=== PATIENT | female | born 1935 | race Caucasian/White ===

== ENCOUNTER 2019-03-09 17:16 | Inpatient (IN) ==
[~2019-03-09 17:16] MED LIST: HydrALAZINE HCL 20 MG/ML VIAL IV ONE
[2019-03-09] MEDS ORDERED: SODIUM CHLORIDE 0.9% 1000ML 1,000 ML IV SCH (17:45)
--- NOTE | 2019-03-09 18:00 | XRay Report ---
XR chest 1V portable CLINICAL HISTORY: 84 years-old Female presenting with seizure, fall last night. TECHNIQUE: Portable upright AP view of the chest was obtained. COMPARISON: 01/31/2019. FINDINGS: Atherosclerosis of the aortic arch. Cardiac silhouette enlarged. No focal opacity. No large effusion or pneumothorax. Degenerative changes of the thoracic spine. Upper abdomen normal. IMPRESSION: 1. Cardiomegaly. No other convincing evidence of acute cardiopulmonary disease. Electronically signed by: Danyel Angel M.D. 03/09/2019 5:58 PM
[2019-03-09 18:19] LABS: Basophils # (auto) 0.02 K/uL (0-0.2); Basophils % (auto) 0.3 %; Eosinophils # (auto) 0.16 K/uL (0-0.5); Eosinophils % (auto) 2.2 %; Hematocrit (blood only) 34.4 % (37-47); Hemoglobin 11.2 g/dL (12.0-16.0); Immature Granulocytes # (auto) 0.01 K/uL (0.00-0.02); Immature Granulocytes % (auto) 0.1 %; Lymphocytes # (auto) 1.49 K/uL (1.2-3.4); Lymphocytes % (auto) 20.8 %; Mean Corpuscular Hemoglobin 29.2 pg (25-34); Mean Corpuscular Hgb Conc 32.6 g/dL (32-36); Mean Corpuscular Volume 89.8 fL (80-100); Mean Platelet Volume 9.8 fL (7.4-10.4); Monocytes # (auto) 0.58 K/uL (0.11-0.59); Monocytes % (auto) 8.1 %; Neutrophils # (auto) 4.92 K/uL (1.4-6.5); Neutrophils % (auto) 68.5 %; Platelet Count 192 K/uL (130-400); RDW Coefficient of Variation 15.2 % (11.5-14.5); RDW Standard Deviation 49.9 fL (36.4-46.3); Red Blood Count 3.83 M/uL (4.2-5.4); White Blood Count 7.18 K/uL (4.8-10.8)
[2019-03-09 18:32] LABS: Appearance Urine Cloudy (Clear); Bacteria Urine Automated 4+ (Negative); Bilirubin Urine Negative (Negative); Blood Urine 3+ (Negative); Color Urine Yellow; Epithelial Cell Urine Auto 0-5 /lpf (0-5); Glucose Urine UA Negative (Negative); Ketones Urine Negative (Negative); Leukocyte Esterase Urine 2+ (Negative); Nitrite Urine Positive (Negative); Protein Urine Negative (Negative); RBC Urine Automated >30 /hpf (0-4); Specific Gravity Urine 1.013 (1.000-1.030); Urobilinogen Urine Negative (Negative); WBC Urine Automated >30 /hpf (0-5); pH Urine 5.5 (4.5-7.5)
[2019-03-09 18:34] LABS: Alanine Aminotransferase 11 U/L (12-78); Albumin Level 3.5 gm/dl (3.4-5.0); BUN Creatinine Ratio 25.8 (10-20); Blood Urea Nitrogen 30 mg/dl (7-18); Calcium 8.9 mg/dl (8.5-10.1); Carbon Dioxide 30 mmol/L (21-32); Chloride 104 mmol/L (98-107); Creatinine Clr Calc Pharmacy 36.8 ml/min; Est GFR (African American) 51.3; Est GFR (Non-African American) 44.3; Glucose 89 mg/dl (70-99); Potassium 4.2 mmol/L (3.5-5.1); Sodium 139 mmol/L (136-145)
[2019-03-09 18:41] LABS: Cast Urine Automated 0 /lpf (0-5)
[2019-03-09 18:45] LABS: Alkaline Phosphatase 53 U/L (45-117); Aspartate Aminotransferase 12 U/L (15-37); Bilirubin,Total 0.4 mg/dl (0.2-1); Globulin 3.5 gm/dl (2.5-4.0); Thyroid Stimulating Hormone 0.815 uIu/ml (0.300-4.500); Troponin I < 0.015 ng/ml (0-0.045)
--- NOTE | 2019-03-09 19:13 | CT Scan Report ---
CT SCAN OF THE BRAIN WITHOUT IV CONTRAST CLINICAL HISTORY: Recent fall. Seizure. COMPARISON STUDY: CT of the brain performed earlier the same day 03/09/2019. TECHNIQUE: Unenhanced axial CT scan of the brain is performed from the vertex to the skull base. A do se lowering technique was utilized adhering to the principles of ALARA. CT DOSE: 537.48 mGy.cm FINDINGS: Brain parenchyma: There are age-related involutional changes noting moderate subcortical and periven tricular microangiopathic change. There is no hemorrhage, mass effect, or evidence of acute territori al ischemia by CT criteria. Quintana-white matter differentiation is preserved. No extra-axial fluid kay ection is seen. Ventricles, sulci, cisterns: Prominent secondary to involutional change. Intracranial vasculature: There is atherosclerotic calcification of the cavernous carotid and vertebr al arteries. Calvarium: Unremarkable. Sinuses and mastoids: Mild mucosal thickening is noted in the ethmoid sinuses. The remaining visualiz ed paranasal sinuses are clear. The mastoid air cells are well pneumatized. Orbits: The bony orbits are grossly intact. There are bilateral ocular lens implants. IMPRESSION: No acute intracranial abnormality and no significant change from today's earlier examinat ion. Electronically signed by: Zaki Thompson M.D. 03/09/2019 7:10 PM
[2019-03-09] MEDS ORDERED: cefTRIAXone SODIUM 1,000 MG/50 ML BAG IV STA (20:18)
[2019-03-09] MEDS ORDERED: CEFEPIME 2,000 MG/20 ML VIAL IV STA (22:06)
[2019-03-09] MEDS ORDERED: HydrALAZINE HCL 20 MG/ML VIAL ONE (22:40)
--- NOTE | 2019-03-09 23:29 | Emergency Department Note ---
Entered by Don Edwards acting as a scribe for Hung Delcid MD ED Provider Note CHIEF COMPLAINT: Seizure like activity HISTORY OF PRESENT ILLNESS: The patient is an 84 year old female who presents to the Emergency Room with complaints of an episode of seizure like activity that occurred about 1.5 hours ago while at her assisted living facility. The incident occurred while the patient was doing physical therapy to strengthen her legs to walk. Per the daughter, the patient had a similar episode as a resident in [facility] that was not a seizure but was attributed to stressors in life. The daughter states that the patient was here last night after a fall where she hit her face. While here she had everything imaged and there were no fractures. The patient did complain of right leg pain that still persist today. For the pain the patient has been taking Tylenol with her last dose being at 15:00 today. The patient's daughter notes she has had a headache and then her blood pressure was checked it was elevated. The daughter also mentioned that she has a history of UTIs and staff at the longterm noticed her urine was cloudy and very dark. Pt denies LOC, headache, fevers, chills, diaphoresis, visual changes, neck pain, chest pain, breathing difficulties, nausea, vomiting, abdominal pain, back pain, melena, hematochezia, numbness, weakness, lymphadenopathy, rash, or other compl aints. REVIEW OF SYSTEMS: See HPI for pertinent positives and negatives. A total of ten systems were reviewed and were otherwise negative. PMHx/PSHx: Memory deficit, Head injury SOCIAL HISTORY: Patient lives at an assisted living facility. PHYSICAL EXAM: GENERAL: Awake, alert, well-appearing, in no distress HENT: Normocephalic. Abrasion and skin tear to the left cheek. Oropharynx unr emarkable. EYES: Normal conjunctiva. Sclera non-icteric. NECK: Inspection normal. Non-tender. Supple. No nuchal rigidity. FROM. No masses. RESPIRATORY: Clear to auscultation. No wheezes. No rales. Normal respiratory effort. CARDIAC: Bradycardic rate. Normal rhythm. No murmurs. No rubs. Extremities warm and well perfused. Pulses equal. No JVD. GI: Soft, non-distended. No tenderness to palpation. No rebound or guarding. No masses. RECTAL: Deferred. MUSCULOSKELETAL: Mild right knee tenderness with no erythema or bruising. Chest examination reveals no tenderness. The back is symmetrical on inspection without obvious abnormality. There is no CVA tenderness to palpation. No joint edema. LOWER EXTREMITIES: Calves are equal size bilaterally and non-tender. Trace lower extremity edema. No discoloration. NEURO: Demented sensorium. No sensory or motor deficits noted. SKIN: No rash or jaundice noted. EMERGENCY DEPARTMENT COURSE: 1736: Past medical records reviewed. The patient was evaluated in room B06, and a complete history and physical examination were performed. 2022: I reevaluated the patient and updated both her and her daughter. We discussed the treatment plan and the daughter would like for the patient to stay in the hospital. 2199: [facility]. He will be accepting the patient for further evaluation. MEDICAL DECISION MAKING: B6 Prior records/ancillary studies reviewed. CT imaging and x-ray imaging was reviewed. No acute trauma noted from the fall last night. Nursing notes reviewed and agree them. Additional history obtained from the patient's daughter The patient's history was concerning for a possible seizure and recent head trauma.. Differential diagnosis: Etiologies such as infection, hypoglycemia, electrolyte abnormalities, cardiac sources, intracerebral event, trauma, toxicologic, neurologic, as well as others were entertained. Physical examination: As above. Pleasantly demented but no neurologic deficits. GCS 15. ER treatment provided: IV Rocephin On reassessment the patient felt better. Cardiac monitoring: The patient was placed on continuous cardiac monitoring and observed. It revealed a sinus bradycardia with PACs but no evidence of dysrhythmia. Diagnostics interpretation by me: ECG: Sinus bradycardia with PACs. Prehospital ECG was reviewed. This showed a sinus bradycardia. There was artifact that caused the computer interpretation to note A. fib. The labs revealed an unremarkable CBC and chemistry panel. Urinalysis was very concerning for infection. Imaging studies: CT scan of the head was performed and was negative for any acute change. No bleeding. The patient had an episode of reported seizure-like activity. Daughter states she had an episode years ago that was similar when she was very stressed out. There is no true loss of consciousness with epileptic type activity. The patient is doing well. Unfortunately she is demented and has difficulty with providing detailed history. I discussed further management with the patient's daughter. She would feel comfortable having the patient stay overnight for observation and treatment. Given the episode and UTI I believe this is reasonable. Consultation: A consultation was placed with the [facility] hospitalist. The case was discussed and diagnostics were reviewed. The patient was evaluated for further treatment. IMPRESSION: UTI Seizure like activity Facial contusion Right leg pain PLAN: Being evaluated by hospitalist The scribe's documentation has been prepared under my direction and personally reviewed by me in its entirety. I confirm that the note above accurately reflect s all work, treatment, procedures, and medical decision making performed by me. Impression & Plan Acute UTI, Seizure-like activity, Contusion of face, Leg pain, right Past Med/Surg History Medical History Memory deficit Family History Other Family history non-contributory Social History Preferred Language: Spanish Communication Ability: Effective Feels Safe at Home: Yes Smoking Status: Never smoker Results & Data Vital Signs Vital Signs - 24 hr 03/09/19 17:03 03/09/19 17:41 03/09/19 19:14 Temperature 36.8 C Temperature Source Oral Sepsis Recent Fever Within 48 Hours No Sepsis New/Unexplained Change in Mental Status No Sepsis Action Taken by Nursing No Action Required Pulse Rate 55 L Pulse Rate [Apical] 53 L Pulse Rhythm Regular Pulse Strength Normal Respiratory Rate 16 16 Respiratory Effort / Characteristics Non-Labored Spontaneous Respiratory Depth Normal Respiratory Pattern Regular Blood Pressure 193/73 H Blood Pressure [Right Arm] 182/75 H Blood Pressure Mean 113 Blood Pressure Mean [Right Arm] 110 Blood Pressure Position Lying Pulse Oximetry 96 95 Oxygen Delivery Method Room Air Room Air 03/09/19 20:38 03/09/19 22:00 Temperature Temperature Source Sepsis Recent Fever Within 48 Hours Sepsis New/Unexplained Change in Mental Status Sepsis Action Taken by Nursing Pulse Rate Pulse Rate [Apical] 49 L 53 L Pulse Rhythm Pulse Strength Respiratory Rate 18 18 Respiratory Effort / Characteristics Non-Labored Respiratory Depth Normal Normal Respiratory Pattern Blood Pressure Blood Pressure [Right Arm] 170/57 H Blood Pressure Mean Blood Pressure Mean [Right Arm] 94 Blood Pressure Position Pulse Oximetry 97 95 Oxygen Delivery Method Room Air Room Air Home Medications Current Medication List: was personally reviewed by me Laboratory Data Attestation: I reviewed the patient's lab results. Result diagrams: 03/09/19 17:57 03/09/19 17:57 Lab Results 03/09/19 03/09/19 03/09/19 Range/Units 17:57 17:57 Unknown WBC 7.18 (4.8-10.8) K/uL RBC 3.83 L (4.2-5.4) M/uL Hgb 11.2 L (12.0-16.0) g/dL Hct 34.4 L (37-47) % MCV 89.8 (80-100) fL MCH 29.2 (25-34) pg MCHC 32.6 (32-36) g/dL RDW Std Deviation 49.9 H (36.4-46.3) fL RDW Coeff of Esmer 15.2 H (11.5-14.5) % Plt Count 192 (130-400) K/uL MPV 9.8 (7.4-10.4) fL Immature Gran % (Auto) 0.1 % Neut % (Auto) 68.5 % Lymph % (Auto) 20.8 % Luce % (Auto) 8.1 % Eos % (Auto) 2.2 % Baso % (Auto) 0.3 % Immature Gran # (Auto) 0.01 (0.00-0.02) K/uL Neut # (Auto) 4.92 (1.4-6.5) K/uL Lymph # (Auto) 1.49 (1.2-3.4) K/uL Luce # (Auto) 0.58 (0.11-0.59) K/uL Eos # (Auto) 0.16 (0-0.5) K/uL Baso # (Auto) 0.02 (0-0.2) K/uL Sodium 139 (136-145) mmol/L Potassium 4.2 (3.5-5.1) mmol/L Chloride 104 (98-107) mmol/L Carbon Dioxide 30 (21-32) mmol/L Anion Gap 5.0 (3-11) BUN 30 H (7-18) mg/dl Creatinine 1.15 (0.6-1.2) mg/dl Est Cr Clr Drug Dosing 36.8 ml/min Est GFR ( Amer) 51.3 Est GFR (Non-Af Amer) 44.3 BUN/Creatinine Ratio 25.8 H (10-20) Glucose 89 (70-99) mg/dl Calcium 8.9 (8.5-10.1) mg/dl Magnesium 2.0 (1.8-2.4) mg/dl Total Bilirubin 0.4 (0.2-1) mg/dl AST 12 L (15-37) U/L ALT 11 L (12-78) U/L Alkaline Phosphatase 53 (45-117) U/L Troponin I < 0.015 (0-0.045) ng/ml Total Protein 7.0 (6.4-8.2) gm/dl Albumin 3.5 (3.4-5.0) gm/dl Globulin 3.5 (2.5-4.0) gm/dl Albumin/Globulin Ratio 1.0 (0.9-2) TSH 0.815 (0.300-4.500) uIu/ml Urine Color Yellow Urine Appearance Cloudy A (Clear) Urine pH 5.5 (4.5-7.5) Ur Specific Mer[place]old 1.013 (1.000-1.030) Urine Protein Negative (Negative) Urine Glucose (UA) Negative (Negative) Urine Ketones Negative (Negative) Urine Blood 3+ H (Negative) Urine Nitrite Positive A (Negative) Urine Bilirubin Negative (Negative) Urine Urobilinogen Negative (Negative) Ur Leukocyte Esterase 2+ H (Negative) Urine WBC (Auto) >30 H (0-5) /hpf Urine RBC (Auto) >30 H (0-4) /hpf U Hyaline Cast (Auto) 0 (0-5) /lpf U Epithel Cells (Auto) 0-5 (0-5) /lpf Urine Bacteria (Auto) 4+ H (Negative) Administered Medications Sodium Chloride (Nss 1000ml) 1,000 mls @ 125 mls/hr IV .Q8H [facility] Stop: 03/10/19 01:44 Last Admin: 03/09/19 18:15 Dose: 125 mls/hr Documented by: [id number] Discontinued Medications Hydralazine HCl (Hydralazine Hcl) 2.5 mg IV NOW ONE Stop: 03/09/19 02:42 Last Admin: 03/09/19 22:43 Dose: 2.5 mg Documented by: [id number] Hydralazine HCl (Hydralazine Hcl) Confirm Administered Dose 20 mg .ROUTE .STK- MED ONE Stop: 03/09/19 22:41 Last Admin: 03/09/19 22:44 Dose: Not Given Documented by: [id number] Ceftriaxone Sodium (Rocephin) 1,000 mg in 50 mls @ 100 mls/hr IV NOW STA Stop: 03/09/19 20:47 Last Infusion: 03/09/19 21:03 Dose: 0 mls/hr Documented by: [id number] Admin: 03/09/19 20:23 Dose: 100 mls/hr Documented by: [id number] Cefepime HCl (Maxipime) 2,000 mg in 20 mls @ 5 mls/min IV NOW STA; Protocol Stop: 03/09/19 22:09 Last Admin: 03/09/19 22:44 Dose: 5 mls/min Documented by: [id number] Imaging Data Radiologist's Impression: Radiology results as stated below per my review and the radiologist's interpretation: XR chest 1V portable CLINICAL HISTORY: 84 years-old Female presenting with seizure, fall last night. TECHNIQUE: Portable upright AP view of the chest was obtained. COMPARISON: 01/31/2019. FINDINGS: Atherosclerosis of the aortic arch. Cardiac silhouette enlarged. No focal opacity. No large effusion or pneumothorax. Degenerative changes of the thoracic spine. Upper abdomen normal. IMPRESSION: 1. Cardiomegaly. No other convincing evidence of acute cardiopulmonary disease. Electronically signed by: Danyel Angel M.D. 03/09/2019 5:[address] SCAN OF THE BRAIN WITHOUT IV CONTRAST CLINICAL HISTORY: Recent fall. Seizure. COMPARISON STUDY: CT of the brain performed earlier the same day 03/09/2019. TECHNIQUE: Unenhanced axial CT scan of the brain is performed from the vertex to the skull base. A dose lowering technique was utilized adhering to the principles of ALARA. CT DOSE: 537.48 mGy.cm FINDINGS: Brain parenchyma: There are age-related involutional changes noting moderate subcortical and periventricular microangiopathic change. There is no hemorrhage, mass effect, or evidence of acute territorial ischemia by CT criteria. Quintana- white matter differentiation is preserved. No extra-axial fluid collection is seen. Ventricles, sulci, cisterns: Prominent secondary to involutional change. Intracranial vasculature: There is atherosclerotic calcification of the cavernous carotid and vertebral arteries. Calvarium: Unremarkable. Sinuses and mastoids: Mild mucosal thickening is noted in the ethmoid sinuses. The remaining visualized paranasal sinuses are clear. The mastoid air cells are well pneumatized. Orbits: The bony orbits are grossly intact. There are bilateral ocular lens implants. IMPRESSION: No acute intracranial abnormality and no significant change from today's earlier examination. Electronically signed by: Zaki Thompson M.D. 03/09/2019 7:10 PM ECG Data Attestation: I personally reviewed and interpreted this ECG as follows: Indication: altered mental status Rate (beats per minute): 56 Rhythm: sinus bradycardia Findings: + PAC; no PVC, no ST depression and no ST elevation Blood Pressure Blood Pressure Findings: Elevated blood pressure Blood Pressure Disposition: further management by hospitalist Discharge Plan Visit Data Chief Complaint: Fall Stated Complaint: POSSIBLE SEIZURE, PAIN BEHIND KNEES ED Provider: Hung Delcid Discharge Problem: Acute UTI, Seizure-like activity, Contusion of face, Leg pain, right Patient Disposition: Being Evaluated by Hospitalist Forms Stand Alone Forms: My [facility] Prescriptions Prescriptions: No Action allopurinol 100 mg tablet 100 mg PO DAILY RF: 0 aspirin 81 mg tablet,delayed release (DR/EC) 81 mg PO DAILY RF: 0 colestipol 1 gram tablet 1 g PO BID RF: 0 trazodone 100 mg Tablet 100 mg PO DAILY RF: 0 ezetimibe 10 mg tablet 10 mg PO DAILY RF: 0 melatonin 5 mg tablet 5 mg PO HS RF: 0 multivitamin [Daily-Valorie] Tablet 1 tab PO DAILY RF: 0 quetiapine 25 mg tablet 12.5 mg PO BID RF: 0 hydralazine 10 mg Tablet 10 mg PO Q6H PRN (Reason: Hypertension) RF: 0 meclizine 12.5 mg Tablet 12.5 mg PO TID RF: 0 ascorbic acid (vitamin C) [Vitamin C] 500 mg Tablet 500 mg PO DAILY RF: 0 metoprolol succinate 25 mg Tablet Extended Release 24 Hr 25 mg PO DAILY RF: 0 losartan 100 mg Tablet 100 mg PO DAILY RF: 0 acetaminophen 500 mg Capsule 1,000 mg PO BID RF: 0 acetaminophen 500 mg Capsule 1,000 mg PO DAILY PRN (Reason: Fever Or Pain) RF: 0 Saccharomyces boulardii 250 mg Capsule PO DIRECTED RF: 0 omega 8-bmp-exu-fish oil [Fish Oil] 1,000 mg (120 mg-180 mg) Capsule 1 cap PO DAILY RF: 0 carbidopa-levodopa 25-100 mg Tablet 0.5 tab PO TID RF: 0 hydrochlorothiazide 12.5 mg tablet 12.5 mg PO DAILY RF: 0 potassium chloride [Klor-Con] 20 mEq Packet 20 meq PO DAILY RF: 0 [facility]errals [facility] - Discharge Problem: Contusion of face Qualifiers: Encounter type: initial encounter Qualified Code(s): S00.83XA - Contusion of other part of head, initial encounter The scribe's documentation has been prepared under my direction and personally reviewed by me in its entirety. I confirm that the note above accurately reflects all work, treatment, procedures, and medical decision making performed by me.
--- NOTE | 2019-03-09 23:32 | History & Physical Report ---
Date of Service March 09, 2019 Assessment & Plan (1) Seizure-like activity: Possible recurrent episode (Daughter who has experienced caring for an individual with seizure disorder gives history of witnessed GTC episode at rehab facility 2 months ago.) Possibly precipitated by complicated UTI No sepsis for now. dementia as per records CAD as per records hypertensive urgency Chronic bradycardia hyperlipidemia as per records chronic anemia, hemoglobin at baseline Leg pain as per family rule out DVT OBS Medical telemetry given hypertensive urgency Switch patient's Lopressor to Coreg given bradycardia Initiate Amlodipine if still uncontrolled. EEG, MRI brain, Neurology consult RE possible seizure disorder Keppra IV 1 dose for possible seizure disorder. Ativan as needed active seizures, seizure precautions. Hold off on additional maintenance AED for now until patient seen by Neurology. Follow urine cultures, IV Cefepime for now LE venous Dopplers rule out DVT DVT prophylaxis. Lovenox subcu Full code as per daughter/POA, Ms. Radha Del Toro. She requests updates from providers through [id number] 08/03 [id number]. History of Present Illness Chief Complaint: Possible seizures as per records Primary Care Provider: [facility] History obtained from patient, family, and records. Limited history from patient secondary to dementia. Medical history significant for dementia, CAD as per records, hypertension, hyperlipidemia, chronic anemia (baseline hemoglobin 9-10). Patient noted to have generalized tonic-clonic seizures lasting about 40 seconds as per daughter about 2 months ago during stay at rehab facility prior to transitioning to current personal retirement residence. No work-up done as per daughter. Patient seen at the ER earlier this morning for fall from bed leading to some facial injury. Patient complaining of leg pain. Unremarkable imaging at the ER. Patient discharged back to [facility]. This afternoon, patient noted to have seizure-like activity lasting for a few minutes while having physical therapy. As per patient's daughter, patient later complained of left-sided headache going into her eye. No tongue biting, incontinence noted. Patient brought to the ER for evaluation. Patient has no recollection of seizure-like episode. Patient's denies chest pain, S OB, abdominal pain, dysuria, diarrhea. At the ER, patient received IV Ceftriaxone for possible UTI. 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 Allergies Allergy/AdvReac Type Severity Reaction Status Date / Time iodine Allergy Unknown Unknown Verified 03/09/19 17:41 memantine Allergy Unknown Unknown Verified 03/09/19 17:41 pantoprazole Allergy Unknown Unknown Verified 03/09/19 17:41 shellfish derived Allergy Unknown Unknown Verified 03/09/19 17:41 crab Allergy Gastrointestinal Verified 03/09/19 17:41 Upset Home Medications Home Medications Medication Instructions Recorded Confirmed Type allopurinol 100 mg PO DAILY 06/27/18 03/09/19 History aspirin 81 mg PO DAILY 06/27/18 03/09/19 History colestipol 1 g PO BID 06/27/18 03/09/19 History ezetimibe 10 mg PO DAILY 06/27/18 03/09/19 History melatonin 5 mg PO HS 06/27/18 03/09/19 History trazodone 100 mg PO DAILY 06/27/18 03/09/19 History Saccharomyces boulardii 0 mg PO DIRECTED 01/31/19 03/09/19 History acetaminophen 1,000 mg PO BID 01/31/19 03/09/19 History acetaminophen 1,000 mg PO DAILY PRN 01/31/19 03/09/19 History ascorbic acid (vitamin C) [Vitamin 500 mg PO DAILY 01/31/19 03/09/19 History C] hydralazine 10 mg PO Q6H PRN 01/31/19 03/09/19 History losartan 100 mg PO DAILY 01/31/19 03/09/19 History meclizine 12.5 mg PO TID 01/31/19 03/09/19 History metoprolol succinate 25 mg PO DAILY 01/31/19 03/09/19 History multivitamin [Daily-Valorie] 1 tab PO DAILY 01/31/19 03/09/19 History omega 6-bvt-pyr-fish oil [Fish Oil] 1 cap PO DAILY 01/31/19 03/09/19 History quetiapine 12.5 mg PO BID 01/31/19 03/09/19 History carbidopa-levodopa 0.5 tab PO TID 03/09/19 03/09/19 History hydrochlorothiazide 12.5 mg PO DAILY 03/09/19 03/09/19 History potassium chloride [Klor-Con] 20 meq PO DAILY 03/09/19 03/09/19 History Past Med/Surg History Medical History Memory deficit Family History Other Family history non-contributory Social History Preferred Language: Khmer Communication Ability: Impaired Risk Management Manager Required: No Beliefs That Will Affect Care: None Current Living Situation: Personal Care Facility Current Living Situation Comment: [facility] Feels Safe at Home: Yes Safety Concerns: Feels Safe At This Time Smoking Status: Never smoker Hx Alcohol Use: No Hx Substance Use: No Review of Systems Review of Systems: Could not be reliably obtained Physical Exam Physical Exam: GENERAL: Comfortable, demented, no respiratory distress SKIN: Pallor , warm HEENT: pale palpebral conjunctivae, no ptosis, moist buccal mucosa, bandage over left sabianism NECK : Supple, short neck, no tenderness CHEST : CTA, no tenderness HEART : Bradycardic , no obvious murmurs ABDOMEN: Some distention, nontender EXTREMITIES : Minimal LE swelling, no LE tenderness, no other conspicuous de formities noted NEUROLOGIC : Demented , no facial asymmetry, no other gross focality Results & Data Vital Signs (Past 12 Hours) Vital Signs Temp Pulse Pulse Resp BP BP Pulse Ox 03/09/19 22:00 53 L 18 170/57 H 95 03/09/19 20:38 49 L 18 97 03/09/19 19:14 53 L 16 182/75 H 03/09/19 17:41 95 03/09/19 17:03 36.8 C 55 L 16 193/73 H 96 Laboratory Results Laboratory Results WBC 7.18 K/uL (4.8-10.8) 03/09/19 17:57 RBC 3.83 M/uL (4.2-5.4) L 03/09/19 17:57 Hgb 11.2 g/dL (12.0-16.0) L 03/09/19 17:57 Hct 34.4 % (37-47) L 03/09/19 17:57 MCV 89.8 fL (80-100) 03/09/19 17:57 MCH 29.2 pg (25-34) 03/09/19 17:57 MCHC 32.6 g/dL (32-36) 03/09/19 17:57 RDW Std Deviation 49.9 fL (36.4-46.3) H 03/09/19 17:57 RDW Coeff of Esmer 15.2 % (11.5-14.5) H 03/09/19 17:57 Plt Count 192 K/uL (130-400) 03/09/19 17:57 MPV 9.8 fL (7.4-10.4) 03/09/19 17:57 Immature Gran % (Auto) 0.1 % 03/09/19 17:57 Neut % (Auto) 68.5 % 03/09/19 17:57 Lymph % (Auto) 20.8 % 03/09/19 17:57 [place] % (Auto) 8.1 % 03/09/19 17:57 Eos % (Auto) 2.2 % 03/09/19 17:57 Baso % (Auto) 0.3 % 03/09/19 17:57 Immature Gran # (Auto) 0.01 K/uL (0.00-0.02) 03/09/19 17:57 Neut # (Auto) 4.92 K/uL (1.4-6.5) 03/09/19 17:57 Lymph # (Auto) 1.49 K/uL (1.2-3.4) 03/09/19 17:57 [place] # (Auto) 0.58 K/uL (0.11-0.59) 03/09/19 17:57 Eos # (Auto) 0.16 K/uL (0-0.5) 03/09/19 17:57 Baso # (Auto) 0.02 K/uL (0-0.2) 03/09/19 17:57 Sodium 139 mmol/L (136-145) 03/09/19 17:57 Potassium 4.2 mmol/L (3.5-5.1) 03/09/19 17:57 Chloride 104 mmol/L (98-107) 03/09/19 17:57 Carbon Dioxide 30 mmol/L (21-32) 03/09/19 17:57 Anion Gap 5.0 (3-11) 03/09/19 17:57 BUN 30 mg/dl (7-18) H 03/09/19 17:57 Creatinine 1.15 mg/dl (0.6-1.2) 03/09/19 17:57 Est Cr Clr Drug Dosing 36.8 ml/min 03/09/19 17:57 Est GFR ( Amer) 51.3 03/09/19 17:57 Est GFR (Non-Af Amer) 44.3 03/09/19 17:57 BUN/Creatinine Ratio 25.8 (10-20) H 03/09/19 17:57 Glucose 89 mg/dl (70-99) 03/09/19 17:57 Calcium 8.9 mg/dl (8.5-10.1) 03/09/19 17:57 Magnesium 2.0 mg/dl (1.8-2.4) 03/09/19 17:57 Total Bilirubin 0.4 mg/dl (0.2-1) 03/09/19 17:57 AST 12 U/L (15-37) L 03/09/19 17:57 ALT 11 U/L (12-78) L 03/09/19 17:57 Alkaline Phosphatase 53 U/L (45-117) 03/09/19 17:57 Troponin I < 0.015 ng/ml (0-0.045) 03/09/19 17:57 Total Protein 7.0 gm/dl (6.4-8.2) 03/09/19 17:57 Albumin 3.5 gm/dl (3.4-5.0) 03/09/19 17:57 Globulin 3.5 gm/dl (2.5-4.0) 03/09/19 17:57 Albumin/Globulin Ratio 1.0 (0.9-2) 03/09/19 17:57 TSH 0.815 uIu/ml (0.300-4.500) 03/09/19 17:57 Urine Color Yellow 03/09/19 Unknown Urine Appearance Cloudy (Clear) A 03/09/19 Unknown Urine pH 5.5 (4.5-7.5) 03/09/19 Unknown Ur Specific [place] 1.013 (1.000-1.030) 03/09/19 Unknown Urine Protein Negative (Negative) 03/09/19 Unknown Urine Glucose (UA) Negative (Negative) 03/09/19 Unknown Urine Ketones Negative (Negative) 03/09/19 Unknown Urine Blood 3+ (Negative) H 03/09/19 Unknown Urine Nitrite Positive (Negative) A 03/09/19 Unknown Urine Bilirubin Negative (Negative) 03/09/19 Unknown Urine Urobilinogen Negative (Negative) 03/09/19 Unknown Ur Leukocyte Esterase 2+ (Negative) H 03/09/19 Unknown Urine WBC (Auto) >30 /hpf (0-5) H 03/09/19 Unknown Urine RBC (Auto) >30 /hpf (0-4) H 03/09/19 Unknown U Hyaline Cast (Auto) 0 /lpf (0-5) 03/09/19 Unknown U Epithel Cells (Auto) 0-5 /lpf (0-5) 03/09/19 Unknown Urine Bacteria (Auto) 4+ (Negative) H 03/09/[address] head: No acute intracranial abnormality and no significant change from today's earlier examination. Chest x-ray showed cardiomegaly EKG as per my interpretation : Rate 55, sinus bradycardia, PACs
[2019-03-09 23:36] LABS: Creatine Kinase 45 U/L (26-192)
[2019-03-10] MEDS ORDERED: LORazepam 1 MG/2 ML VIAL IV PRN (00:32)
[2019-03-10] MEDS: ACETAMINOPHEN 325 MG TAB PO PRN (02:50)
[2019-03-10] MEDS ORDERED: LISINOPRIL 2.5 MG TAB PO SCH (03:15)
[2019-03-10] MEDS ORDERED: CEFEPIME CONSULT ACTIVE PRN (03:19)
[2019-03-10 06:52] LABS: Basophils # (auto) 0.03 K/uL (0-0.2); Basophils % (auto) 0.4 %; Eosinophils # (auto) 0.19 K/uL (0-0.5); Eosinophils % (auto) 2.8 %; Hematocrit (blood only) 32.7 % (37-47); Hemoglobin 10.7 g/dL (12.0-16.0); Immature Granulocytes # (auto) 0.01 K/uL (0.00-0.02); Immature Granulocytes % (auto) 0.1 %; Lymphocytes # (auto) 1.44 K/uL (1.2-3.4); Lymphocytes % (auto) 21.2 %; Mean Corpuscular Hemoglobin 29.1 pg (25-34); Mean Corpuscular Hgb Conc 32.7 g/dL (32-36); Mean Corpuscular Volume 88.9 fL (80-100); Monocytes # (auto) 0.52 K/uL (0.11-0.59); Monocytes % (auto) 7.7 %; Neutrophils % (auto) 67.8 %; Platelet Count 179 K/uL (130-400); RDW Coefficient of Variation 15.1 % (11.5-14.5); RDW Standard Deviation 49.2 fL (36.4-46.3); Red Blood Count 3.68 M/uL (4.2-5.4); White Blood Count 6.79 K/uL (4.8-10.8)
[2019-03-10 07:02] LABS: Prothrombin Time 10.5 Seconds (9.0-12.0)
--- NOTE | 2019-03-10 07:43 | Electroencephalogram ---
EEG Procedure Note Date of Service March 10, 2019 Start / End Times Start Time: 07:20 End Time: 07:[address] Juanito Finnegan History An 84 year old woman with dementia and witnessed seizure like activity. EEG performed for evaluation of epileptiform activity. Home Medication List Home Medications Medication Instructions Recorded Confirmed Type allopurinol 100 mg PO DAILY 06/27/18 03/09/19 History aspirin 81 mg PO DAILY 06/27/18 03/09/19 History colestipol 1 g PO BID 06/27/18 03/09/19 History ezetimibe 10 mg PO DAILY 06/27/18 03/09/19 History melatonin 5 mg PO HS 06/27/18 03/09/19 History trazodone 100 mg PO DAILY 06/27/18 03/09/19 History Saccharomyces boulardii 0 mg PO DIRECTED 01/31/19 03/09/19 History acetaminophen 1,000 mg PO BID 01/31/19 03/09/19 History acetaminophen 1,000 mg PO DAILY PRN 01/31/19 03/09/19 History ascorbic acid (vitamin C) [Vitamin 500 mg PO DAILY 01/31/19 03/09/19 History C] hydralazine 10 mg PO Q6H PRN 01/31/19 03/09/19 History losartan 100 mg PO DAILY 01/31/19 03/09/19 History meclizine 12.5 mg PO TID 01/31/19 03/09/19 History metoprolol succinate 25 mg PO DAILY 01/31/19 03/09/19 History multivitamin [Daily-Valorie] 1 tab PO DAILY 01/31/19 03/09/19 History omega 2-tui-pnr-fish oil [Fish Oil] 1 cap PO DAILY 01/31/19 03/09/19 History quetiapine 12.5 mg PO BID 01/31/19 03/09/19 History carbidopa-levodopa 0.5 tab PO TID 03/09/19 03/09/19 History hydrochlorothiazide 12.5 mg PO DAILY 03/09/19 03/09/19 History potassium chloride [Klor-Con] 20 meq PO DAILY 03/09/19 03/09/19 History Inpatient Medication List Acetaminophen (Tylenol) 650 mg PO Q4H PRN PRN Reason: pain/fever Stop: 04/09/19 00:31 Last Admin: 03/10/19 02:50 Dose: 650 mg Documented by: [id number] Lisinopril (Zestril) 2.5 mg PO QAM JJ Stop: 04/09/19 03:14 Last Admin: 03/10/19 04:03 Dose: 2.5 mg Documented by: [id number] Discontinued Medications Hydralazine HCl (Hydralazine Hcl) 2.5 mg IV NOW ONE Stop: 03/09/19 02:42 Last Admin: 03/09/19 22:43 Dose: 2.5 mg Documented by: [id number] Hydralazine HCl (Hydralazine Hcl) Confirm Administered Dose 20 mg .ROUTE .STK- MED ONE Stop: 03/09/19 22:41 Last Admin: 03/09/19 22:44 Dose: Not Given Documented by: [id number] Sodium Chloride (Nss 1000ml) 1,000 mls @ 125 mls/hr IV .Q8H JJ Stop: 03/10/19 01:44 Last Infusion: 03/10/19 00:33 Dose: 0 mls/hr Documented by: [id number] Infusion: 03/10/19 00:33 Dose: 0 mls/hr Documented by: [id number] Admin: 03/09/19 18:15 Dose: 125 mls/hr Documented by: [id number] Ceftriaxone Sodium (Rocephin) 1,000 mg in 50 mls @ 100 mls/hr IV NOW STA Stop: 03/09/19 20:47 Last Infusion: 03/09/19 21:03 Dose: 0 mls/hr Documented by: [id number] Admin: 03/09/19 20:23 Dose: 100 mls/hr Documented by: [id number] Cefepime HCl (Maxipime) 2,000 mg in 20 mls @ 5 mls/min IV NOW STA; Protocol Stop: 03/09/19 22:09 Last Admin: 03/09/19 22:44 Dose: 5 mls/min Documented by: [id number] Levetiracetam 1,000 mg/ (Dextrose) 110 mls @ 440 mls/hr IV NOW STA Stop: 03/10/19 01:16 Last Infusion: 03/10/19 01:52 Dose: 0 mls/hr Documented by: [id number] Admin: 03/10/19 01:30 Dose: 440 mls/hr Documented by: [id number] Description This is a 21 electrode EEG with a single channel dedicated to limited EKG. The electrodes were placed in accordance with the International 10-20 system REPORT: At the onset of the EEG, the patient is asleep. The posterior dominant rhythm is not well see in this recording. The background predominantly consist of 5-7 Hz theta activity with intermixed polymorphic 2-3 Hz delta activity. Stepwise intermittent photic stimulation does not induce any abnormalities. Drowsiness is characterized by low amplitude mixed frequency activity, roving eye movements, and decreased eye blinking and muscle artifact. IMPRESSION: This is an abnormal predominantly asleep routine EEG due generalized background slowing suggestive of a non specific encephalopathy. The patient is asleep for most of the 20 minute record with brief periods of arousal. A repeat EEG when patient is more alert may useful to better characterize wake background. There is NO epileptiform discharges recorded.
--- NOTE | 2019-03-10 08:39 | Ultrasound Report ---
US venous doppler LE BI HISTORY: Pain. Edema. leg pain COMPARISON STUDY: None. FINDINGS: There is normal compressibility, flow, and augmentation within the bilateral lower extremit y deep venous systems. IMPRESSION: No DVT within the right or left lower extremity. The above report was generated using voice recognition software. It may contain grammatical, syntax or spelling errors. Electronically signed by: Say Sun M.D. 03/10/2019 8:38 AM
[2019-03-10] MEDS: LOSARTAN POTASSIUM 50 MG TAB PO SCH (08:43)
[2019-03-10] MEDS: ALLOPURINOL 100 MG TAB PO SCH (08:43)
[2019-03-10] MEDS: SACCHAROMYCES BOULARDII 250 MG CAP PO SCH (08:43)
[2019-03-10] MEDS: MULTIVITAMIN TAB PO SCH (08:43)
[2019-03-10] MEDS: ASPIRIN 81 MG ECTAB PO SCH (08:43)
[2019-03-10] MEDS: CARBIDOPA/LEVODOPA 25/100MG TAB PO SCH ×2 (08:44→13:27)
[2019-03-10] MEDS: QUETIAPINE FUMARATE 25 MG TABLET PO SCH ×2 (08:44→20:55)
[2019-03-10] MEDS: TRAZODONE HCL 100 MG TAB PO SCH (08:44)
[2019-03-10] MEDS: CARVEDILOL 3.125 MG TAB PO SCH ×2 (08:44→20:55)
[2019-03-10] MEDS: ENOXAPARIN INJ 30 MG/0.3 ML SYR SQ SCH (08:45)
[2019-03-10] MEDS: COLESTIPOL HCL 1 GM TAB PO SCH ×2 (09:30→21:41)
[2019-03-10] MEDS ORDERED: GADOBUTROL 65ML VIAL IV PRN (10:56)
--- NOTE | 2019-03-10 11:20 | Magnetic Resonance Report ---
Brain MRI WITH AND WITHOUT CONTRAST HISTORY: Confusion. poss seizures TECHNIQUE: Multiplanar multisequence MRI of the brain was performed both before and after the intrave nous administration of contrast. COMPARISON STUDY: Head CT 03/09/2019. FINDINGS: No areas of restricted diffusion to suggest acute infarction. The cerebellar tonsils are po sitioned 9 mm below the level of the foramen magnum and results in minimal mass effect along the medu lla. This is consistent with a Chiari I malformation. Mild mucosal thickening within the paranasal si nuses and a small retention cyst within the floor the left maxillary sinus. The mastoid air cells are clear. The major vascular flow voids at the skull base are well-maintained. There is no mass, hemato ma, midline shift. Prominence of the ventricles may be due to central volume loss given the patient's age. Periventricular and subcortical white matter T2 hyperintensity is nonspecific but suggestive of moderate microvascular ischemic change. No abnormal enhancement. IMPRESSION: 1. No acute intracranial abnormality. 2. Chiari 1 malformation. No definite hydrocephalus. Prominence of the ventricles is likely due to ce ntral volume loss given the patient's age. 3. Periventricular and subcortical white matter T2 hyperintensities are nonspecific but suggestive of moderate microvascular ischemic change. Electronically signed by: Tristin Gutiérrez M.D. 03/10/2019 11:19 AM
--- NOTE | 2019-03-10 13:51 | Neurology Consultation ---
Date of Consultation March 10, 2019 Assessment & Plan (1) Seizure-like activity: 1. seizure like activity x 2 - discussed with Daughter she witnessed one of the episode and she feels it was a seizure 2. start Depakote 250 mg BID 3. dementia delirium - discussed with daughter she feels since starting the Sinemet she has been more confused and her mood has changed. she is currently only taking 0.5 tab TID so will stop for now 4. UTI- treat to culture 5. restart seraquel 12.5 BID - for mood issues if she does not improve would consult psychiatry 6. PT/OT for discharge needs 7. once back to baseline would transition back to [facility] 8. MRI - no acute findings Supervising Physician Co-Signing Physician Notes Patient was seen and examined. No family at bedside. Patient awake and disoriented. History obtained via chart. An 84 year old woman with dementia (?vascular) admitted with witnessed seizure per family. Also noted to have similar episode 2 months ago. Routine EEG showed generalized slowing. No epileptiform discharges. 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 This may help with reported agitation. - Will defer to primary team for treatment of UTI - Agree with gradual reduction in blood pressures Follow up with Neurology in 8 -weeks History of Present Illness Reason for Consultation: poss. Seizure Requesting Physician: Natalie Chapman MD Attending Physician: Natalie Chapman MD History of Present Illness Chela is a 84 year old female with PMH- dementia, CAD, HTN, HLD, chronic anemia (baseline hemoglobin 9-10). she had a witnessed generalized tonic clonic seizure lasting about 40 seconds reported by her daughter about 2 months ago during her rehab stay transitioning to her [facility]. She had a fall from bed leading to some facial injury was brought to the hospital and then discharged back to [facility] and then had a seizure like activity lasting for a few minutes while having PT> She also complained of left sided headache going into her eye. no biting her tongue or incontinence. Currently she is resting in bed. She is fixed on her family not being here and insists she is at home. denies CP, SOB, abdominal pain, one sided weakness, numbness tingling, N, V, vision changes, swallowing issues. Allergies Allergy/AdvReac Type Severity Reaction Status Date / Time iodine Allergy Unknown Unknown Verified 03/09/19 17:41 memantine Allergy Unknown Unknown Verified 03/09/19 17:41 pantoprazole Allergy Unknown Unknown Verified 03/09/19 17:41 shellfish derived Allergy Unknown Unknown Verified 03/09/19 17:41 crab Allergy Gastrointestinal Verified 03/09/19 17:41 Upset Home Medications Home Medications Medication Instructions Recorded Confirmed Type allopurinol 100 mg PO DAILY 06/27/18 03/09/19 History aspirin 81 mg PO DAILY 06/27/18 03/09/19 History colestipol 1 g PO BID 06/27/18 03/09/19 History ezetimibe 10 mg PO DAILY 06/27/18 03/09/19 History melatonin 5 mg PO HS 06/27/18 03/09/19 History trazodone 100 mg PO DAILY 06/27/18 03/09/19 History Saccharomyces boulardii 0 mg PO DIRECTED 01/31/19 03/09/19 History acetaminophen 1,000 mg PO BID 01/31/19 03/09/19 History acetaminophen 1,000 mg PO DAILY PRN 01/31/19 03/09/19 History ascorbic acid (vitamin C) [Vitamin 500 mg PO DAILY 01/31/19 03/09/19 History C] hydralazine 10 mg PO Q6H PRN 01/31/19 03/09/19 History losartan 100 mg PO DAILY 01/31/19 03/09/19 History meclizine 12.5 mg PO TID 01/31/19 03/09/19 History metoprolol succinate 25 mg PO DAILY 01/31/19 03/09/19 History multivitamin [Daily-Valorie] 1 tab PO DAILY 01/31/19 03/09/19 History omega 9-wwa-oex-fish oil [Fish Oil] 1 cap PO DAILY 01/31/19 03/09/19 History quetiapine 12.5 mg PO BID 01/31/19 03/09/19 History carbidopa-levodopa 0.5 tab PO TID 03/09/19 03/09/19 History hydrochlorothiazide 12.5 mg PO DAILY 03/09/19 03/09/19 History potassium chloride [Klor-Con] 20 meq PO DAILY 03/09/19 03/09/19 History Patient History Medical History Memory deficit Family History Other Family history non-contributory Social History Preferred Language: Maltese Communication Ability: Impaired Smoke Room Operator Required: No Beliefs That Will Affect Care: None Current Living Situation: Personal Care Facility Current Living Situation Comment: [facility] Feels Safe at Home: Yes Safety Concerns: Feels Safe At This Time Smoking Status: Never smoker Hx Alcohol Use: No Hx Substance Use: No Physical Exam Physical Exam: Physical Exam: Constitutional: appearance nourished, healthy, agitated Ears, Nose, Mouth and Throat: mucous membranes moist, no injection and skin normal, eyes normal Cardiovascular: normal S-1 and S-2 and regular rate and rhythm Respiratory: clear to auscultation (CTA) and no rales, rhonchi or wheeze Musculoskeletal: no peripheral edema and good distal pulses Skin: no stigmata of neurocutaneous disease noted and normal and intact Eyes: extraocular muscles intact (EOMI) and pupils equal, round and reactive to light (PERRL) NEUROLOGIC EXAMINATION: Mental status: Alert and interactive, very confused thinks she is at home and cant understand where her daughters are. Oriented to person Speech fluent with no evidence of aphasia Cranial Nerves smile eye brow raise symmetric Reflexes: Deep tendon reflexes were symmetrical and graded 2/5. Sensory: no deficit to light or cool touch Coordination: finger to nose no bi pass Gait/Stance: Posture normal lying in bad Motor: Negative for pronator drift of out stretched arms with eyes closed. 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, right 4+/5, left 5/5, hip flex 5/5, plantar flex ext 5/5 Results & Data Vital Signs (Past 12 Hours) Vital Signs Temp Pulse Pulse Resp BP BP Pulse Ox 03/10/19 11:27 36.3 C L 48 L 18 155/59 H 97 03/10/19 11:25 56 L 03/10/19 07:33 56 L 03/10/19 02:53 36.7 C 52 L 16 181/66 H 177/73 H 95 03/10/19 01:54 54 L Laboratory Results Abnormal lab results 03/09/19 03/09/19 03/09/19 Range/Units 17:57 17:57 Unknown RBC 3.83 L (4.2-5.4) M/uL Hgb 11.2 L (12.0-16.0) g/dL Hct 34.4 L (37-47) % RDW Std Deviation 49.9 H (36.4-46.3) fL RDW Coeff of Esmer 15.2 H (11.5-14.5) % BUN 30 H (7-18) mg/dl BUN/Creatinine Ratio 25.8 H (10-20) AST 12 L (15-37) U/L ALT 11 L (12-78) U/L Urine Appearance Cloudy A (Clear) Urine Blood 3+ H (Negative) Urine Nitrite Positive A (Negative) Ur Leukocyte Esterase 2+ H (Negative) Urine WBC (Auto) >30 H (0-5) /hpf Urine RBC (Auto) >30 H (0-4) /hpf Urine Bacteria (Auto) 4+ H (Negative) 03/10/19 Range/Units 06:34 RBC 3.68 L (4.2-5.4) M/uL Hgb 10.7 L (12.0-16.0) g/dL Hct 32.7 L (37-47) % RDW Std Deviation 49.2 H (36.4-46.3) fL RDW Coeff of Esmer 15.1 H (11.5-14.5) % BUN (7-18) mg/dl BUN/Creatinine Ratio (10-20) AST (15-37) U/L ALT (12-78) U/L Urine Appearance (Clear) Urine Blood (Negative) Urine Nitrite (Negative) Ur Leukocyte Esterase (Negative) Urine WBC (Auto) (0-5) /hpf Urine RBC (Auto) (0-4) /hpf Urine Bacteria (Auto) (Negative) Diagnostic Findings CXR- Cardiomegaly. No other convincing evidence of acute cardiopulmonary d isease. CT head-No acute intracranial abnormality and no significant change from today's earlier examination. MRI brain -No acute intracranial abnormality. Chiari 1 malformation. No definite hydrocephalus. Prominence of the ventricles is likely due to central volume loss given the patient's age. Periventricular and subcortical white matter T2 hyperintensities are nonspecific but suggestive of moderate microvascular ischemic change. venous doppler-No DVT within the right or left lower extremity.
--- NOTE | 2019-03-10 14:14 | Hospitalist Progress Note ---
Date of Service March 10, 2019 Assessment & Plan (1) Seizure-like activity: Present on admission with witness seizure lasted about [address] head showed no acute intracranial abnormality MRI head showed no acute intracranial abnormality. EEG showed no epileptiform discharges Received Keppra 1g during the admission Neuro on board and plan to start on Depakote 250mg BID Will d/c sinemet Lorazepam PRN for seizure activity Continue seizure and fall precaution UTI Urine cx positive for gram negative bacilli Continue Cefepime IV Dementia Continue Quetiapine Sinemet discontinue CAD Denies any chest pain Continue aspirin and statin and carvedilol Hypertensive urgency BP elevated possible related to hospital setting Very anxious and has been asking for family Continue Losartan and Carvedilol Continue monitor BP Chronic bradycardia Asymptomatic Might consider to decrease the Carvedilol to half Continue monitor Leg pain Doppler of LE negative for DVT DVT px on Lovenox CODE STATUS FULL CODE Subjective Pt was seen and examined Lying in bed with no distress Pt is confused and kept asking for her family She wants to know if her family is ok She denies any chest pain, palpitation, dizziness and SOB Physical Exam Physical Exam: General- Confused Head- atraumatic Eyes- PERRL, EOMI, ENT- oropharynx clear Neck- supple, no JVD Lungs- diminished BS Heart- regular rhythm; +murmur Abdomen- normal bowel sounds, soft, nontender Extremities- no calf tenderness Neuro- confused, follow command, speech fluent, move all 4 extremities Skin- warm & dry Results & Data Vital Signs (Past 12 Hours) Vital Signs Temp Pulse Pulse Resp BP BP Pulse Ox 03/10/19 11:27 36.3 C L 48 L 18 155/59 H 97 03/10/19 11:25 56 L 03/10/19 07:33 56 L 03/10/19 02:53 36.7 C 52 L 16 181/66 H 177/73 H 95
[2019-03-10] MEDS: DIVALPROEX EXTENDED RELEASE 250 MG TABCR PO SCH ×2 (15:38→20:55)
[2019-03-10] MEDS ORDERED: CEFEPIME 2,000 MG in SYRINGE 7.5 ML IV SCH (20:00)
[2019-03-10] MEDS ORDERED: OLANZapine 10 MG/2.1 ML SDV IM STA (20:40)
[2019-03-11] MEDS: ALLOPURINOL 100 MG TAB PO SCH (08:29)
[2019-03-11] MEDS: MULTIVITAMIN TAB PO SCH (08:29)
[2019-03-11] MEDS: LOSARTAN POTASSIUM 50 MG TAB PO SCH (08:29)
[2019-03-11] MEDS: QUETIAPINE FUMARATE 25 MG TABLET PO SCH ×2 (08:30→18:32)
[2019-03-11] MEDS: TRAZODONE HCL 100 MG TAB PO SCH (08:30)
[2019-03-11] MEDS: DIVALPROEX EXTENDED RELEASE 250 MG TABCR PO SCH ×2 (08:30→20:35)
[2019-03-11] MEDS: SACCHAROMYCES BOULARDII 250 MG CAP PO SCH (08:31)
[2019-03-11] MEDS: ASPIRIN 81 MG ECTAB PO SCH (08:31)
[2019-03-11] MEDS: CARVEDILOL 3.125 MG TAB PO SCH ×2 (08:32→20:35)
[2019-03-11] MEDS: ENOXAPARIN INJ 30 MG/0.3 ML SYR SQ SCH (08:32)
[2019-03-11] MEDS: COLESTIPOL HCL 1 GM TAB PO SCH ×2 (10:49→22:00)
--- NOTE | 2019-03-11 13:20 | Neurology Progress Note ---
Date of Service March 11, 2019 Assessment & Plan (1) Seizure-like activity: 1. seizure like activity x 2 - discussed with Daughter she witnessed one of the episode and she feels it was a seizure 2. started Depakote 250 mg BID 3. dementia delirium - discussed with daughter she feels since starting the Sinemet she has been more confused and her mood has changed. she is currently only taking 0.5 tab TID so will stop for now 4. UTI- treat to culture 5. restart seraquel 12.5 BID - for mood issues if she does not improve would consult psychiatry do not use other sedatives 6. PT/OT for discharge needs 7. once back to baseline would transition back to [facility] 8. MRI - no acute findings 9. will further exam patient once effects of sedative wear off. Supervising Physician Co-Signing Physician Notes I have seen and discussed above patient with Dr Eliana Mendez, neurology. Pt seen and examined, hx reviewed. Pt is sleepy but arousable, oriented to person and place. No focal signs, no rest tremor or cogwheel rigidity. Imp sz likely related to AD. Continue depakote, check level 1 week, will likely need to be adjusted up. Hold sinemet, pt does not currently appear Parkinsonian. NURYS Mendez MD Devin York is a 84 year old female with PMH- dementia, CAD, HTN, HLD, chronic anemia (baseline hemoglobin 9-10). she had a witnessed generalized tonic clonic seizure lasting about 40 seconds reported by her daughter about 2 months ago during her rehab stay transitioning to her [facility]. She had a fall from bed leading to some facial injury was brought to the hospital and then discharged back to [facility] and then had a seizure like activity lasting for a few minutes while having PT> She also complained of left sided headache going into her eye. no biting her tongue or incontinence. Currently she somnolent. difficult to arouse. By report she was given trazodone for agitation this am. Physical Exam Physical Exam: gen: NAD lungs: normal respiratory effort CV RRR opens eye slightly moans with stimulation move all ext with stimulation pulses bilateral LE 2/5 Results & Data Vital Signs (Past 12 Hours) Vital Signs Temp Pulse Pulse Resp BP Pulse Ox 03/11/19 12:22 36.5 C 59 L 18 175/69 H 96 03/11/19 11:34 71 03/11/19 07:51 37.1 C 49 L 16 182/75 H 97 Laboratory Results no new labs Diagnostic Findings no new imaging
--- NOTE | 2019-03-11 16:31 | Hospitalist Progress Note ---
Date of Service March 11, 2019 Assessment & Plan (1) Seizure-like activity: Present on admission with witness seizure lasted about [address] head showed no acute intracranial abnormality MRI head showed no acute intracranial abnormality. EEG showed no epileptiform discharges Received Keppra 1g during the admission Neuro on board and plan to start on Depakote 250mg BID Sinemet discontinued Lorazepam PRN for seizure activity Continue seizure and fall precaution UTI Urine cx positive for gram negative bacilli - Ecoli On Cefepime IV, transition to Rocephin Will transition to oral in am once fully awake Dementia Continue Quetiapine Sinemet discontinue Will decrease trazodone 50mg and give only in HS instead of daytime PT/OT CAD Denies any chest pain Continue aspirin and statin and carvedilol Hypertensive urgency BP elevated possible related to hospital setting Very anxious and has been asking for family Continue Losartan and Carvedilol Continue monitor BP Chronic bradycardia Asymptomatic Possible related to medication Might consider to decrease the Carvedilol to half Continue monitor HR stable Leg pain Doppler of LE negative for DVT DVT px on Lovenox CODE STATUS FULL CODE ' Disposition Ok to discharge back to personal care facility if safe by PT/OT Subjective Pt was seen and examined She has been sleeping today after given trazodone in the morning Sleeping comfortable She will need PT/OT before she can go back to her personal care facility Since pt has been sleeping, PT/OT unable to get therapy done today Physical Exam Physical Exam: General- sleeping Head- atraumatic ENT- oropharynx clear Neck- supple, no JVD Lungs- diminished BS Heart- regular rhythm; +murmur Abdomen- normal bowel sounds, soft, Extremities- no calf tenderness Neuro- sleeping Skin- warm & dry Results & Data Vital Signs (Past 12 Hours) Vital Signs Temp Pulse Pulse Pulse Resp BP Pulse Ox 03/11/19 15:26 36.5 C 58 L 18 167/74 H 96 03/11/19 15:16 56 L 03/11/19 12:22 36.5 C 59 L 18 175/69 H 96 03/11/19 11:34 71 03/11/19 07:51 37.1 C 49 L 16 182/75 H 97
[2019-03-11] MEDS: TRAZODONE HCL 50 MG TAB PO SCH (18:32)
[2019-03-11] MEDS ORDERED: cefTRIAXone SODIUM 1,000 MG in DEXTROSE 5% 50 ML IV SCH (20:00)
[2019-03-11] MEDS: ACETAMINOPHEN 325 MG TAB PO PRN (20:42)
[2019-03-12] MEDS: AMLODIPINE BESYLATE 5 MG TAB PO SCH (05:35)
[2019-03-12] MEDS: QUETIAPINE FUMARATE 25 MG TABLET PO SCH ×2 (07:31→20:17)
[2019-03-12] MEDS: ENOXAPARIN INJ 30 MG/0.3 ML SYR SQ SCH (07:31)
[2019-03-12] MEDS: ASPIRIN 81 MG ECTAB PO SCH (07:32)
[2019-03-12] MEDS: LOSARTAN POTASSIUM 50 MG TAB PO SCH (07:32)
[2019-03-12] MEDS: ALLOPURINOL 100 MG TAB PO SCH (07:32)
[2019-03-12] MEDS: SACCHAROMYCES BOULARDII 250 MG CAP PO SCH (07:32)
[2019-03-12] MEDS: MULTIVITAMIN TAB PO SCH (07:32)
[2019-03-12] MEDS: DIVALPROEX EXTENDED RELEASE 250 MG TABCR PO SCH ×2 (07:32→20:21)
[2019-03-12] MEDS: CARVEDILOL 3.125 MG TAB PO SCH (07:32)
--- NOTE | 2019-03-12 08:52 | Hospitalist Progress Note ---
Date of Service March 12, 2019 Assessment & Plan (1) Seizure-like activity: Seizure-like activity Present on admission with witness seizure lasted about 40 seconds -CT head showed no acute intracranial abnormality -MRI head showed no acute intracranial abnormality. -EEG showed no epileptiform discharges -Received Keppra 1g during the admission -Neuro on board and started on Depakote 250mg BID as this was the second episode. -Sinemet discontinued -Lorazepam PRN for seizure activity -Continue seizure and fall precautions Altered mental status Likely delirium in setting of dementia. Per discussion with daughter, patient is usually more coherent at baseline. Currently disoriented x3, hallucinations + -Medication timings and dosages adjusted - Seroquel at 6 and 9 PM, Trazodone 50 mg q HS. UTI -Urine cx positive for gram negative bacilli - E coli -On Cefepime IV, transitioned to IV Rocephin -Will change to Ciprofloxacin BID (QTC - 430). Monitor QTC while being on psych medications Dementia -Continue Quetiapine -Sinemet discontinued -Decreased trazodone to 50mg and give only in HS instead of daytime -PT/OT CAD -Denies any chest pain -Continue aspirin and statin and carvedilol Hypertensive urgency -BP elevated possible related to hospital setting -Very anxious and has been asking for family -Continue Losartan , Carvedilol , Amlodipine 2.5 mg daily -Continue monitor BP Chronic bradycardia Asymptomatic -HR as low as high 40s Leg pain -Doppler of LE negative for DVT DVT px on Lovenox CODE STATUS - Full code Disposition Ok to discharge back to personal care facility if safe by PT/OT Updated daughter over phone Subjective Patient was sitting comfortably in chair. Awake, disoriented x 3, hallucinations + Had her breakfast. No agitative episodes overnight. Denies any pain. Physical Exam Physical Exam: General- Awake, disoriented x 3, Confused +, Hallucinations + Neck- supple, no JVD Lungs- diminished BS Heart- regular rhythm; + murmur Abdomen- normal bowel sounds, soft, nontender Extremities- no calf tenderness Results & Data Vital Signs (Past 12 Hours) Vital Signs Temp Pulse Pulse Pulse Resp BP BP 03/12/19 07:34 36.5 C 60 20 184/70 H 165/62 H 03/12/19 03:34 36.4 C L 59 L 19 166/74 H 03/11/19 23:35 62 03/11/19 23:32 36.4 C L 54 L 18 156/68 H Pulse Ox 03/12/19 07:34 95 03/12/19 03:34 95 03/11/19 23:35 03/11/19 23:32 94
[2019-03-12] MEDS: COLESTIPOL HCL 1 GM TAB PO SCH ×2 (10:03→21:24)
--- NOTE | 2019-03-12 10:28 | Progress Note ---
DATE: 03/12/2019 SUBJECTIVE: I am seeing Mrs. 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 Depakote 250 b.i.d. has been started, both for behavior and for seizure. No seizure activity had been noted. She was also started on Seroquel for agitation. Sinemet had been started as I assume they thought there were some parkinsonian features. It has been discontinued. PHYSICAL EXAMINATION: GENERAL: On exam, the patient has no complaints, although is confused. VITAL SIGNS: 184/70, 60, 20, 36.5, 95%. NEUROLOGIC: The patient is awake and alert, oriented to place and person. She has some right/left confusion, naming seems adequate. She is disoriented as to time in the sense that she thinks her parents are alive. She is concerned about why her family is visiting her and that they do not know if she is here in the hospital. That having been said, she is very pleasant and cooperative. There is no obvious facial asymmetry. Speech and language are normal. There is symmetric upper and lower extremity strength. IMPRESSION AND PLAN: Dementia, complicated by delirium and secondary seizure. This is the patient's second seizure, so we have elected to treat. I would check a Depakote level in 1 week and likely she will need to be escalated in dose. At present, I see no parkinsonian signs or symptoms and see no reason to reinstitute Sinemet. We will follow with you.
[2019-03-12] MEDS ORDERED: CARVEDILOL 3.125 MG TAB PO ONE (16:19)
[2019-03-12] MEDS ORDERED: Nursing to Pharmacy Communication ONE (16:27)
[2019-03-12] MEDS: cephALEXin 500 MG CAP PO SCH (20:20)
[2019-03-12] MEDS: TRAZODONE HCL 50 MG TAB PO SCH (20:20)
[2019-03-12] MEDS: CARVEDILOL 6.25 MG TAB PO SCH (20:22)
[2019-03-12] MEDS ORDERED: CIPROFLOXACIN 500 MG TAB PO SCH (21:00)
[2019-03-12] MEDS ORDERED: TRAZODONE HCL 100 MG TAB PO SCH (21:00)
[2019-03-13 07:07] LABS: Hematocrit (blood only) 33.8 % (37-47); Hemoglobin 11.1 g/dL (12.0-16.0); Mean Corpuscular Hemoglobin 29.4 pg (25-34); Mean Corpuscular Hgb Conc 32.8 g/dL (32-36); Mean Corpuscular Volume 89.7 fL (80-100); Mean Platelet Volume 10.4 fL (7.4-10.4); Platelet Count 183 K/uL (130-400); RDW Coefficient of Variation 15.3 % (11.5-14.5); RDW Standard Deviation 49.8 fL (36.4-46.3); Red Blood Count 3.77 M/uL (4.2-5.4); White Blood Count 5.72 K/uL (4.8-10.8)
[2019-03-13 07:38] LABS: BUN Creatinine Ratio 25.4 (10-20); Calcium 8.9 mg/dl (8.5-10.1); Creatinine Clr Calc Pharmacy 40.6 ml/min; Est GFR (African American) 57.9; Potassium 3.9 mmol/L (3.5-5.1)
[2019-03-13] MEDS: DIVALPROEX EXTENDED RELEASE 250 MG TABCR PO SCH ×2 (07:39→20:56)
[2019-03-13] MEDS: AMLODIPINE BESYLATE 5 MG TAB PO SCH (07:39)
[2019-03-13] MEDS: SACCHAROMYCES BOULARDII 250 MG CAP PO SCH (07:39)
[2019-03-13] MEDS: ASPIRIN 81 MG ECTAB PO SCH (07:39)
[2019-03-13] MEDS: CARVEDILOL 6.25 MG TAB PO SCH ×2 (07:39→20:54)
[2019-03-13] MEDS: cephALEXin 500 MG CAP PO SCH ×2 (07:39→20:56)
[2019-03-13] MEDS: LOSARTAN POTASSIUM 50 MG TAB PO SCH (07:39)
[2019-03-13] MEDS: MULTIVITAMIN TAB PO SCH (07:39)
[2019-03-13] MEDS: ENOXAPARIN INJ 30 MG/0.3 ML SYR SQ SCH (07:40)
[2019-03-13] MEDS: ALLOPURINOL 100 MG TAB PO SCH (07:40)
[2019-03-13] MEDS: COLESTIPOL HCL 1 GM TAB PO SCH ×2 (09:14→21:58)
--- NOTE | 2019-03-13 13:05 | Hospitalist Progress Note ---
Date of Service March 13, 2019 Assessment & Plan (1) Seizure-like activity: Seizure-like activity Present on admission with witness seizure lasted about 40 seconds -CT head showed no acute intracranial abnormality -MRI head showed no acute intracranial abnormality. -EEG showed no epileptiform discharges -Received Keppra 1g during the admission -Neuro on board and started on Depakote 250mg BID as this was the second episode. -Sinemet discontinued -Lorazepam PRN for seizure activity -Continue seizure and fall precautions Altered mental status Likely delirium in setting of dementia. Per discussion with daughter, patient is usually more coherent at baseline. Currently disoriented x3, hallucinations + -Medication timings and dosages adjusted - Seroquel at 6 and 9 PM, Trazodone 50 mg q HS. UTI -Urine cx positive for gram negative bacilli - E coli -On Cefepime IV, transitioned to IV Rocephin -Changed to Keflex BID on 03/12/19 Dementia -Continue Quetiapine -Sinemet discontinued -Decreased trazodone to 50mg and give only in HS instead of daytime -PT/OT CAD -Denies any chest pain -Continue aspirin and statin and carvedilol Hypertensive urgency -BP improved and down to 150s -Very anxious and has been asking for family -Continue Losartan , Carvedilol , Amlodipine 2.5 mg daily -Monitor BP Chronic bradycardia Asymptomatic -HR as low as high 40s Leg pain -Doppler of LE negative for DVT DVT px on Lovenox SQ CODE STATUS - Full code Disposition Ok to discharge back to personal care facility if safe by PT/OT No PT/OT evaluation yet. Updated son, sister by bedside Subjective Patient is doing better. Awake, oriented to place, person. No hallucinations today Had some agitation in AM requiring 1:1 observation briefly as wanted to go home Denies any pain. Physical Exam Physical Exam: General- Awake, alert, oriented to self, place, not to time Neck- supple, no JVD Lungs- diminished BS Heart- regular rhythm; + murmur Abdomen- normal bowel sounds, soft, nontender Extremities- no calf tenderness Results & Data Vital Signs (Past 12 Hours) Vital Signs Temp Pulse Resp BP BP Pulse Ox 03/13/19 11:49 37.0 C 66 18 158/73 H 94 03/13/19 09:05 175/76 H 03/13/19 06:58 36.6 C 61 20 182/78 H 92 08/18/19 03:28 36.6 C 80 18 134/71 97
--- NOTE | 2019-03-13 13:28 | Progress Note ---
DATE: 03/13/2019 SUBJECTIVE: I am seeing Mrs. Bolanos in followup of a new-onset seizure. She seems to be tolerating Depakote well. She has had some occasional agitation. On the whole, it sounds like she is much less agitated than she was on admission. No recurrence of seizures have been noted. Her MRI of the brain did not show any new infarction. OBJECTIVE: VITAL SIGNS: 158/73, 66, 18, 37, 94%. GENERAL: The patient is awake and alert, confused as to whether or not she has seen her family last night. NEUROLOGIC: She is oriented to place and month. No right/left confusion or aphasia is noted. There is mild flattening of the left nasolabial fold. There is symmetric strength. IMPRESSION AND PLAN: 1. Delirium superimposed on dementia, improving. 2. New-onset seizure. Continue Depakote 250 b.i.d. After on this dose for 1 week, check level. 3. Parkinsonism. No clinical evidence at present. Sinemet has been held. We will follow with you.
[2019-03-13] MEDS: QUETIAPINE FUMARATE 25 MG TABLET PO SCH ×2 (17:33→20:55)
[2019-03-13] MEDS: TRAZODONE HCL 50 MG TAB PO SCH (20:55)
[2019-03-14] MEDS: CARVEDILOL 6.25 MG TAB PO SCH ×3 (08:43→20:31)
[2019-03-14] MEDS: LOSARTAN POTASSIUM 50 MG TAB PO SCH (08:43)
[2019-03-14] MEDS: MULTIVITAMIN TAB PO SCH (08:43)
[2019-03-14] MEDS: ASPIRIN 81 MG ECTAB PO SCH (08:43)
[2019-03-14] MEDS: cephALEXin 500 MG CAP PO SCH ×2 (08:44→20:31)
[2019-03-14] MEDS: SACCHAROMYCES BOULARDII 250 MG CAP PO SCH (08:44)
[2019-03-14] MEDS: AMLODIPINE BESYLATE 5 MG TAB PO SCH (08:44)
[2019-03-14] MEDS: DIVALPROEX EXTENDED RELEASE 250 MG TABCR PO SCH ×2 (08:45→20:31)
[2019-03-14] MEDS: ALLOPURINOL 100 MG TAB PO SCH (08:45)
[2019-03-14] MEDS: ENOXAPARIN INJ 30 MG/0.3 ML SYR SQ SCH (08:45)
[2019-03-14] MEDS ORDERED: AMLODIPINE BESYLATE 5 MG TAB PO ONE (12:04)
--- NOTE | 2019-03-14 12:04 | Hospitalist Progress Note ---
Date of Service March 14, 2019 Assessment & Plan (1) Seizure-like activity: Seizure-like activity Present on admission with witness seizure lasted about 40 seconds -CT head showed no acute intracranial abnormality -MRI head showed no acute intracranial abnormality. -EEG showed no epileptiform discharges -Received Keppra 1g during the admission -Neuro on board and started on Depakote 250mg BID as this was the second episode. -Sinemet discontinued -Lorazepam PRN for seizure activity -Continue seizure and fall precautions Altered mental status- Improved Likely delirium in setting of dementia - Resolved -Awake, oriented x 2. -Medication timings and dosages adjusted - Seroquel at 6 and 9 PM, Trazodone 50 mg q HS which is working well for her UTI -Urine cx positive for gram negative bacilli - E coli -On Cefepime IV, transitioned to IV Rocephin -Changed to Keflex BID on 03/12/19- Day 3 Dementia -Continue Quetiapine -Sinemet discontinued -Decreased trazodone to 50 mg and give only in HS instead of daytime. -PT/OT CAD -Denies any chest pain -Continue aspirin and statin and carvedilol Hypertensive urgency -BP again going up -Very anxious and has been asking for family -Continue Losartan , Carvedilol , Amlodipine 2.5 mg daily (increase to 5 mg daily) -Monitor BP Chronic bradycardia Asymptomatic -HR as low as high 40s, but now in 50-60s Leg pain -Doppler of LE negative for DVT DVT px on Lovenox SQ CODE STATUS - Full code Disposition PT/OT -recommends rehab at [facility] and if not available there, inpatient rehab. Okay to discharge from medical point of view, awaiting placement. Updated son, sister by bedside Subjective Patient is doing better. Awake, oriented to place, person. No hallucinations or agitative episodes. Denies any pain. Physical Exam Physical Exam: General- Awake, alert, oriented to self, place, not to time Neck- supple, no JVD Lungs- diminished BS Heart- regular rhythm; + murmur Abdomen- normal bowel sounds, soft, nontender Extremities- no calf tenderness Results & Data Vital Signs (Past 12 Hours) Vital Signs Temp Pulse Pulse Resp BP BP Pulse Ox 03/14/19 08:00 58 L 20 186/74 H 180/73 H 96 03/14/19 07:00 52 L 03/14/19 03:00 36.3 C L 52 L 18 139/64 97 03/14/19 00:13 36.4 C L 65 20 149/72 H 94
[2019-03-14] MEDS: COLESTIPOL HCL 1 GM TAB PO SCH ×2 (12:14→21:45)
--- NOTE | 2019-03-14 14:44 | Neurology Progress Note ---
Date of Service March 14, 2019 Assessment & Plan (1) Seizure-like activity: 1. seizure like activity x 2 - discussed with Daughter she witnessed one of the episode and she feels it was a seizure 2. started Depakote 250 mg BID 3. dementia delirium - discussed with daughter she feels since starting the Sinemet she has been more confused and her mood has changed. she is currently only taking 0.5 tab TID - STOPPED 4. UTI- treated 5. restart seraquel 12.5 BID - for mood issues if she does not improve would consult psychiatry do not use other sedatives currently 12.5 am, 12.5 6 pm, and 9 pm 6. PT/OT for discharge needs 7. [facility] facility to see if she is still appropriate for their facility tomorrow, may need higher level of care. 8. MRI - no acute findings will sign off for now will be available as needed. return to neurology Mayank Alva NP, 4-6 weeks. Supervising Physician Co-Signing Physician Notes I have discussed above patient with Dr Eliana Mendez, neurologyHave discussed with SINDI Wong. Agree with management as above. Will sign off. Armani Mendez MD Devin York is a 84 year old female with PMH- dementia, CAD, HTN, HLD, chronic anemia (baseline hemoglobin 9-10). she had a witnessed generalized tonic clonic seizure lasting about 40 seconds reported by her daughter about 2 months ago during her rehab stay transitioning to her [facility]. She had a fall from bed leading to some facial injury was brought to the hospital and then discharged back to [facility] and then had a seizure like activity lasting for a few minutes while having PT> She also complained of left sided headache going into her eye. no biting her tongue or incontinence. Currently she is resting in bed. Her family is in the room but she thinks her brother is her son. She also thinks she is at home. denies CP, SOB, abdominal pain, one sided weakness, numbness tingling, N, V, vision changes, swallowing issues. Physical Exam Physical Exam: gen: alert NAD lungs CTA CV RRR moving in bed with no difficulty when asked where she is she states "home". Son "Benito" is bedside (actually her brother) and daughter which she does not know her name Results & Data Vital Signs (Past 12 Hours) Vital Signs Temp Pulse Pulse Resp BP BP Pulse Ox 03/14/19 13:02 36.8 C 65 18 167/80 H 95 03/14/19 08:00 58 L 20 186/74 H 180/73 H 96 03/14/19 07:00 52 L 03/14/19 03:00 36.3 C L 52 L 18 139/64 97 Laboratory Results no new labs Diagnostic Findings no new imaging
[2019-03-14] MEDS: QUETIAPINE FUMARATE 25 MG TABLET PO SCH ×2 (17:46→20:31)
[2019-03-14] MEDS: TRAZODONE HCL 50 MG TAB PO SCH (20:31)
[2019-03-15] MEDS: DIVALPROEX EXTENDED RELEASE 250 MG TABCR PO SCH ×2 (08:33→20:26)
[2019-03-15] MEDS: ASPIRIN 81 MG ECTAB PO SCH (08:33)
[2019-03-15] MEDS: MULTIVITAMIN TAB PO SCH (08:33)
[2019-03-15] MEDS: LOSARTAN POTASSIUM 50 MG TAB PO SCH (08:33)
[2019-03-15] MEDS: cephALEXin 500 MG CAP PO SCH ×2 (08:33→20:26)
[2019-03-15] MEDS: AMLODIPINE BESYLATE 5 MG TAB PO SCH (08:34)
[2019-03-15] MEDS: SACCHAROMYCES BOULARDII 250 MG CAP PO SCH (08:34)
[2019-03-15] MEDS: CARVEDILOL 6.25 MG TAB PO SCH ×2 (08:34→20:26)
[2019-03-15] MEDS: ALLOPURINOL 100 MG TAB PO SCH (08:34)
[2019-03-15] MEDS: ENOXAPARIN INJ 30 MG/0.3 ML SYR SQ SCH (08:35)
--- NOTE | 2019-03-15 09:59 | Hospitalist Progress Note ---
Date of Service March 15, 2019 Assessment & Plan (1) Seizure-like activity: Seizure-like activity Present on admission with witness seizure lasted about 40 seconds -CT head showed no acute intracranial abnormality -MRI head showed no acute intracranial abnormality. -EEG showed no epileptiform discharges -Received Keppra 1g during the admission -Neuro on board and started on Depakote 250mg BID as this was the second episode. -Sinemet discontinued -Lorazepam PRN for seizure activity -Continue seizure and fall precautions Altered mental status- Resolved Likely delirium in setting of dementia - Resolved -Awake, oriented x 2, back to her baseline. -Medication timings and dosages adjusted - Seroquel at 6 and 9 PM, Trazodone 50 mg q HS which is working well for her UTI -Urine cx positive for gram negative bacilli - E coli -On Cefepime IV, transitioned to IV Rocephin -Changed to Keflex BID on 03/12/19- Day 10/31 Dementia Near her baseline now -Continue Quetiapine -Sinemet discontinued -Decreased trazodone to 50 mg and give only in HS instead of daytime. -PT/OT CAD -Denies any chest pain -Continue aspirin and statin and carvedilol Hypertensive urgency -BP stable -Continue Losartan , Carvedilol , Amlodipine 2.5 mg daily (increased to 5 mg daily on 03/14/19) -Monitor BP Chronic bradycardia Asymptomatic -HR as low as high 40s, but now in 50-60s Leg pain -Doppler of LE negative for DVT DVT px on Lovenox SQ CODE STATUS - Full code Disposition PT/OT -recommends rehab. [facility] wants to evaluate patient today before deciding if she is appropriate to return to personal care or not. Okay to discharge from medical point of view, awaiting placement decision. Updated daughter Keri over phone. Aware about discharge plan. Subjective Patient doing better. Awake, alert, oriented to place, person, not to time. Sitting in a chair reading a newspaper. No complaints. No agitation as per RN. Physical Exam Physical Exam: General - Awake, alert, oriented to self, place, not to time Neck - supple, no JVD Lungs - Diminished BS Heart - regular rhythm; + murmur Abdomen - normal bowel sounds, soft, nontender Extremities - No calf tenderness Results & Data Vital Signs (Past 12 Hours) Vital Signs Temp Pulse Pulse Resp BP Pulse Ox 03/15/19 07:11 56 L 03/15/19 07:00 36.4 C L 59 L 19 133/72 96 03/15/19 05:35 37 C 16 144/75 H 94 03/15/19 04:00 36.5 C 59 L 20 154/74 H 95 03/15/19 00:03 67 03/14/19 22:58 36.6 C 79 20 120/72 96
[2019-03-15] MEDS: COLESTIPOL HCL 1 GM TAB PO SCH ×2 (10:17→21:28)
[2019-03-15] MEDS ORDERED: POLYETHYLENE (MIRALAX) 17 GM PACK PO PRN (14:38)
[2019-03-15] MEDS: QUETIAPINE FUMARATE 25 MG TABLET PO SCH ×2 (17:33→20:26)
[2019-03-15] MEDS: DOCUSATE SODIUM 100 MG CAP PO SCH (20:26)
[2019-03-15] MEDS: TRAZODONE HCL 50 MG TAB PO SCH (20:26)
[2019-03-16 06:10] LABS: Hematocrit (blood only) 31.7 % (37-47); Hemoglobin 10.4 g/dL (12.0-16.0); Mean Corpuscular Hemoglobin 29.3 pg (25-34); Mean Corpuscular Hgb Conc 32.8 g/dL (32-36); Mean Corpuscular Volume 89.3 fL (80-100); Mean Platelet Volume 9.6 fL (7.4-10.4); Platelet Count 179 K/uL (130-400); RDW Standard Deviation 49.8 fL (36.4-46.3); Red Blood Count 3.55 M/uL (4.2-5.4); White Blood Count 4.99 K/uL (4.8-10.8)
[2019-03-16 06:41] LABS: Est GFR (African American) 51.3; Est GFR (Non-African American) 44.3
[2019-03-16] MEDS: AMLODIPINE BESYLATE 5 MG TAB PO SCH (08:49)
[2019-03-16] MEDS: ALLOPURINOL 100 MG TAB PO SCH (08:49)
[2019-03-16] MEDS: DOCUSATE SODIUM 100 MG CAP PO SCH (08:50)
[2019-03-16] MEDS: cephALEXin 500 MG CAP PO SCH (08:50)
[2019-03-16] MEDS: DIVALPROEX EXTENDED RELEASE 250 MG TABCR PO SCH (08:50)
[2019-03-16] MEDS: MULTIVITAMIN TAB PO SCH (08:50)
[2019-03-16] MEDS: LOSARTAN POTASSIUM 50 MG TAB PO SCH (08:51)
[2019-03-16] MEDS: ENOXAPARIN INJ 30 MG/0.3 ML SYR SQ SCH (08:51)
[2019-03-16] MEDS: CARVEDILOL 6.25 MG TAB PO SCH (08:52)
[2019-03-16] MEDS: SACCHAROMYCES BOULARDII 250 MG CAP PO SCH (08:52)
[2019-03-16] MEDS: ASPIRIN 81 MG ECTAB PO SCH (08:52)
[2019-03-16] MEDS: COLESTIPOL HCL 1 GM TAB PO SCH (10:28)
--- NOTE | 2019-03-16 11:06 | Hospitalist Progress Note ---
Date of Service March 16, 2019 Assessment & Plan (1) Seizure-like activity: Seizure-like activity Present on admission with witness seizure lasted about 40 seconds Patient had similar episode at [facility] 2 months earlier as per patient's daughter Did not had any seizure activity since admission Neuro imagings: -CT head showed no acute intracranial abnormality -MRI head showed no acute intracranial abnormality. -EEG showed no epileptiform discharges -Received Keppra 1g during the admission -Neuro on board and started on Depakote 250mg BID as this was the second episode. -Sinemet discontinued Patient will be discharged on Depakote 200 mg twice daily Altered mental status- Resolved Presented with confusion, lethargy: Metabolic encephalopathy: Infection: UTI- resolved -Awake, oriented x 2, mental status back to her baseline. -Medication timings and dosages adjusted - Seroquel to be given at 6 and 9 PM, Trazodone 50 mg q HS which is working well for her UTI -Urine cx positive for gram negative bacilli - E coli -On Cefepime IV, transitioned to IV Rocephin -Changed to Keflex BID on 03/12/19- Day 11/30 Dementia Mental status improved to near her baseline now -Continue Quetiapine -medication administration time changed as of -Sinemet discontinued -Decreased trazodone to 50 mg and give only in HS instead of daytime. -PT/OT -recommend rehab CAD -Denies any chest pain -Continue aspirin and statin and carvedilol Hypertensive urgency -BP stable -Continue Losartan , Carvedilol , dose changes: Amlodipine dose increased 5 mg daily on 03/14/2019 (was on 2.5 mg daily 0 -Monitor BP Chronic bradycardia Asymptomatic - Leg pain -Doppler of LE negative for DVT DVT px on Lovenox SQ CODE STATUS - Full code Disposition PT/OT -recommends rehab. Referral made to [facility] Medically stable to be transferred to rehab today Subjective Very pleasant, awake and alert oriented to place and person, Offers no complaints, Confusion or agitation noted, no seizure-like activity since admission Afebrile temperature 36.5 No GI or symptoms No complaint of cough, shortness of breath dyspnea on exertion No headache or dizzy spell Vitals remained stable Blood pressure well controlled, last vital at 11:16 AM BP 139/75, pulse 57/patient is in room air pulse oximetry 96% Physical Exam Constitutional: WD/WN, vitals as above no acute distress Very pleasant elderly female Eyes: + anicteric sclerae ENMT: external ear and nose normal, oropharynx normal Neck: trachea midline, no thyromegaly Respiratory: normal respiratory effort, lungs clear to auscultation Cardiovascular: RRR, no murmur, no edema Gastrointestinal (Abdomen): normal bowel sounds, soft, nontender, no hepatosplenomegaly Musculoskeletal: no cyanosis or clubbing, extremities motor strength 5/5 Skin: no rashes, warm and dry Neurologic: PERRL, EOMI, accommodation nl, no face palsy, no dysarthria Psychiatric: Orientation: alert; + not oriented x 3 (Oriented place and person -which is her baseline) Affect: euthymic affect dementia, oriented to place and person at baseline Results & Data Vital Signs (Past 12 Hours) Vital Signs Temp Pulse Pulse Pulse Resp BP Pulse Ox 03/16/19 07:23 36.6 C 57 L 19 159/71 H 94 03/16/19 07:00 56 L 03/16/19 04:00 36.4 C L 62 20 135/71 95 03/16/19 00:00 62 03/15/19 23:47 36.7 C 62 19 148/71 H 97
--- NOTE | 2019-03-16 13:13 | Discharge Summary ---
Date of Service March 16, 2019 Admission HPI Per Admitting Provider History obtained from patient, family, and records. Limited history from patient secondary to dementia. Medical history significant for dementia, CAD as per records, hypertension, hyperlipidemia, chronic anemia (baseline hemoglobin 9-10). Patient noted to have generalized tonic-clonic seizures lasting about 40 seconds as per daughter about 2 months ago during stay at rehab facility prior to transitioning to current personal [facility] residence. No work-up done as per daughter. Patient seen at the ER earlier this morning for fall from bed leading to some facial injury. Patient complaining of leg pain. Unremarkable imaging at the ER. Patient discharged back to [facility]. This afternoon, patient noted to have seizure-like activity lasting for a few minutes while having physical therapy. As per patient's daughter, patient later complained of left-sided headache going into her eye. No tongue biting, incontinence noted. Patient brought to the ER for evaluation. Patient has no recollection of seizure-like episode. Patient's denies chest pain, S OB, abdominal pain, dysuria, diarrhea. At the ER, patient received IV Ceftriaxone for possible UTI. 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 Principal Diagnosis SEIZURE-LIKE ACTIVITY, DEMENTIA, URINE TRACT INFECTION Discharge Exam Constitutional WD/WN, vitals as above no acute distress Eyes + anicteric sclerae ENMT external ear and nose normal, oropharynx normal Neck trachea midline, no thyromegaly Respiratory normal respiratory effort, lungs clear to auscultation Cardiovascular RRR, no murmur, no edema Gastrointestinal (Abdomen) normal bowel sounds, soft, nontender, no hepatosplenomegaly Musculoskeletal no cyanosis or clubbing, extremities motor strength 5/5 Skin no rashes, warm and dry Neurologic PERRL, EOMI, accommodation nl, no face palsy, no dysarthria Psychiatric Orientation: alert; + not oriented x 3 (Oriented place and person -which is her baseline) Affect: euthymic affect Discharge Data Allergies Allergy/AdvReac Type Severity Reaction Status Date / Time iodine Allergy Unknown Unknown Verified 03/09/19 17:41 memantine Allergy Unknown Unknown Verified 03/09/19 17:41 pantoprazole Allergy Unknown Unknown Verified 08/14/19 17:41 shellfish derived Allergy Unknown Unknown Verified 03/09/19 17:41 crab Allergy Gastrointestinal Verified 03/09/19 17:41 Upset Consultations 03/09/19 21:28 ED Decision to Admit Stat 03/10/19 00:32 Consult Neurology Routine Ordered Studies 03/09/19 17:41 CT head/brain wo con Stat 03/10/19 00:32 MR brain seizure wo/w con Routine 03/10/19 05:40 US venous doppler LE Urgent Hospital Course (1) Seizure-like activity: Seizure-like activity Present on admission with witness seizure lasted about 40 seconds Patient had similar episode at [facility] 2 months earlier as per patient's daughter Did not had any seizure activity since admission Neuro imagings: -CT head showed no acute intracranial abnormality -MRI head showed no acute intracranial abnormality. -EEG showed no epileptiform discharges -Received Keppra 1g during the admission -Neuro on board and started on Depakote 250mg BID as this was the second episode. -Sinemet discontinued Patient will be discharged on Depakote 200 mg twice daily Altered mental status- Resolved Presented with confusion, lethargy: Metabolic encephalopathy: Infection: UTI- resolved -Awake, oriented x 2, mental status back to her baseline. -Medication timings and dosages adjusted - Seroquel to be given at 6 and 9 PM, Trazodone 50 mg q HS which is working well for her UTI -Urine cx positive for gram negative bacilli - E coli -On Cefepime IV, transitioned to IV Rocephin -Changed to Keflex BID on 03/12/19- Day 11/30 Dementia Mental status improved to near her baseline now -Continue Quetiapine -medication administration time changed as of -Sinemet discontinued -Decreased trazodone to 50 mg and give only in HS instead of daytime. -PT/OT -recommend rehab CAD -Denies any chest pain -Continue aspirin and statin and carvedilol Hypertensive urgency -BP stable -Continue Losartan , Carvedilol , dose changes: Amlodipine dose increased 5 mg daily on 03/14/2019 (was on 2.5 mg daily 0 -Monitor BP Chronic bradycardia Asymptomatic - Leg pain -Doppler of LE negative for DVT DVT px on Lovenox SQ CODE STATUS - Full code Disposition PT/OT -recommends rehab. Referral made to [facility] Medically stable to be transferred to rehab today Total Time Total Time Spent Total Time Spent (In Minutes): Approximate 35 minutes Total Time Includes: Examination of the Patient, Discharge Planning and Medication Reconciliation Discharge Plan Discharge Items Patient Disposition: Transfer Inpatient Rehab Fac Reason For Visit: HTN URGENCY Discharge Diagnosis: SEIZURE-LIKE ACTIVITY, DEMENTIA, URINE TRACT INFECTION Discharge Goals: Decrease discomfort and Therapeutic intervention Activity: As commented below Activity Comment: CONTINUE PHYSICAL THERAPY/OCCUPATIONAL THERAPY AT REHAB Non-emergency contact: Primary Care Provider Call non-emergency contact if: you have any medication questions Follow-up/Referrals: KAYE Jin [Primary Care Provider] - Diet: Heart Healthy Addtl Provider Instructions: NEW MEDICATIONS: Depakote 250 mg twice daily-for seizure disorder Norvasc 5 mg daily-for high blood pressure Coreg 6.25 mg twice daily-high blood pressure Keflex/cephalexin: 500 mg twice daily for 2 days-antibiotic for urine tract infection CHANGE OF MEDICATIONS: Trazodone dose reduced to 50 mg daily at bedtime(was on 100 mg daily) Seroquel 12.5 mg: To be given 1 tablet at 6 PM/1 tablet at 9 PM daily DISCONTINUED: Sinemet Hydrochlorothiazide Potassium supplement Metoprolol succinate hydralazine Prescriptions: New cephalexin 500 mg Capsule 500 mg PO BID Qty: 4 RF: 0 trazodone 50 mg Tablet 50 mg PO HS 30 Days Qty: 30 RF: 0 divalproex 250 mg Tablet Extended Release 24 Hr 250 mg PO BID 30 Days Qty: 60 RF: 0 amlodipine [Norvasc] 5 mg Tablet 5 mg PO DAILY 30 Days Qty: 30 RF: 0 carvedilol 6.25 mg Tablet 6.25 mg PO BID 30 Days Qty: 60 RF: 0 Continued allopurinol 100 mg tablet 100 mg PO DAILY RF: 0 aspirin 81 mg tablet,delayed release (DR/EC) 81 mg PO DAILY RF: 0 colestipol 1 gram tablet 1 g PO BID RF: 0 ezetimibe 10 mg tablet 10 mg PO DAILY RF: 0 melatonin 5 mg tablet 5 mg PO HS RF: 0 multivitamin [Daily-Valorie] Tablet 1 tab PO DAILY RF: 0 ascorbic acid (vitamin C) [Vitamin C] 500 mg Tablet 500 mg PO DAILY RF: 0 losartan 100 mg Tablet 100 mg PO DAILY RF: 0 acetaminophen 500 mg Capsule 1,000 mg PO BID RF: 0 acetaminophen 500 mg Capsule 1,000 mg PO DAILY PRN (Reason: Fever Or Pain) RF: 0 Saccharomyces boulardii 250 mg Capsule PO DIRECTED RF: 0 omega 5-tlm-zko-fish oil [Fish Oil] 1,000 mg (120 mg-180 mg) Capsule 1 cap PO DAILY RF: 0 Changed quetiapine 25 mg tablet 12.5 mg PO DIRECTED Qty: 0 RF: 0 meclizine 12.5 mg Tablet 12.5 mg PO TID PRN (Reason: dizzy spell) Qty: 0 RF: 0 Discontinued trazodone 100 mg Tablet 100 mg PO DAILY RF: 0 hydralazine 10 mg Tablet 10 mg PO Q6H PRN (Reason: Hypertension) RF: 0 metoprolol succinate 25 mg Tablet Extended Release 24 Hr 25 mg PO DAILY RF: 0 carbidopa-levodopa 25-100 mg Tablet 0.5 tab PO TID RF: 0 hydrochlorothiazide 12.5 mg tablet 12.5 mg PO DAILY RF: 0 potassium chloride [Klor-Con] 20 mEq Packet 20 meq PO DAILY RF: 0 Stand-Alone Forms: [facility] Discharge Orders: Discharge Order (Routine); Ordered 03/16/19 Ordered By: Bailee Salas Skilled Items Patient informed of condition?: Yes DNR: No Discharge Level of Care: Acute rehab Communicable Disease: No Discharge Prognosis: Stable Admission Data Admit Date/Time: 03/11/19 08:07 Attending Provider: Bailee Salas Admit Provider: Juanito Finnegan [facility] Other Providers: Juanito Finnegan ; Eliana Leone ; Hung Wiseman ; Eliana Mendez ; Richardson Galarza ; Nathaly Walker Service: Telemetry Medical
== END 2019-03-16 15:40 | DRG 101 ==
LOC: ED 17:16 → 2N 17:16 → SUATTDRO 23:28 → 2N 03-10 00:09 → SUATTDRO 03-11 08:07

== ENCOUNTER 2019-04-27 08:41 | Inpatient (IN) ==
[2019-04-27] MEDS ORDERED: SODIUM CHLORIDE 0.9% 500 ML IV SCH (09:00)
[2019-04-27 09:03] LABS: Basophils # (auto) 0.03 K/uL (0-0.2); Basophils % (auto) 0.6 %; Eosinophils # (auto) 0.23 K/uL (0-0.5); Eosinophils % (auto) 4.2 %; Hematocrit (blood only) 33.8 % (37-47); Hemoglobin 10.8 g/dL (12.0-16.0); Immature Granulocytes # (auto) 0.01 K/uL (0.00-0.02); Immature Granulocytes % (auto) 0.2 %; Lymphocytes # (auto) 1.59 K/uL (1.2-3.4); Lymphocytes % (auto) 29.3 %; Mean Corpuscular Hemoglobin 29.3 pg (25-34); Mean Corpuscular Volume 91.8 fL (80-100); Mean Platelet Volume 10.8 fL (7.4-10.4); Monocytes # (auto) 0.41 K/uL (0.11-0.59); Monocytes % (auto) 7.6 %; Neutrophils # (auto) 3.16 K/uL (1.4-6.5); Neutrophils % (auto) 58.1 %; Platelet Count 173 K/uL (130-400); RDW Coefficient of Variation 16.9 % (11.5-14.5); RDW Standard Deviation 56.5 fL (36.4-46.3); Red Blood Count 3.68 M/uL (4.2-5.4); White Blood Count 5.43 K/uL (4.8-10.8)
--- NOTE | 2019-04-27 09:10 | XRay Report ---
XR chest 1V portable HISTORY: weakness COMPARISON: Chest 03/09/2019. FINDINGS: No pneumothorax. No pleural effusions. The heart remains enlarged. There is mild central pu lmonary vascular congestion without overt edema. No new focal lung consolidations to suggest pneumoni a. IMPRESSION: Cardiomegaly with mild congestive change. Electronically signed by: Tristin Gutiérrez M.D. 04/27/2019 9:09 AM
[2019-04-27 09:14] LABS: Partial Thromboplastin Ratio 0.9; Partial Thromboplastin Time 24.8 Seconds (21.0-31.0); Prothrombin Time 10.7 Seconds (9.0-12.0)
[2019-04-27 09:18] LABS: Albumin Level 3.4 gm/dl (3.4-5.0); BUN Creatinine Ratio 26.4 (10-20); Blood Urea Nitrogen 29 mg/dl (7-18); Carbon Dioxide 31 mmol/L (21-32); Chloride 106 mmol/L (98-107); Est GFR (African American) 53.6; Est GFR (Non-African American) 46.2; Glucose 88 mg/dl (70-99); Potassium 4.1 mmol/L (3.5-5.1); Sodium 142 mmol/L (136-145)
--- NOTE | 2019-04-27 09:21 | CT Scan Report ---
CT head/brain wo con CLINICAL HISTORY: Altered mental status. COMPARISON STUDY: MRI of the brain dated 03/10/2019, noncontrast head CT dated 03/09/2019 TECHNIQUE: Axial CT of the brain is performed from the vertex to the skull base. IV contrast was not administered for this examination. A dose lowering technique was utilized adhering to the principles of ALARA. CT DOSE: 614.27 mGy.cm FINDINGS: No intra or extra-axial mass lesions are visualized. There is no CT evidence of acute cortical infarc tion. There is no evidence of midline shift. There is no acute hemorrhage. No calvarial fractures ar e visualized. There are patchy white matter hypodensities likely on a small vessel basis. There is no evidence of pathologic ventricular dilatation. There is no evidence of acute sinusitis. There is bilateral maxillary sinus and ethmoid sinus mucosal thickening. IMPRESSION: No acute intracranial findings Electronically signed by: Wilton Knight M.D. 04/27/2019 9:19 AM
[2019-04-27 09:28] LABS: Alanine Aminotransferase 13 U/L (12-78); Albumin Globulin Ratio 1.1 (0.9-2); Alkaline Phosphatase 45 U/L (45-117); Aspartate Aminotransferase 13 U/L (15-37); Bilirubin,Total 0.4 mg/dl (0.2-1); Globulin 3.2 gm/dl (2.5-4.0); Total Protein 6.6 gm/dl (6.4-8.2); Troponin I < 0.015 ng/ml (0-0.045)
--- NOTE | 2019-04-27 09:56 | Emergency Department Note ---
Entered by Chemo Douglas acting as a scribe for Rowdy Parry DO History of Present Illness General Chief complaint: Lethargic Time Seen by Provider: 04/27/19 08:47 Source: patient and EMS Limitations: altered mental status History of Present Illness Onset (ago): unknown Location: left and right Pain Consistency: + other (episode) Quality: + other (weakness) Associated symptoms: + shortness of breath and + other (+right foot pain; -abdom inal pain ); no headaches The patient is an 84 year old female, with past medical history of dementia and hypertension, who presents to the Emergency Room with complaints of an episode of weakness, per EMS. The onset of symptoms is unknown. EMS reports the patient is too weak to follow commands. EMS states the patient is currently being treated for a UTI, and EMS notes the patient experiences UTIs frequently. EMS states the patient's O2 saturation was 92 on room air but reached 99-100 with 2 L of oxygen. EMS also notes the patient is breathing shallow and has been struggling to take a deep breath. EMS reports the patient did not take her medications today. The patient states her right foot began hurting yesterday. The patient denies a headache and abdominal pain. The patient does not know what year it is or what/when the next holiday is, but the patient is aware that she is currently in the hospital. The HPI and ROS are limited due to the patient's altered mental status. Home Medications Home Medications Medication Instructions Recorded Confirmed Type allopurinol 100 mg PO DAILY 06/27/18 04/27/19 History aspirin 81 mg PO DAILY 06/27/18 04/27/19 History colestipol 1 g PO BID 06/27/18 04/27/19 History ezetimibe 10 mg PO DAILY 06/27/18 04/27/19 History melatonin 5 mg PO HS 06/27/18 04/27/19 History acetaminophen 1,000 mg PO DAILY PRN 01/31/19 04/27/19 History ascorbic acid (vitamin C) [Vitamin 500 mg PO DAILY 01/31/19 04/27/19 History C] losartan 100 mg PO DAILY 01/31/19 04/27/19 History multivitamin [Daily-Valorie] 1 tab PO DAILY 01/31/19 04/27/19 History omega 2-uds-tsk-fish oil [Fish Oil] 1 cap PO DAILY 01/31/19 04/27/19 History meclizine 12.5 mg PO TID PRN #0 tab 03/16/19 04/27/19 Rx Lactobacillus acidophilus 1 tab PO DAILY 04/27/19 04/27/19 History [Acidophilus] amlodipine 5 mg PO DAILY 04/27/19 04/27/19 History bisacodyl 10 mg [place] DAILY PRN 04/27/19 04/27/19 History carvedilol 6.25 mg PO BID 04/27/19 04/27/19 History cranberry 500 mg PO DAILY 04/27/19 04/27/19 History divalproex 250 mg PO BID 04/27/19 04/27/19 History polyethylene glycol 3350 17 g PO DAILY PRN 04/27/19 04/27/19 History quetiapine 12.5 mg PO TID 04/27/19 04/27/19 History sennosides-docusate sodium [Senna 1 tab PO BID PRN 04/27/19 04/27/19 History Plus] sodium phosphates [Fleet Enema] 118 ml [place] DAILY PRN 04/27/19 04/27/19 History trazodone 50 mg PO DAILY 04/27/19 04/27/19 History Allergies Allergy/AdvReac Type Severity Reaction Status Date / Time iodine Allergy Unknown Unknown Verified 04/27/19 10:05 memantine Allergy Unknown Unknown Verified 04/27/19 10:05 pantoprazole Allergy Unknown Unknown Verified 04/27/19 10:05 shellfish derived Allergy Unknown Unknown Verified 04/27/19 10:05 crab Allergy Gastrointestinal Verified 04/27/19 10:05 Upset Past Med/Surg History Medical History Gout (Chronic) Dementia (Chronic) HTN (hypertension) (Chronic) HLD (hyperlipidemia) (Chronic) CKD (chronic kidney disease) stage 3, GFR 30-59 ml/min (Chronic) Anemia (Chronic) Seizure disorder (Chronic) CAD (coronary artery disease) (Chronic) Acute UTI (Resolved) Memory deficit (Resolved) Surgical History History of total knee arthroplasty (Chronic) R History of Achilles tendon repair (Chronic) Family History Sister Diabetes Social History Preferred Language: Azeri Communication Ability: Impaired 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 Unobtainable due to cognitive status Physical Exam Vital Signs Vital Signs - 24 hr 04/27/19 08:59 04/27/19 09:10 04/27/19 09:12 Temperature 36.5 C Temperature Source Oral Sepsis Recent Fever Within 48 Hours No Sepsis Action Taken by Nursing No Action Required Pulse Rate 56 L Pulse Rate [Apical] Respiratory Rate 16 Blood Pressure 190/68 H Blood Pressure [Left Arm] Blood Pressure Mean 108 Blood Pressure Mean [Left Arm] Pulse Oximetry 94 94 94 Oxygen Delivery Method Room Air Room Air 04/27/19 10:10 04/27/19 11:38 Temperature Temperature Source Sepsis Recent Fever Within 48 Hours Sepsis Action Taken by Nursing Pulse Rate Pulse Rate [Apical] 57 L 55 L Respiratory Rate 16 16 Blood Pressure Blood Pressure [Left Arm] 179/85 H 159/65 H Blood Pressure Mean Blood Pressure Mean [Left Arm] 116 96 Pulse Oximetry 95 95 Oxygen Delivery Method Room Air Room Air GENERAL: Patient is awake and slow to respond to questions. She does not appear to be in pain or uncomfortable. EYES: The conjunctivae are clear. The pupils are round and reactive. EARS, NOSE, MOUTH AND THROAT: The nose is without any evidence of any deformity. Mucous membranes are moist tongue is midline NECK: The neck is nontender and supple. RESPIRATORY: Normal respiratory effort is noted there is no evidence of wheezing rhonchi or rales CARDIOVASCULAR: Regular rate and rhythm noted there no murmurs rubs or gallops normal S1 normal S2 GASTROINTESTINAL: The abdomen is soft. Bowel sounds are present in all quadrants. Abdomen is nontender MUSCULOSKELETAL/EXTREMITIES: There is no evidence of gross deformity full range of motion is noted in the hips and shoulders SKIN: There is no obvious evidence of any rash. Pedal edema was noted bilaterally. NEUROLOGIC: Patient is awake and oriented to person place but not time. She does recognize her daughter. There was no drift in the upper extremities. No facial droop was noted. Patient is unable to keep the right leg off the bed for greater than 5 seconds but states that this is due to pain. Patient is able to keep the left leg off of the bed for 5 seconds. Course 0850: Past medical records reviewed. The patient was evaluated in room B7. A complete history and physical exam was performed. 0927: I updated the patient's daughter on the patient's case. 1140: I evaluated the patient, but the patient reports of no change. Therefore, I am going to talk to the admitting team about her. 1147: I reviewed the patient's case with Radha Moran. Dr. Selena Moran will evaluate the patient for further management. Consultations Consultation #1: I reviewed the patient's case with Radha martinez. Dr. Selena Moran will evaluate the patient for further management. Time: 11:47 Administered Medications Discontinued Medications Sodium Chloride (Nss) 500 mls @ 999 mls/hr IV .Q31M JJ Stop: 04/27/19 09:30 Last Infusion: 04/27/19 10:23 Dose: 0 mls/hr Documented by: [id number] Admin: 04/27/19 09:50 Dose: 999 mls/hr Documented by: [id number] Medical Decision Making Differential Diagnosis Differential diagnosis: Etiologies such as metabolic, infection, hypo/hyperglycemia, electrolyte abnormalities, cardiac sources, intracerebral event, toxicologic, neurologic, as well as others were entertained. Medical Records Attestation: I reviewed the patient's medical records. Home Medications Current Medication List: was personally reviewed by me Laboratory Data Attestation: I reviewed the patient's lab results. Result diagrams: 04/27/19 08:28 04/27/19 08:28 Lab Results 04/27/19 04/27/19 04/27/19 Range/Units 08:28 08:28 08:28 WBC 5.43 (4.8-10.8) K/uL RBC 3.68 L (4.2-5.4) M/uL Hgb 10.8 L (12.0-16.0) g/dL Hct 33.8 L (37-47) % MCV 91.8 (80-100) fL MCH 29.3 (25-34) pg MCHC 32.0 (32-36) g/dL RDW Std Deviation 56.5 H (36.4-46.3) fL RDW Coeff of Esmer 16.9 H (11.5-14.5) % Plt Count 173 (130-400) K/uL MPV 10.8 H (7.4-10.4) fL Immature Gran % (Auto) 0.2 % Neut % (Auto) 58.1 % Lymph % (Auto) 29.3 % [place] % (Auto) 7.6 % Eos % (Auto) 4.2 % Baso % (Auto) 0.6 % Immature Gran # (Auto) 0.01 (0.00-0.02) K/uL Neut # (Auto) 3.16 (1.4-6.5) K/uL Lymph # (Auto) 1.59 (1.2-3.4) K/uL [place] # (Auto) 0.41 (0.11-0.59) K/uL Eos # (Auto) 0.23 (0-0.5) K/uL Baso # (Auto) 0.03 (0-0.2) K/uL PT 10.7 (9.0-12.0) Seconds INR 1.0 (0.9-1.1) APTT 24.8 (21.0-31.0) Seconds PTT Ratio 0.9 Sodium 142 (136-145) mmol/L Potassium 4.1 (3.5-5.1) mmol/L Chloride 106 (98-107) mmol/L Carbon Dioxide 31 (21-32) mmol/L Anion Gap 5.0 (3-11) BUN 29 H (7-18) mg/dl Creatinine 1.11 (0.6-1.2) mg/dl Est Cr Clr Drug Dosing Not Reportable Est GFR ( Amer) 53.6 Est GFR (Non-Af Amer) 46.2 BUN/Creatinine Ratio 26.4 H (10-20) Glucose 88 (70-99) mg/dl Calcium 9.0 (8.5-10.1) mg/dl Magnesium 2.0 (1.8-2.4) mg/dl Total Bilirubin 0.4 (0.2-1) mg/dl AST 13 L (15-37) U/L ALT 13 (12-78) U/L Alkaline Phosphatase 45 (45-117) U/L Total Creatine Kinase (26-192) U/L Troponin I < 0.015 (0-0.045) ng/ml Total Protein 6.6 (6.4-8.2) gm/dl Albumin 3.4 (3.4-5.0) gm/dl Globulin 3.2 (2.5-4.0) gm/dl Albumin/Globulin Ratio 1.1 (0.9-2) TSH 1.340 (0.300-4.500) uIu/ml Urine Color Urine Appearance (Clear) Urine pH (4.5-7.5) Ur Specific [place] (1.000-1.030) Urine Protein (Negative) Urine Glucose (UA) (Negative) Urine Ketones (Negative) Urine Blood (Negative) Urine Nitrite (Negative) Urine Bilirubin (Negative) Urine Urobilinogen (Negative) Ur Leukocyte Esterase (Negative) 04/27/19 04/27/19 Range/Units 08:28 10:05 WBC (4.8-10.8) K/uL RBC (4.2-5.4) M/uL Hgb (12.0-16.0) g/dL Hct (37-47) % MCV (80-100) fL MCH (25-34) pg MCHC (32-36) g/dL RDW Std Deviation (36.4-46.3) fL RDW Coeff of Esmer (11.5-14.5) % Plt Count (130-400) K/uL MPV (7.4-10.4) fL Immature Gran % (Auto) % Neut % (Auto) % Lymph % (Auto) % [place] % (Auto) % Eos % (Auto) % Baso % (Auto) % Immature Gran # (Auto) (0.00-0.02) K/uL Neut # (Auto) (1.4-6.5) K/uL Lymph # (Auto) (1.2-3.4) K/uL [place] # (Auto) (0.11-0.59) K/uL Eos # (Auto) (0-0.5) K/uL Baso # (Auto) (0-0.2) K/uL PT (9.0-12.0) Seconds INR (0.9-1.1) APTT (21.0-31.0) Seconds PTT Ratio Sodium (136-145) mmol/L Potassium (3.5-5.1) mmol/L Chloride (98-107) mmol/L Carbon Dioxide (21-32) mmol/L Anion Gap (3-11) BUN (7-18) mg/dl Creatinine (0.6-1.2) mg/dl Est Cr Clr Drug Dosing Est GFR ( Amer) Est GFR (Non-Af Amer) BUN/Creatinine Ratio (10-20) Glucose (70-99) mg/dl Calcium (8.5-10.1) mg/dl Magnesium (1.8-2.4) mg/dl Total Bilirubin (0.2-1) mg/dl AST (15-37) U/L ALT (12-78) U/L Alkaline Phosphatase (45-117) U/L Total Creatine Kinase 58 (26-192) U/L Troponin I (0-0.045) ng/ml Total Protein (6.4-8.2) gm/dl Albumin (3.4-5.0) gm/dl Globulin (2.5-4.0) gm/dl Albumin/Globulin Ratio (0.9-2) TSH (0.300-4.500) uIu/ml Urine Color Yellow Urine Appearance Clear (Clear) Urine pH 6.5 (4.5-7.5) Ur Specific [place] 1.020 (1.000-1.030) Urine Protein Negative (Negative) Urine Glucose (UA) Negative (Negative) Urine Ketones Negative (Negative) Urine Blood Negative (Negative) Urine Nitrite Negative (Negative) Urine Bilirubin Negative (Negative) Urine Urobilinogen Negative (Negative) Ur Leukocyte Esterase Negative (Negative) Imaging Data Radiologist's Impression: Radiology results as stated below per my review and the radiologist's interpretation: CT head/brain wo con CLINICAL HISTORY: Altered mental status. COMPARISON STUDY: MRI of the brain dated 03/10/2019, noncontrast head CT dated 03/09/2019 TECHNIQUE: Axial CT of the brain is performed from the vertex to the skull base. IV contrast was not administered for this examination. A dose lowering technique was utilized adhering to the principles of ALARA. CT DOSE: 614.27 mGy.cm FINDINGS: No intra or extra-axial mass lesions are visualized. There is no CT evidence of acute cortical infarction. There is no evidence of midline shift. There is no acute hemorrhage. No calvarial fractures are visualized. There are patchy white matter hypodensities likely on a small vessel basis. There is no evidence of pathologic ventricular dilatation. There is no evidence of acute sinusitis. There is bilateral maxillary sinus and ethmoid sinus mucosal thickening. IMPRESSION: No acute intracranial findings Electronically signed by: Wilton Knight M.D. 04/27/2019 9:19 AM XR chest 1V portable HISTORY: weakness COMPARISON: Chest 03/09/2019. FINDINGS: No pneumothorax. No pleural effusions. The heart remains enlarged. There is mild central pulmonary vascular congestion without overt edema. No new focal lung consolidations to suggest pneumonia. IMPRESSION: Cardiomegaly with mild congestive change. Electronically signed by: Tristin Gutiérrez M.D. 04/27/2019 9:09 AM ECG Data Attestation: I personally reviewed and interpreted this ECG as follows: Indication: weakness Rate (beats per minute): 54 Rhythm: sinus bradycardia Findings: no PAC, no PVC, no ST depression, no ST elevation, no acute ischemic change and no ectopy Blood Pressure Blood Pressure Findings: Elevated blood pressure Blood Pressure Disposition: further management by hospitalist CARLOS Ford The patient is an 84-year-old female who presented to the emergency department for altered mental status. Initially the patient presented with prehospital personnel. History was somewhat confusing. On my exam the patient appeared to have some right-sided weakness but it was unclear if this was weakness or the patient had difficulty moving the right lower extremity because of pain. A call was made back to the patient's personal nursing home. They state that the patient started having right-sided weakness but it is unclear if the patient awoke with the symptoms. When the family arrived they stated that she was below her baseline mental status and appeared to be more lethargic than usual. They stated that the right leg pain was not new and would sometimes cause the patient to not be able to use the leg as well. Certainly the patient was a very confusing presentation and for this reason she was not made a stroke alert because the true onset of the symptoms could not be delineated. I discussed patient's laboratory and radiographic studies with her and her family members. I discussed her case with the on-call [facility] hospitalist group. They have agreed to evaluate the patient in the emergency department for further management disposition. Impression & Plan Altered mental status, Weakness, Bradycardia Discharge Plan Visit Data *Final* Discharge Date/Time: 04/27/19 14:19 Chief Complaint: Lethargic ED Provider: Rowdy Parry Discharge Problem: Altered mental status, Weakness, Bradycardia Patient Disposition: Admitted As Inpatient Discharge Instructions Interventions: ED Discharge Assessment Last Done: 04/27/19 14:19 Discharge Problem: Altered mental status Qualifiers: Altered mental status type: unspecified Qualified Code(s): R41.82 - Altered mental status, unspecified The scribe's documentation has been prepared under my direction and personally reviewed by me in its entirety. I confirm that the note above accurately reflects all work, treatment, procedures, and medical decision making performed by me.
[2019-04-27 10:17] LABS: Appearance Urine Clear (Clear); Bilirubin Urine Negative (Negative); Blood Urine Negative (Negative); Color Urine Yellow; Glucose Urine UA Negative (Negative); Ketones Urine Negative (Negative); Leukocyte Esterase Urine Negative (Negative); Nitrite Urine Negative (Negative); Protein Urine Negative (Negative); Urobilinogen Urine Negative (Negative); pH Urine 6.5 (4.5-7.5)
--- NOTE | 2019-04-27 13:16 | History & Physical Report ---
Date of Service April 27, 2019 Assessment & Plan (1) Altered mental status: (2) Lethargy: This is an 84-year-old female who has significant PMH of CAD, HTN, HLD, dementia, CKD stage III, anemia, gout, depression who presents to [facility] ED secondary to altered mental status and lethargy that began this morning. In ED patient remained hemodynamically stable, afebrile. She did have episode of bradycardia heart rate 29 with appearance of sinus pause on telemetry. Her CBC, CMP, TSH relatively unremarkable except for stable anemia H&H 10.8 and 33.8, BUN 29, creatinine 1.11. Urinalysis is negative Head CT reveals chronic microvascular small vessel ischemic changes but otherwise no acute ab normality Chest x-ray cardiomegaly with mild congestion Patient is very lethargic and drowsy but is arousable with verbal and tactile stimuli. She is alert to herself, daughter and surroundings, but not sure why she is here. She falls asleep very easily and requires stimulation to remain alert. This does not appear to be infectious as she is afebrile, WBC normal and ur inalysis negative ddx include but not limited to: ? seizure activity/post ictal state, depakote toxicity, polypharmacy, symptomatic bradycardia, progression of dementia among admit to PCU monitor on telemetry for tachybrady arrhythmias Consult neurology - pt well established with [facility] neurology Depakote level pending EEG and echocardiogram ordered Hold carvediolol continue antipsychotic/depression meds including seroquel and trazodone for now - will defer to neuro May need to get psychiatry involved continue depakote for now blood culture pending will not initiate antibiotics at this time PT/OT (3) Bradycardia: Pt had episode in ED of bradycardia, HR 29 after reviewing telemetry appears to be sinus pause hold carvedilol for now Consult cardiology pacer pads at bedside echocardiogram ordered ? If symptomatic bradycardia is causing above (4) Dementia: mood stable on seroquel, trazodone (5) Seizure disorder: Pt with two witnessed seizure-like episodes prior to last admission in February/2019 She was seen by neurology and had EEG Placed on Depakote 250 mg twice daily No witnessed seizure activity prior to today's visit, ? If altered mental status and lethargy could be related to postictal state if unwitnessed seizure vs Depakote toxicity Obtain EEG Neurology consult Valproic acid level ordered (6) HTN (hypertension): Blood pressure elevated, did not take antihypertensives prior to arrival Amlodipine 5 mg and losartan 100 mg to start now If continues to remain elevated could increase amlodipine to 10 mg daily Carvedilol on hold (7) CKD (chronic kidney disease) stage 3, GFR 30-59 ml/min: Baseline creatinine 1.1 BUN/creatinine 29 and 1.11 today may have pre renal component, but no dain renal insufficiency Continue IVF 80 cc/h x 2 L Repeat BMP in a.m. (8) CAD (coronary artery disease): No chest pain or shortness of breath Continue ASA, losartan Hold Coreg in setting of bradycardia (9) Anemia: H/H stable at 10.8/33.8 normocytic/normochromic obtain iron panel, vit b12, folate (10) HLD (hyperlipidemia): Continue Zetia and omega-3 (11) DVT prophylaxis: lovenox, SCD/TEDS Disposition: admit to telemetry, case management consulted Follow up: PCP Dr. Joseph at [facility] upon discharge Patient was seen and examined in collaboration with Dr. Erazo, please see addendum History of Present Illness Chief Complaint: altered mental status/lethargy since this morning. Primary Care Provider: [facility] This is an 84-year-old female who has significant PMH of CAD, HTN, HLD, dementia, CKD stage III, anemia, gout, depression who presents to [facility] ED secondary to altered mental status and lethargy that began this morning. Patient's daughter and POA is at bedside and provides most of history. Of significance patient recently confined to [facility] 03/09 to 03/16/2019 secondary to questionable seizure-like activity. She underwent EEG and neurology evaluation and due to this being her second episode of witnessed seizure-like activity was placed on Depakote 250 mg twice daily. She also had episodes of dementia related delirium and had multiple psychiatric medication adjustments including discontinuation of Sinemet, reduction of trazodone from 100 mg to 50 mg, Seroquel 12.5 mg twice daily. She was also found to have E. coli UTI treated with IV antibiotics. She was discharged to [facility] for approximately 2 weeks, and then to [facility]. Daughter states that she has noted a exchange underwriting consultant the past week when she was noted to have increased confusion, weakness, incontinence, and difficulty walking. Every time she has the symptoms she usually has a urinary tract infection. Urinalysis was collected and negative. She had intermittent episodes of the symptoms over the past week. She was last seen by her daughter last evening and doing well, at her baseline. Her baseline includes she is alert and oriented to self, can carry on a conversation although not always accurate, can ambulate with walker and feed self. She did have episode of constipation yesterday treated with multiple medications. She did have evacuation of stool last evening per nursing staff. When daughter called in to evaluate this morning, nursing staff noted difficulty arousing her in getting her to wake up. Due to the symptoms and increased confusion she was referred to ED. There was also some question of not moving extremities. There was no witnessed seizure-like activity per daughter. Only medication change noted per daughter was increase of Seroquel to 12.5 mg 3 times daily due to significant hallucinations approximately 2 weeks ago. Since increasing Seroquel her hallucinations have decreased. Currently ROS is unreliable from patient given advanced dementia. Allergies Allergy/AdvReac Type Severity Reaction Status Date / Time iodine Allergy Unknown Unknown Verified 04/27/19 10:05 memantine Allergy Unknown Unknown Verified 04/27/19 10:05 pantoprazole Allergy Unknown Unknown Verified 04/27/19 10:05 shellfish derived Allergy Unknown Unknown Verified 04/27/19 10:05 crab Allergy Gastrointestinal Verified 04/27/19 10:05 Upset Home Medications Home Medications Medication Instructions Recorded Confirmed Type allopurinol 100 mg PO DAILY 06/27/18 04/27/19 History aspirin 81 mg PO DAILY 06/27/18 04/27/19 History colestipol 1 g PO BID 06/27/18 04/27/19 History ezetimibe 10 mg PO DAILY 06/27/18 04/27/19 History melatonin 5 mg PO HS 06/27/18 04/27/19 History acetaminophen 1,000 mg PO DAILY PRN 01/31/19 04/27/19 History ascorbic acid (vitamin C) [Vitamin 500 mg PO DAILY 01/31/19 04/27/19 History C] losartan 100 mg PO DAILY 01/31/19 04/27/19 History multivitamin [Daily-Valorie] 1 tab PO DAILY 01/31/19 04/27/19 History omega 3-hvb-jal-fish oil [Fish Oil] 1 cap PO DAILY 01/31/19 04/27/19 History meclizine 12.5 mg PO TID PRN #0 tab 03/16/19 04/27/19 Rx Lactobacillus acidophilus 1 tab PO DAILY 04/27/19 04/27/19 History [Acidophilus] amlodipine 5 mg PO DAILY 04/27/19 04/27/19 History bisacodyl 10 mg CA DAILY PRN 04/27/19 04/27/19 History carvedilol 6.25 mg PO BID 04/27/19 04/27/19 History cranberry 500 mg PO DAILY 04/27/19 04/27/19 History divalproex 250 mg PO BID 04/27/19 04/27/19 History polyethylene glycol 3350 17 g PO DAILY PRN 04/27/19 04/27/19 History quetiapine 12.5 mg PO TID 04/27/19 04/27/19 History sennosides-docusate sodium [Senna 1 tab PO BID PRN 04/27/19 04/27/19 History Plus] sodium phosphates [Fleet Enema] 118 ml CA DAILY PRN 04/27/19 04/27/19 History trazodone 50 mg PO DAILY 04/27/19 04/27/19 History Past Med/Surg History Medical History Gout (Chronic) Dementia (Chronic) HTN (hypertension) (Chronic) HLD (hyperlipidemia) (Chronic) CKD (chronic kidney disease) stage 3, GFR 30-59 ml/min (Chronic) Anemia (Chronic) Seizure disorder (Chronic) CAD (coronary artery disease) (Chronic) Acute UTI (Resolved) Memory deficit (Resolved) Surgical History History of total knee arthroplasty (Chronic) R History of Achilles tendon repair (Chronic) Family History Sister Diabetes Social History Preferred Language: Turkmen Communication Ability: Effective Silk Screen Printer Required: No Beliefs That Will Affect Care: None Current Living Situation: Personal Care Facility Current Living Situation Comment: [facility] Feels Safe at Home: Yes Safety Concerns: Feels Safe At This Time Smoking Status: Never smoker Hx Alcohol Use: No Hx Substance Use: No Review of Systems Review of Systems: Unobtainable due to cognitive status Physical Exam Physical Exam: Constitutional: WD/WN, Elderly Female, drowsy and lethargic but arouses to verbal and tactile stimulation, vitals as above, NAD, sitting up in bed, conversing easily Head: Normocephalic, Atraumatic Eyes: PERRL, conjunctivae normal, anicteric sclerae ENMT: external ear and nose normal, oropharynx dry Neck: trachea midline, no thyromegaly normal visual inspection Respiratory: normal respiratory effort, lungs clear to auscultation, no wheeze, rales, rhonchi. Normal insp/exp effort, no accessory muscle use Cardiovascular: bradycardia with regular rhythm, 2/6 CLAY RUSB, b/l lymphedema Vessels: no JVD or carotid bruit Chest: normal inspection of chest Abdomen: normal bowel sounds, soft, nontender, no hepatosplenomegaly Musculoskeletal: no cyanosis or clubbing, extremities motor strength 5/5 Skin: no rashes, warm and dry normal turgor Neurologic: PERRL, EOMI, accommodation nl, no face palsy, no dysarthria CN's II-XI intact bilaterally and moves all extremities Psychiatric: A+O to self, place euthymic affect Lymphatic: no cervical or axillary lymphadenopathy : deferred Results & Data Vital Signs (Past 12 Hours) Vital Signs Temp Pulse Pulse Resp BP BP Pulse Ox 04/27/19 13:03 54 L 16 185/64 H 99 04/27/19 11:38 55 L 16 159/65 H 95 04/27/19 10:10 57 L 16 179/85 H 95 04/27/19 09:12 94 04/27/19 09:10 94 04/27/19 08:59 36.5 C 56 L 16 190/68 H 94 Laboratory Results Short CBC 04/27/19 Range/Units 08:28 WBC 5.43 (4.8-10.8) K/uL Hgb 10.8 L (12.0-16.0) g/dL Hct 33.8 L (37-47) % Plt Count 173 (130-400) K/uL BMP 04/27/19 08:28 Sodium 142 Potassium 4.1 Chloride 106 Carbon Dioxide 31 BUN 29 H Creatinine 1.11 Glucose 88 Calcium 9.0 Cardiac Enzymes 04/27/19 Range/Units 08:28 Troponin I < 0.015 (0-0.045) ng/ml Liver Function 04/27/19 Range/Units 08:28 Total Bilirubin 0.4 (0.2-1) mg/dl AST 13 L (15-37) U/L ALT 13 (12-78) U/L Alkaline Phosphatase 45 (45-117) U/L Albumin 3.4 (3.4-5.0) gm/dl Urine 04/27/19 Range/Units 10:05 Urine Color Yellow Urine Appearance Clear (Clear) Urine pH 6.5 (4.5-7.5) Ur Specific [place] 1.020 (1.000-1.030) Urine Protein Negative (Negative) Urine Glucose (UA) Negative (Negative) Diagnostic Findings Head CT: No intra or extra-axial mass lesions are visualized. There is no CT evidence of acute cortical infarction. There is no evidence of midline shift. There is no acute hemorrhage. No calvarial fractures are visualized. There are patchy white matter hypodensities likely on a small vessel basis. There is no evidence of pathologic ventricular dilatation. There is no evidence of acute sinusitis. There is bilateral maxillary sinus and ethmoid sinus mucosal thickening. CXR: IMPRESSION: Cardiomegaly with mild congestive change. Medications Administered Discontinued Medications Sodium Chloride (Nss) 500 mls @ 999 mls/hr IV .Q31M [facility] Stop: 04/27/19 09:30 Last Infusion: 04/27/19 10:23 Dose: 0 mls/hr Documented by: [id number] Admin: 04/27/19 09:50 Dose: 999 mls/hr Documented by: [id number] ECG Rate (beats per minute): 54 Rhythm: sinus bradycardia Code Status & VTE Plan Code Status Conditional code No chest compressions/CPR/Intubation Cardioversion, pacemaker okay VTE Prophylaxis Plan VTE Prophylaxis will be ordered: Yes Supervising Physician Co-Signing Physician Notes Patient is an 84-year-old female with history of dementia and other problems presents with history of altered mental status and lethargy since this morning. She was recently admitted at [facility] for possible seizure-like activity and was st arted on Depakote and was found to have urinary tract infection. Her antipsychotics were adjusted during prior admission to decrease increased sedation. She was found to be bradycardic with heart rate as low as in the 30s while in ED. History is unreliable secondary to advanced dementia. Please review HPI for complete details of presentation. CT head showed no acute intracranial abnormality. Urinalysis showed no signs of UTI. Requested Depakote, ammonia levels. On exam patient is moderately built and nourished, no apparent distress, normocephalic atraumatic, lungs are clear to auscultation, S1-S2,+ murmur, bradycardia, abdomen soft nontender, grossly nonfocal neurological deficits. Patient is admitted for management of altered mental status, bradycardia. Requested EEG. Consulted neurology for further input. Difficult levels pending. Will hold carvedilol for bradycardia. Cardiology consulted. Monitor on telemetry unit. Avoid any AV ilir blocking agents. Seizure, aspiration, fall precautions. I personally reviewed the record. Patient is interviewed and examined at bedside. Patient's care is coordinated with Radha Carter PA-C. Please refer to the documentation above for details of patient's presentation and for discussion of other issues. (1) Altered mental status Altered mental status type: unspecified Qualified Code(s): R41.82 - Altered mental status, unspecified
[2019-04-27] MEDS ORDERED: ONDANSETRON INJ 2 MG/ML 2 ML VIAL IV PRN (14:36)
[2019-04-27] MEDS ORDERED: POLYETHYLENE (MIRALAX) 17 GM PACK PO PRN (14:36)
[2019-04-27] MEDS ORDERED: ALUMINUM/MAGNESIUM SUSP 30 ML UDC PO PRN (14:36)
[2019-04-27] MEDS ORDERED: MAGNESIUM HYDROXIDE SUSP 30 ML UDC PO PRN (14:36)
[2019-04-27] MEDS ORDERED: SODIUM CHLORIDE 0.9% 1000ML 1,000 ML IV SCH (15:00)
--- NOTE | 2019-04-27 15:19 | Neurology Consultation ---
Date of Consultation April 27, 2019 Assessment & Plan (1) Altered mental status: 1. CT head no acute findings 2. cardiology on board 3. back to baseline 4. depakote level pending 5. TTE- if not already ordered 6. EEG- ordered will be done tomorrow am 7. no seizure activity during this episode 8. carotid doppler - ordered 9. increased depakote from 250 mg BID to TID Supervising Physician Co-Signing Physician Notes I have seen and discussed above patient with Dr Eliana Mendez, neurology. Pt seen and examined, reviewed H and P. Pt does not recall hx. Brother and [id number] who are in room were not with pt when event occurred. Pt was more confused, by report, off baseline. No tongue biting, pt chronically incont. No headache or new weakness or numbness. Depakote level mildly low. Ammonia mildly elevated, CK nml.. Pt oriented to person and hospital, not year or month. No aphasia. No facial asymm. symmetric bl UE strength, symm reflexes. Imp change in MS, unclear etiology, pt mildly bradycardic, monitor for arrhythmia. Repeat EEG. Could have been post-ictal no supportive evidence (CK, WBC nml). Rec carotid US. Increase Depakote to 250 mg tid will follow with you NURYS Mendez MD History of Present Illness Reason for Consultation: encephalopathy Requesting Physician: Hieu Erazo MD Attending Physician: Hieu Erazo MD History of Present Illness Chela is a 84 year old female with PMH of CAD, HTN, HLD, dementia, CKD stage III, anemia, gout, depression. Presented to [facility] ED for altered mental status and lethargy. She was seen by neurology during the admission to [facility] 03/09 to 03/16/2019 for seizure-like activity. She underwent EEG and neurology evaluation and due to this being her second episode of witnessed seizure-like activity was placed on Depakote 250 mg twice daily. She has dementia and delirium and had multiple psychiatric medication adjustments including discontinuation of Sinemet, reduction of trazodone from 100 mg to 50 mg, Seroquel 12.5 mg twice daily. She was discharged to [facility] for approximately 2 weeks, and then to personal care [facility]. Daughter states that she has noted a change management facilitator the past week when she was noted to have increased confusion, weakness, incontinence, and difficulty walking. She was last seen by her daughter last evening and doing well, at her baseline. Her baseline includes she is alert and oriented to self, can carry on a conversation although not always accurate, can ambulate with walker and feed self. She was hard to arouse and had increased confusion she was referred to ED. There was no witnessed seizure-like activity. Only medication change noted per daughter was increase of Seroquel to 12.5 mg 3 times daily due to significant hallucinations approximately 2 weeks ago. Since increasing Seroquel her hallucinations have decreased. She is currently alert and her brother and sister in law are in the room. They see her frequently and feel she is currently at baseline. denies CP, SOB, abdominal pain, one sided weakenss, numbness tingling, N, V, falls. Allergies Allergy/AdvReac Type Severity Reaction Status Date / Time iodine Allergy Unknown Unknown Verified 04/27/19 10:05 memantine Allergy Unknown Unknown Verified 04/27/19 10:05 pantoprazole Allergy Unknown Unknown Verified 04/27/19 10:05 shellfish derived Allergy Unknown Unknown Verified 04/27/19 10:05 crab Allergy Gastrointestinal Verified 04/27/19 10:05 Upset Home Medications Home Medications Medication Instructions Recorded Confirmed Type allopurinol 100 mg PO DAILY 06/27/18 04/27/19 History aspirin 81 mg PO DAILY 06/27/18 04/27/19 History colestipol 1 g PO BID 06/27/18 04/27/19 History ezetimibe 10 mg PO DAILY 06/27/18 04/27/19 History melatonin 5 mg PO HS 06/27/18 04/27/19 History acetaminophen 1,000 mg PO DAILY PRN 01/31/19 04/27/19 History ascorbic acid (vitamin C) [Vitamin 500 mg PO DAILY 01/31/19 04/27/19 History C] losartan 100 mg PO DAILY 01/31/19 04/27/19 History multivitamin [Daily-Valorie] 1 tab PO DAILY 01/31/19 04/27/19 History omega 9-qzr-kcp-fish oil [Fish Oil] 1 cap PO DAILY 01/31/19 04/27/19 History meclizine 12.5 mg PO TID PRN #0 tab 03/16/19 04/27/19 Rx Lactobacillus acidophilus 1 tab PO DAILY 04/27/19 04/27/19 History [Acidophilus] amlodipine 5 mg PO DAILY 04/27/19 04/27/19 History bisacodyl 10 mg IA DAILY PRN 04/27/19 04/27/19 History carvedilol 6.25 mg PO BID 04/27/19 04/27/19 History cranberry 500 mg PO DAILY 04/27/19 04/27/19 History divalproex 250 mg PO BID 04/27/19 04/27/19 History polyethylene glycol 3350 17 g PO DAILY PRN 04/27/19 04/27/19 History quetiapine 12.5 mg PO TID 04/27/19 04/27/19 History sennosides-docusate sodium [Senna 1 tab PO BID PRN 04/27/19 04/27/19 History Plus] sodium phosphates [Fleet Enema] 118 ml IA DAILY PRN 04/27/19 04/27/19 History trazodone 50 mg PO DAILY 04/27/19 04/27/19 History Patient History Medical History Gout (Chronic) Dementia (Chronic) HTN (hypertension) (Chronic) HLD (hyperlipidemia) (Chronic) CKD (chronic kidney disease) stage 3, GFR 30-59 ml/min (Chronic) Anemia (Chronic) Seizure disorder (Chronic) CAD (coronary artery disease) (Chronic) Acute UTI (Resolved) Memory deficit (Resolved) Surgical History History of total knee arthroplasty (Chronic) R History of Achilles tendon repair (Chronic) Family History Sister Diabetes Social History Preferred Language: Yi Communication Ability: Effective Lead Medical Technologist Required: No Beliefs That Will Affect Care: None Current Living Situation: Personal Care Facility Current Living Situation Comment: [facility] Feels Safe at Home: Yes Safety Concerns: Feels Safe At This Time Smoking Status: Never smoker Hx Alcohol Use: No Hx Substance Use: No Physical Exam Physical Exam: Physical Exam: Constitutional: appearance nourished, healthy pleasantly confused Ears, Nose, Mouth and Throat: mucous membranes moist, no injection and skin normal, eyes normal Cardiovascular: loud systolic murmer, RRR Respiratory: course breath sounds Musculoskeletal: non pitting peripheral edema Skin: no stigmata of neurocutaneous disease noted and normal and intact Eyes: extraocular muscles intact (EOMI) and pupils equal, round and reactive to light (PERRL) NEUROLOGIC EXAMINATION: Mental status: Alert and interactive Oriented to person, does not know year, thinks she is at [facility], thinks she still lives in [facility] Speech fluent with no evidence of aphasia Cranial Nerves smile eye brow raise symmetric Reflexes: Deep tendon reflexes were symmetrical and graded 2/5. Sensory: light and cool touch Coordination: finger to nose no bipass Gait/Stance: Posture lying in bed Motor: Negative for pronator drift of out stretched arms with eyes closed. 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 Results & Data Vital Signs (Past 12 Hours) Vital Signs Temp Pulse Pulse Resp BP BP Pulse Ox 04/27/19 14:54 36.7 C 55 L 16 176/55 H 95 04/27/19 14:36 04/27/19 13:03 54 L 16 185/64 H 99 04/27/19 11:38 55 L 16 159/65 H 95 04/27/19 10:10 57 L 16 179/85 H 95 04/27/19 09:12 94 04/27/19 09:10 94 04/27/19 08:59 36.5 C 56 L 16 190/68 H 94 Pulse Ox 04/27/19 14:54 04/27/19 14:36 99 04/27/19 13:03 04/27/19 11:38 04/27/19 10:10 04/27/19 09:12 04/27/19 09:10 04/27/19 08:59 Laboratory Results Abnormal lab results 04/27/19 04/27/19 Range/Units 08:28 08:28 RBC 3.68 L (4.2-5.4) M/uL Hgb 10.8 L (12.0-16.0) g/dL Hct 33.8 L (37-47) % RDW Std Deviation 56.5 H (36.4-46.3) fL RDW Coeff of Esmer 16.9 H (11.5-14.5) % MPV 10.8 H (7.4-10.4) fL BUN 29 H (7-18) mg/dl BUN/Creatinine Ratio 26.4 H (10-20) AST 13 L (15-37) U/L Diagnostic Findings CXR-cardiomegaly with mild congestive change. CT head- No acute intracranial findings (1) Altered mental status Altered mental status type: unspecified Qualified Code(s): R41.82 - Altered mental status, unspecified
--- NOTE | 2019-04-27 15:42 | Cardiology Consultation ---
Date of Consultation April 27, 2019 Assessment & Plan (1) Altered mental status: (2) Right carotid bruit: (3) Murmur, cardiac: (4) Sinus pause: (5) Sinus bradycardia: (6) HTN (hypertension): (7) Anemia: 84-year-old female admitted to the hospital with change in mental status and transient lethargy from fpc. Cardiology consultation requested secondary to transient bradycardia, with sinus pause of 2.9 seconds. No associated symptoms. Beta-bertha on hold currently. Continue telemetry monitoring. Consider addition of low-dose diuretic therapy, hydrochlorothiazide or chlorthalidone to improve blood pressure control if needed. Resting 2D transthoracic echocardiogram and bilateral carotid duplex ordered due to physical exam findings noted above. Currently no indication for pacemaker implantation. I will continue to monitor patient during hospitalization. Thank you for allowing to participate in the care of your patient. History of Present Illness Reason for Consultation: Dr. Erazo Requesting Physician: Dr. Erazo Attending Physician: Hieu Erazo MD History of Present Illness 84-year-old female transferred to the emergency department from [facility] due to change in mental status. History of underlying Alzheimer type dementia. Patient is a poor historian. Family at bedside. Patient denies fever, chills, dysuria, abdominal pain, chest pain, shortness of breath, orthopnea, or PND. Notes intermittent pedal edema over the past few weeks. Blood pressure mildly elevated. On telemetry monitoring, sinus bradycardia with an isolated 2.9-second pause recorded. Transiently, patient's heart rate dipped to approximately 35 bpm. There were no reported symptoms. Patient denies lightheadedness, dizziness, syncope, or near syncope. She is chronically treated with beta-bertha therapy as noted below. She offers no complaints at this time. Allergies Allergy/AdvReac Type Severity Reaction Status Date / Time iodine Allergy Unknown Unknown Verified 04/27/19 10:05 memantine Allergy Unknown Unknown Verified 04/27/19 10:05 pantoprazole Allergy Unknown Unknown Verified 04/27/19 10:05 shellfish derived Allergy Unknown Unknown Verified 04/27/19 10:05 crab Allergy Gastrointestinal Verified 04/27/19 10:05 Upset Home Medications Home Medications Medication Instructions Recorded Confirmed Type allopurinol 100 mg PO DAILY 06/27/18 04/27/19 History aspirin 81 mg PO DAILY 06/27/18 04/27/19 History colestipol 1 g PO BID 06/27/18 04/27/19 History ezetimibe 10 mg PO DAILY 06/27/18 04/27/19 History melatonin 5 mg PO HS 06/27/18 04/27/19 History acetaminophen 1,000 mg PO DAILY PRN 01/31/19 04/27/19 History ascorbic acid (vitamin C) [Vitamin 500 mg PO DAILY 01/31/19 04/27/19 History C] losartan 100 mg PO DAILY 01/31/19 04/27/19 History multivitamin [Daily-Valorie] 1 tab PO DAILY 01/31/19 04/27/19 History omega 3-npm-tdi-fish oil [Fish Oil] 1 cap PO DAILY 01/31/19 04/27/19 History meclizine 12.5 mg PO TID PRN #0 tab 03/16/19 04/27/19 Rx Lactobacillus acidophilus 1 tab PO DAILY 04/27/19 04/27/19 History [Acidophilus] amlodipine 5 mg PO DAILY 04/27/19 04/27/19 History bisacodyl 10 mg [place] DAILY PRN 04/27/19 04/27/19 History carvedilol 6.25 mg PO BID 04/27/19 04/27/19 History cranberry 500 mg PO DAILY 04/27/19 04/27/19 History divalproex 250 mg PO BID 04/27/19 04/27/19 History polyethylene glycol 3350 17 g PO DAILY PRN 04/27/19 04/27/19 History quetiapine 12.5 mg PO TID 04/27/19 04/27/19 History sennosides-docusate sodium [Senna 1 tab PO BID PRN 04/27/19 04/27/19 History Plus] sodium phosphates [Fleet Enema] 118 ml [place] DAILY PRN 04/27/19 04/27/19 History trazodone 50 mg PO DAILY 04/27/19 04/27/19 History Patient History Medical History Gout (Chronic) Dementia (Chronic) HTN (hypertension) (Chronic) HLD (hyperlipidemia) (Chronic) CKD (chronic kidney disease) stage 3, GFR 30-59 ml/min (Chronic) Anemia (Chronic) Seizure disorder (Chronic) CAD (coronary artery disease) (Chronic) Acute UTI (Resolved) Memory deficit (Resolved) Surgical History History of total knee arthroplasty (Chronic) R History of Achilles tendon repair (Chronic) Family History Sister Diabetes Social History Preferred Language: Cymraes Communication Ability: Effective 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 HEENT: Normocephalic. Atraumatic. Conjunctiva pink, no scleral icterus. Neck: 2/4 right-sided carotid bruit. The carotid upstrokes are brisk. No JVD. No HJR Heart: Regular, bradycardic, normal S-1 and S-2 no S-3 or S-4 gallop. 2/6 systolic ejection murmur heard best at the right second intercostal space without radiation. PMI is not displaced. No RV heave. Lungs: Clear bilateral without rales , rhonchi, or wheeze. Abdomen: Normal bowel sounds. Soft. Nontender. No masses or organomegaly. No abdominal bruits. Extremities: Trace bilateral pedal edema. No clubbing or cyanosis. Pulses: radial=2/4, Dorsalis pedis =2/4, posterior tibial=2/4. Neuro: Cranial nerves grossly intact. No focal motor deficit. Results & Data Vital Signs (Past 12 Hours) Vital Signs Temp Pulse Pulse Resp BP BP Pulse Ox 04/27/19 14:54 36.7 C 55 L 16 176/55 H 95 04/27/19 14:36 04/27/19 13:03 54 L 16 185/64 H 99 04/27/19 11:38 55 L 16 159/65 H 95 04/27/19 10:10 57 L 16 179/85 H 95 04/27/19 09:12 94 04/27/19 09:10 94 04/27/19 08:59 36.5 C 56 L 16 190/68 H 94 Pulse Ox 04/27/19 14:54 04/27/19 14:36 99 04/27/19 13:03 04/27/19 11:38 04/27/19 10:10 04/27/19 09:12 04/27/19 09:10 04/27/19 08:59 (1) Anemia Anemia type: unspecified type Qualified Code(s): D64.9 - Anemia, unspecified (2) Altered mental status Altered mental status type: disorientation Qualified Code(s): R41.0 - Disorientation, unspecified (3) HTN (hypertension) Hypertension type: essential hypertension Qualified Code(s): I10 - Essential (primary) hypertension
[2019-04-27] MEDS: QUETIAPINE FUMARATE 25 MG TABLET PO SCH ×2 (16:27→20:20)
[2019-04-27] MEDS: AMLODIPINE BESYLATE 5 MG TAB PO SCH (16:28)
[2019-04-27] MEDS: LOSARTAN POTASSIUM 50 MG TAB PO SCH (16:28)
[2019-04-27] MEDS ORDERED: LACTULOSE SYRUP 20 GM/30 ML UDC PO ONE (17:28)
--- NOTE | 2019-04-27 18:45 | Ultrasound Report ---
ULTRASOUND OF THE CAROTID ARTERIES CLINICAL HISTORY: Change in mental status. Carotid bruit. COMPARISON STUDY: No priors. TECHNIQUE: Real-time, grayscale, and color Doppler sonography of the carotid arteries is performed. I mages are reviewed in the transverse and longitudinal planes. FINDINGS: Blood pressure in the right arm measures 180/75 and blood pressure in the left arm measures 165/67. The carotid arteries are patent bilaterally and demonstrate antegrade flow. There is mild atheroscler otic plaque seen in the carotid bulbs, left greater than right. Normal doppler arterial waveforms are seen throughout. Velocity measurements are listed below. Common carotid peak systolic velocity (cm/sec): RIGHT: 67 LEFT: 91 ICA proximal peak systolic velocity (cm/sec): RIGHT: 66 LEFT: 50 ICA mid peak systolic velocity (cm/sec): RIGHT: 63 LEFT: 64 ICA distal peak systolic velocity (cm/sec): RIGHT: 83 LEFT: 56 ICA/CC peak systolic ratio: RIGHT: 1.2 LEFT: 0.7 Antegrade flow was shown in the vertebral arteries. The external carotid arteries are patent. IMPRESSION: 1. There is no sonographic evidence of hemodynamically significant stenosis in the right or left denton tid arterial system. 2. Antegrade flow is shown in the vertebral arteries. Electronically signed by: Zaki Thompson M.D. 04/27/2019 6:43 PM
[2019-04-27] MEDS ORDERED: DIVALPROEX EXTENDED RELEASE 250 MG TABCR PO SCH (21:00)
--- NOTE | 2019-04-27 21:36 | Electroencephalogram ---
EEG Procedure Note Date of Service April 27, 2019 Start / End Times Start Time: 17:15 End Time: 17:35 Referring Physician Radha Carter PA-C History An 84 year old woman admitted with encephalopathy. EEG performed for evaluation of epileptiform activity. Home Medication List Home Medications Medication Instructions Recorded Confirmed Type allopurinol 100 mg PO DAILY 06/27/18 04/27/19 History aspirin 81 mg PO DAILY 06/27/18 04/27/19 History colestipol 1 g PO BID 06/27/18 04/27/19 History ezetimibe 10 mg PO DAILY 06/27/18 04/27/19 History melatonin 5 mg PO HS 06/27/18 04/27/19 History acetaminophen 1,000 mg PO DAILY PRN 01/31/19 04/27/19 History ascorbic acid (vitamin C) [Vitamin 500 mg PO DAILY 01/31/19 04/27/19 History C] losartan 100 mg PO DAILY 01/31/19 04/27/19 History multivitamin [Daily-Valorie] 1 tab PO DAILY 01/31/19 04/27/19 History omega 8-fnh-aom-fish oil [Fish Oil] 1 cap PO DAILY 01/31/19 04/27/19 History meclizine 12.5 mg PO TID PRN #0 tab 03/16/19 04/27/19 Rx Lactobacillus acidophilus 1 tab PO DAILY 04/27/19 04/27/19 History [Acidophilus] amlodipine 5 mg PO DAILY 04/27/19 04/27/19 History bisacodyl 10 mg MS DAILY PRN 04/27/19 04/27/19 History carvedilol 6.25 mg PO BID 04/27/19 04/27/19 History cranberry 500 mg PO DAILY 04/27/19 04/27/19 History divalproex 250 mg PO BID 04/27/19 04/27/19 History polyethylene glycol 3350 17 g PO DAILY PRN 04/27/19 04/27/19 History quetiapine 12.5 mg PO TID 04/27/19 04/27/19 History sennosides-docusate sodium [Senna 1 tab PO BID PRN 04/27/19 04/27/19 History Plus] sodium phosphates [Fleet Enema] 118 ml MS DAILY PRN 04/27/19 04/27/19 History trazodone 50 mg PO DAILY 04/27/19 04/27/19 History Inpatient Medication List Amlodipine Besylate (Norvasc) 5 mg PO DAILY JJ Stop: 05/27/19 14:59 Last Admin: 04/27/19 16:28 Dose: 5 mg Documented by: [id number] Sodium Chloride (Nss 1000ml) 1,000 mls @ 75 mls/hr IV .[id number] JJ Stop: 05/27/19 14:59 Last Admin: 04/27/19 15:12 Dose: 75 mls/hr Documented by: [id number] Losartan Potassium (Cozaar) 100 mg PO DAILY JJ Stop: 05/27/19 14:59 Last Admin: 04/27/19 16:28 Dose: 100 mg Documented by: [id number] Quetiapine Fumarate (Seroquel) 12.5 mg PO TID JJ Stop: 05/27/19 15:29 Last Admin: 04/27/19 20:20 Dose: 12.5 mg Documented by: [id number] Admin: 04/27/19 16:27 Dose: 12.5 mg Documented by: [id number] Discontinued Medications Sodium Chloride (Nss) 500 mls @ 999 mls/hr IV .[id number] JJ Stop: 04/27/19 09:30 Last Infusion: 04/27/19 10:23 Dose: 0 mls/hr Documented by: [id number] Admin: 04/27/19 09:50 Dose: 999 mls/hr Documented by: [id number] Lactulose (Chronulac) 20 gm PO NOW ONE Stop: 04/27/19 17:29 Last Admin: 04/27/19 20:20 Dose: 20 gm Documented by: [id number] Description This is a 21 electrode EEG with a single channel dedicated to limited EKG. The electrodes were placed in accordance with the International 10-20 system. REPORT: At th onset of the EEG th patient is awake. The background activity consists of 7 Hz with intermittent generalized 3-5 Hz theta-delta slowing with Stepwise intermittent photic stimulation does not induce any abnormalities. Drowsiness is characterized by low amplitude mixed frequency activity, and decreased eye blinking and muscle artifact. IMPRESSION: This is an abnormal awake and drowsy EEG due to intermittent and continuous background slowing suggestive of a mild to moderate non specific encephalopathy. No electrographic seizures or epileptiform discharges are recorded.
[2019-04-27] MEDS: COLESTIPOL HCL 1 GM TAB PO SCH (22:18)
[2019-04-28 06:37] LABS: Hematocrit (blood only) 31.7 % (37-47); Hemoglobin 10.1 g/dL (12.0-16.0); Mean Corpuscular Hemoglobin 29.6 pg (25-34); Mean Corpuscular Hgb Conc 31.9 g/dL (32-36); Mean Platelet Volume 10.3 fL (7.4-10.4); Platelet Count 147 K/uL (130-400); RDW Coefficient of Variation 16.8 % (11.5-14.5); RDW Standard Deviation 57.6 fL (36.4-46.3); Red Blood Count 3.41 M/uL (4.2-5.4); White Blood Count 4.45 K/uL (4.8-10.8)
[2019-04-28 07:15] LABS: BUN Creatinine Ratio 23.6 (10-20); Bilirubin,Total 0.4 mg/dl (0.2-1); Calcium 8.2 mg/dl (8.5-10.1); Creatinine Clr Calc Pharmacy 42.2 ml/min; Est GFR (African American) 63.8; Est GFR (Non-African American) 55.1; Potassium 3.8 mmol/L (3.5-5.1)
[2019-04-28 07:19] LABS: Ferritin 37.3 ng/ml (8-388); Globulin 3.1 gm/dl (2.5-4.0); Total Protein 6.1 gm/dl (6.4-8.2)
[2019-04-28] MEDS: ENOXAPARIN INJ 40 MG/0.4 ML SYR SQ SCH (08:02)
[2019-04-28] MEDS: COLESTIPOL HCL 1 GM TAB PO SCH ×2 (08:03→20:21)
[2019-04-28] MEDS: DIVALPROEX EXTENDED RELEASE 250 MG TABCR PO SCH ×3 (08:03→20:22)
[2019-04-28] MEDS: ASPIRIN 81 MG ECTAB PO SCH (08:03)
[2019-04-28] MEDS: ASCORBIC ACID 500 MG TAB PO SCH (08:03)
[2019-04-28] MEDS: QUETIAPINE FUMARATE 25 MG TABLET PO SCH ×3 (08:04→20:20)
[2019-04-28] MEDS: MULTIVITAMIN TAB PO SCH (08:05)
[2019-04-28] MEDS: EZETIMIBE 10 MG TABLET PO SCH (08:05)
[2019-04-28] MEDS: allopurinoL 100 MG TAB PO SCH (08:05)
[2019-04-28] MEDS: OMEGA-3 (PURIFIED FISH OIL) 1 GM CAP PO SCH (08:05)
[2019-04-28] MEDS: AMLODIPINE BESYLATE 5 MG TAB PO SCH (08:05)
[2019-04-28] MEDS: LACTOBACILLUS ACIDOPHILUS (FLORANEX) TAB PO SCH (08:05)
[2019-04-28] MEDS: LOSARTAN POTASSIUM 50 MG TAB PO SCH (08:05)
[2019-04-28 08:18] LABS: Folate (Folic Acid) > 24.00 ng/ml (>5.38); Vitamin B12 857 pg/ml (211-911)
[2019-04-28] MEDS ORDERED: NON-FORMULARY MEDICATION (Cranberry 500 MG) PO SCH (09:00)
--- NOTE | 2019-04-28 13:41 | Cardiology Progress Note ---
Date of Service April 28, 2019 Assessment & Plan (1) Sinus pause: (2) Sinus bradycardia: (3) HTN (hypertension): (4) Pericardial effusion without cardiac tamponade: (5) Altered mental status: (6) Murmur, cardiac: (7) Anemia: Carotid duplex demonstrates no significant atherosclerotic plaque. Resting 2D transthoracic echocardiogram confirms aortic sclerosis as etiology of murmur. There is a small circumferential pericardial effusion without hemodynamic significance. Restart carvedilol 3.125 mg twice daily. Consider addition of low-dose diuretic therapy pending blood pressure response. Continue telemetry monitoring at this time. Currently no indication for permanent pacemaker implantation. Subjective Patient seen and examined at the bedside. Poor historian. Blood pressure elevated since admission. Carvedilol on hold due to bradycardia. Resting 2D transthoracic echocardiogram demonstrates borderline hyperdynamic LV systolic function, mild aortic sclerosis, and small circumferential pericardial effusion without hemodynamic significance. No dysrhythmias on telemetry. No recurrent symptomatic bradycardia or significant pauses. Patient offers no complaints at this time. Review of Systems Review of Systems: All systems reviewed & are unremarkable except as noted in HPI & below Physical Exam Physical Exam: General: NAD, awake and alert, overweight, well nourished. HEENT: Normocephalic. Atraumatic. Conjunctiva pink, no scleral icterus. Neck: 2/ 4 right-sided carotid bruit. The carotid upstrokes are brisk. No JVD. No HJR Heart: Regular, bradycardic, normal S-1 and S-2 no S-3 or S-4 gallop. 2/6 systolic ejection murmur heard best at the right second intercostal space without radiation. PMI is not displaced. No RV heave. Lungs: Clear bilateral without rales , rhonchi, or wheeze. Abdomen: Normal bowel sounds. Soft. Nontender. No masses or organomegaly. No abdominal bruits. Extremities: Trace bilateral pedal edema. No clubbing or cyanosis. Pulses: radial=2/4. Neuro: Cranial nerves grossly intact. No focal motor deficit. Results & Data Vital Signs (Past 12 Hours) Vital Signs Temp Pulse Pulse Resp BP Pulse Ox 04/28/19 11:58 36.7 C 54 L 17 181/68 H 95 04/28/19 08:00 54 L 04/28/19 07:58 36.9 C 58 L 19 188/57 H 95 04/28/19 03:09 36.5 C 61 16 165/69 H 95 Laboratory Results Laboratory Results - last 24 hr 04/27/19 04/27/19 04/27/19 08:28 15:25 15:25 WBC RBC Hgb Hct MCV MCH MCHC RDW Std Deviation RDW Coeff of Esmer Plt Count MPV Sodium Potassium Chloride Carbon Dioxide Anion Gap BUN Creatinine Est Cr Clr Drug Dosing Est GFR ( Amer) Est GFR (Non-Af Amer) BUN/Creatinine Ratio Glucose Calcium Magnesium Iron TIBC Transferrin Ferritin Total Bilirubin AST ALT Alkaline Phosphatase Ammonia 47.4 H Total Creatine Kinase 58 Total Protein Albumin Globulin Albumin/Globulin Ratio Vitamin B12 Folate Valproic Acid 36 L 04/28/19 04/28/19 04/28/19 06:23 06:23 06:23 WBC 4.45 L RBC 3.41 L Hgb 10.1 L Hct 31.7 L MCV 93.0 MCH 29.6 MCHC 31.9 L RDW Std Deviation 57.6 H RDW Coeff of Esmer 16.8 H Plt Count 147 MPV 10.3 Sodium 143 Potassium 3.8 Chloride 107 Carbon Dioxide 31 Anion Gap 5.0 BUN 23 H Creatinine 0.96 Est Cr Clr Drug Dosing 42.2 Est GFR ( Amer) 63.8 Est GFR (Non-Af Amer) 55.1 BUN/Creatinine Ratio 23.6 H Glucose 85 Calcium 8.2 L Magnesium Iron 66 TIBC 324 Transferrin 257 Ferritin 37.3 Total Bilirubin 0.4 AST 13 L ALT 13 Alkaline Phosphatase 39 L Ammonia 17.0 Total Creatine Kinase Total Protein 6.1 L Albumin 3.0 L Globulin 3.1 Albumin/Globulin Ratio 1.0 Vitamin B12 Folate Valproic Acid 04/28/19 04/28/19 06:23 06:23 WBC RBC Hgb Hct MCV MCH MCHC RDW Std Deviation RDW Coeff of Esmer Plt Count MPV Sodium Potassium Chloride Carbon Dioxide Anion Gap BUN Creatinine Est Cr Clr Drug Dosing Est GFR ( Amer) Est GFR (Non-Af Amer) BUN/Creatinine Ratio Glucose Calcium Magnesium 1.8 Iron TIBC Transferrin Ferritin Total Bilirubin AST ALT Alkaline Phosphatase Ammonia Total Creatine Kinase Total Protein Albumin Globulin Albumin/Globulin Ratio Vitamin B12 857 Folate > 24.00 Valproic Acid (1) Anemia Anemia type: unspecified type Qualified Code(s): D64.9 - Anemia, unspecified (2) Altered mental status Altered mental status type: disorientation Qualified Code(s): R41.0 - Disorientation, unspecified (3) HTN (hypertension) Hypertension type: essential hypertension Qualified Code(s): I10 - Essential (primary) hypertension
--- NOTE | 2019-04-28 13:44 | Neurology Progress Note ---
Date of Service April 28, 2019 Assessment & Plan (1) Altered mental status: 1. CT head no acute findings 2. cardiology on board 3. back to baseline 4. depakote level 36 already increased depakote to TID yesterday level in 2 days and 1 week 5. TTE- if not already ordered 6. EEG- slowing no seizure discharges 7. no seizure activity during this episode 8. carotid doppler - no significant stenosis 9. increased depakote from 250 mg BID to TID 10. ok to discharge back to facility once stable 11. watch for over sedation with polypharmacy follow up with neurology in 4-6 weeks after discharge Eliana Leone PAC Supervising Physician Co-Signing Physician Notes I have seen and discussed above patient with Dr Eliana Mendez, neurology. Pt seen and examined. Awake, alert, being changed. Noted to have L inverted nipple, right nipple small DW son. Etiology of the subacute decline unclear. He agrees with me that repeating MRI is not necess given multiple recent MRI. Re hx of sz and possibility of unwitnessed sz, have increased depakote. Agree with ongoing cardiac monitoring re bradycardia. Will sign off.Pt should see us in follow-up NURYS Mendez MD I asked nursing to notify hospitalist re:inverted left nipple. Devin York is a 84 year old female with PMH of CAD, HTN, HLD, dementia, CKD stage III, anemia, gout, depression. Presented to [facility] ED for altered mental status and lethargy. She was seen by neurology during the admission to [facility] 03/09 to 03/16/2019 for seizure-like activity. She underwent EEG and neurology evaluation and due to this being her second episode of witnessed seizure-like activity was placed on Depakote 250 mg twice daily. She has dementia and delirium and had multiple psychiatric medication adjustments including discontinuation of Sinemet, reduction of trazodone from 100 mg to 50 mg, Seroquel 12.5 mg twice daily. She was discharged to [facility] for approximately 2 weeks, and then to personal care facility [facility]. 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 She was last seen by her daugh ter last evening and doing well, at her baseline. Her baseline includes she is alert and oriented to self, can carry on a conversation although not always accurate, can ambulate with walker and feed self. She was hard to arouse and had increased confusion she was referred to ED. There was no witnessed seizure- like activity. Only medication change noted per daughter was increase of Seroquel to 12.5 mg 3 times daily due to significant hallucinations approximately 2 weeks ago. Since increasing Seroquel her hallucinations have decreased. She is currently alert and pleasant, there is no family in room. she states she is ok. denies CP, SOB, abdominal pain, one sided weakness, numbness tingling, N, V, falls. 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 5/5 bilaterally hip flex slightly to gravity, plantar flex ext 5/5 down going toes no pronator drift Results & Data Vital Signs (Past 12 Hours) Vital Signs Temp Pulse Pulse Resp BP Pulse Ox 04/28/19 11:58 36.7 C 54 L 17 181/68 H 95 04/28/19 08:00 54 L 04/28/19 07:58 36.9 C 58 L 19 188/57 H 95 04/28/19 03:09 36.5 C 61 16 165/69 H 95 Laboratory Results Abnormal lab results 04/27/19 04/27/19 04/28/19 Range/Units 15:25 15:25 06:23 WBC 4.45 L (4.8-10.8) K/uL RBC 3.41 L (4.2-5.4) M/uL Hgb 10.1 L (12.0-16.0) g/dL Hct 31.7 L (37-47) % MCHC 31.9 L (32-36) g/dL RDW Std Deviation 57.6 H (36.4-46.3) fL RDW Coeff of Esmer 16.8 H (11.5-14.5) % BUN (7-18) mg/dl BUN/Creatinine Ratio (10-20) Calcium (8.5-10.1) mg/dl AST (15-37) U/L Alkaline Phosphatase (45-117) U/L Ammonia 47.4 H (11-32) umol/L Total Protein (6.4-8.2) gm/dl Albumin (3.4-5.0) gm/dl Valproic Acid 36 L (50-100) mcg/ml 04/28/19 Range/Units 06:23 WBC (4.8-10.8) K/uL RBC (4.2-5.4) M/uL Hgb (12.0-16.0) g/dL Hct (37-47) % MCHC (32-36) g/dL RDW Std Deviation (36.4-46.3) fL RDW Coeff of Esmer (11.5-14.5) % BUN 23 H (7-18) mg/dl BUN/Creatinine Ratio 23.6 H (10-20) Calcium 8.2 L (8.5-10.1) mg/dl AST 13 L (15-37) U/L Alkaline Phosphatase 39 L (45-117) U/L Ammonia (11-32) umol/L Total Protein 6.1 L (6.4-8.2) gm/dl Albumin 3.0 L (3.4-5.0) gm/dl Valproic Acid (50-100) mcg/ml Diagnostic Findings EEG-This is an abnormal awake and drowsy EEG due to intermittent and continuous background slowing suggestive of a mild to moderate non specific encephalopathy. No electrographic seizures or epileptiform discharges are recorded. Carotid doppler- There is no sonographic evidence of hemodynamically significant stenosis in the right or left carotid arterial system. Antegrade flow is shown in the vertebral arteries. (1) Altered mental status Altered mental status type: unspecified Qualified Code(s): R41.82 - Altered mental status, unspecified
--- NOTE | 2019-04-28 16:05 | Hospitalist Progress Note ---
Date of Service April 28, 2019 Assessment & Plan (1) Altered mental status: mental status improved to approx baseline oriented to person , with poor short term memory recall no evidence of stroke or seizure activity noted carotid doppler -no significant stenosis appreciate input from Neurology , no change in medication routine follow up with Neurology in clinic in 4-6 weeks FALL : sustained an unwitnessed fall today -was found sitting on floor next to toilet no injury sustained no sinus pause reported ( pt was off monitor -during fall ) ordered for bed and chair alarm pt is a very poor historian -unable to recall the event leading to fall does remember attempt to going to the toilet by herself as " she needed to go " cont to monitor in tele HYPERTENSIVE URGENCY : SBP markedly elevated after fall no neurological deficit noted pt denies of any pain or discomfort cont prior antihypertensives ordered 1X dose of IV hydralazine CT head non contrast fall precaution /bed alarm (2) Lethargy: symptom has resolved This is an 84-year-old female who has significant PMH of CAD, HTN, HLD, dementia, CKD stage III, anemia, gout, [facility] secondary to altered mental status and lethargy In ED patient remained hemodynamically stable, afebrile. She did have episode of bradycardia heart rate 29 with appearance of sinus pause on telemetry. Her CBC, CMP, TSH relatively unremarkable except for stable anemia H&H 10.8 and 33.8, BUN 29, creatinine 1.11. Urinalysis is negative Head CT reveals chronic microvascular small vessel ischemic changes but otherwise no acute ab normality Chest x-ray cardiomegaly with mild congestion mental status improved to approx baseline has been alert , oriented to person only very forgetful Neurology consulted -appreciate input ECHO shows mild aortic valve sclerosis cardiology eval appreciated recommends to resume low dose coreg with continued Tele monitoring (3) Bradycardia: Pt had episode in ED of bradycardia, HR 29 no further episode since Coreg resumed per cardiology recommenation HR remains sinus in low 60's (4) Dementia: at baseline oriented to person only awake , mental status approx baseline on seroquel, trazodone (5) Seizure disorder: no Sz activity noted appreciate neurology eval recommends to cont on Depakote 250 mg twice daily (6) HTN (hypertension): developed hypertensive urgency management as Discussed above (7) CKD (chronic kidney disease) stage 3, GFR 30-59 ml/min: cr at Baseline (8) CAD (coronary artery disease): No chest pain or shortness of breath Continue ASA, losartan, coreg (9) Anemia: H/H stable at 10.8/33.8 normocytic/normochromic (10) HLD (hyperlipidemia): Continue Zetia and omega-3 (11) DVT prophylaxis: lovenox, SCD/TEDS Disposition: cont tele monitoring Follow up: PCP Dr. 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 -pt remains confused , poor historian , does not recall fall says she got out to go to bathroom , does not know what happened afterwards can not recall whether she felt dizzy or lightheaded -leading to loss of balance pt was noted to be hypertensive SBP in 190's ( 199/83 ) HR 59 denies of chest tightness , SOB -no sign of discomfort noted Physical Exam Constitutional: WD/WN, vitals as above + altered mental status (confusion , poor memory recall , baseline dementia ); no acute distress Eyes: PERRL, conjunctivae normal, anicteric sclerae ENMT: external ear and nose normal, oropharynx normal Neck: trachea midline, no thyromegaly Respiratory: normal respiratory effort, lungs clear to auscultation Cardiovascular: Rate/Rhythm: regular rate and regular rhythm Extremities: + edema (+2 bilat pedal edema ) Gastrointestinal (Abdomen): normal bowel sounds, soft, nontender, no hepatos plenomegaly Musculoskeletal: no cyanosis or clubbing, extremities motor strength 5/5 Head/Neck/Chest: normocephalic and head atraumatic Skin: no rashes, warm and dry Neurologic: PERRL, EOMI, accommodation nl, no face palsy, no dysarthria Psychiatric: Orientation: alert Affect: + flat affect Cognition: + recent memory not intact Insight: + limited insight oriented to person only Results & Data Vital Signs (Past 12 Hours) Vital Signs Temp Pulse Pulse Resp BP Pulse Ox 04/28/19 15:34 36.9 C 60 22 186/70 H 94 04/28/19 11:58 36.7 C 54 L 17 181/68 H 95 04/28/19 08:00 54 L 04/28/19 07:58 36.9 C 58 L 19 188/57 H 95 (1) Anemia Anemia type: unspecified type Qualified Code(s): D64.9 - Anemia, unspecified (2) Altered mental status Altered mental status type: unspecified Qualified Code(s): R41.82 - Altered mental status, unspecified (3) HTN (hypertension) Hypertension type: essential hypertension Qualified Code(s): I10 - Essential (primary) hypertension
[2019-04-28] MEDS ORDERED: HydrALAZINE HCL 20 MG/ML VIAL IV STA (18:17)
--- NOTE | 2019-04-28 18:47 | Hospitalist Progress Note ---
Date of Service April 28, 2019 Subjective Contact : Daughter Keri : # [phone] Results & Data Vital Signs (Past 12 Hours) Vital Signs Temp Pulse Pulse Resp BP Pulse Ox 04/28/19 17:10 60 04/28/19 15:34 36.9 C 60 22 186/70 H 94 04/28/19 11:58 36.7 C 54 L 17 181/68 H 95 04/28/19 08:00 54 L 04/28/19 07:58 36.9 C 58 L 19 188/57 H 95
[2019-04-28] MEDS ORDERED: PIPERACILL/TAZOBAC CONSULT ACTIVE PRN (19:20)
--- NOTE | 2019-04-28 19:21 | CT Scan Report ---
CT head/brain wo con CLINICAL HISTORY: Neck, head trauma. Hypertensive urgency. COMPARISON STUDY: April 27, 2019 TECHNIQUE: Axial CT of the brain is performed from the vertex to the skull base. IV contrast was not administered for this examination. A dose lowering technique was utilized adhering to the principles of ALARA. CT DOSE: 1074.96 mGy.cm FINDINGS: No intra or extra-axial mass lesions are visualized. There is no CT evidence of acute cortical infarc tion. There is no evidence of midline shift. There is no acute hemorrhage. No calvarial fractures ar e visualized. There are patchy white matter hypodensities likely on a small vessel basis. There is no evidence of pathologic ventricular dilatation. There is no evidence of acute sinusitis. There is bilateral maxillary sinus mucosal thickening. There is ethmoid sinus mucosal thickening. IMPRESSION: No acute intracranial findings Electronically signed by: Wilton Knight M.D. 04/28/2019 7:20 PM
[2019-04-28] MEDS ORDERED: Nursing to Pharmacy Communication ONE (19:27)
[2019-04-28] MEDS ORDERED: PIPERACILLIN/TAZOBACTAM 3.375 GM in DEXTROSE 5% 100 ML IV SCH (19:30)
--- NOTE | 2019-04-28 19:57 | XRay Report ---
XR chest 1V portable CLINICAL HISTORY: Left-sided chest pain. Trauma. COMPARISON STUDY: 04/27/2019 FINDINGS: The heart is mildly enlarged. There is mild vascular prominence without evidence for overt failure. There is no focal pulmonary consolidation. There are no pleural effusions.[ IMPRESSION: Persistent cardiomegaly. No evidence of overt failure. No evidence of focal pulmonary con solidation. No evidence of pneumothorax. Electronically signed by: Wilton Knight M.D. 04/28/2019 7:56 PM
[2019-04-28] MEDS ORDERED: AMLODIPINE BESYLATE 5 MG TAB PO ONE (20:00)
[2019-04-28] MEDS: ACETAMINOPHEN 325 MG TAB PO PRN (20:03)
[2019-04-28] MEDS: carvediloL 3.125 MG TAB PO SCH (20:22)
[2019-04-28] MEDS: LIDOCAINE 5% 1 PATCH TD SCH (20:22)
[2019-04-28] MEDS: cefTRIAXone SODIUM 2,000 MG in DEXTROSE 5% 50 ML IV SCH (20:55)
[2019-04-29] MEDS: ENOXAPARIN INJ 40 MG/0.4 ML SYR SQ SCH (08:10)
[2019-04-29] MEDS: DIVALPROEX EXTENDED RELEASE 250 MG TABCR PO SCH ×3 (08:11→22:10)
[2019-04-29] MEDS: EZETIMIBE 10 MG TABLET PO SCH (08:11)
[2019-04-29] MEDS: LACTOBACILLUS ACIDOPHILUS (FLORANEX) TAB PO SCH (08:11)
[2019-04-29] MEDS: OMEGA-3 (PURIFIED FISH OIL) 1 GM CAP PO SCH (08:11)
[2019-04-29] MEDS: allopurinoL 100 MG TAB PO SCH (08:11)
[2019-04-29] MEDS: ASCORBIC ACID 500 MG TAB PO SCH (08:11)
[2019-04-29] MEDS: ASPIRIN 81 MG ECTAB PO SCH (08:11)
[2019-04-29] MEDS: COLESTIPOL HCL 1 GM TAB PO SCH ×2 (08:11→22:10)
[2019-04-29] MEDS: AMLODIPINE BESYLATE 5 MG TAB PO SCH (08:12)
[2019-04-29] MEDS: MULTIVITAMIN TAB PO SCH (08:12)
[2019-04-29] MEDS: LOSARTAN POTASSIUM 50 MG TAB PO SCH (08:12)
[2019-04-29] MEDS: carvediloL 3.125 MG TAB PO SCH ×2 (08:13→22:10)
[2019-04-29] MEDS: QUETIAPINE FUMARATE 25 MG TABLET PO SCH ×3 (08:14→22:10)
[2019-04-29] MEDS ORDERED: hydroCHLOROthiazide 25 MG TAB PO STA (12:50)
--- NOTE | 2019-04-29 12:53 | Cardiology Progress Note ---
Date of Service April 29, 2019 Assessment & Plan (1) Sinus pause: (2) Sinus bradycardia: (3) HTN (hypertension): (4) Pericardial effusion without cardiac tamponade: (5) Altered mental status: (6) Murmur, cardiac: (7) Anemia: Carotid duplex demonstrates no significant atherosclerotic plaque. Resting 2D transthoracic echocardiogram confirms aortic sclerosis as etiology of murmur. There is a small circumferential pericardial effusion without hemodynamic significance. Carvedilol 3.125 mg twice daily restarted without evidence of recurrent significant bradycardia or sinus pauses. Recommend addition of hydrochlorothiazide 12.5 mg daily to improve blood pressure control. Continue telemetry monitoring at this time. Currently no indication for permanent pacemaker implantation. Cardiology will sign off. Please call with questions. Thank you for allowing me to participate in the care of your patient. Subjective Patient seen and examined at the bedside. Confused today. Oriented to person only. No dysrhythmias on telemetry. Carvedilol restarted yesterday at reduced dose, 3.125 mg twice daily. Blood pressure remains elevated. Denies chest pain or unusual shortness of breath. Family present at bedside. They offer no additional concerns/complaints at this time. Review of Systems Review of Systems: Unobtainable due to cognitive status Physical Exam Physical Exam: General: NAD, awake and alert, oriented to person only, overweight, well nourished. HEENT: Normocephalic. Atraumatic. Conjunctiva pink, no scleral icterus. Neck: 2/4 right-sided carotid bruit. The carotid upstrokes are brisk. No JVD. No HJR Heart: Regular, bradycardic, normal S-1 and S-2 no S-3 or S-4 gallop. 2/6 systolic ejection murmur heard best at the right second intercostal space without radiation. PMI is not displaced. No RV heave. Lungs: Clear bilateral without rales , rhonchi, or wheeze. Abdomen: Normal bowel sounds. Soft. Nontender. No masses or organomegaly. No abdominal bruits. Extremities: Trace bilateral pedal edema. No clubbing or cyanosis. Pulses: radial=2/4. Neuro: Cranial nerves grossly intact. No focal motor deficit. Results & Data Vital Signs (Past 12 Hours) Vital Signs Temp Pulse Pulse Resp BP Pulse Ox 04/29/19 12:47 37 C 69 18 149/73 H 95 04/29/19 08:15 177/56 H 04/29/19 08:00 50 L 04/29/19 07:01 36.6 C 61 20 195/66 H 97 04/29/19 03:45 36.7 C 55 L 16 175/70 H 94 (1) HTN (hypertension) Hypertension type: essential hypertension Qualified Code(s): I10 - Essential (primary) hypertension (2) Altered mental status Altered mental status type: disorientation Qualified Code(s): R41.0 - Disorientation, unspecified (3) Anemia Anemia type: unspecified type Qualified Code(s): D64.9 - Anemia, unspecified
[2019-04-29] MEDS ORDERED: LORazepam 0.5 MG TAB PO STA (15:58)
--- NOTE | 2019-04-29 17:07 | Hospitalist Progress Note ---
Date of Service April 29, 2019 Assessment & Plan (1) Altered mental status: Metabolic encephalopathy/agitation Patient has baseline dementia, oriented to person only, as per daughter: Patient does fairly well at personal assisted, With every episode of infection/special urine tract infection family has noted significant alteration in patient's cognition, and functional status, On presentation with lethargy, confusion possible metabolic encephalopathy due to dehydration, infection: Blood culture 1 bottle positive for gram-positive cocci UA was normal mental status improved to approx baseline oriented to person , with poor short term memory recall no evidence of stroke or seizure activity noted carotid doppler -no significant stenosis appreciate input from Neurology , no change in medication routine follow up with Neurology in clinic in 4-6 weeks Confusion/agitation Possible delirium/sundowning effect due to hospital stay Has been climbing out of bed, sustained a fall yesterday Patient gets extremely agitated if nursing staff ask her to stay in her chair to prevent fall Continue to provide reassurance counseling, Patient has very poor orientation about her surroundings, thinks that she is in" basement" now She needs to get out, but the nursing staff has been preventing that making her angry and irritated Patient has been getting her dose of Seroquel schedule/takes as an outpatient Ordered PRN Ativan low-dose, noted to have some benefit to come down the patient Continue to monitor Plan to discharge patient back to personal assisted/in her known surrounding as soon as possible when medically stable Of care updated patient's daughter POA over phone FALL : Bed alarm has been kept on hold, one-to-one observation when patient was showing evidence of agitation, impulsiveness 04/28/2019 sustained an unwitnessed fall -was found sitting on floor next to toilet no injury sustained no sinus pause reported ( pt was off monitor -during fall ) Continue bed and chair alarm pt is a very poor historian -unable to recall the event leading to fall does remember attempt to going to the toilet by herself as " she needed to go " Per daughter patient had similar events at personal assisted as well That he had noncontrast shows no acute change, chest x-ray shows no evidence of refracture HYPERTENSIVE URGENCY : Appreciate input from cardiology, patient is continued with low-dose of Coreg, added HCTZ 12.5 Patient is on Norvasc 5 mg daily, losartan 100 mg daily And to increase Norvasc to 5 mg twice daily if blood pressure remains in suboptimal control Continue telemetry, patient denies of any shortness of breath dyspnea on exertion chest heaviness (2) Lethargy: symptom has resolved /due to metabolic encephalopathy-plan of care discussed as above This is an 84-year-old female who has significant PMH of CAD, HTN, HLD, dementia, CKD stage III, anemia, gout, depression lives at personal assisted [facility] sent to [facility] ED secondary to altered mental status and lethargy In ED patient remained hemodynamically stable, afebrile. She did have episode of bradycardia heart rate 29 with appearance of sinus pause on telemetry. Her CBC, CMP, TSH relatively unremarkable except for stable anemia H&H 10.8 and 33.8, BUN 29, creatinine 1.11. Urinalysis is negative Head CT reveals chronic microvascular small vessel ischemic changes but otherwise no acute ab normality Chest x-ray cardiomegaly with mild congestion mental status improved to approx baseline has been alert , oriented to person only very forgetful Neurology consulted -appreciate input ECHO shows mild aortic valve sclerosis cardiology eval appreciated recommends to resume low dose coreg with continued Tele monitoring (3) Bradycardia: Pt had episode in ED of bradycardia, HR 29 no further episode since Coreg resumed per cardiolog Heart rate remained stable in 80s90s (4) Dementia: at baseline oriented to person only awake , mental status approx baseline on seroquel, trazodone Having episodes of agitation/delirium/sundowning effect, Added PRN Ativan (5) Seizure disorder: no Sz activity noted appreciate neurology eval recommends to cont on Depakote 250 mg twice daily (6) HTN (hypertension): developed hypertensive urgency management as Discussed above (7) CKD (chronic kidney disease) stage 3, GFR 30-59 ml/min: cr at Baseline (8) CAD (coronary artery disease): No chest pain or shortness of breath Continue ASA, losartan, coreg (9) Anemia: H/H stable at 10.8/33.8 normocytic/normochromic (10) HLD (hyperlipidemia): Continue Zetia and omega-3 (11) DVT prophylaxis: lovenox, SCD/TEDS Disposition: cont tele monitoring Follow up: PCP Dr. Joseph at [facility] upon discharge PT/OT eval requested Plan to return back to personal assisted when medically stable Subjective Patient got upset, agitated earlier as trying to get up in bed, work on the hallway, One-to-one observation was placed, Remain confused, oriented to person only, Wants to go home now No seizure episode, noted, patient became transiently tachycardic hypertensive during episode Of agitation, After counseling provided from the nursing staff, patient was given her scheduled dose of Seroquel Spoke with patient's daughterRadha over the phone Patient does get episodes of confusion especially around the evening time which was noted even at personal assisted [place] [facility] Gets very upset when she is stopped from doing something(patient was stopped from going to the hallway due to high fall risk) Low-dose as needed Ativan had worked in the past without any adverse effects Ordered for Ativan 0.5 mg x 1 She was seen approximately an hour later, Much more calm now, talking with the aid(one-to-one observation) Ordered for PRN Ativan low-dose as needed, Heart rate and blood pressure significantly improved after agitation resolved Continue to monitor and telemetry Physical Exam Constitutional: WD/WN, vitals as above + altered mental status (confusion , poor memory recall , baseline dementia -agigated ); no acute distress Eyes: PERRL, conjunctivae normal, anicteric sclerae ENMT: external ear and nose normal, oropharynx normal Neck: trachea midline, no thyromegaly Respiratory: normal respiratory effort, lungs clear to auscultation Cardiovascular: Rate/Rhythm: regular rate and regular rhythm Extremities: + edema (+2 bilat pedal edema ) Gastrointestinal (Abdomen): normal bowel sounds, soft, nontender, no hepatosplenomegaly Musculoskeletal: no cyanosis or clubbing, extremities motor strength 5/5 Head/Neck/Chest: normocephalic and head atraumatic Skin: no rashes, warm and dry Neurologic: PERRL, EOMI, accommodation nl, no face palsy, no dysarthria Psychiatric: Orientation: alert and oriented to person Eye Contact: good eye contact Affect: + angry affect Mood: + anxious mood Cognition: + recent memory not intact Insight: + limited insight Results & Data Vital Signs (Past 12 Hours) Vital Signs Temp Pulse Pulse Resp BP Pulse Ox 04/29/19 16:00 110 H 04/29/19 15:08 37.0 C 95 H 23 173/79 H 96 04/29/19 12:47 37 C 69 18 149/73 H 95 04/29/19 08:15 177/56 H 04/29/19 08:00 50 L 04/29/19 07:01 36.6 C 61 20 195/66 H 97 (1) Anemia Anemia type: unspecified type Qualified Code(s): D64.9 - Anemia, unspecified (2) Altered mental status Altered mental status type: unspecified Qualified Code(s): R41.82 - Altered mental status, unspecified (3) HTN (hypertension) Hypertension type: essential hypertension Qualified Code(s): I10 - Essential (primary) hypertension
[2019-04-29] MEDS: LIDOCAINE 5% 1 PATCH TD SCH (22:10)
[2019-04-29] MEDS: cefTRIAXone SODIUM 2,000 MG in DEXTROSE 5% 50 ML IV SCH (22:10)
[2019-04-30] MEDS: MULTIVITAMIN TAB PO SCH (08:14)
[2019-04-30] MEDS: carvediloL 3.125 MG TAB PO SCH ×2 (08:14→20:25)
[2019-04-30] MEDS: AMLODIPINE BESYLATE 5 MG TAB PO SCH ×2 (08:14→16:49)
[2019-04-30] MEDS: allopurinoL 100 MG TAB PO SCH (08:14)
[2019-04-30] MEDS: LACTOBACILLUS ACIDOPHILUS (FLORANEX) TAB PO SCH (08:14)
[2019-04-30] MEDS: EZETIMIBE 10 MG TABLET PO SCH (08:14)
[2019-04-30] MEDS: LOSARTAN POTASSIUM 50 MG TAB PO SCH (08:15)
[2019-04-30] MEDS: hydroCHLOROthiazide 25 MG TAB PO SCH (08:15)
[2019-04-30] MEDS: QUETIAPINE FUMARATE 25 MG TABLET PO SCH ×3 (08:16→22:08)
[2019-04-30] MEDS: ENOXAPARIN INJ 40 MG/0.4 ML SYR SQ SCH (08:17)
[2019-04-30] MEDS: ASPIRIN 81 MG ECTAB PO SCH (08:17)
[2019-04-30] MEDS: DIVALPROEX EXTENDED RELEASE 250 MG TABCR PO SCH ×3 (08:17→20:24)
[2019-04-30] MEDS: OMEGA-3 (PURIFIED FISH OIL) 1 GM CAP PO SCH (08:17)
[2019-04-30] MEDS: ASCORBIC ACID 500 MG TAB PO SCH (08:17)
[2019-04-30] MEDS: COLESTIPOL HCL 1 GM TAB PO SCH ×2 (10:26→20:24)
[2019-04-30] MEDS: LORazepam 0.5 MG TAB PO PRN ×2 (10:26→18:09)
--- NOTE | 2019-04-30 14:36 | Hospitalist Progress Note ---
Date of Service April 30, 2019 Assessment & Plan (1) Altered mental status: Metabolic encephalopathy/agitation Status waxing and waning, noted to have sundowning effect, delirium No sign of infection, repeat blood culture has no growth Continue to monitor and observe fall precaution Patient has baseline dementia, oriented to person only, as per daughter: Patient [facility] well at [facility], With every episode of infection/special urine tract infection family has noted significant alteration in patient's cognition, and functional status, On presentation with lethargy, confusion possible metabolic encephalopathy due to dehydration, infection: Blood culture 1 bottle positive for gram-positive cocci UA was normal Baseline oriented to person , with poor short term memory recall no evidence of stroke or seizure activity noted carotid doppler -no significant stenosis appreciate input from Neurology , no change in medication /continue prior dose of Depakote routine follow up with Neurology in clinic in 4-6 weeks Confusion/agitation Possible delirium/sundowning effect due to hospital stay Has been climbing out of bed, sustained a fall yesterday Patient gets extremely agitated if nursing staff ask her to stay in her chair to prevent fall Continue to provide reassurance counseling, Patient has very poor orientation about her surroundings, thinks that she is in" basement" now She needs to get out, but the nursing staff has been preventing that making her angry and irritated Patient has been getting her dose of Seroquel schedule/takes as an outpatient Ordered PRN Ativan low-dose, noted to have some benefit to come down the patient Continue to monitor Plan to discharge patient back to [facility]/in her known surrounding as soon as possible when medically stable FALL : Bed alarm has been kept on hold, one-to-one observation when patient was showing evidence of agitation, impulsiveness 04/28/2019 sustained an unwitnessed fall -was found sitting on floor next to toilet no injury sustained no sinus pause reported ( pt was off monitor -during fall ) Continue bed and chair alarm pt is a very poor historian -unable to recall the event leading to fall does remember attempt to going to the toilet by herself as " she needed to go " Per daughter patient had similar events at [facility] as well That he had noncontrast shows no acute change, chest x-ray shows no evidence of refracture HYPERTENSIVE URGENCY : Appreciate input from cardiology, patient is continued with low-dose of Coreg, added HCTZ 12.5 Patient is on Norvasc 5 mg daily, losartan 100 mg daily increase Norvasc to 5 mg twice daily if blood pressure remains in suboptimal control Continue telemetry, patient denies of any shortness of breath dyspnea on exertion chest heaviness (2) Lethargy: symptom has resolved /due to metabolic encephalopathy-plan of care discussed as above This is an 84-year-old female who has significant PMH of CAD, HTN, HLD, dementia, CKD stage III, anemia, gout, depression lives at personal fci [facility] sent to [facility] ED secondary to altered mental status and lethargy In ED patient remained hemodynamically stable, afebrile. She did have episode of bradycardia heart rate 29 with appearance of sinus pause on telemetry. Her CBC, CMP, TSH relatively unremarkable except for stable anemia H&H 10.8 and 33.8, BUN 29, creatinine 1.11. Urinalysis is negative Head CT reveals chronic microvascular small vessel ischemic changes but otherwise no acute ab normality Chest x-ray cardiomegaly with mild congestion mental status improved to approx baseline has been alert , oriented to person only very forgetful Neurology consulted -appreciate input ECHO shows mild aortic valve sclerosis cardiology eval appreciated Patient is continued with Coreg (3) Bradycardia: Pt had episode in ED of bradycardia, HR 29 no further episode since Coreg resumed per cardiolog Heart rate remained stable in 80s90s Continued with low-dose Coreg (4) Dementia: at baseline oriented to person only awake , mental status approx baseline on seroquel, trazodone Having episodes of agitation/delirium/sundowning effect, Added PRN Ativan (5) Seizure disorder: no Sz activity noted appreciate neurology eval recommends to cont on Depakote 250 mg twice daily (6) HTN (hypertension): developed hypertensive urgency management as Discussed above (7) CKD (chronic kidney disease) stage 3, GFR 30-59 ml/min: cr at Baseline (8) CAD (coronary artery disease): No chest pain or shortness of breath Continue ASA, losartan, coreg (9) Anemia: H/H stable at 10.8/33.8 normocytic/normochromic (10) HLD (hyperlipidemia): Continue Zetia and omega-3 (11) DVT prophylaxis: lovenox, SCD/TEDS Disposition: cont tele monitoring Follow up: PCP Dr. Joseph at [facility] upon discharge PT/OT eval requested Plan to return back to [facility] when medically stable Subjective Had episode of agitation earlier this morning, she was trying to get out of bed going out the door, significant fall risk Got upset as nursing intervened and had her sit back to her chair Ordered for PRN Ativan p.o. 0.5 mg Patient was later more calm and cooperative during my interview patient was sleeping Hypertensive episodes noted SBP in 160/170 Increased Norvasc 5 mg twice daily, patient is already added HCTZ 12.5 mg daily, continued with Coreg and losartan Continue to monitor and telemetry Physical Exam Constitutional: WD/WN, vitals as above no acute distress Eyes: PERRL, conjunctivae normal, anicteric sclerae ENMT: external ear and nose normal, oropharynx normal Neck: trachea midline, no thyromegaly Respiratory: normal respiratory effort, lungs clear to auscultation Cardiovascular: Rate/Rhythm: regular rate and regular rhythm Extremities: + edema (+2 bilat pedal edema ) Gastrointestinal (Abdomen): normal bowel sounds, soft, nontender, no hepatosplenomegaly Musculoskeletal: no cyanosis or clubbing, extremities motor strength 5/5 Head/Neck/Chest: normocephalic and head atraumatic Skin: no rashes, warm and dry Neurologic: PERRL, EOMI, accommodation nl, no face palsy, no dysarthria Psychiatric: Orientation: alert and oriented to person Cognition: + recent memory not intact Insight: + limited insight Results & Data Vital Signs (Past 12 Hours) Vital Signs Temp Pulse Resp BP Pulse Ox 04/30/19 07:23 36.8 C 61 12 176/73 H 91 04/30/19 04:21 36.8 C 64 18 166/76 H 93 (1) Anemia Anemia type: unspecified type Qualified Code(s): D64.9 - Anemia, unspecified (2) Altered mental status Altered mental status type: unspecified Qualified Code(s): R41.82 - Altered mental status, unspecified (3) HTN (hypertension) Hypertension type: essential hypertension Qualified Code(s): I10 - Essential (primary) hypertension
[2019-04-30] MEDS: LIDOCAINE 5% 1 PATCH TD SCH (20:25)
[2019-04-30] MEDS: cefTRIAXone SODIUM 2,000 MG in DEXTROSE 5% 50 ML IV SCH (21:20)
[2019-05-01] MEDS: carvediloL 3.125 MG TAB PO SCH ×2 (06:20→19:48)
[2019-05-01] MEDS: ACETAMINOPHEN 325 MG TAB PO PRN (06:21)
[2019-05-01] MEDS: LOSARTAN POTASSIUM 50 MG TAB PO SCH (08:37)
[2019-05-01] MEDS: MULTIVITAMIN TAB PO SCH (08:37)
[2019-05-01] MEDS: LACTOBACILLUS ACIDOPHILUS (FLORANEX) TAB PO SCH (08:37)
[2019-05-01] MEDS: EZETIMIBE 10 MG TABLET PO SCH (08:37)
[2019-05-01] MEDS: QUETIAPINE FUMARATE 25 MG TABLET PO SCH ×3 (08:37→19:49)
[2019-05-01] MEDS: LORazepam 0.5 MG TAB PO PRN ×2 (08:37→22:28)
[2019-05-01] MEDS: ASCORBIC ACID 500 MG TAB PO SCH (08:39)
[2019-05-01] MEDS: hydroCHLOROthiazide 25 MG TAB PO SCH (08:40)
[2019-05-01] MEDS: ASPIRIN 81 MG ECTAB PO SCH (08:40)
[2019-05-01] MEDS: DIVALPROEX EXTENDED RELEASE 250 MG TABCR PO SCH ×3 (08:41→19:49)
[2019-05-01] MEDS: allopurinoL 100 MG TAB PO SCH (08:41)
[2019-05-01] MEDS: OMEGA-3 (PURIFIED FISH OIL) 1 GM CAP PO SCH (08:42)
[2019-05-01] MEDS: AMLODIPINE BESYLATE 5 MG TAB PO SCH ×2 (08:42→19:49)
[2019-05-01] MEDS: ENOXAPARIN INJ 40 MG/0.4 ML SYR SQ SCH (08:42)
[2019-05-01] MEDS: COLESTIPOL HCL 1 GM TAB PO SCH ×2 (08:43→22:27)
--- NOTE | 2019-05-01 18:04 | Hospitalist Progress Note ---
Date of Service May 01, 2019 Assessment & Plan (1) Altered mental status: Metabolic encephalopathy/agitation Status waxing and waning, Usually appears to be more energetic and awake and alert early part of the day noted to have sundowning effect, delirium in the afternoon No sign of infection, repeat blood culture has no growth Continue to monitor and observe fall precaution Patient has baseline dementia, oriented to person only, as per daughter: Patient does fairly well at [facility], With every episode of infection/special urine tract infection family has noted significant alteration in patient's cognition, and functional status, On presentation with lethargy, confusion possible metabolic encephalopathy due to dehydration, infection: Blood culture 1 bottle positive for gram-positive cocci UA was normal With blood culture 2 bottles negative growth, IV Rocephin discontinued Continue PT OT Patient will benefit with inpatient rehab, discussed with daughter wants referral to be made to [facility]-patient was there before, had very good outcome Patient Baseline oriented to person , with poor short term memory recall no evidence of stroke or seizure activity noted carotid doppler -no significant stenosis appreciate input from Neurology , no change in medication /continue prior dose of Depakote routine follow up with Neurology in clinic in 4-6 weeks Confusion/agitation Was more calm and cooperative today Continue to provide reassurance counseling, Patient has very poor orientation about her surroundings, thinks that she is in" basement" now She needs to get out, but the nursing staff has been preventing that making her angry and irritated Patient has been getting her dose of Seroquel schedule/takes as an outpatient Ordered PRN Ativan low-dose, noted to have some benefit to come down the patient Continue to monitor Patient will need inpatient rehab for generalized weakness functional decline FALL : Continue basilar, one-to-one observation when patient was showing evidence of agitation, impulsiveness 04/28/2019 sustained an unwitnessed fall -was found sitting on floor next to toilet no injury sustained no sinus pause reported ( pt was off monitor -during fall ) Continue bed and chair alarm pt is a very poor historian -unable to recall the event leading to fall does remember attempt to going to the toilet by herself as " she needed to go " Per daughter patient had similar events at [facility] as well That he had noncontrast shows no acute change, chest x-ray shows no evidence of refracture HYPERTENSIVE URGENCY : Appreciate input from cardiology, patient is continued with low-dose of Coreg, added HCTZ 12.5 Patient is on Norvasc 5 mg daily, losartan 100 mg daily increase 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 BP was adequate 144/74 Afternoon blood pressure continues to be elevated 170/67, Continue to monitor and adjust BP meds as needed Continue telemetry, patient denies of any shortness of breath dyspnea on exertion chest heaviness (2) Lethargy: symptom has resolved /due to metabolic encephalopathy-plan of care discussed as above -Showing generalized weakness, increased fatigue, reduced functional status, Requiring 2 person assistance- for transferoff from her baseline And new PT OT, will need rehab This is an 84-year-old female who has significant PMH of CAD, HTN, HLD, d ementia, CKD stage III, anemia, gout, depression lives at [facility] [place] [facility] sent to [facility] ED secondary to altered mental status and lethargy In ED patient remained hemodynamically stable, afebrile. She did have episode of bradycardia heart rate 29 with appearance of sinus pause on telemetry. Her CBC, CMP, TSH relatively unremarkable except for stable anemia H&H 10.8 and 33.8, BUN 29, creatinine 1.11. Urinalysis is negative Head CT reveals chronic microvascular small vessel ischemic changes but otherwise no acute ab normality Chest x-ray cardiomegaly with mild congestion mental status improved to approx baseline has been alert , oriented to person only very forgetful Neurology consulted -appreciate input ECHO shows mild aortic valve sclerosis cardiology eval appreciated Patient is continued with Coreg (3) Bradycardia: Pt had episode in ED of bradycardia, HR 29 no further episode since Coreg resumed per cardiolog lower dose 3.125 mg twice daily(was on 6.25 mg twice daily) Heart rate remained stable in 80s90s Continued with low-dose Coreg (4) Dementia: at baseline oriented to person only awake , mental status approx baseline on seroquel, trazodone Having episodes of agitation/delirium/sundowning effect, Added PRN Ativan (5) Seizure disorder: no Sz activity noted appreciate neurology eval recommends to cont on Depakote 250 mg twice daily (6) HTN (hypertension): developed hypertensive urgency management as Discussed above (7) CKD (chronic kidney disease) stage 3, GFR 30-59 ml/min: cr at Baseline (8) CAD (coronary artery disease): No chest pain or shortness of breath Continue ASA, losartan, coreg (9) Anemia: H/H stable at 10.8/33.8 normocytic/normochromic (10) HLD (hyperlipidemia): Continue Zetia and omega-3 (11) DVT prophylaxis: lovenox, SCD/TEDS Disposition: cont tele monitoring Follow up: PCP Dr. Joseph at [facility] upon discharge PT/OT eval requested Patient will need inpatient rehab for increased fall risk, generalized weakness and functional decline Social service consulted for discharge planning Subjective Patient was more calm and cooperative No agitation, combativeness noted, blood pressure this morning Noted to be 144/74 And family members visiting earlier, patient was able to converse appropriately In late afternoon, patient was showing evidence of increased lethargy, weakness, confusion Requiring 2 person shipping assistant to transfer to bedside commode Earlier patient was more independent with minimal assistance BP also noted to be elevated 173/67-has not got p.m. antihypertensives yet No fever or chills, Heart rate stable in 78, no sinus pause noted Physical Exam Constitutional: WD/WN, vitals as above no acute distress Eyes: PERRL, conjunctivae normal, anicteric sclerae ENMT: external ear and nose normal, oropharynx normal Neck: trachea midline, no thyromegaly Respiratory: normal respiratory effort, lungs clear to auscultation Cardiovascular: Rate/Rhythm: regular rate and regular rhythm Extremities: + edema (+2 bilat pedal edema ) Gastrointestinal (Abdomen): normal bowel sounds, soft, nontender, no hepatosplenomegaly Musculoskeletal: no cyanosis or clubbing, extremities motor strength 5/5 Head/Neck/Chest: normocephalic and head atraumatic Skin: no rashes, warm and dry Neurologic: PERRL, EOMI, accommodation nl, no face palsy, no dysarthria Psychiatric: Orientation: alert and oriented to person Eye Contact: good eye contact Affect: + angry affect Mood: + anxious mood Cognition: + recent memory not intact Insight: + limited insight Results & Data Vital Signs (Past 12 Hours) Vital Signs Temp Pulse Pulse Resp BP Pulse Ox 05/01/19 16:00 77 05/01/19 15:40 36.6 C 78 20 173/67 H 95 05/01/19 11:43 36.7 C 76 18 176/70 H 95 05/01/19 08:04 36.6 C 70 18 144/74 H 97 05/01/19 08:00 66 05/01/19 06:07 36.5 C 67 19 187/85 H 94 (1) Anemia Anemia type: unspecified type Qualified Code(s): D64.9 - Anemia, unspecified (2) Altered mental status Altered mental status type: unspecified Qualified Code(s): R41.82 - Altered mental status, unspecified (3) HTN (hypertension) Hypertension type: essential hypertension Qualified Code(s): I10 - Essential (primary) hypertension
[2019-05-01] MEDS: LIDOCAINE 5% 1 PATCH TD SCH (19:50)
[2019-05-02] MEDS: AMLODIPINE BESYLATE 5 MG TAB PO SCH ×2 (08:34→20:28)
[2019-05-02] MEDS: QUETIAPINE FUMARATE 25 MG TABLET PO SCH ×3 (08:34→20:28)
[2019-05-02] MEDS: allopurinoL 100 MG TAB PO SCH (08:34)
[2019-05-02] MEDS: EZETIMIBE 10 MG TABLET PO SCH (08:34)
[2019-05-02] MEDS: DIVALPROEX EXTENDED RELEASE 250 MG TABCR PO SCH ×3 (08:34→20:28)
[2019-05-02] MEDS: LOSARTAN POTASSIUM 50 MG TAB PO SCH (08:34)
[2019-05-02] MEDS: ASPIRIN 81 MG ECTAB PO SCH (08:34)
[2019-05-02] MEDS: MULTIVITAMIN TAB PO SCH (08:35)
[2019-05-02] MEDS: OMEGA-3 (PURIFIED FISH OIL) 1 GM CAP PO SCH (08:35)
[2019-05-02] MEDS: ASCORBIC ACID 500 MG TAB PO SCH (08:35)
[2019-05-02] MEDS: hydroCHLOROthiazide 25 MG TAB PO SCH (08:35)
[2019-05-02] MEDS: LACTOBACILLUS ACIDOPHILUS (FLORANEX) TAB PO SCH (08:35)
[2019-05-02] MEDS: ENOXAPARIN INJ 40 MG/0.4 ML SYR SQ SCH (08:36)
[2019-05-02] MEDS: carvediloL 3.125 MG TAB PO SCH ×2 (08:36→20:28)
[2019-05-02] MEDS: COLESTIPOL HCL 1 GM TAB PO SCH ×2 (09:45→22:47)
--- NOTE | 2019-05-02 10:31 | Infectious Disease Consult ---
Date of Consultation May 02, 2019 Assessment & Plan (1) Altered mental status: doubt infection related, suspect blood culture with MANAGER ASSESSMENT is skin leidy, agree to hold abx. with regards to suppressive abx for uti, I would hold off at this time due to acute change in mental status. would not add additional meds at this time which may contribute to confusion, especially with negative urine culture. If she continues to have uti and no urologic condition felt to be responsible can followup as outpatient to discuss further, when mental status improves. History of Present Illness Attending Physician: Bailee Salas MD pt admitted with change in mental status, she is confused on my exam, oriented to self only. afebrile since admission. UA and culture negative, intital blood culture MANAGER ASSESSMENT, repeat negative, abx stopped, likely contaminant. wbc normal. CXR negative. she has no complaints on exam. no cp, sob, abd pain. ID consulted due to recurrent uti - last + culture 03/09 - puentes sensitive E. coli. Culture done in December, January, March negative. denies gu symptoms currently but she is confused and unable to provide a full ROS Allergies Allergy/AdvReac Type Severity Reaction Status Date / Time iodine Allergy Unknown Unknown Verified 04/27/19 10:05 memantine Allergy Unknown Unknown Verified 04/27/19 10:05 pantoprazole Allergy Unknown Unknown Verified 04/27/19 10:05 shellfish derived Allergy Unknown Unknown Verified 04/27/19 10:05 crab Allergy Gastrointestinal Verified 04/27/19 10:05 Upset Home Medications Home Medications Medication Instructions Recorded Confirmed Type allopurinol 100 mg PO DAILY 06/27/18 04/27/19 History aspirin 81 mg PO DAILY 06/27/18 04/27/19 History colestipol 1 g PO BID 06/27/18 04/27/19 History ezetimibe 10 mg PO DAILY 06/27/18 04/27/19 History melatonin 5 mg PO HS 06/27/18 04/27/19 History acetaminophen 1,000 mg PO DAILY PRN 01/31/19 04/27/19 History ascorbic acid (vitamin C) [Vitamin 500 mg PO DAILY 01/31/19 04/27/19 History C] losartan 100 mg PO DAILY 01/31/19 04/27/19 History multivitamin [Daily-Valorie] 1 tab PO DAILY 01/31/19 04/27/19 History omega 1-eyw-sac-fish oil [Fish Oil] 1 cap PO DAILY 01/31/19 04/27/19 History meclizine 12.5 mg PO TID PRN #0 tab 03/16/19 04/27/19 Rx Lactobacillus acidophilus 1 tab PO DAILY 04/27/19 04/27/19 History [Acidophilus] amlodipine 5 mg PO DAILY 04/27/19 04/27/19 History bisacodyl 10 mg MN DAILY PRN 04/27/19 04/27/19 History carvedilol 6.25 mg PO BID 04/27/19 04/27/19 History cranberry 500 mg PO DAILY 04/27/19 04/27/19 History divalproex 250 mg PO BID 04/27/19 04/27/19 History polyethylene glycol 3350 17 g PO DAILY PRN 04/27/19 04/27/19 History quetiapine 12.5 mg PO TID 04/27/19 04/27/19 History sennosides-docusate sodium [Senna 1 tab PO BID PRN 04/27/19 04/27/19 History Plus] sodium phosphates [Fleet Enema] 118 ml MN DAILY PRN 04/27/19 04/27/19 History trazodone 50 mg PO DAILY 04/27/19 04/27/19 History hydrochlorothiazide 12.5 mg PO QAM 30 Days #15 tab 05/01/19 Rx Patient History Medical History Gout (Chronic) Dementia (Chronic) HTN (hypertension) (Chronic) HLD (hyperlipidemia) (Chronic) CKD (chronic kidney disease) stage 3, GFR 30-59 ml/min (Chronic) Anemia (Chronic) Seizure disorder (Chronic) CAD (coronary artery disease) (Chronic) Acute UTI (Resolved) Memory deficit (Resolved) Surgical History History of total knee arthroplasty (Chronic) R History of Achilles tendon repair (Chronic) Family History Sister Diabetes Social History Preferred Language: Luxembourgish Communication Ability: Impaired Fluoroscope Operator Required: No Beliefs That Will Affect Care: None Current Living Situation: Personal Care Facility Current Living Situation Comment: [facility] Feels Safe at Home: Yes Safety Concerns: Feels Safe At This Time Smoking Status: Never smoker Hx Alcohol Use: No Hx Substance Use: No Review of Systems Review of Systems: Unobtainable due to cognitive status Physical Exam Constitutional: WD/WN, vitals as above Eyes: PERRL, conjunctivae normal, anicteric sclerae ENMT: external ear and nose normal, oropharynx normal Neck: normal visual inspection Respiratory: normal respiratory effort, lungs clear to auscultation Cardiovascular: Rate/Rhythm: regular rate and regular rhythm Heart Sounds: + murmur Gastrointestinal (Abdomen): normal bowel sounds, soft, nontender, no hepatosplenomegaly Musculoskeletal: no cyanosis or clubbing, extremities motor strength 5/5 Skin: no rashes, warm and dry Psychiatric: Orientation: alert, oriented to person and cooperative; + not oriented x 3, + not oriented to place and + not oriented to time Results & Data Vital Signs (Past 12 Hours) Vital Signs Temp Pulse Resp BP Pulse Ox 05/02/19 06:14 36.5 C 69 18 169/89 H 95 05/02/19 05:02 36.6 C 78 20 151/64 H 95 05/01/19 23:51 36.8 C 81 17 156/72 H 97 Laboratory Results Microbiology 04/29/19 17:34 Blood Aerobic Blood Culture - Preliminary No growth in Aerobic bottle after 48 hours. 04/29/19 17:34 Blood Anaerobic Blood Culture - Final 04/29/19 17:40 Blood Aerobic Blood Culture - Preliminary No growth in Aerobic bottle after 48 hours. 04/29/19 17:40 Blood Anaerobic Blood Culture - Final 04/27/19 15:25 Blood Aerobic Blood Culture - Preliminary No growth in Aerobic bottle after 48 hours. 04/27/19 15:25 Blood Anaerobic Blood Culture - Preliminary No growth in Anaerobic bottle after 48 hours. 04/27/19 15:07 Blood Aerobic Blood Culture - Final Coag neg staph not lugdunensis 04/27/19 15:07 Blood Anaerobic Blood Culture - Final Coag neg staph not lugdunensis PG Care Time/CCT Total # of Minutes Spent Total Time Spent with Patient: Total time spent is greater than 50% in coordination of care (as documented) at patient's floor/unit and/or counseling patient: (1) Altered mental status Altered mental status type: disorientation Qualified Code(s): R41.0 - Disorientation, unspecified
[2019-05-02] MEDS ORDERED: predniSONE 20 MG TAB PO SCH (13:00)
[2019-05-02] MEDS ORDERED: COLCHICINE 0.6 MG TAB PO SCH (13:15)
[2019-05-02] MEDS ORDERED: KETOROLAC TROMETHAMINE 15 MG/ML VIAL IV PRN (15:59)
[2019-05-02] MEDS ORDERED: COLCHICINE 0.6 MG TAB PO ONE (16:00)
--- NOTE | 2019-05-02 17:41 | Hospitalist Progress Note ---
Date of Service May 02, 2019 Assessment & Plan (1) Altered mental status: Acute Gouty Arthritis Increased pains, swelling, erythema bilateral great toe started since yesterday Prior history of gout, on allopurinol Ordered for low-dose prednisone, colchicine High-dose NSAIDs avoided secondary to advanced age and underlying CKD Continue to monitor Metabolic encephalopathy/agitation Mental status improved to approximate baseline Forgetful oriented to person only agitation noted Usually appears to be more energetic and awake and alert early part of the day noted to have ing effect, delirium in the afternoon No sign of infection, repeat blood culture has no growth Continue to monitor and observe fall precaution Patient has baseline dementia, oriented to person only, as per daughter: Patient does fairly well at personal half-way, With every episode of infection/special urine tract infection family has noted significant alteration in patient's cognition, and functional status, On presentation with lethargy, confusion possible metabolic encephalopathy due to dehydration, infection: Blood culture 1 bottle positive for gram-positive cocci UA was normal With blood culture 2 bottles negative growth, IV Rocephin discontinued ID eval requested as per family request, for recurrent urine tract infection Appreciate input from ID, given no anatomical deformity, uncomplicated UTI, chronic suppressive antibiotic treatment is not indicated At this admission patient had negative event, negative urine culture Patient is scheduled to be followed up with urology patient Patient showing increasing weakness, fatigue, functional decline, appreciate input from PT OT Patient will benefit with inpatient rehab, discussed with daughter wants referral to be made to [facility]-patient was there before, had very good outcome Patient Baseline oriented to person , with poor short term memory recall no evidence of stroke or seizure activity noted carotid doppler -no significant stenosis appreciate input from Neurology , no change in medication /continue prior dose of Depakote routine follow up with Neurology in clinic in 4-6 weeks Confusion/agitation Is been more calm and cooperative Continue to provide reassurance counseling, Patient has very poor orientation about her surroundings, thinks that she is in" basement" now She needs to get out, but the nursing staff has been preventing that making her angry and irritated Patient has been getting her dose of Seroquel schedule/takes as an outpatient Ordered PRN Ativan low-dose, noted to have some benefit to come down the patient Continue to monitor Patient will need inpatient rehab for generalized weakness functional decline FALL : Continue fall precautions, bed alarm 04/28/2019 sustained an unwitnessed fall -was found sitting on floor next to toilet no injury sustained no sinus pause reported ( pt was off monitor -during fall ) Continue bed and chair alarm pt is a very poor historian -unable to recall the event leading to fall does remember attempt to going to the toilet by herself as " she needed to go " Per daughter patient had similar events at personal half-way as well That he had noncontrast shows no acute change, chest x-ray shows no evidence of refracture HYPERTENSIVE URGENCY : Appreciate input from cardiology, patient is continued with low-dose of Coreg, added HCTZ 12.5 Patient is on Norvasc 5 mg daily, losartan 100 mg daily 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 BP was adequate 144/74 Afternoon blood pressure continues to be elevated 170/67, Increase HCTZ to 25 mg daily Continue telemetry, patient denies of any shortness of breath dyspnea on exertion chest heaviness (2) Lethargy: symptom has resolved /due to metabolic encephalopathy-plan of care discussed as above -Showing generalized weakness, increased fatigue, reduced functional status, Requiring 2 person assistance- for transferoff from her baseline And new PT OT, will need rehab This is an 84-year-old female who has significant PMH of CAD, HTN, HLD, dementia, CKD stage III, anemia, gout, depression [facility] secondary to altered mental status and lethargy In ED patient remained hemodynamically stable, afebrile. She did have episode of bradycardia heart rate 29 with appearance of sinus pause on telemetry. Her CBC, CMP, TSH relatively unremarkable except for stable anemia H&H 10.8 and 33.8, BUN 29, creatinine 1.11. Urinalysis is negative Head CT reveals chronic microvascular small vessel ischemic changes but otherwise no acute ab normality Chest x-ray cardiomegaly with mild congestion mental status improved to approx baseline has been alert , oriented to person only very forgetful Neurology consulted -appreciate input ECHO shows mild aortic valve sclerosis cardiology eval appreciated Patient is continued with Coreg (3) Bradycardia: Pt had episode in ED of bradycardia, HR 29 no further episode since Coreg resumed per cardiolog lower dose 3.125 mg twice daily(was on 6.25 mg twice daily) Heart rate remained stable in 80s90s Continued with low-dose Coreg (4) Dementia: at baseline oriented to person only awake , mental status approx baseline on seroquel, trazodone Having episodes of agitation/delirium/sundowning effect, Added PRN Ativan (5) Seizure disorder: no Sz activity noted appreciate neurology eval recommends to cont on Depakote 250 mg twice daily (6) HTN (hypertension): developed hypertensive urgency management as Discussed above (7) CKD (chronic kidney disease) stage 3, GFR 30-59 ml/min: cr at Baseline (8) CAD (coronary artery disease): No chest pain or shortness of breath Continue ASA, losartan, coreg (9) Anemia: H/H stable at 10.8/33.8 normocytic/normochromic (10) HLD (hyperlipidemia): Continue Zetia and omega-3 (11) DVT prophylaxis: lovenox, SCD/TEDS Disposition: cont tele monitoring Follow up: PCP Dr. Joseph at [facility] upon discharge PT/OT eval requested Patient will need inpatient rehab for increased fall risk, generalized weakness and functional decline Social service consulted for discharge planning Patient is accepted to [facility] for acute rehab tomorrow Subjective Complaints of redness, swelling bilateral food mostly on the first metatarsal carpal joint, No fever or chills Patient had prior history of gout, Has been having increasing pain unable to bear weight Blood pressure remains variable, 130s/140 during nighttime, and blood pressure noted to be elevated 170s, possible pain response No agitation or increased confusion noted today Patient's daughter present at bedside Physical Exam Constitutional: WD/WN, vitals as above no acute distress Eyes: PERRL, conjunctivae normal, anicteric sclerae ENMT: external ear and nose normal, oropharynx normal Neck: trachea midline, no thyromegaly Respiratory: normal respiratory effort, lungs clear to auscultation Cardiovascular: Rate/Rhythm: regular rate and regular rhythm Extremities: + edema (+2 bilat pedal edema ) Gastrointestinal (Abdomen): normal bowel sounds, soft, nontender, no hepatosplenomegaly Musculoskeletal: Extremities: + foot abnormality (Swelling, erythema, increased warmth and tenderness noted on the first metacarpophalangeal both great toe) Bilateral Skin: no rashes, warm and dry Neurologic: PERRL, EOMI, accommodation nl, no face palsy, no dysarthria Psychiatric: Orientation: alert and oriented to person Eye Contact: good eye contact Affect: + angry affect Mood: + anxious mood Cognition: + recent memory not intact Insight: + limited insight Results & Data Vital Signs (Past 12 Hours) Vital Signs Temp Pulse Resp BP Pulse Ox 05/02/19 15:44 37.0 C 78 19 154/62 H 96 05/02/19 11:18 36.6 C 71 16 174/71 H 96 05/02/19 06:14 36.5 C 69 18 169/89 H 95 (1) Altered mental status Altered mental status type: unspecified Qualified Code(s): R41.82 - Altered mental status, unspecified (2) HTN (hypertension) Hypertension type: essential hypertension Qualified Code(s): I10 - Essential (primary) hypertension (3) Anemia Anemia type: unspecified type Qualified Code(s): D64.9 - Anemia, unspecified
[2019-05-02 20:35] LABS: Basophils # (auto) 0.01 K/uL (0-0.2); Basophils % (auto) 0.1 %; Eosinophils # (auto) 0.01 K/uL (0-0.5); Eosinophils % (auto) 0.1 %; Hematocrit (blood only) 33.7 % (37-47); Hemoglobin 10.8 g/dL (12.0-16.0); Immature Granulocytes # (auto) 0.02 K/uL (0.00-0.02); Immature Granulocytes % (auto) 0.3 %; Lymphocytes # (auto) 0.69 K/uL (1.2-3.4); Lymphocytes % (auto) 9.3 %; Mean Corpuscular Volume 90.6 fL (80-100); Mean Platelet Volume 10.6 fL (7.4-10.4); Monocytes # (auto) 0.34 K/uL (0.11-0.59); Monocytes % (auto) 4.6 %; Neutrophils # (auto) 6.35 K/uL (1.4-6.5); Neutrophils % (auto) 85.6 %; Platelet Count 157 K/uL (130-400); RDW Standard Deviation 53.3 fL (36.4-46.3); Red Blood Count 3.72 M/uL (4.2-5.4); White Blood Count 7.42 K/uL (4.8-10.8)
[2019-05-02 20:50] LABS: Base Excess ABG 3.4 mEq/L (-9-1.8); HCO3 ABG 28 mmol/L (19-24); Oxygen Saturation ABG 93.1 % (90-95); PCO2 ABG 42 mmHg (35-46); PO2 ABG 70 mm/Hg (80-95); pH ABG 7.44 (7.35-7.45)
--- NOTE | 2019-05-02 20:50 | CT Scan Report ---
CT SCAN OF THE BRAIN WITHOUT IV CONTRAST CLINICAL HISTORY: Change in mental status. COMPARISON STUDY: CT of the brain dated 04/28/2019. TECHNIQUE: Unenhanced axial CT scan of the brain is performed from the vertex to the skull base. A do se lowering technique was utilized adhering to the principles of ALARA. CT DOSE: 537.48 mGy.cm FINDINGS: Brain parenchyma: There are age-related involutional changes noting moderate subcortical and periven tricular microangiopathic change. There is no hemorrhage, mass effect, or evidence of acute territori al ischemia by CT criteria. Quintana-white matter differentiation is preserved. No extra-axial fluid kay ection is seen. Ventricles, sulci, cisterns: Prominent secondary to involutional change. Intracranial vasculature: There is atherosclerotic calcification of the cavernous carotid and vertebr al arteries. Calvarium: Unremarkable. Sinuses and mastoids: There is trace fluid within the left sphenoid sinus. Trace mucosal thickening i s noted within the maxillary antra. The remaining visualized paranasal sinuses are clear. The mastoid air cells are well pneumatized. Orbits: The bony orbits are grossly intact. There are bilateral ocular lens implants. IMPRESSION: There is no hemorrhage, mass effect, or evidence of acute territorial ischemia by CT cassandra doan. Electronically signed by: Zaki Thompson M.D. 05/02/2019 8:49 PM
[2019-05-02 20:52] LABS: Allen Test Pos (Pos)
[2019-05-02 20:57] LABS: Albumin Level 3.2 gm/dl (3.4-5.0); BUN Creatinine Ratio 28.1 (10-20); Calcium 9.3 mg/dl (8.5-10.1); Creatinine Clr Calc Pharmacy 26.6 ml/min; Est GFR (African American) 37.5; Est GFR (Non-African American) 32.4; Magnesium 2.1 mg/dl (1.8-2.4); Potassium 3.9 mmol/L (3.5-5.1)
[2019-05-02 21:00] LABS: Albumin Globulin Ratio 0.8 (0.9-2); Bilirubin,Total 0.4 mg/dl (0.2-1); Total Protein 7.2 gm/dl (6.4-8.2)
[2019-05-02] MEDS ORDERED: VALPROATE SOD 500 MG in DEXTROSE 5% 50 ML IV STA (21:24)
[2019-05-02] MEDS ORDERED: OPTIRAY 320 125ml IV PRN (21:32)
[2019-05-02] MEDS ORDERED: methylPREDNISolone 125 MG/2 ML VIAL IV STA (21:45)
[2019-05-02] MEDS ORDERED: methylPREDNISolone 60 MG in SYRINGE 0 ML IV ONE (22:00)
[2019-05-02] MEDS ORDERED: DiphenhydrAMINE HCL 50 MG/ML VIAL IV ONE (22:00)
--- NOTE | 2019-05-02 22:22 | CT Scan Report ---
CT ANGIOGRAM OF THE BRAIN; CT ANGIOGRAM OF THE NECK CLINICAL HISTORY: Strokelike symptoms. COMPARISON STUDY: Unenhanced CT of the brain performed the same day 05/02/2019. Carotid artery ultras ound dated 04/27/2019. TECHNIQUE: Following the IV administration of 117 of Optiray 320, CT angiogram of the head and neck w as performed from the aortic arch to the vertex. Images are reviewed in the axial, sagittal, and fredy nal planes. 3-D MIPS images are created and assessed. The patient was premedicated for a reported his tory of contrast allergy. IV contrast was administered without complication. All measurements were ca lculated based on NASCET criteria. A dose lowering technique was utilized adhering to the principles of ALARA. CT DOSE: 480.33 mGy.cm FINDINGS: Brain parenchyma: There is age-related involutional change noting moderate subcortical and periventri cular microangiopathic disease. There is no hemorrhage, mass effect, or evidence of acute territorial ischemia by CT criteria. There is no evidence of enhancing mass lesion on the angiogram phase images . The ventricles, sulci, and cisterns are prominent secondary to involutional change. Quintana-white rafael er differentiation is preserved. No extra-axial fluid collection is seen. Thoracic aorta: There is mild atherosclerotic calcification of the thoracic aorta. Visualized portion s of the thoracic aorta are normal in caliber. The aortic arch demonstrates standard 3-vessel anatomy . Right carotid arterial system: The right common carotid artery is widely patent, as are the right int ernal and external carotid arteries. Minimal plaque is noted in the carotid bulb. Left carotid arterial system: The left common carotid artery is widely patent, as are the left technical support intern al and external carotid arteries. Calcified plaque is noted in the carotid bulbs. Vertebral arteries: The vertebral arteries are patent bilaterally noting left-sided dominance. Subclavian arteries: Widely patent bilaterally. Intracranial vasculature: The internal carotid arteries are patent at the skull base, as are the ante rior and middle cerebral arteries bilaterally. The vertebrobasilar system and posterior cerebral ayden samia are widely patent. The left vertebral artery is dominant. There is no aneurysm, high-grade steno sis, or focal vessel cut off seen throughout the intracranial circulation. Jugular veins: Patent bilaterally. Dural sinuses: Patent. Lung apices: A punctate calcified granuloma is seen at the right apex. Apical lung parenchyma is othe rwise clear as imaged. Soft tissues: The visualized pharyngeal soft tissues are normal in appearance noting angiographic pha se technique. The oropharyngeal airway appears widely patent. The salivary and thyroid glands are nor mal in appearance. No cervical lymphadenopathy is seen. Skeletal structures: The skeletal structures are osteopenic. The calvarium appears intact. The cervic al spine is maintained noting multilevel spondylosis. No lytic or blastic lesion is seen. Orbits: The bony orbits are intact. Orbital contents are normal in appearance noting bilateral ocular lens implants. Sinuses and mastoids: Trace mucosal thickening is noted in the maxillary antra and the left sphenoid sinus. The remaining paranasal sinuses are clear. The mastoid air cells are well pneumatized. IMPRESSION: 1. There is no hemorrhage, mass effect, or evidence of acute territorial ischemia by CT criteria noti ng angiographic phase technique. 2. Unremarkable CT urogram of the brain. 3. Unremarkable CT angiogram of the neck. Electronically signed by: Zaki Thompson M.D. 05/02/2019 10:21 PM
[2019-05-02] MEDS: LIDOCAINE 5% 1 PATCH TD SCH (22:47)
[2019-05-02] MEDS: SODIUM CHLORIDE 0.9% 1000ML 1,000 ML IV SCH (22:56)
[2019-05-03 06:05] LABS: Basophils # (auto) 0.01 K/uL (0-0.2); Basophils % (auto) 0.1 %; Hematocrit (blood only) 34.8 % (37-47); Hemoglobin 11.8 g/dL (12.0-16.0); Immature Granulocytes # (auto) 0.01 K/uL (0.00-0.02); Immature Granulocytes % (auto) 0.1 %; Lymphocytes # (auto) 0.89 K/uL (1.2-3.4); Lymphocytes % (auto) 13.2 %; Mean Corpuscular Hemoglobin 30.3 pg (25-34); Mean Corpuscular Hgb Conc 33.9 g/dL (32-36); Mean Corpuscular Volume 89.5 fL (80-100); Mean Platelet Volume 10.4 fL (7.4-10.4); Monocytes # (auto) 0.22 K/uL (0.11-0.59); Monocytes % (auto) 3.3 %; Neutrophils % (auto) 83.3 %; Platelet Count 187 K/uL (130-400); RDW Coefficient of Variation 15.8 % (11.5-14.5); RDW Standard Deviation 51.2 fL (36.4-46.3); Red Blood Count 3.89 M/uL (4.2-5.4); White Blood Count 6.73 K/uL (4.8-10.8)
[2019-05-03 06:37] LABS: BUN Creatinine Ratio 31.5 (10-20); Calcium 8.8 mg/dl (8.5-10.1); Est GFR (African American) 42.3; Est GFR (Non-African American) 36.5; Potassium 3.8 mmol/L (3.5-5.1)
[2019-05-03] MEDS: AMLODIPINE BESYLATE 5 MG TAB PO SCH ×2 (08:12→21:01)
[2019-05-03] MEDS: EZETIMIBE 10 MG TABLET PO SCH (08:12)
[2019-05-03] MEDS: ENOXAPARIN INJ 40 MG/0.4 ML SYR SQ SCH (08:12)
[2019-05-03] MEDS: allopurinoL 100 MG TAB PO SCH (08:12)
[2019-05-03] MEDS: LACTOBACILLUS ACIDOPHILUS (FLORANEX) TAB PO SCH (08:13)
[2019-05-03] MEDS: QUETIAPINE FUMARATE 25 MG TABLET PO SCH ×3 (08:13→21:01)
[2019-05-03] MEDS: MULTIVITAMIN TAB PO SCH (08:14)
[2019-05-03] MEDS: carvediloL 3.125 MG TAB PO SCH ×2 (08:14→21:01)
[2019-05-03] MEDS: LOSARTAN POTASSIUM 50 MG TAB PO SCH (08:14)
[2019-05-03] MEDS: ASPIRIN 81 MG ECTAB PO SCH (08:14)
[2019-05-03] MEDS: OMEGA-3 (PURIFIED FISH OIL) 1 GM CAP PO SCH (08:15)
[2019-05-03] MEDS: DIVALPROEX EXTENDED RELEASE 250 MG TABCR PO SCH ×3 (08:15→21:01)
[2019-05-03] MEDS: ASCORBIC ACID 500 MG TAB PO SCH (08:15)
--- NOTE | 2019-05-03 08:56 | Hospitalist Progress Note ---
Date of Service May 03, 2019 Subjective Was Notified that patient was unresponsive. Came and saw the patient. At that ti me pupils were reactive to light. Withdrawing all extremities on painful stimuli moaning and opening eyes but goes back to sleep. No facial droop observed. CT scan and labs, abg and ammonia levels ordered which all came unremarkable.Patient was still unresponsive and this time pupils were somewhat pin pointed and sluggish reaction to light.No recent pain meds given.Stroke alert was called. Last well known was around 6:15 to 6:30pm. Stroke alert was called around 9pm. [place] stroke neurology recommended CTA head/neck and if no lesion to call local neurology. Possibly seizures as her valproic acid level was low on admission. [place] recommended iv depakote 500mg for now and call them if any significant finding on CTA head/neck. After giving iv benadryl and iv solumedrol as patient has contrast allergy CTA Head/neck were done which were unremarkable. Notified [facility] neurology validation architect. To get EEG in [place]. Hemodynamics were stable all through out. NO elevated BP.After coming from CTA head/neck patient was able to stick out tounge on command. But mostly because of iv benadryl patient became sedated. notified daughter who came to the hospital. Results & Data Vital Signs (Past 12 Hours) Vital Signs Temp Pulse Pulse Pulse Resp BP Pulse Ox 05/03/19 07:29 36 C L 55 L 15 133/60 94 05/03/19 03:38 35.8 C L 64 18 146/68 H 99 05/03/19 00:51 68 05/02/19 23:50 35.7 C L 59 L 17 150/65 H 91 05/02/19 22:47 63 14 138/63 05/02/19 22:30 64 14 128/63 93 05/02/19 22:15 66 14 127/65 93 05/02/19 22:10 69 16 140/70 95
[2019-05-03] MEDS ORDERED: hydroCHLOROthiazide 25 MG TAB PO SCH (09:00)
[2019-05-03] MEDS: COLESTIPOL HCL 1 GM TAB PO SCH ×2 (10:32→21:01)
[2019-05-03] MEDS: SODIUM CHLORIDE 0.9% 1000ML 1,000 ML IV SCH (11:57)
--- NOTE | 2019-05-03 15:33 | Neurology Progress Note ---
Date of Service May 03, 2019 Assessment & Plan (1) Altered mental status: 1. CT head no acute findings 2. cardiology on board 3. back to baseline 4. depakote level 36 at admission increased depakote to TID no 92 would not increase any further- 500 mg given IV check level in 2 days. 5. TTE- if not already ordered 6. EEG- slowing no seizure discharges 7. no seizure activity during this episode 8. carotid doppler - no significant stenosis 9. increased depakote from 250 mg BID to TID 10. ok to discharge back to facility once stable 11. watch for over sedation with polypharmacy - needs to be tapered if sedation continues to be an issue follow up with neurology in 4-6 weeks after discharge Eliana Leone PAC Supervising Physician Co-Signing Physician Notes I have seen and discussed above patient with Dr Hung Wiseman, neurology I reviewed this case, briefly examined this patient and I discussed her care with Dr. Carranza who last night witnessed her prolonged episode of minutes responsiveness and actually did call the "stroke alert team". Currently she is awake alert but not oriented has no ideal where she has and has a lot of tangential disconnected speech but nothing resembling seizure activity has been seen and EEG reveals at most some mild generalized nonfocal slowing without potentially epileptiform discharges. Her Depakote level which have been low on admission and had been started after a family member had describes some seizure activity during 1 of her episodes, is now in the therapeutic range of use of upward adjustment and was in the therapeutic range last night when the event occurred She is doing quite a bit of pharmaceutical manipulation for her behavior and many of these drugs have sedative-hypnotic qualities one wonders if the event protracted unresponsiveness was simply not due to accumulation of drug side effects We certainly have very little else to explain that clinically this was not a seizure and I have significant questions of whether the initial events were ever seizures as apparently were associated with significant bradycardia That having been said right now my only suggestion would be to perhaps have psychiatry look over her medication list and decide what agents are essential to control her behavior and what agents might be discontinued Because of the clinical diagnosis seizures I think we are stuck with the Depakote whose level is now therapeutic but may not be a bad drug as it does have an effect on mood stabilization and might be justified on this basis alone At this point I do not think neurology has a strong need to see this woman on a regular basis while she is an inpatient unless of course she continues to have these events and will follow up on an outpatient basis as previously scheduled. I be curious what psychiatry has to say and will check the chart there are notations Hung Wiseman MD Devin York is a 84 year old female with PMH of CAD, HTN, HLD, dementia, CKD stage III, anemia, gout, depression. Presented to [facility] ED for altered mental status and lethargy. She was seen by neurology during the admission to [facility] 03/09 to 03/16/2019 for seizure-like activity. She underwent EEG and neurology evaluation and due to this being her second episode of witnessed seizure-like activity was placed on Depakote 250 mg twice daily. She has dementia and delirium and had multiple psychiatric medication adjustments including discontinuation of Sinemet, reduction of trazodone from 100 mg to 50 mg, Seroquel 12.5 mg twice daily. She was discharged to [facility] for approximately 2 weeks, and then to personal care facility [facility]. Daughter states that she has noted a oil change technician the past week when she was noted to have increased confusion, weakness, incontinence, and difficulty walking. She was last seen by her daughter last evening and doing well, at her baseline. Her baseline includes she is alert and oriented to self, can carry on a conversation although not always accurate, can ambulate with walker and feed self. She was hard to arouse and had increased confusion she was referred to ED. There was no witnessed seizure-like activity. Only medication change noted per daughter was increase of Seroquel to 12.5 mg 3 times daily due to significant hallucinations approximately 2 weeks ago. Since increasing Seroquel her hallucinations have decreased. She is currently alert and pleasantly confused. There is no family in room. denies CP, SOB, abdominal pain, one sided weakness, numbness tingling, N, V, falls. Physical Exam Physical Exam: Gen: alert with voice command pleasant but confused lungs course breath sounds CV loud systolic murmer moves all ext with command and spontanously sensation intact to light touch Results & Data Vital Signs (Past 12 Hours) Vital Signs Temp Pulse Pulse Pulse Resp BP BP 05/03/19 15:21 36.7 C 65 17 141/74 H 05/03/19 14:21 68 05/03/19 11:20 36.4 C L 64 16 156/73 H 05/03/19 07:29 36 C L 55 L 15 133/60 05/03/19 06:19 53 L 05/03/19 03:38 35.8 C L 64 18 146/68 H Pulse Ox 05/03/19 15:21 96 05/03/19 14:21 05/03/19 11:20 93 05/03/19 07:29 94 05/03/19 06:19 05/03/19 03:38 99 (1) Altered mental status Altered mental status type: unspecified Qualified Code(s): R41.82 - Altered mental status, unspecified
--- NOTE | 2019-05-03 16:53 | Hospitalist Progress Note ---
Date of Service May 03, 2019 Assessment & Plan (1) Altered mental status: Unresponsiveness/episode of obtundation: Patient was found unresponsive at around 7:30 PM yesterday, Code stroke alert was called Detail neuroimaging CTA head neck was negative, patient was evaluated by [place] telemetry stroke team Was given additional dose of Depakote with suspicion of possible breakthrough seizure Patient noted to be awake and alert, complete resolution of neurological symptoms No sign of infection dehydration noted blood pressure remains stable Appreciate input from [facility] neurology, patient seen by the on-call team this morning EEG shows no seizure activity, patient is back to her baseline Commands increase Depakote dose from 250 mg twice daily to 3 times daily Patient needs to be closely for the side effect of sedation Repeat Depakote level in 48 hours Outpatient follow-up with neurology in 4 to 6 weeks Acute Gouty Arthritis pains, swelling, erythema bilateral great toe resolved after addition of prednisone/colchicine Prior history of gout, on allopurinol Acute renal failure: Continue elevated from 0.96(04/28)-1.491.35 Was ordered PRN IV Toradol For acute gouty arthritis severe pain and discomfort on toe Receives 50 mg IV x1 dose On 05/02/2019 at 5 PM -NSAID's discontinued HCTZ dose to 25 for poorly controlled pressure Patient received dose of 25 mg HCTZ today morning-prior it is discontinued On low-dose IV fluids Repeat BMP in a.m. Nephrology consult if creatinine continues to rise Metabolic encephalopathy/agitation Mental status improved to approximate baseline Forgetful oriented to person only agitation noted Usually appears to be more energetic and awake and alert early part of the day noted to have sundowning effect, delirium in the afternoon No sign of infection, repeat blood culture has no growth Continue to monitor and observe fall precaution Patient has baseline dementia, oriented to person only, as per daughter: Patient [facility], With every episode of infection/special urine tract infection family has noted significant alteration in patient's cognition, and functional status, On presentation with lethargy, confusion possible metabolic encephalopathy due to dehydration, infection: Blood culture 1 bottle positive for gram-positive cocci UA was normal With blood culture 2 bottles negative growth, IV Rocephin discontinued ID eval requested as per family request, for recurrent urine tract infection Appreciate input from ID, given no anatomical deformity, uncomplicated UTI, chronic suppressive antibiotic treatment is not indicated At this admission patient had negative event, negative urine culture Patient is scheduled to be followed up with urology patient Patient showing increasing weakness, fatigue, functional decline, appreciate input from PT OT Patient will benefit with inpatient rehab, discussed with daughter eliane garces to be made to [facility]-patient was there before, had very good outcome Patient Baseline oriented to person , with poor short term memory recall no evidence of stroke or seizure activity noted carotid doppler -no significant stenosis appreciate input from Neurology , no change in medication /continue prior dose of Depakote routine follow up with Neurology in clinic in 4-6 weeks Confusion/agitation Is been more calm and cooperative Continue to provide reassurance counseling, Patient has very poor orientation about her surroundings, thinks that she is in" basement" now She needs to get out, but the nursing staff has been preventing that making her angry and irritated Patient has been getting her dose of Seroquel schedule/takes as an outpatient Ordered PRN Ativan low-dose, noted to have some benefit to come down the patient Continue to monitor Patient will need inpatient rehab for generalized weakness functional decline FALL : Continue fall precautions, bed alarm 04/28/2019 sustained an unwitnessed fall -was found sitting on floor next to toilet no injury sustained no sinus pause reported ( pt was off monitor -during fall ) Continue bed and chair alarm pt is a very poor historian -unable to recall the event leading to fall does remember attempt to going to the toilet by herself as " she needed to go " Per daughter patient had similar events at personal prison as well That he had noncontrast shows no acute change, chest x-ray shows no evidence of refracture HYPERTENSIVE URGENCY : Appreciate input from cardiology, patient is continued with low-dose of Coreg, added HCTZ 12.5 Patient is on Norvasc 5 mg daily, losartan 100 mg daily increase Norvasc to 5 mg 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 daily 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 BP was adequate 144/74 Afternoon blood pressure continues to be elevated 170/67, Increase HCTZ to 25 mg daily Continue telemetry, patient denies of any shortness of breath dyspnea on exertion chest heaviness (2) Lethargy: His episode of lethargy unresponsiveness yesterday as outlined above This is an 84-year-old female who has significant PMH of CAD, HTN, HLD, dementia, CKD stage III, anemia, gout, depression [facility] secondary to altered mental status and lethargy In ED patient remained hemodynamically stable, afebrile. She did have episode of bradycardia heart rate 29 with appearance of sinus pause on telemetry. Her CBC, CMP, TSH relatively unremarkable except for stable anemia H&H 10.8 and 33.8, BUN 29, creatinine 1.11. Urinalysis is negative Head CT reveals chronic microvascular small vessel ischemic changes but otherwise no acute ab normality Chest x-ray cardiomegaly with mild congestion (3) Bradycardia: Pt had episode in ED of bradycardia, HR 29 no further episode since Coreg resumed per cardiolog lower dose 3.125 mg twice daily(was on 6.25 mg twice daily) Heart rate remained stable in 80s90s Continued with low-dose Coreg (4) Dementia: at baseline oriented to person only awake , mental status approx baseline on seroquel, trazodone Episode of unresponsiveness noted yesterday as discussed above (5) Seizure disorder: appreciate neurology eval Given 500 mg additional dose of Depakote last night for episode of unresponsiveness, possible breakthrough seizure?-Neuro imaging negative for acute stroke Patient's mental status, neurological status back to baseline EEG shows no seizure activity Depakote dose increased from 250 mg twice daily to 3 times daily Repeat Depakote level tomorrow Caution for sedative effect of Depakote (6) HTN (hypertension): developed hypertensive urgency management as Discussed above (7) CKD (chronic kidney disease) stage 3, GFR 30-59 ml/min: Developed acute renal failure, discussed above (8) CAD (coronary artery disease): No chest pain or shortness of breath Continue ASA, Coreg dose reduced Losartan kept on hold for acute renal failure (9) Anemia: H/H stable at 10.8/33.8 normocytic/normochromic (10) HLD (hyperlipidemia): Continue Zetia and omega-3 (11) DVT prophylaxis: lovenox, SCD/TEDS Disposition: cont tele monitoring Follow up: PCP Dr. Joseph at [facility] upon discharge PT/OT eval requested Patient will need inpatient rehab for increased fall risk, generalized weakness and functional decline Social service consulted for discharge planning Continue to monitor and telemetry floor now Transfer to rehab when medically stable update Given to patient's daughter Radha at bedside Subjective And was found to be unresponsive last night, Code stroke alert was called, was evaluated by senior qa automation engineer, and [facility] neuro stroke team, CT head, CTA head neck: Showed no evidence of acute CVA Patient was given 500 mg p.o. Depakote for possible seizure Daughter was called last night, updated about the change in mental status This morning patient is awake and alert, showing evidence of confusion (baseline dementia) Weakness or paresthesia, sitting up finished breakfast, No dysphagia or dysarthria, Patient swelling redness, tenderness on bilateral great toe (acute gout). Resolved And have no recollection of last night Wants to get discharged His BP readings between [id number] Physical Exam Constitutional: WD/WN, vitals as above no acute distress Eyes: PERRL, conjunctivae normal, anicteric sclerae ENMT: external ear and nose normal, oropharynx normal Neck: trachea midline, no thyromegaly Respiratory: normal respiratory effort, lungs clear to auscultation Cardiovascular: Rate/Rhythm: regular rate and regular rhythm Extremities: + edema (+2 bilat pedal edema ) Gastrointestinal (Abdomen): normal bowel sounds, soft, nontender, no hepatosplenomegaly Musculoskeletal: no cyanosis or clubbing, extremities motor strength 5/5 Head/Neck/Chest: normocephalic and head atraumatic Skin: no rashes, warm and dry Neurologic: PERRL, EOMI, accommodation nl, no face palsy, no dysarthria Psychiatric: Orientation: alert and oriented to person Eye Contact: good eye contact Affect: + flat affect Cognition: + recent memory not intact Insight: + limited insight Results & Data Vital Signs (Past 12 Hours) Vital Signs Temp Pulse Pulse Pulse Resp BP BP 05/03/19 15:21 36.7 C 65 17 141/74 H 05/03/19 14:21 68 05/03/19 11:20 36.4 C L 64 16 156/73 H 05/03/19 07:29 36 C L 55 L 15 133/60 05/03/19 06:19 53 L Pulse Ox 05/03/19 15:21 96 05/03/19 14:21 05/03/19 11:20 93 05/03/19 07:29 94 05/03/19 06:19 (1) Anemia Anemia type: unspecified type Qualified Code(s): D64.9 - Anemia, unspecified (2) Altered mental status Altered mental status type: unspecified Qualified Code(s): R41.82 - Altered mental status, unspecified (3) HTN (hypertension) Hypertension type: essential hypertension Qualified Code(s): I10 - Essential (primary) hypertension
[2019-05-03 18:16] LABS: BUN Creatinine Ratio 37.6 (10-20); Calcium 6.8 mg/dl (8.5-10.1); Creatinine Clr Calc Pharmacy 31.6 ml/min; Est GFR (African American) 46.8; Est GFR (Non-African American) 40.4
[2019-05-03 18:17] LABS: Potassium 3.1 mmol/L (3.5-5.1)
[2019-05-03] MEDS: LORazepam 0.5 MG TAB PO PRN (19:25)
[2019-05-03] MEDS: LIDOCAINE 5% 1 PATCH TD SCH (21:01)
[2019-05-04 06:48] LABS: BUN Creatinine Ratio 37.5 (10-20); Calcium 8.6 mg/dl (8.5-10.1); Creatinine Clr Calc Pharmacy 24.4 ml/min; Est GFR (African American) 34.2; Est GFR (Non-African American) 29.5
[2019-05-04] MEDS: AMLODIPINE BESYLATE 5 MG TAB PO SCH ×2 (08:11→20:13)
[2019-05-04] MEDS: MULTIVITAMIN TAB PO SCH (08:11)
[2019-05-04] MEDS: EZETIMIBE 10 MG TABLET PO SCH (08:11)
[2019-05-04] MEDS: QUETIAPINE FUMARATE 25 MG TABLET PO SCH ×3 (08:12→20:13)
[2019-05-04] MEDS: DIVALPROEX EXTENDED RELEASE 250 MG TABCR PO SCH ×3 (08:12→20:14)
[2019-05-04] MEDS: ENOXAPARIN INJ 40 MG/0.4 ML SYR SQ SCH (08:12)
[2019-05-04] MEDS: ASCORBIC ACID 500 MG TAB PO SCH (08:13)
[2019-05-04] MEDS: OMEGA-3 (PURIFIED FISH OIL) 1 GM CAP PO SCH (08:13)
[2019-05-04] MEDS: carvediloL 3.125 MG TAB PO SCH ×2 (08:14→20:14)
[2019-05-04] MEDS: ASPIRIN 81 MG ECTAB PO SCH (08:14)
[2019-05-04] MEDS: allopurinoL 100 MG TAB PO SCH (08:14)
[2019-05-04] MEDS: LACTOBACILLUS ACIDOPHILUS (FLORANEX) TAB PO SCH (08:14)
[2019-05-04] MEDS: LORazepam 0.5 MG TAB PO PRN (09:05)
[2019-05-04] MEDS: COLESTIPOL HCL 1 GM TAB PO SCH ×2 (09:06→20:14)
[2019-05-04] MEDS ORDERED: LACTATED RINGER'S 1,000 ML IV SCH (09:45)
--- NOTE | 2019-05-04 10:03 | Nephrology Consultation ---
Date of Consultation May 04, 2019 Assessment & Plan (1) BELLE (acute kidney injury): Patient with acute kidney injury likely due to multifactorial etiology including tramadol and contrast. It appears patient's creatinine was on the rise even before the contrast but certainly much higher now. Baseline creatinine of 0.9 and now creatinine up to 1.6. Her electrolytes are stable. No indication for dialysis. She is nonoliguric. She appears dry on physical exam today. Recommend Ringer's lactate 1 L today. Monitor input output. Will obtain renal ultrasound to rule out obstructive uropathy. Will check urine microscopy. Avoid further nephrotoxins such as NSAIDs and contrast. (2) HTN (hypertension): Blood pressure is above target but given acute kidney injury and altered mental status would avoid quickly bringing down the blood pressure. Continue to monitor on current regimen. (3) Altered mental status: Patient with altered mental status of unclear etiology. She is being worked up for possible COMPUTER SYSTEM TECHNICIAN infection. Her mental status changes is certainly not due to uremia given her BUN is only 60. Her other electrolytes are stable. Avoid psychoactive medications. History of Present Illness Reason for Consultation: Acute kidney injury Requesting Physician: Bailee Salas MD Attending Physician: Gerard Romero MD History of Present Illness This is a 32-year-old female with dementia, coronary disease, hyperlipidemia and fairly normal renal function at baseline with creatinine between 0.9-1.1 at baseline who is being seen for acute kidney injury. She was admitted on 04/27/2019 with altered mental status. She had a creatinine of 0.9 around time of admission. Creatinine increased to 1.4 on 05/02/2019. She had received a dose of Toradol on the same day and also had CTA of head and neck later that day. Creatinine is now up to 1.6 with a BUN of 60. During this hospitalization she was also found to have sinus pauses and echocardiogram showed minimal peric ardial effusion with no hemodynamic changes. She has been evaluated for possible COMPUTER SYSTEM TECHNICIAN infection but remains off antibiotics. She remains confused and not a reliable historian. She denied shortness of breath or pain. No vomiting or diarrhea. She is reportedly eating well her food per the nurse. She is nonoliguric with a urine output of 450 mL and 24 hours. Allergies Allergy/AdvReac Type Severity Reaction Status Date / Time iodine Allergy Unknown Unknown Verified 04/27/19 10:05 memantine Allergy Unknown Unknown Verified 04/27/19 10:05 pantoprazole Allergy Unknown Unknown Verified 04/27/19 10:05 shellfish derived Allergy Unknown Unknown Verified 04/27/19 10:05 crab Allergy Gastrointestinal Verified 04/27/19 10:05 Upset Home Medications Home Medications Medication Instructions Recorded Confirmed Type allopurinol 100 mg PO DAILY 06/27/18 04/27/19 History aspirin 81 mg PO DAILY 06/27/18 04/27/19 History colestipol 1 g PO BID 06/27/18 04/27/19 History ezetimibe 10 mg PO DAILY 06/27/18 04/27/19 History melatonin 5 mg PO HS 06/27/18 04/27/19 History acetaminophen 1,000 mg PO DAILY PRN 01/31/19 04/27/19 History ascorbic acid (vitamin C) [Vitamin 500 mg PO DAILY 01/31/19 04/27/19 History C] losartan 100 mg PO DAILY 01/31/19 04/27/19 History multivitamin [Daily-Valorie] 1 tab PO DAILY 01/31/19 04/27/19 History omega [id number] oil [Fish Oil] 1 cap PO DAILY 01/31/19 04/27/19 History meclizine 12.5 mg PO TID PRN #0 tab 03/16/19 04/27/19 Rx Lactobacillus acidophilus 1 tab PO DAILY 04/27/19 04/27/19 History [Acidophilus] amlodipine 5 mg PO DAILY 04/27/19 04/27/19 History bisacodyl 10 mg AL DAILY PRN 04/27/19 04/27/19 History carvedilol 6.25 mg PO BID 04/27/19 04/27/19 History cranberry 500 mg PO DAILY 04/27/19 04/27/19 History divalproex 250 mg PO BID 04/27/19 04/27/19 History polyethylene glycol 3350 17 g PO DAILY PRN 04/27/19 04/27/19 History quetiapine 12.5 mg PO TID 04/27/19 04/27/19 History sennosides-docusate sodium [Senna 1 tab PO BID PRN 04/27/19 04/27/19 History Plus] sodium phosphates [Fleet Enema] 118 ml AL DAILY PRN 04/27/19 04/27/19 History trazodone 50 mg PO DAILY 04/27/19 04/27/19 History hydrochlorothiazide 12.5 mg PO QAM 30 Days #15 tab 05/01/19 Rx Patient History Medical History Gout (Chronic) Dementia (Chronic) HTN (hypertension) (Chronic) HLD (hyperlipidemia) (Chronic) CKD (chronic kidney disease) stage 3, GFR 30-59 ml/min (Chronic) Anemia (Chronic) Seizure disorder (Chronic) CAD (coronary artery disease) (Chronic) Acute UTI (Resolved) Memory deficit (Resolved) Surgical History History of total knee arthroplasty (Chronic) R History of Achilles tendon repair (Chronic) Family History Sister Diabetes Social History Preferred Language: Algerian Communication Ability: Impaired Manager E [employer] Required: No Beliefs That Will Affect Care: None Current Living Situation: Personal Care Facility Current Living Situation Comment: [facility] Feels Safe at Home: Yes Safety Concerns: Feels Safe At This Time Smoking Status: Never smoker Hx Alcohol Use: No Hx Substance Use: No Review of Systems Review of Systems: Unobtainable due to cognitive status Physical Exam Physical Exam: General exam: Appears comfortable, no acute distress HEENT: Pupils are equal and reactive to light, dry tongue Neck: No JVD, neck is supple trachea is midline Respiratory system: Clear breath sounds bilaterally. Gastrointestinal: Abdomen is soft, non distended, non tender, bowel sounds are present CVS: Regular rate and rhythm. No murmurs, rubs or gallops Musculoskeletal: No joint or muscle tenderness Extremities: Non tender, no edema, peripheral pulses are present Neuro: Disoriented, no tremors, no focal neurological deficits Skin: No rashes Results & Data Vital Signs (Past 12 Hours) Vital Signs Temp Pulse Pulse Resp BP BP Pulse Ox 05/04/19 07:52 36.4 C L 62 16 153/82 H 95 05/04/19 06:19 53 L 05/04/19 03:56 36.8 C 55 L 17 153/62 H 95 05/04/19 00:00 64 05/03/19 23:43 36.8 C 61 17 152/57 H 95 Laboratory Results Laboratory Results - last 24 hr 05/03/19 05/04/19 05/04/19 17:36 06:07 07:21 Sodium 144 140 Potassium 3.1 L D 3.6 D Chloride 113 H 107 Carbon Dioxide 22 26 Anion Gap 8.0 7.0 BUN 47 H 60 H Creatinine 1.24 H 1.61 H D Est Cr Clr Drug Dosing 31.6 24.4 Est GFR ( Amer) 46.8 34.2 Est GFR (Non-Af Amer) 40.4 29.5 BUN/Creatinine Ratio 37.6 H 37.5 H Glucose 121 H 99 Calcium 6.8 L D 8.6 D (1) HTN (hypertension) Hypertension type: essential hypertension Qualified Code(s): I10 - Essential (primary) hypertension (2) Altered mental status Altered mental status type: disorientation Qualified Code(s): R41.0 - Disorientation, unspecified
--- NOTE | 2019-05-04 11:07 | Ultrasound Report ---
US renal/blad retro comp HISTORY: 84 years-old Female BELLE, ? obstruction acute kidney injury with possible obstruction COMPARISON: CT pelvis 03/09/2019 TECHNIQUE: Multiple real-time sonographic images of the kidneys and urinary bladder were obtained ass essing grayscale appearance and color flow FINDINGS: Right kidney measures 10.0 cm in length. Multiple cysts of the right kidney are noted measuring up to 2.6 cm. There is suggestion of mild layering debris within one of the cysts. No definite mural soft tissue lesion or internal flow within these foci. No solid renal mass lesions identified. No renal ca lculi or hydronephrosis of the right kidney. Cholelithiasis incidentally noted. Unremarkable urinary bladder with bilateral ureteral jets noted. Left kidney measures 14.0 cm in length. Multiple cysts of the left kidney are also noted measuring up to 4.0 cm. No left-sided renal calculi or hydronephrosis. No solid renal mass lesions of the left ki dney identified. IMPRESSION: 1. No renal calculi or hydronephrosis. 2. Bilateral renal cysts, left greater than right. 3. Incidental note is made of cholelithiasis. The above report was generated using voice recognition software. It may contain grammatical, syntax o r spelling errors. Electronically signed by: Samuel Hancock M.D. 05/04/2019 11:06 AM
[2019-05-04 12:08] LABS: Appearance Urine Clear (Clear); Bilirubin Urine Negative (Negative); Blood Urine Negative (Negative); Color Urine Yellow; Glucose Urine UA Negative (Negative); Ketones Urine Negative (Negative); Leukocyte Esterase Urine Negative (Negative); Nitrite Urine Negative (Negative); Protein Urine Negative (Negative); Specific Gravity Urine 1.018 (1.000-1.030); Urobilinogen Urine Negative (Negative); pH Urine 5.5 (4.5-7.5)
[2019-05-04] MEDS: ACETAMINOPHEN 325 MG TAB PO PRN (12:58)
--- NOTE | 2019-05-04 15:24 | Hospitalist Progress Note ---
Date of Service May 04, 2019 Assessment & Plan (1) Altered mental status: Unresponsiveness/episode of obtundation: Service notes: Patient was found unresponsive at around 7:30 PM yesterday, Code stroke alert was called Detail neuroimaging CTA head neck was negative, patient was evaluated by [place] telemetry stroke team Was given additional dose of Depakote with suspicion of possible breakthrough seizure Patient noted to be awake and alert, complete resolution of neurological symptoms No sign of infection dehydration noted blood pressure remains stable Appreciate input from [facility] neurology, patient seen by the on-call team this morning EEG shows no seizure activity, patient is back to her baseline Neurology consulted, recommended to increase Depakote dose from 250 mg twice daily to 3 times daily Sedation noted so far Repeat Depakote level: Within normal range ~Repeat episode of May 03, 2019, CT head unremarkable No further changes per neurology service Outpatient follow-up with neurology in 4 to 6 weeks Mental status back to baseline per family Acute Gouty Arthritis Prior history of gout, on allopurinol pains, swelling, erythema bilateral great toe resolved after addition of prednisone/colchicine Acute renal failure: Continue elevated from 0.96(04/28)-1.491.35 Creatinine today 1.6 Renal ultrasound: No lithiasis or hydronephrosis Possible component of dehydration, also has received IV iodine contrast, Toradol, HCTZ Shell Machine Operator consulted, started on IV LR Monitor creatinine Metabolic encephalopathy/agitation Mental status improved to approximate baseline Forgetful oriented to person only agitation noted Usually appears to be more energetic and awake and alert early part of the day noted to have sundowning effect, delirium in the afternoon No sign of infection, repeat blood culture has no growth Continue to monitor and observe fall precaution Patient has baseline dementia, oriented to person only, as per daughter: Patient does fairly well at personal [facility], With every episode of infection/special urine tract infection family has noted significant alteration in patient's cognition, and functional status, On presentation with lethargy, confusion possible metabolic encephalopathy due to dehydration, infection: Blood culture 1 bottle positive for gram-positive cocci UA was normal With blood culture 2 bottles negative growth, IV Rocephin discontinued ID eval requested as per family request, for recurrent urine tract infection Appreciate input from ID, given no anatomical deformity, uncomplicated UTI, chronic suppressive antibiotic treatment is not indicated At this admission patient had negative event, negative urine culture Patient is scheduled to be followed up with urology patient Patient showing increasing weakness, fatigue, functional decline, appreciate input from PT OT Patient will benefit with inpatient rehab, discussed with [facility] had very good outcome Patient Baseline oriented to person , with poor short term memory recall no evidence of stroke or seizure activity noted carotid doppler -no significant stenosis appreciate input from Neurology , no change in medication /continue prior dose of Depakote routine follow up with Neurology in clinic in 4-6 weeks Confusion/agitation Is been more calm and cooperative Continue to provide reassurance counseling, Patient has very poor orientation about her surroundings, thinks that she is in" basement" now She needs to get out, but the nursing staff has been preventing that making her angry and irritated Patient has been getting her dose of Seroquel schedule/takes as an outpatient Ordered PRN Ativan low-dose, noted to have some benefit to come down the patient Continue to monitor Patient will need inpatient rehab for generalized weakness functional decline FALL : Continue fall precautions, bed alarm 04/28/2019 sustained an unwitnessed fall -was found sitting on floor next to toilet no injury sustained no sinus pause reported ( pt was off monitor -during fall ) Continue bed and chair alarm pt is a very poor historian -unable to recall the event leading to fall does remember attempt to going to the toilet by herself as " she needed to go " Per daughter patient had similar events at personal [facility] as well That he had noncontrast shows no acute change, chest x-ray shows no evidence of refracture HYPERTENSIVE URGENCY : Appreciate input from cardiology, patient is continued with low-dose of Coreg, added HCTZ 12.5 Patient is on Norvasc 5 mg daily, losartan 100 mg daily increase Norvasc to 5 mg twice daily 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 Salas notes: Pt had episode in ED of bradycardia, HR 29 no further episode since Neurologist consulted, recommended to decrease Coreg from 6.25 to 3.125 mg Heart rate remained stable in 80s90s Continued with low-dose Coreg (4) Dementia: at baseline oriented to person only awake , mental status approx baseline per family on seroquel, trazodone Episode of unresponsiveness noted yesterday as discussed above (5) Seizure disorder: Given 500 mg additional dose of Depakote May 03, 2019 for episode of unresponsiveness, possible breakthrough seizure?-Neuro imaging negative for acute stroke Patient's mental status, neurological status back to baseline EEG shows no seizure activity Depakote dose increased from 250 mg twice daily to 3 times daily Caution for sedative effect of Depakote (6) HTN (hypertension): developed hypertensive urgency management as Discussed above (7) CKD (chronic kidney disease) stage 3, GFR 30-59 ml/min: Developed acute renal failure, discussed above (8) CAD (coronary artery disease): No chest pain or shortness of breath Continue ASA, Coreg dose reduced Losartan kept on hold for acute renal failure (9) Anemia: H/H stable at 10.8/33.8 normocytic/normochromic (10) HLD (hyperlipidemia): Continue Zetia and omega-3 (11) DVT prophylaxis: lovenox, SCD/TEDS Disposition: cont tele monitoring Follow up: PCP Dr. Joseph at [facility] upon discharge Transfer to [facility] rehab when medically stable update Given to patient's daughter Radha over the phone Plan of care discussed with her She Is agreeable, understanding, comfortable plan of care Subjective Follow-up for encephalopathy, altered mental status Seen sitting up in bed watching TV, not in distress, pleasantly confused Denies headache, dizziness, chest pain, shortness of breath, abdominal pain, change in urination or bowel movement No other symptoms Review of Systems Review of Systems: All systems reviewed & are unremarkable except as noted in HPI & below Physical Exam Physical Exam: General- not oriented, not in distress, speaks in sentences with no effort or accessory muscle use Eyes- anicteric Neck- no JVD Lungs- clear breath sounds bilaterally, no rales/wheezes Heart- normal rate, regular rhythm; no murmurs Abdomen- normal bowel sounds, nondistended, soft, nontender Extremities- no pretibial edema, no calf tenderness Neuro- alert, oriented x 3; no gross focal neurologic deficits Skin- warm & dry Results & Data Vital Signs (Past 12 Hours) Vital Signs Temp Pulse Pulse Resp BP BP Pulse Ox 05/04/19 11:16 36.5 C 60 20 135/59 L 96 10/09/19 07:52 36.4 C L 62 16 153/82 H 95 05/04/19 06:19 53 L 05/04/19 03:56 36.8 C 55 L 17 153/62 H 95 (1) Altered mental status Altered mental status type: unspecified Qualified Code(s): R41.82 - Altered mental status, unspecified (2) HTN (hypertension) Hypertension type: essential hypertension Qualified Code(s): I10 - Essential (primary) hypertension (3) Anemia Anemia type: unspecified type Qualified Code(s): D64.9 - Anemia, unspecified
[2019-05-04] MEDS: LIDOCAINE 5% 1 PATCH TD SCH (20:14)
[2019-05-05 08:18] LABS: BUN Creatinine Ratio 45.3 (10-20); Calcium 8.7 mg/dl (8.5-10.1); Est GFR (African American) 42.3; Est GFR (Non-African American) 36.5; Potassium 4.1 mmol/L (3.5-5.1)
[2019-05-05] MEDS: OMEGA-3 (PURIFIED FISH OIL) 1 GM CAP PO SCH (09:24)
[2019-05-05] MEDS: DIVALPROEX EXTENDED RELEASE 250 MG TABCR PO SCH ×3 (09:24→21:28)
[2019-05-05] MEDS: allopurinoL 100 MG TAB PO SCH (09:24)
[2019-05-05] MEDS: AMLODIPINE BESYLATE 5 MG TAB PO SCH ×2 (09:24→21:27)
[2019-05-05] MEDS: COLESTIPOL HCL 1 GM TAB PO SCH ×2 (09:24→22:27)
[2019-05-05] MEDS: QUETIAPINE FUMARATE 25 MG TABLET PO SCH ×3 (09:25→21:27)
[2019-05-05] MEDS: MULTIVITAMIN TAB PO SCH (09:25)
[2019-05-05] MEDS: EZETIMIBE 10 MG TABLET PO SCH (09:25)
[2019-05-05] MEDS: LACTOBACILLUS ACIDOPHILUS (FLORANEX) TAB PO SCH (09:25)
[2019-05-05] MEDS: carvediloL 3.125 MG TAB PO SCH ×2 (09:26→21:28)
[2019-05-05] MEDS: ASCORBIC ACID 500 MG TAB PO SCH (09:27)
[2019-05-05] MEDS: ASPIRIN 81 MG ECTAB PO SCH (09:27)
[2019-05-05] MEDS: ENOXAPARIN INJ 40 MG/0.4 ML SYR SQ SCH (09:27)
--- NOTE | 2019-05-05 11:32 | Hospitalist Progress Note ---
Date of Service May 05, 2019 Assessment & Plan (1) Altered mental status: Unresponsiveness/episode of obtundation: per Dr. Salas notes: Patient was found unresponsive at around 7:30 PM yesterday, Code stroke alert was called Detail neuroimaging CTA head neck was negative, patient was evaluated by [place] telemetry stroke team Was given additional dose of Depakote with suspicion of possible breakthrough seizure Patient noted to be awake and alert, complete resolution of neurological symptoms No sign of infection dehydration noted blood pressure remains stable Appreciate input from [facility] neurology, patient seen by the on-call team this morning EEG shows no seizure activity, patient is back to her baseline Neurology consulted, recommended to increase Depakote dose from 250 mg twice daily to 3 times daily Sedation noted so far Repeat Depakote level: Within normal range ~Repeat episode of May 03, 2019, CT head unremarkable No further changes per neurology service Outpatient follow-up with neurology in 4 to 6 weeks Mental status back to baseline per family Check nocturnal pulse oximetry night due to history of obstructive sleep apnea Acute Gouty Arthritis Prior history of gout, on allopurinol pains, swelling, erythema bilateral great toe resolved after addition of prednisone/colchicine Acute renal failure: Continue elevated from 0.96(04/28)-1.491.35 Creatinine today 1.3 Renal ultrasound: No lithiasis or hydronephrosis Possible component of dehydration, also has received IV iodine contrast, Toradol, HCTZ Lab Specialist consulted, continuation of IV LR Monitor creatinine Metabolic encephalopathy/agitation per Dr. Salas notes: Mental status improved to approximate baseline Forgetful oriented to person only agitation noted Usually appears to be more energetic and awake and alert early part of the day noted to have sundowning effect, delirium in the afternoon No sign of infection, repeat blood culture has no growth Continue to monitor and observe fall precaution Patient has baseline dementia, oriented to person only, as per daughter: Patient does fairly well at personal [facility], With every episode of infection/special urine tract infection family has noted significant alteration in patient's cognition, and functional status, On presentation with lethargy, confusion possible metabolic encephalopathy due to dehydration, infection: Blood culture 1 bottle positive for gram-positive cocci UA was normal With blood culture 2 bottles negative growth, IV Rocephin discontinued ID eval requested as per family request, for recurrent urine tract infection Appreciate input from ID, given no anatomical deformity, uncomplicated UTI, chronic suppressive antibiotic treatment is not indicated At this admission patient had negative event, negative urine culture Patient is scheduled to be followed up with urology patient Patient showing increasing weakness, fatigue, functional decline, appreciate input from PT OT Patient will benefit with inpatient rehab, discussed with daughter wants referral to be made to [facility]-patient was there before, had very good outcome Patient Baseline oriented to person , with poor short term memory recall no evidence of stroke or seizure activity noted carotid doppler - no significant stenosis routine follow up with Neurology in clinic in 4-6 weeks Confusion/agitation per Dr. Salas notes: more calm and cooperative Patient has been getting her dose of Seroquel schedule/takes as an outpatient Ordered PRN Ativan low-dose, noted to have some benefit to come down the patient Continue to monitor Patient will need inpatient rehab for generalized weakness functional decline FALL : per Dr. Salas notes: Continue fall precautions, bed alarm 04/28/2019 sustained an unwitnessed fall -was found sitting on floor next to toilet no injury sustained no sinus pause reported ( pt was off monitor -during fall ) Continue bed and chair alarm pt is a very poor historian -unable to recall the event leading to fall does remember attempt to going to the toilet by herself as " she needed to go " Per daughter patient had similar events at personal [facility] as well That he had noncontrast shows no acute change, chest x-ray shows no evidence of refracture HYPERTENSIVE URGENCY : BP mildly elevated but asymptomatic Amlodipine 5 mg twice a day Losartan on hold in light of acute renal failure (2) Lethargy: Resolved (3) Bradycardia: Per Dr. Salas notes: Pt had episode in ED of bradycardia, HR 29 no further episode since Neurologist consulted, recommended to decrease Coreg from 6.25 to 3.125 mg Heart rate remained stable in 80s90s Continued with low-dose Coreg (4) Dementia: at baseline oriented to person only awake , mental status approx baseline per family on seroquel, trazodone (5) Seizure disorder: Given 500 mg additional dose of Depakote May 03, 2019 for episode of unresponsiveness, possible breakthrough seizure?-Neuro imaging negative for acute stroke Patient's mental status, neurological status back to baseline EEG shows no seizure activity Depakote dose increased from 250 mg twice daily to 3 times daily Caution for sedative effect of Depakote (6) HTN (hypertension): developed hypertensive urgency management as Discussed above (7) CKD (chronic kidney disease) stage 3, GFR 30-59 ml/min: Developed acute renal failure, discussed above (8) CAD (coronary artery disease): No chest pain or shortness of breath Continue ASA, Coreg dose reduced Losartan kept on hold for acute renal failure (9) Anemia: H/H stable at 10.8/33.8 normocytic/normochromic (10) HLD (hyperlipidemia): Continue Zetia and omega-3 (11) DVT prophylaxis: lovenox, SCD/TEDS Disposition: cont tele monitoring Follow up: PCP Dr. Joseph at [facility] upon discharge Transfer to [facility] when medically stable update Given to patient's daughter Radha and patient's son Plan of care discussed with them in detail and at length they are agreeable, understanding, comfortable plan of care (2) Lethargy: Resolved (3) Bradycardia: Per Dr. Salas notes: Pt had episode in ED of bradycardia, HR 29 no further episode since Neurologist consulted, recommended to decrease Coreg from 6.25 to 3.125 mg Heart rate remained stable in 80s90s Continued with low-dose Coreg (4) Dementia: at baseline oriented to person only awake , mental status approx baseline per family on seroquel, trazodone Episode of unresponsiveness noted yesterday as discussed above (5) Seizure disorder: Given 500 mg additional dose of Depakote May 03, 2019 for episode of unresponsiveness, possible breakthrough seizure?-Neuro imaging negative for acute stroke Patient's mental status, neurological status back to baseline EEG shows no seizure activity Depakote dose increased from 250 mg twice daily to 3 times daily Caution for sedative effect of Depakote (6) HTN (hypertension): developed hypertensive urgency management as Discussed above (7) CKD (chronic kidney disease) stage 3, GFR 30-59 ml/min: Developed acute renal failure, discussed above (8) CAD (coronary artery disease): No chest pain or shortness of breath Continue ASA, Coreg dose reduced Losartan kept on hold for acute renal failure (9) Anemia: H/H stable at 10.8/33.8 normocytic/normochromic (10) HLD (hyperlipidemia): Continue Zetia and omega-3 (11) DVT prophylaxis: lovenox, SCD/TEDS Disposition: cont tele monitoring Follow up: PCP Dr. Joseph at [facility] upon discharge [facility] medically [facility] update Given to patient's daughter Radha over the phone Plan of care discussed with her She Is agreeable, understanding, comfortable plan of care Subjective Follow-up for altered mental status, acute renal failure Seen with family-daughter and son at the bedside Resting bedside chair, comfortable, oriented to person Family members, patient mostly back to her baseline Denies headache, dizziness, chest pain, shortness of breath, problems with urination No other symptoms Review of Systems Review of Systems: All systems reviewed & are unremarkable except as noted in HPI & below Physical Exam Physical Exam: General- oriented x1, not in distress, speaks in sentences with no effort or accessory muscle use Eyes- anicteric Neck- no JVD Lungs- clear breath sounds bilaterally, no crackles, no wheezing Heart- normal rate, regular rhythm; no murmurs Abdomen- normal bowel sounds, nondistended, soft, nontender Extremities- no pretibial edema, no calf tenderness Neuro- alert, oriented x 1; no gross focal neurologic deficits Skin- warm & dry Results & Data Vital Signs (Past 12 Hours) Vital Signs Temp Pulse Pulse Resp BP BP Pulse Ox 05/05/19 11:31 36.6 C 68 20 136/64 93 05/05/19 08:01 60 05/05/19 07:49 36.4 C L 60 20 156/80 H 96 05/05/19 03:55 36.5 C 61 16 157/65 H 93 05/05/19 00:00 65 Laboratory Results Laboratory Results - last 24 hr 05/05/19 05/05/19 05:49 05:49 Sodium 143 Potassium 4.1 Chloride 110 H Carbon Dioxide 29 Anion Gap 5.0 BUN 61 H Creatinine 1.35 H Est Cr Clr Drug Dosing 30.0 Est GFR ( Amer) 42.3 Est GFR (Non-Af Amer) 36.5 BUN/Creatinine Ratio 45.3 H Glucose 83 Calcium 8.7 Valproic Acid 65 (1) Altered mental status Altered mental status type: unspecified Qualified Code(s): R41.82 - Altered mental status, unspecified (2) HTN (hypertension) Hypertension type: essential hypertension Qualified Code(s): I10 - Essential (primary) hypertension (3) Anemia Anemia type: unspecified type Qualified Code(s): D64.9 - Anemia, unspecified
[2019-05-05] MEDS ORDERED: LACTATED RINGER'S 1,000 ML IV SCH (12:15)
[2019-05-05] MEDS: LIDOCAINE 5% 1 PATCH TD SCH (21:32)
[2019-05-06 07:01] LABS: BUN Creatinine Ratio 36.6 (10-20); Calcium 8.5 mg/dl (8.5-10.1); Creatinine Clr Calc Pharmacy 36.4 ml/min; Est GFR (African American) 53.6; Est GFR (Non-African American) 46.2; Potassium 4.1 mmol/L (3.5-5.1)
[2019-05-06] MEDS: carvediloL 3.125 MG TAB PO SCH (08:59)
[2019-05-06] MEDS: DIVALPROEX EXTENDED RELEASE 250 MG TABCR PO SCH ×2 (08:59→13:16)
[2019-05-06] MEDS: allopurinoL 100 MG TAB PO SCH (08:59)
[2019-05-06] MEDS: COLESTIPOL HCL 1 GM TAB PO SCH (08:59)
[2019-05-06] MEDS: ASPIRIN 81 MG ECTAB PO SCH (09:00)
[2019-05-06] MEDS: ASCORBIC ACID 500 MG TAB PO SCH (09:00)
[2019-05-06] MEDS: OMEGA-3 (PURIFIED FISH OIL) 1 GM CAP PO SCH (09:00)
[2019-05-06] MEDS: AMLODIPINE BESYLATE 5 MG TAB PO SCH (09:00)
[2019-05-06] MEDS: ENOXAPARIN INJ 40 MG/0.4 ML SYR SQ SCH (09:01)
[2019-05-06] MEDS: EZETIMIBE 10 MG TABLET PO SCH (09:01)
[2019-05-06] MEDS: MULTIVITAMIN TAB PO SCH (09:01)
[2019-05-06] MEDS: LACTOBACILLUS ACIDOPHILUS (FLORANEX) TAB PO SCH (09:01)
[2019-05-06] MEDS: QUETIAPINE FUMARATE 25 MG TABLET PO SCH ×2 (09:02→13:17)
--- NOTE | 2019-05-06 11:09 | Hospitalist Progress Note ---
Date of Service May 06, 2019 Assessment & Plan (1) Altered mental status: Unresponsiveness/episode of obtundation: per Dr. Salas notes: Patient was found unresponsive at around 7:30 PM Code stroke alert was called Detail neuroimaging CTA head neck was negative, patient was evaluated by [place] telemetry stroke team Patient noted to be awake and alert, complete resolution of neurological symptoms No sign of infection dehydration , blood pressure remains stable EEG shows no seizure activity, patient is back to her baseline Dilantin level subtherapeutic, neurology consulted, recommended to increase Depakote dose from 250 mg twice daily to 3 times daily Repeat Depakote level: Within normal range ~Repeat episode of May 03, 2019, CT head unremarkable No further changes per neurology service Outpatient follow-up with neurology in 4 to 6 weeks Mental status back to baseline per family Acute Gouty Arthritis Prior history of gout, on allopurinol pains, swelling, erythema bilateral great toe resolved after addition of prednisone/colchicine Acute renal failure on CKD 3 Continue elevated from 0.96(04/28)-1.491.35 Renal ultrasound: No lithiasis or hydronephrosis Possible component of dehydration, also has received IV iodine contrast, Toradol, HCTZ Field Party Manager consulted given IV Lactated Ringer's Creatinine improved further to 1.1 encourage oral fluid intake monitor PRP regularly Metabolic encephalopathy/agitation per Dr. Salas notes: No sign of infection, repeat blood culture has no growth UA was normal With blood culture 2 bottles negative growth, IV Rocephin discontinued ID eval requested as per family request, for recurrent urine tract infection Appreciate input from ID, given no anatomical deformity, uncomplicated UTI, chronic suppressive antibiotic treatment is not indicated At this admission patient had negative event, negative urine culture Patient is scheduled to be followed up with urology patient Patient showing increasing weakness, fatigue, functional decline, appreciate input from PT OT Patient will benefit with inpatient rehab, discussed with daughter wants referral to be made to [facility]-patient was there before, had very good outcome Patient Baseline oriented to person , with poor short term memory recall no evidence of stroke or seizure activity noted carotid doppler - no significant stenosis routine follow up with Neurology in clinic in 4-6 weeks Confusion/agitation per Dr. Salas notes: more calm and cooperative Patient has been getting her dose of Seroquel schedule/takes as an outpatient Fall per Dr. Salas notes: Continue fall precautions, bed alarm 04/28/2019 sustained an unwitnessed fall -was found sitting on floor next to toilet no injury sustained no sinus pause reported ( pt was off monitor -during fall ) Continue bed and chair alarm pt is a very poor historian -unable to recall the event leading to fall does remember attempt to going to the toilet by herself as " she needed to go " Per daughter patient had similar events at personal skilled nursing as well That he had noncontrast shows no acute change, chest x-ray shows no evidence of refracture HYPERTENSIVE URGENCY continue usual Amlodipine 5 mg twice a day and Losartan daily monitor Bradycardia Per Dr. Salas notes: Pt had episode in ED of bradycardia, HR 29 no further episode since [employer]maker [employer] consulted, recommended to decrease Coreg from 6.25 to 3.125 mg Heart rate remained stable in 80s90s Continued with low-dose Coreg Dementia: at baseline oriented to person only awake , mental status approx baseline per family on seroquel, trazodone Seizure disorder: Patient's mental status, neurological status back to baseline EEG shows no seizure activity Depakote dose increased from 250 mg twice daily to 3 times daily Caution for sedative effect of Depakote CAD (coronary artery disease): No chest pain or shortness of breath Continue ASA, Coreg dose reduced Anemia: H/H stable at 10.8/33.8 normocytic/normochromic HLD (hyperlipidemia): Continue Zetia and omega-3 DVT prophylaxis: lovenox, SCD/TEDS given Follow up: PCP c/o [facility] ff up with Neurologist, [employer]maker [employer] as outpatient Case and plan of care discussed in detail with patient's daughter and son at the bedside All questions answered They are agreeable, comfortable, understanding the plan of care (2) Lethargy: Resolved (3) Bradycardia: Per Dr. Salas notes: Pt had episode in ED of bradycardia, HR 29 no further episode since Neurologist consulted, recommended to decrease Coreg from 6.25 to 3.125 mg Heart rate remained stable in 80s90s Continued with low-dose Coreg (4) Dementia: at baseline oriented to person only awake , mental status approx baseline per family on seroquel, trazodone Episode of unresponsiveness noted yesterday as discussed above (5) Seizure disorder: Given 500 mg additional dose of Depakote May 03, 2019 for episode of unresponsiveness, possible breakthrough seizure?-Neuro imaging negative for acute stroke Patient's mental status, neurological status back to baseline EEG shows no seizure activity Depakote dose increased from 250 mg twice daily to 3 times daily Caution for sedative effect of Depakote (6) HTN (hypertension): developed hypertensive urgency management as Discussed above (7) CKD (chronic kidney disease) stage 3, GFR 30-59 ml/min: Developed acute renal failure, discussed above (8) CAD (coronary artery disease): No chest pain or shortness of breath Continue ASA, Coreg dose reduced Losartan kept on hold for acute renal failure (9) Anemia: H/H stable at 10.8/33.8 normocytic/normochromic (10) HLD (hyperlipidemia): Continue Zetia and omega-3 (11) DVT prophylaxis: lovenox, SCD/TEDS Disposition: cont tele monitoring Follow up: PCP Dr. Joseph at [facility] upon discharge Transfer to [facility] rehab when medically stable update Given to patient's daughter Radha over the phone Plan of care discussed with her She Is agreeable, understanding, comfortable plan of care Subjective ff up for altered mental status, acute renal failure seen resting in bedside chair, family at bedside Oriented to person, in good spirits, pleasantly confused Family reports that she is doing well today, mental status comes back to baseline States that she feels fine overall Denies chest pain, shortness of breath, palpitations, dizziness, abdominal pain, problems with urination or bowel movement no other symptoms, states that she is ready for discharge today Family is agreeable for discharge today as well Review of Systems Review of Systems: All systems reviewed & are unremarkable except as noted in HPI & below Physical Exam Physical Exam: General- oriented x 1, not in distress, speaks in sentences with no effort or accessory muscle use Eyes- anicteric Neck- no JVD Lungs- clear breath sounds no wheezing, no crackles bilaterally Heart- normal rate, regular rhythm; no murmurs Abdomen- normal bowel sounds, nondistended, soft, nontender Extremities- no pretibial edema, no calf tenderness Neuro- alert, oriented x 1; no gross focal neurologic deficits Skin- warm & dry Results & Data Vital Signs (Past 12 Hours) Vital Signs Temp Pulse Pulse Pulse Resp BP Pulse Ox 05/06/19 07:58 62 05/06/19 07:45 36.6 C 65 16 170/76 H 97 05/06/19 03:12 36.3 C L 61 17 166/64 H 96 05/06/19 01:09 63 05/05/19 23:41 36.4 C L 61 18 147/69 H 95 05/05/19 23:27 62 Pulse Ox 05/06/19 07:58 05/06/19 07:45 05/06/19 03:12 05/06/19 01:09 96 05/05/19 23:41 05/05/19 23:27 95 Laboratory Results Laboratory Results - last 24 hr 05/06/19 06:13 Sodium 145 Potassium 4.1 Chloride 110 H Carbon Dioxide 31 Anion Gap 4.0 BUN 41 H Creatinine 1.11 Est Cr Clr Drug Dosing 36.4 Est GFR ( Amer) 53.6 Est GFR (Non-Af Amer) 46.2 BUN/Creatinine Ratio 36.6 H Glucose 84 Calcium 8.5 (1) Altered mental status Altered mental status type: unspecified Qualified Code(s): R41.82 - Altered mental status, unspecified (2) HTN (hypertension) Hypertension type: essential hypertension Qualified Code(s): I10 - Essential (primary) hypertension (3) Anemia Anemia type: unspecified type Qualified Code(s): D64.9 - Anemia, unspecified
--- NOTE | 2019-05-06 11:21 | Discharge Summary ---
Date of Service May 06, 2019 Admission HPI Per Admitting Provider This is an 84-year-old female who has significant PMH of CAD, HTN, HLD, dementia, CKD stage III, anemia, gout, depression who presents to [facility] ED secondary to altered mental status and lethargy that began this morning. Patient's daughter and POA is at bedside and provides most of history. Of significance patient recently confined to [facility] 03/09 to 03/16/2019 secondary to questionable seizure-like activity. She underwent EEG and neurology evaluation and due to this being her second episode of witnessed seizure-like activity was placed on Depakote 250 mg twice daily. She also had episodes of dementia related delirium and had multiple psychiatric medication adjustments including discontinuation of Sinemet, reduction of trazodone from 100 mg to 50 mg, Seroquel 12.5 mg twice daily. She was also found to have E. coli UTI treated with IV antibiotics. She was discharged to [facility] for approximately 2 weeks, and then to personal care [facility]. Daughter states that she has noted a loom changeover operator the past week when she was noted to have increased confusion, weakness, incontinence, and difficulty walking. Every time she has the symptoms she usually has a urinary tract infection. Urinalysis was collected and negative. She had intermittent episodes of the symptoms over the past week. She was last seen by her daughter last evening and doing well, at her baseline. Her baseline includes she is alert and oriented to self, can carry on a conversation although not always accurate, can ambulate with walker and feed self. She did have episode of constipation yesterday treated with multiple medications. She did have evacuation of stool last evening per nursing staff. When daughter called in to evaluate this morning, nursing staff noted difficulty arousing her in getting her to wake up. Due to the symptoms and increased confusion she was referred to ED. There was also some question of not moving extremities. There was no witnessed seizure-like activity per daughter. Only medication change noted per daughter was increase of Seroquel to 12.5 mg 3 times daily due to significant hallucinations approximately 2 weeks ago. Since increasing Seroquel her hallucinations have decreased. Currently ROS is unreliable from patient given advanced dementia. Admission Exam Per Admitting Provider Constitutional: WD/WN, Elderly Female, drowsy and lethargic but arouses to verbal and tactile stimulation, vitals as above, NAD, sitting up in bed, conversing easily Head: Normocephalic, Atraumatic Eyes: PERRL, conjunctivae normal, anicteric sclerae ENMT: external ear and nose normal, oropharynx dry Neck: trachea midline, no thyromegaly normal visual inspection Respiratory: normal respiratory effort, lungs clear to auscultation, no wheeze, rales, rhonchi. Normal insp/exp effort, no accessory muscle use Cardiovascular: bradycardia with regular rhythm, 2/6 CLAY RUSB, b/l lymphedema Vessels: no JVD or carotid bruit Chest: normal inspection of chest Abdomen: normal bowel sounds, soft, nontender, no hepatosplenomegaly Musculoskeletal: no cyanosis or clubbing, extremities motor strength 5/5 Skin: no rashes, warm and dry normal turgor Neurologic: PERRL, EOMI, accommodation nl, no face palsy, no dysarthria CN's II-XI intact bilaterally and moves all extremities Psychiatric: A+O to self, place euthymic affect Lymphatic: no cervical or axillary lymphadenopathy : deferred Principal Diagnosis ALTERED MENTAL STATUS, RESOLVED Discharge Exam General- oriented x 1, not in distress, speaks in sentences with no effort or accessory muscle use Eyes- anicteric Neck- no JVD Lungs- clear breath sounds no wheezing, no crackles bilaterally Heart- normal rate, regular rhythm; no murmurs Abdomen- normal bowel sounds, nondistended, soft, nontender Extremities- no pretibial edema, no calf tenderness Neuro- alert, oriented x 1; no gross focal neurologic deficits Skin- warm & dry Discharge Data Allergies Allergy/AdvReac Type Severity Reaction Status Date / Time iodine Allergy Unknown Unknown Verified 04/27/19 10:05 memantine Allergy Unknown Unknown Verified 04/27/19 10:05 pantoprazole Allergy Unknown Unknown Verified 04/27/19 10:05 shellfish derived Allergy Unknown Unknown Verified 04/27/19 10:05 crab Allergy Gastrointestinal Verified 04/27/19 10:05 Upset Consultations 04/27/19 11:49 ED Decision to Admit Stat 04/27/19 12:48 Consult Neurology Routine 04/27/19 13:06 Consult Cardiology Routine 04/27/19 14:36 Consult Case Management - Discharge Planning Routine 05/02/19 09:43 Consult Infectious Diseases Routine 05/03/19 17:24 Consult Nephrology Routine Ordered Studies 04/27/19 08:52 CT head/brain wo con Stat 04/27/19 15:58 US carotid doppler BI Routine 04/28/19 18:38 CT head/brain wo con Urgent 05/02/19 20:07 CT head/brain wo con Urgent 05/02/19 21:18 CT angio head w con Stat 05/02/19 21:20 CT angio neck with con Stat 05/04/19 08:59 US renal/blad retro comp Urgent Hospital Course (1) Altered mental status: Unresponsiveness/episode of obtundation: per Dr. Salas notes: Patient was found unresponsive at around 7:30 PM Code stroke alert was called Detail neuroimaging CTA head neck was negative, patient was evaluated by [place] telemetry stroke team Patient noted to be awake and alert, complete resolution of neurological symptoms No sign of infection dehydration , blood pressure remains stable EEG shows no seizure activity, patient is back to her baseline Dilantin level subtherapeutic, neurology consulted, recommended to increase Depakote dose from 250 mg twice daily to 3 times daily Repeat Depakote level: Within normal range ~Repeat episode of May 03, 2019, CT head unremarkable No further changes per neurology service Outpatient follow-up with neurology in 4 to 6 weeks Mental status back to baseline per family Patient has history of obstructive sleep apnea Not able to tolerate BiPAP mask Overnight pulse oximetry ordered, patient meets criteria for oxygen supplementation at night Recommend 2 L of oxygen via nasal cannula while sleeping Acute Gouty Arthritis Prior history of gout, on allopurinol pains, swelling, erythema bilateral great toe resolved after addition of prednisone/colchicine Acute renal failure on CKD 3 Continue elevated from 0.96(04/28)-1.491.35 Renal ultrasound: No lithiasis or hydronephrosis Possible component of dehydration, also has received IV iodine contrast, Toradol, HCTZ Hearing Officer consulted given IV Lactated Ringer's Creatinine improved further to 1.1 encourage oral fluid intake monitor PRP regularly Metabolic encephalopathy/agitation per Dr. Salas notes: No sign of infection, repeat blood culture has no growth UA was normal With blood culture 2 bottles negative growth, IV Rocephin discontinued ID eval requested as per family request, for recurrent urine tract infection Appreciate input from ID, given no anatomical deformity, uncomplicated UTI, chronic suppressive antibiotic treatment is not indicated At this admission patient had negative event, negative urine culture Patient is scheduled to be followed up with urology patient Patient showing increasing weakness, fatigue, functional decline, appreciate input from PT OT Patient will benefit with inpatient rehab, discussed with daughter wants referral to be made to [facility]-patient was there before, had very good outcome Patient Baseline oriented to person , with poor short term memory recall no evidence of stroke or seizure activity noted carotid doppler - no significant stenosis routine follow up with Neurology in clinic in 4-6 weeks Confusion/agitation per Dr. Salas notes: more calm and cooperative Patient has been getting her dose of Seroquel schedule/takes as an outpatient Fall per Dr. Salas notes: Continue fall precautions, bed alarm 04/28/2019 sustained an unwitnessed fall -was found sitting on floor next to toilet no injury sustained no sinus pause reported ( pt was off monitor -during fall ) Continue bed and chair alarm pt is a very poor historian -unable to recall the event leading to fall does remember attempt to going to the toilet by herself as " she needed to go " Per daughter patient had similar events at personal group home as well That he had noncontrast shows no acute change, chest x-ray shows no evidence of refracture HYPERTENSIVE URGENCY continue usual Amlodipine 5 mg twice a day and Losartan daily monitor Bradycardia Per Dr. Salas notes: Pt had episode in ED of bradycardia, HR 29 no further episode since Leather Drier consulted, recommended to decrease Coreg from 6.25 to 3.125 mg Heart rate remained stable in 80s90s Continued with low-dose Coreg Dementia: at baseline oriented to person only awake , mental status approx baseline per family on seroquel, trazodone Seizure disorder: Patient's mental status, neurological status back to baseline EEG shows no seizure activity Depakote dose increased from 250 mg twice daily to 3 times daily Caution for sedative effect of Depakote CAD (coronary artery disease): No chest pain or shortness of breath Continue ASA, Coreg dose reduced Anemia: H/H stable at 10.8/33.8 normocytic/normochromic HLD (hyperlipidemia): Continue Zetia and omega- DVT prophylaxis: lovenox, SCD/TEDS given Follow up: PCP c/o [facility] ff up with Neurologist, Leather Drier as outpatient Case and plan of care discussed in detail with patient's daughter and son at the bedside All questions answered They are agreeable, comfortable, understanding the plan of care Total Time Total Time Spent Total Time Spent (In Minutes): 45 minutes Discharge Plan Discharge Items Patient Disposition: Transfer Inpatient Rehab Fac Reason For Visit: ALTERED MENTAL STATUS,LETHARGIC Discharge Diagnosis: Metabolic encephalopathy-resolved/hypertensive urgency/baseline dementia Activity: Resume your previous activity Lifting: Wait until after follow-up appointment Exercise/Sports: Wait until after follow-up appointment Non-emergency contact: Primary Care Provider Call non-emergency contact if: you have any medication questions, your symptoms worsen, your pain is not controlled and you have a fever Follow-up/Referrals: Sid Pang DO [Leather Drier] - Eliana Mendez MD [Physician] - Diet: Heart Healthy Addtl Attending Provider Instructions: Oxygen 2 L via nasal cannula at HS and while asleep. Follow-up with Dr Joseph in 1 week to discharge from rehabilitation. Follow up with Neurologist and Leather Drier as outlined above. New medications: Coreg dose reduced to 3.125 mg twice daily(was on 6.25 mg twice daily) Norvasc/amlodipine dose increased to 5 mg twice daily(was on 5 mg daily) Dilantin increased from 250 mg twice a day to 250 mg 3 times a day Please encourage oral daily fluid intake. Fall precautions. Please refer to accompanying hospital discharge summary for further details. Studies done during hospital stay: CAROTID ARTERY DUPLEX: No significant atherosclerotic plaque. RESTING 2D TRANSTHORACIC ECHOCARDIOGRAM: 04/27/2019 Mild aortic sclerosis without significant aortic valvular stenosis Ejection fraction>70% Mild concentric left ventricular hypertrophy. There is mild tricuspid regurgitation. The estimated systolic pulmonary artery pressure is 36 mmHg All circumferential pericardial effusion. There was no echocardiographic indication of cardiac tamponade Pending Studies at Discharge: No Stand-Alone Forms: My Stand Offer, Work/School Release (Inpt) Skilled Items Patient informed of condition?: Yes DNR: No (No CPR, No intubation, Proceed with defibrillation, pacemaker, medications ) Discharge Level of Care: Acute rehab Communicable Disease: No Discharge Prognosis: Stable Lines: None Urinary Catheter: No Medications and DC Order Prescriptions: New divalproex 250 mg Tablet Extended Release 24 Hr 250 mg PO TID 30 Days Qty: 90 RF: 2 Continued allopurinol 100 mg tablet 100 mg PO DAILY RF: 0 aspirin 81 mg tablet,delayed release (DR/EC) 81 mg PO DAILY RF: 0 colestipol 1 gram tablet 1 g PO BID RF: 0 ezetimibe 10 mg tablet 10 mg PO DAILY RF: 0 melatonin 5 mg tablet 5 mg PO HS RF: 0 multivitamin [Daily-Valorie] Tablet 1 tab PO DAILY RF: 0 ascorbic acid (vitamin C) [Vitamin C] 500 mg Tablet 500 mg PO DAILY RF: 0 losartan 100 mg Tablet 100 mg PO DAILY RF: 0 acetaminophen 500 mg Capsule 1,000 mg PO DAILY PRN (Reason: Fever Or Pain) RF: 0 omega [id number]-fish oil [Fish Oil] 1,000 mg (120 mg-180 mg) Capsule 1 cap PO DAILY RF: 0 meclizine 12.5 mg Tablet 12.5 mg PO TID PRN (Reason: dizzy spell) Qty: 0 RF: 0 trazodone 50 mg Tablet 50 mg PO DAILY RF: 0 polyethylene glycol 3350 17 gram Powder In Packet 17 g PO DAILY PRN (Reason: Constipation) RF: 0 sennosides-docusate sodium [Senna Plus] 8.6-50 mg Tablet 1 tab PO BID PRN (Reason: Constipation) RF: 0 bisacodyl 10 mg Suppository 10 mg RI DAILY PRN (Reason: Constipation) RF: 0 Fleet Enema 19-7 gram/118 mL Enema 118 ml RI DAILY PRN (Reason: Constipation) RF: 0 cranberry 500 mg Capsule 500 mg PO DAILY RF: 0 Acidophilus Tablet,Chewable 1 tab PO DAILY RF: 0 quetiapine 25 mg tablet 12.5 mg PO TID RF: 0 Changed amlodipine 5 mg Tablet 5 mg PO BID Qty: 0 RF: 0 carvedilol 6.25 mg Tablet 3.125 mg PO BID Qty: 0 RF: 0 Discontinued divalproex 250 mg Tablet Extended Release 24 Hr 250 mg PO BID RF: 0 Discharge Orders: Discharge Order (Routine); Ordered 05/06/19 Ordered By: Gerard Romero Admission Data Admit Date/Time: 04/27/19 12:48 Attending Provider: Gerard Romero Admit Provider: Hieu Erazo Primary Care Provider: [facility], [facility] Other Providers: Eliana Mendez ; Sid Pang ; Hieu Erazo ; Shaquille Simpson ; [facility] ; Melissa Kerr ; Cristi Peter ; Deborah Neal ; Smitha Ross ; Mindi Brown ; Bailee Salas.
[2019-05-06 11:35] VITALS: TEMP 97.7; O2SAT 95
[2019-05-06 12:23] VITALS: BP 170/76; PULSE 55
--- NOTE | 2019-05-09 18:26 | Coding Query ---
CODING QUERY To promote full compliance with coding requirements relating to patient care, provider participation is requested in all cases of wetlands conservation laborer uncertainty. Please assist us with the question(s) below: Coding Question(s): Patient admitted with altered mental status,encephalopathy. Please document, if known or suspected, the etiology of the altered mental status. Thanks for your help! Montez Florian [facility] Physician's Response(s): Possible Seizure Principal Diagnosis: "that condition established after study, to be chiefly responsible for occasioning the admission of the patient to the hospital for care." Co-Existing Principal Diagnosis: "when two or more diagnoses equally meet the criteria for principal diagnosis as determined by the circumstances of admission, diagnostic work up, and/or therapy provided, and the Alphabetic Index, Tabular List, or another coding guideline does not provide sequencing direction, any one of the diagnoses may be sequenced first." "When the physician has documented what appears to be a current diagnosis in the body of the record, but has not included the diagnosis in the final diagnostic statement, the physician should be asked whether the diagnosis should be added." (Source Coding Clinic 2 QTR90. p3-4) NANCY
== END 2019-05-06 13:29 | DRG 100 ==
LOC: ED 08:41 → SUATTDRO 12:48 → 2E 12:48

== ENCOUNTER 2021-06-09 11:47 | Inpatient (IN) ==
[2021-06-09] MEDS ORDERED: ACETAMINOPHEN 1000 MG/100 ML IV IV STA (12:24)
[2021-06-09] MEDS ORDERED: CEFEPIME 2,000 MG/20 ML VIAL IV STA (12:24)
[2021-06-09] MEDS ORDERED: SODIUM CHLORIDE 0.9% 1000ML 500 ML IV ONE ×2 (12:24→13:06)
[2021-06-09] MEDS ORDERED: ALBUT/IPRATROP 3MG/0.5MG NEB 3 ML VIAL NEB STA (12:24)
--- NOTE | 2021-06-09 12:31 | Emergency Department Note ---
Impression & Plan Hypotension, Anemia, Hypoxia, Fever ED Provider Note NAME: ZAHRAA MAURICE AGE: 86 SEX: F : 1935 ARRIVES VIA: Ambulance INFORMANT: [daughter, ems] ED PROVIDER(S): [Zaki Hayes MD] CHIEF COMPLAINT: Illness HISTORY OF PRESENT ILLNESS: The patient is an 86-year-old female who is a DNR. She has a history of dementia and difficulty clearing secretions. She has had a total of 5 days of a decline in her mental state and activity. She today was noticed to have a fever and her O2 saturation was low in the mid 80s. She was placed on oxygen which improved the saturation. The patient was Covid tested today, it was negative. The patient is vaccinated against COVID-19. No further history obtainable given the dementia and mental state. The patient is nonverbal, her daughter provided most of the history at the bedside. REVIEW OF SYSTEMS: Unobtainable given the mental state. PMHx/PSHx: See Below SOCIAL HISTORY: See Below. PHYSICAL EXAM: GENERAL: Patient is in no acute distress. HEENT: No acute trauma, normocephalic atraumatic, mucous membranes moist, no nasal congestion, no scleral icterus. NECK: No stridor, no adenopathy, no meningismus, trachea is midline. LUNGS: Coarse breath sounds heard, rhonchi noted, upper airway secretions noted. No wheezing. No respiratory distress. HEART: Without murmurs gallops or rubs, regular rate and rhythm. ABDOMEN: Soft, nontender, bowel sounds positive, no hernias, no peritonitis. EXTREMITIES: No cyanosis, moderate bilateral pedal edema, full range of motion of all the joints without pain or difficulty, no signs for acute trauma. NEUROLOGIC: Nonverbal, awake. Eyes track movement. SKIN: No rash, no jaundice, no diaphoresis. DIFFERENTIAL DIAGNOSIS: Sepsis, UTI, pneumonia, COVID-19, influenza, metabolic abnormality, electrolyte abnormalities, cardiac sources, cellulitis, bacteremia, intracerebral event, toxicologic etiology, neurologic event, as well as other pathologies. EMERGENCY DEPARTMENT COURSE/PROCEDURES: ECG: Indication was possible sepsis. The ECG shows a sinus rhythm with PACs. The rate is 74. There is some nonspecific ST change diffusely. No ST elevation. QTc is 404. Continuous Cardiac Monitoring: An order was placed for continuous cardiac monitoring. The monitor shows a rate of 77 with normal sinus rhythm. Critical Care Note: I have personally spent 47 minutes of critical care time in the direct management of this patient. This includes bedside care, interpretation of diagnostic studies, and testing, discussion with consultants, patient, and family members, and other required patient management activities. This 47 minutes is in excess of all separately billable procedures. MEDICAL DECISION MAKING: There is no leukocytosis. The patient is anemic. She has a history of the same. There is a normal platelet count. No coagulopathy. There is some renal insufficiency present but this appears baseline. No worrisome liver enzyme elevation. Procalcitonin level was not elevated. Lactic acid level was not el evated making sepsis less likely. ECG showed a sinus rhythm, no ischemia. Cardiac enzyme testing x1 is not consistent with acute cardiac injury. Urinalysis suggests a possible infection. Covid testing returned negative. Influenza testing returned negative. Chest film did not show pneumonia or CHF. CT of the chest and abdomen were performed. There was no obvious infectious process within the chest or abdomen. There was a large amount of stool in the rectum. On exam, the patient was sleepy, her O2 saturation was low. She required nasal cannula oxygenation supplementation. The patient received IV cefepime, IV saline. She was given a DuoNeb and IV Tylenol. The patient is in need of a hospital stay. She presents hypotensive, hypoxic. She has a fever. Currently, the source for the fever is unclear--possibly the source could be the urine, generalized viral illness could explain things as well. The patient has made improvement here in the ED. Her O2 saturation is now adequate. Her hypotension has improved. I spoke with the patient's daughter, I spoke with the complex case manager. The on-call hospitalist has been consulted. Past Med/Surg History Medical History Acute UTI Anemia CAD (coronary artery disease) Chronic kidney disease, stage 3a CKD (chronic kidney disease) stage 3, GFR 30-59 ml/min Dementia Gout HLD (hyperlipidemia) HTN (hypertension) Memory deficit Seizure disorder Vitamin D deficiency Surgical History History of Achilles tendon repair History of total knee arthroplasty R Family History Sister Diabetes Social History Smoking Status: Unknown if ever smoked Hx Alcohol Use: No Hx Substance Use: No Preferred Language: Northern Irish Communication Ability: Impaired Pickle Sorter Required: No Beliefs That Will Affect Care: None Current Living Situation: Personal Care Facility Current Living Situation Comment: [facility] Feels Safe at Home: Yes Assistive Devices: Walker Allergies Allergies Allergy/AdvReac Type Severity Reaction Status Date / Time iodine Allergy Unknown Unknown Verified 06/09/21 14:23 memantine Allergy Unknown Unknown Verified 06/09/21 14:23 pantoprazole Allergy Unknown Unknown Verified 06/09/21 14:23 shellfish derived Allergy Unknown Unknown Verified 06/09/21 14:23 crab Allergy Gastrointestinal Verified 06/09/21 14:23 Upset Home Meds Home Medications Medication Instructions Recorded Confirmed allopurinol 100 mg tablet 100 mg PO DAILY 06/27/18 06/09/21 losartan 100 mg tablet 100 mg PO DAILY 01/31/19 06/09/21 multivitamin (Daily-Valorie) 1 tab PO QPM 01/31/19 06/09/21 Lactobacillus acidophilus 1 tab PO DAILY 04/27/19 06/09/21 (Acidophilus) bisacodyl 10 mg rectal suppository 10 mg NC DAILY PRN 04/27/19 06/09/21 cranberry 500 mg capsule 500 mg PO DAILY 04/27/19 06/09/21 sodium phosphates 19 gram-7 118 ml NC DAILY PRN 04/27/19 06/09/21 gram/118 mL enema (Fleet Enema) acetaminophen 325 mg tablet 650 mg PO Q6H PRN tab 12/20/20 06/09/21 (Tylenol) ascorbic acid (vitamin C) 500 mg 500 mg PO BID tab 12/20/20 06/09/21 tablet (Vitamin C) divalproex 125 mg capsule,delayed 250 mg PO TID cap 12/20/20 06/09/21 release sprinkle docusate sodium 100 mg tablet 200 mg PO DAILY tab 12/20/20 06/09/21 estradiol 10 mcg vaginal tablet 10 mcg VAGINAL 2XWK tab 12/20/20 06/09/21 (Vagifem) furosemide 40 mg tablet 40 mg PO BID 12/20/20 06/09/21 gabapentin 100 mg capsule 100 mg PO TID 12/20/20 06/09/21 hydrocodone 5 mg-acetaminophen 325 1 tab PO BID tab 12/20/20 06/09/21 mg tablet spironolactone 25 mg tablet 12.5 mg PO DAILY tab 12/20/20 06/09/21 aspirin 81 mg chewable tablet 81 mg PO DAILY 06/09/21 06/09/21 ipratropium 0.5 mg-albuterol 3 mg 3 ml INHALATION QID PRN 06/09/21 06/09/21 (2.5 mg base)/3 mL nebulization soln Results & Data (ED) Vital Signs Vital Signs - 24 hr 06/09/21 11:47 06/09/21 12:24 06/09/21 12:42 Temperature 38.3 C H 38.4 C H Temperature Source Oral Oral Pulse Rate 73 Pulse Rate [Left Finger] 78 Pulse Rate from SpO2 Sensor Pulse Rhythm Regular Pulse Rhythm [Left Finger] Regular Pulse Strength [Left Finger] Normal Respiratory Rate 17 19 Respiratory Effort / Characteristics Non-Labored Spontaneous Labored Spontaneous Labored Respiratory Depth Normal Respiratory Pattern Regular Blood Pressure 98/52 L Blood Pressure [Right Arm] Blood Pressure Mean 67 Blood Pressure Mean [Right Arm] Blood Pressure Position [Right Arm] Pulse Oximetry 99 96 98 Oxygen Delivery Method Nasal Cannula Nasal Cannula Nasal Cannula Oxygen Flow Rate 3 3 3 Sepsis Recent Fever Within 48 Hours Yes Sepsis New/Unexplained Change in Mental Status No Sepsis Action Taken by Nursing Physician Notified Oxygen Flow Rate - Titration Pulse Oximetry Post Tiitration 06/09/21 12:43 06/09/21 12:54 06/09/21 12:57 Temperature Temperature Source Pulse Rate 77 Pulse Rate [Left Finger] 75 Pulse Rate from SpO2 Sensor Pulse Rhythm Regular Pulse Rhythm [Left Finger] Pulse Strength [Left Finger] Respiratory Rate 20 19 19 Respiratory Effort / Characteristics Spontaneous Labored Spontaneous Respiratory Depth Respiratory Pattern Blood Pressure Blood Pressure [Right Arm] Blood Pressure Mean Blood Pressure Mean [Right Arm] Blood Pressure Position [Right Arm] Pulse Oximetry 98 98 98 Oxygen Delivery Method Nasal Cannula Nasal Cannula Nasal Cannula Oxygen Flow Rate 3 3 3 Sepsis Recent Fever Within 48 Hours Sepsis New/Unexplained Change in Mental Status Sepsis Action Taken by Nursing Oxygen Flow Rate - Titration Pulse Oximetry Post Tiitration 06/09/21 13:09 06/09/21 13:11 06/09/21 13:20 Temperature Temperature Source Pulse Rate 74 75 Pulse Rate [Left Finger] 78 Pulse Rate from SpO2 Sensor 73 77 Pulse Rhythm Pulse Rhythm [Left Finger] Pulse Strength [Left Finger] Respiratory Rate 19 16 16 Respiratory Effort / Characteristics Spontaneous Labored Respiratory Depth Respiratory Pattern Blood Pressure Blood Pressure [Right Arm] 144/67 H Blood Pressure Mean Blood Pressure Mean [Right Arm] 92 Blood Pressure Position [Right Arm] Sitting Pulse Oximetry 98 99 97 Oxygen Delivery Method Nasal Cannula Nasal Cannula Nasal Cannula Oxygen Flow Rate 3 5 5 Sepsis Recent Fever Within 48 Hours Sepsis New/Unexplained Change in Mental Status Sepsis Action Taken by Nursing Oxygen Flow Rate - Titration Pulse Oximetry Post Tiitration 06/09/21 13:24 06/09/21 13:30 06/09/21 13:40 Temperature Temperature Source Pulse Rate 71 75 Pulse Rate [Left Finger] Pulse Rate from SpO2 Sensor 71 76 Pulse Rhythm Pulse Rhythm [Left Finger] Pulse Strength [Left Finger] Respiratory Rate 24 20 13 Respiratory Effort / Characteristics Spontaneous Labored Spontaneous Labored Respiratory Depth Respiratory Pattern Blood Pressure Blood Pressure [Right Arm] Blood Pressure Mean Blood Pressure Mean [Right Arm] Blood Pressure Position [Right Arm] Pulse Oximetry 95 92 96 Oxygen Delivery Method Nasal Cannula Nasal Cannula Nasal Cannula Oxygen Flow Rate 3 6 5 Sepsis Recent Fever Within 48 Hours Sepsis New/Unexplained Change in Mental Status Sepsis Action Taken by Nursing Oxygen Flow Rate - Titration Pulse Oximetry Post Tiitration 06/09/21 13:43 06/09/21 13:50 06/09/21 14:00 Temperature 38.6 C H Temperature Source Oral Pulse Rate 75 79 Pulse Rate [Left Finger] Pulse Rate from SpO2 Sensor 74 Pulse Rhythm Pulse Rhythm [Left Finger] Pulse Strength [Left Finger] Respiratory Rate 19 20 Respiratory Effort / Characteristics Spontaneous Labored Respiratory Depth Respiratory Pattern Blood Pressure Blood Pressure [Right Arm] Blood Pressure Mean Blood Pressure Mean [Right Arm] Blood Pressure Position [Right Arm] Pulse Oximetry 97 88 L Oxygen Delivery Method Nasal Cannula Nasal Cannula Oxygen Flow Rate 5 6 Sepsis Recent Fever Within 48 Hours Sepsis New/Unexplained Change in Mental Status Sepsis Action Taken by Nursing Oxygen Flow Rate - Titration Pulse Oximetry Post Tiitration 06/09/21 14:10 06/09/21 14:13 06/09/21 14:20 Temperature Temperature Source Pulse Rate 78 73 Pulse Rate [Left Finger] Pulse Rate from SpO2 Sensor 74 Pulse Rhythm Pulse Rhythm [Left Finger] Pulse Strength [Left Finger] Respiratory Rate 15 16 Respiratory Effort / Characteristics Respiratory Depth Respiratory Pattern Blood Pressure Blood Pressure [Right Arm] Blood Pressure Mean Blood Pressure Mean [Right Arm] Blood Pressure Position [Right Arm] Pulse Oximetry 95 88 L 94 Oxygen Delivery Method Nasal Cannula Nasal Cannula Nasal Cannula Oxygen Flow Rate 6 5 6 Sepsis Recent Fever Within 48 Hours Sepsis New/Unexplained Change in Mental Status Sepsis Action Taken by Nursing Oxygen Flow Rate - Titration 6 Pulse Oximetry Post Tiitration 92 06/09/21 14:30 06/09/21 14:40 06/09/21 14:50 Temperature Temperature Source Pulse Rate 73 72 78 Pulse Rate [Left Finger] Pulse Rate from SpO2 Sensor 72 69 77 Pulse Rhythm Pulse Rhythm [Left Finger] Pulse Strength [Left Finger] Respiratory Rate 14 15 14 Respiratory Effort / Characteristics Spontaneous Labored Respiratory Depth Respiratory Pattern Blood Pressure Blood Pressure [Right Arm] Blood Pressure Mean Blood Pressure Mean [Right Arm] Blood Pressure Position [Right Arm] Pulse Oximetry 95 94 95 Oxygen Delivery Method Nasal Cannula Nasal Cannula Nasal Cannula Oxygen Flow Rate 5 5 5 Sepsis Recent Fever Within 48 Hours Sepsis New/Unexplained Change in Mental Status Sepsis Action Taken by Nursing Oxygen Flow Rate - Titration Pulse Oximetry Post Tiitration 06/09/21 15:00 06/09/21 15:10 06/09/21 15:30 Temperature Temperature Source Pulse Rate 67 69 Pulse Rate [Left Finger] Pulse Rate from SpO2 Sensor 68 69 Pulse Rhythm Pulse Rhythm [Left Finger] Pulse Strength [Left Finger] Respiratory Rate 15 15 20 Respiratory Effort / Characteristics Spontaneous Labored Spontaneous Labored Respiratory Depth Respiratory Pattern Blood Pressure Blood Pressure [Right Arm] Blood Pressure Mean Blood Pressure Mean [Right Arm] Blood Pressure Position [Right Arm] Pulse Oximetry 98 95 94 Oxygen Delivery Method Nasal Cannula Nasal Cannula Nasal Cannula Oxygen Flow Rate 5 5 5 Sepsis Recent Fever Within 48 Hours Sepsis New/Unexplained Change in Mental Status Sepsis Action Taken by Nursing Oxygen Flow Rate - Titration Pulse Oximetry Post Tiitration 06/09/21 15:32 06/09/21 15:40 06/09/21 15:50 Temperature Temperature Source Pulse Rate 73 71 70 Pulse Rate [Left Finger] Pulse Rate from SpO2 Sensor 71 70 Pulse Rhythm Pulse Rhythm [Left Finger] Pulse Strength [Left Finger] Respiratory Rate 14 15 16 Respiratory Effort / Characteristics Respiratory Depth Respiratory Pattern Blood Pressure Blood Pressure [Right Arm] Blood Pressure Mean Blood Pressure Mean [Right Arm] Blood Pressure Position [Right Arm] Pulse Oximetry 94 92 95 Oxygen Delivery Method Nasal Cannula Nasal Cannula Nasal Cannula Oxygen Flow Rate 5 5 5 Sepsis Recent Fever Within 48 Hours Sepsis New/Unexplained Change in Mental Status Sepsis Action Taken by Nursing Oxygen Flow Rate - Titration Pulse Oximetry Post Tiitration 06/09/21 16:00 Temperature Temperature Source Pulse Rate 68 Pulse Rate [Left Finger] Pulse Rate from SpO2 Sensor 68 Pulse Rhythm Pulse Rhythm [Left Finger] Pulse Strength [Left Finger] Respiratory Rate 17 Respiratory Effort / Characteristics Respiratory Depth Respiratory Pattern Blood Pressure Blood Pressure [Right Arm] Blood Pressure Mean Blood Pressure Mean [Right Arm] Blood Pressure Position [Right Arm] Pulse Oximetry 96 Oxygen Delivery Method Nasal Cannula Oxygen Flow Rate 5 Sepsis Recent Fever Within 48 Hours Sepsis New/Unexplained Change in Mental Status Sepsis Action Taken by Nursing Oxygen Flow Rate - Titration Pulse Oximetry Post Tiitration Home Medications Current Medication List: was personally reviewed by me Laboratory Data Attestation: I reviewed the patient's lab results. Result diagrams: 06/09/21 12:56 06/09/21 14:00 Lab Results 06/09/21 06/09/21 06/09/21 Range/Units 12:45 12:45 12:45 WBC (4.8-10.8) K/uL RBC (4.2-5.4) M/uL Hgb (12.0-16.0) g/dL Hct (37-47) % MCV (80-100) fL MCH (25-34) pg MCHC (32-36) g/dL RDW Std Deviation (36.4-46.3) fL RDW Coeff of Esmer (11.5-14.5) % Plt Count (130-400) K/uL MPV (7.4-10.4) fL Immature Gran % (Auto) % Neut % (Auto) % Lymph % (Auto) % [place] % (Auto) % Eos % (Auto) % Baso % (Auto) % Neut # (Auto) (1.4-6.5) K/uL Lymph # (Auto) (1.2-3.4) K/uL [place] # (Auto) (0.11-0.59) K/uL Eos # (Auto) (0-0.5) K/uL Baso # (Auto) (0-0.2) K/uL Immature Gran # (Auto) (0.00-0.02) K/uL PT INR APTT PTT Ratio Sodium (136-145) mmol/L Potassium (3.5-5.1) mmol/L Chloride (98-107) mmol/L Carbon Dioxide (21-32) mmol/L Anion Gap (3-11) BUN (7-18) mg/dl Creatinine (0.6-1.2) mg/dl Est Cr Clr Drug Dosing ml/min Est GFR ( Amer) ml/min Est GFR (Non-Af Amer) ml/min BUN/Creatinine Ratio (10-20) Glucose (70-99) mg/dl Lactate (0.4-2.0) mmol/L Calcium (8.5-10.1) mg/dl Magnesium (1.8-2.4) mg/dl Total Bilirubin (0.2-1) mg/dl AST (15-37) U/L ALT (12-78) U/L Alkaline Phosphatase (45-117) U/L Troponin I (0-0.045) ng/ml Total Protein (6.4-8.2) gm/dl Albumin (3.4-5.0) gm/dl Globulin (2.5-4.0) gm/dl Albumin/Globulin Ratio (0.9-2) Procalcitonin (0-0.5) ng/ml Urine Color Urine Appearance (Clear) Urine pH (4.5-7.5) Ur Specific [place] (1.000-1.030) Urine Protein (Negative) Urine Glucose (UA) (Negative) Urine Ketones (Negative) Urine Blood (Negative) Urine Nitrite (Negative) Urine Bilirubin (Negative) Urine Urobilinogen (Negative) Ur Leukocyte Esterase (Negative) Urine RBC (0-4) /hpf Urine WBC (0-5) /hpf Ur Epithelial Cells (0-5) /lpf Ur Renal Epithelial Cell (0-5) /lpf Urine Bacteria (Negative) COVID-19 Eval Order Covid19 at [facility] SARS-CoV-2 (PCR) NEGATIVE (Negative) Influ A Molecular Assay Negative (Negative) Influ B Molecular Assay Negative (Negative) 06/09/21 06/09/21 06/09/21 Range/Units 12:56 12:56 12:56 WBC 6.58 (4.8-10.8) K/uL RBC 3.24 L (4.2-5.4) M/uL Hgb 9.5 L (12.0-16.0) g/dL Hct 31.1 L (37-47) % MCV 96.0 (80-100) fL MCH 29.3 (25-34) pg MCHC 30.5 L (32-36) g/dL RDW Std Deviation 54.7 H (36.4-46.3) fL RDW Coeff of Esmer 15.7 H (11.5-14.5) % Plt Count 164 (130-400) K/uL MPV 10.1 (7.4-10.4) fL Immature Gran % (Auto) 0.5 % Neut % (Auto) 62.0 % Lymph % (Auto) 22.9 % [place] % (Auto) 12.6 % Eos % (Auto) 1.7 % Baso % (Auto) 0.3 % Neut # (Auto) 4.08 (1.4-6.5) K/uL Lymph # (Auto) 1.51 (1.2-3.4) K/uL [place] # (Auto) 0.83 H (0.11-0.59) K/uL Eos # (Auto) 0.11 (0-0.5) K/uL Baso # (Auto) 0.02 (0-0.2) K/uL Immature Gran # (Auto) 0.03 H (0.00-0.02) K/uL PT Cancelled INR Cancelled APTT Cancelled PTT Ratio Cancelled Sodium 140 (136-145) mmol/L Potassium (3.5-5.1) mmol/L Chloride 101 (98-107) mmol/L Carbon Dioxide 35 H (21-32) mmol/L Anion Gap 4.0 (3-11) BUN 43 H (7-18) mg/dl Creatinine 1.56 H (0.6-1.2) mg/dl Est Cr Clr Drug Dosing 30.0 ml/min Est GFR ( Amer) 35.0 ml/min Est GFR (Non-Af Amer) 30.2 ml/min BUN/Creatinine Ratio 27.5 H (10-20) Glucose 94 (70-99) mg/dl Lactate (0.4-2.0) mmol/L Calcium 8.8 (8.5-10.1) mg/dl Magnesium (1.8-2.4) mg/dl Total Bilirubin 0.3 (0.2-1) mg/dl AST (15-37) U/L ALT 12 (12-78) U/L Alkaline Phosphatase 51 (45-117) U/L Troponin I < 0.015 (0-0.045) ng/ml Total Protein 7.1 (6.4-8.2) gm/dl Albumin 2.4 L (3.4-5.0) gm/dl Globulin 4.7 H (2.5-4.0) gm/dl Albumin/Globulin Ratio 0.5 L (0.9-2) Procalcitonin (0-0.5) ng/ml Urine Color Urine Appearance (Clear) Urine pH (4.5-7.5) Ur Specific [place] (1.000-1.030) Urine Protein (Negative) Urine Glucose (UA) (Negative) Urine Ketones (Negative) Urine Blood (Negative) Urine Nitrite (Negative) Urine Bilirubin (Negative) Urine Urobilinogen (Negative) Ur Leukocyte Esterase (Negative) Urine RBC (0-4) /hpf Urine WBC (0-5) /hpf Ur Epithelial Cells (0-5) /lpf Ur Renal Epithelial Cell (0-5) /lpf Urine Bacteria (Negative) COVID-19 Eval Order SARS-CoV-2 (PCR) (Negative) Influ A Molecular Assay (Negative) Influ B Molecular Assay (Negative) 06/09/21 06/09/21 06/09/21 Range/Units 12:56 12:56 13:27 WBC (4.8-10.8) K/uL RBC (4.2-5.4) M/uL Hgb (12.0-16.0) g/dL Hct (37-47) % MCV (80-100) fL MCH (25-34) pg MCHC (32-36) g/dL RDW Std Deviation (36.4-46.3) fL RDW Coeff of Esmer (11.5-14.5) % Plt Count (130-400) K/uL MPV (7.4-10.4) fL Immature Gran % (Auto) % Neut % (Auto) % Lymph % (Auto) % [place] % (Auto) % Eos % (Auto) % Baso % (Auto) % Neut # (Auto) (1.4-6.5) K/uL Lymph # (Auto) (1.2-3.4) K/uL [place] # (Auto) (0.11-0.59) K/uL Eos # (Auto) (0-0.5) K/uL Baso # (Auto) (0-0.2) K/uL Immature Gran # (Auto) (0.00-0.02) K/uL PT INR APTT PTT Ratio Sodium (136-145) mmol/L Potassium (3.5-5.1) mmol/L Chloride (98-107) mmol/L Carbon Dioxide (21-32) mmol/L Anion Gap (3-11) BUN (7-18) mg/dl Creatinine (0.6-1.2) mg/dl Est Cr Clr Drug Dosing ml/min Est GFR ( Amer) ml/min Est GFR (Non-Af Amer) ml/min BUN/Creatinine Ratio (10-20) Glucose (70-99) mg/dl Lactate 0.4 (0.4-2.0) mmol/L Calcium (8.5-10.1) mg/dl Magnesium (1.8-2.4) mg/dl Total Bilirubin (0.2-1) mg/dl AST (15-37) U/L ALT (12-78) U/L Alkaline Phosphatase (45-117) U/L Troponin I (0-0.045) ng/ml Total Protein (6.4-8.2) gm/dl Albumin (3.4-5.0) gm/dl Globulin (2.5-4.0) gm/dl Albumin/Globulin Ratio (0.9-2) Procalcitonin 0.35 (0-0.5) ng/ml Urine Color Yellow Urine Appearance Clear (Clear) Urine pH 5.0 (4.5-7.5) Ur Specific [place] 1.015 (1.000-1.030) Urine Protein Negative (Negative) Urine Glucose (UA) Negative (Negative) Urine Ketones Negative (Negative) Urine Blood Negative (Negative) Urine Nitrite Negative (Negative) Urine Bilirubin Negative (Negative) Urine Urobilinogen Negative (Negative) Ur Leukocyte Esterase Trace H (Negative) Urine RBC 0-4 (0-4) /hpf Urine WBC 5-10 H (0-5) /hpf Ur Epithelial Cells 0-5 (0-5) /lpf Ur Renal Epithelial Cell 0-5 (0-5) /lpf Urine Bacteria Negative (Negative) COVID-19 Eval Order SARS-CoV-2 (PCR) (Negative) Influ A Molecular Assay (Negative) Influ B Molecular Assay (Negative) 06/09/21 06/09/21 Range/Units 14:00 14:00 WBC (4.8-10.8) K/uL RBC (4.2-5.4) M/uL Hgb (12.0-16.0) g/dL Hct (37-47) % MCV (80-100) fL MCH (25-34) pg MCHC (32-36) g/dL RDW Std Deviation (36.4-46.3) fL RDW Coeff of Esmer (11.5-14.5) % Plt Count (130-400) K/uL MPV (7.4-10.4) fL Immature Gran % (Auto) % Neut % (Auto) % Lymph % (Auto) % [place] % (Auto) % Eos % (Auto) % Baso % (Auto) % Neut # (Auto) (1.4-6.5) K/uL Lymph # (Auto) (1.2-3.4) K/uL [place] # (Auto) (0.11-0.59) K/uL Eos # (Auto) (0-0.5) K/uL Baso # (Auto) (0-0.2) K/uL Immature Gran # (Auto) (0.00-0.02) K/uL PT 9.9 INR 1.0 APTT 26.5 PTT Ratio 1.0 Sodium (136-145) mmol/L Potassium 4.2 (3.5-5.1) mmol/L Chloride (98-107) mmol/L Carbon Dioxide (21-32) mmol/L Anion Gap (3-11) BUN (7-18) mg/dl Creatinine (0.6-1.2) mg/dl Est Cr Clr Drug Dosing ml/min Est GFR ( Amer) ml/min Est GFR (Non-Af Amer) ml/min BUN/Creatinine Ratio (10-20) Glucose (70-99) mg/dl Lactate (0.4-2.0) mmol/L Calcium (8.5-10.1) mg/dl Magnesium 2.7 H (1.8-2.4) mg/dl Total Bilirubin (0.2-1) mg/dl AST 11 L (15-37) U/L ALT (12-78) U/L Alkaline Phosphatase (45-117) U/L Troponin I (0-0.045) ng/ml Total Protein (6.4-8.2) gm/dl Albumin (3.4-5.0) gm/dl Globulin (2.5-4.0) gm/dl Albumin/Globulin Ratio (0.9-2) Procalcitonin (0-0.5) ng/ml Urine Color Urine Appearance (Clear) Urine pH (4.5-7.5) Ur Specific [place] (1.000-1.030) Urine Protein (Negative) Urine Glucose (UA) (Negative) Urine Ketones (Negative) Urine Blood (Negative) Urine Nitrite (Negative) Urine Bilirubin (Negative) Urine Urobilinogen (Negative) Ur Leukocyte Esterase (Negative) Urine RBC (0-4) /hpf Urine WBC (0-5) /hpf Ur Epithelial Cells (0-5) /lpf Ur Renal Epithelial Cell (0-5) /lpf Urine Bacteria (Negative) COVID-19 Eval Order SARS-CoV-2 (PCR) (Negative) Influ A Molecular Assay (Negative) Influ B Molecular Assay (Negative) Administered Medications Discontinued Medications Acetaminophen (Acetaminophen 1000 Mg/100 Ml Iv) 1,000 mg IV NOW STA Stop: 06/09/21 12:25 Last Admin: 06/09/21 13:12 Dose: 1,000 mg Documented by: [id number] Albuterol (Albut/Ipratrop 3mg/0.5mg Neb 3 Ml Vial) 3 ml NEB NOW STA Stop: 06/09/21 12:25 Last Admin: 06/09/21 12:55 Dose: 3 ml Documented by: [id number] Cefepime HCl (Maxipime) 2,000 mg in 20 mls @ 5 mls/min IV NOW STA; Protocol Stop: 06/09/21 12:27 Last Admin: 06/09/21 13:35 Dose: 5 mls/min Documented by: [id number] Sodium Chloride (Nss 1000ml) 500 mls @ 999 mls/hr IV .Q31M ONE Stop: 06/09/21 12:54 Last Infusion: 06/09/21 13:46 Dose: 0 mls/hr Documented by: [id number] Admin: 06/09/21 13:15 Dose: 999 mls/hr Documented by: [id number] Sodium Chloride (Nss 1000ml) 500 mls @ 999 mls/hr IV .Q31M ONE Stop: 06/09/21 13:36 Last Infusion: 06/09/21 14:46 Dose: 0 mls/hr Documented by: [id number] Admin: 06/09/21 14:15 Dose: 999 mls/hr Documented by: [id number] Imaging Data Radiologist's Impression: Chest X-Ray 06/09/21 12:24 XR chest 1V portable CLINICAL HISTORY: SEPSIS TECHNIQUE: Single frontal radiograph of the chest was obtained. Comparison: Comparison is made to chest one view 04/28/2019 FINDINGS: No lines and tubes are seen. Calcified aortic knob is seen. The lungs are clear. No evidence of pleural effusion or pneumothorax. IMPRESSION: No acute chest disease. ACT 112: Negative or not required by law. Electronically signed by: Xavi Irby M.D. 06/09/2021 12:45 PM Abdomen/Pelvis CT 06/09/21 14:26 CT abd pelvis wo con CLINICAL HISTORY: fever, nonverbal TECHNIQUE: Helical axial images of the abdomen and pelvis were obtained. Automated dose lowering techniques and/or adjustment according to patient size were utilized for this exam. This exam was performed without intravenous contrast. COMPARISON: Comparison is made to CT pelvis 04/09/2020 FINDINGS: Lower chest: For findings above the diaphragm, please see CT chest performed same day. Liver: Unremarkable. No focal lesions are seen. Gallbladder and biliary tree: Cholelithiasis is seen without evidence of cholecystitis. No intra- or extrahepatic biliary ductal dilation. Pancreas: Unremarkable, no focal lesions. Spleen: Unremarkable. Adrenals: Unremarkable. Kidneys and ureters: Multiple renal cysts are seen, some are hyperdense and favored to represent proteinaceous/hemorrhagic cysts. No evidence of hydronephrosis. Bladder: Unremarkable. Reproductive organs: Unremarkable. Bowel: A large stool ball is seen in the rectum with some rectal wall thickening. Diverticulosis is seen in the descending colon. The appendix is unremarkable. There is a small hiatal hernia. Lymph nodes Retroperitoneal: Unremarkable. Mesenteric: Unremarkable. Pelvic: Unremarkable. Peritoneum: Normal Vessels: Atherosclerotic calcifications are seen. Abdominal wall: Diffuse diastases of the rectus abdominis is seen. Bones: Unremarkable. IMPRESSION: 1. Large stool ball with mild rectal wall thickening compatible with cervical colitis. 2. Cholelithiasis without evidence of cholecystitis. 3. Multiple renal cysts, some are hyperdense and favored to represent proteinaceous/hemorrhagic cysts. ACT 112: Negative or not required by law. Electronically signed by: Xavi Irby M.D. 06/09/2021 3:[address] 06/09/21 14:26 CT chest diagnostic wo con CLINICAL HISTORY: fever, cough TECHNIQUE: Multidetector row helical CT of the chest was performed. Coronal and sagittal reformations were obtained. Automated dose lowering techniques and/or adjustment according to patient size were utilized for this exam. Comparison: Comparison is made to chest one view 06/09/2021 FINDINGS: Exam is limited by patient motion. Lungs and pleura: Atelectasis is seen most prominently in the right middle lobe. Heart and pericardium: There is cardiomegaly without evidence of pericardial effusion. Vessels: Moderate atherosclerotic changes in the aorta and coronary arteries. The pulmonary trunk measures 32 mm in diameter. Mediastinum and orion: Unremarkable. Chest wall and lower neck: Unremarkable. Abdomen: For findings below the diaphragm, please refer to CT of the abdomen dated the same. Bones: Unremarkable. IMPRESSION: 1. Exam is limited by patient motion. Atelectasis most prominently in the right middle lobe and in the dependent portions of the bilateral lung. 2. Cardiomegaly and pulmonary hypertension. ACT 112: Negative or not required by law. Electronically signed by: Xavi Irby M.D. 06/09/2021 3:42 PM Discharge Plan Visit Data Chief Complaint: Illness Stated Complaint: SOB ED Provider: Zaki Hayes Discharge Problem: Hypotension, Anemia, Hypoxia, Fever Patient Disposition: Admitted As Inpatient Condition: Fair Forms Stand Alone Forms: [facility] [employer] Prescriptions Prescriptions: No Action divalproex 125 mg capsule, delayed rel sprinkle 250 mg PO TID RF: 0 docusate sodium 100 mg tablet 200 mg PO DAILY RF: 0 furosemide 40 mg tablet 40 mg PO BID RF: 0 gabapentin 100 mg capsule 100 mg PO TID RF: 0 hydrocodone-acetaminophen 5-325 mg tablet 1 tab PO BID RF: 0 spironolactone 25 mg tablet 12.5 mg PO DAILY RF: 0 acetaminophen [Tylenol] 325 mg tablet 650 mg PO Q6H PRN (Reason: pain) RF: 0 estradiol [Vagifem] 10 mcg tablet 10 mcg vaginal 2XWK RF: 0 allopurinol 100 mg tablet 100 mg PO DAILY RF: 0 multivitamin [Daily-Valorie] Tablet 1 tab PO QPM RF: 0 losartan 100 mg Tablet 100 mg PO DAILY RF: 0 ascorbic acid (vitamin C) [Vitamin C] 500 mg tablet 500 mg PO BID RF: 0 bisacodyl 10 mg Suppository 10 mg NC DAILY PRN (Reason: Constipation) RF: 0 Fleet Enema 19-7 gram/118 mL Enema 118 ml NC DAILY PRN (Reason: Constipation) RF: 0 cranberry 500 mg Capsule 500 mg PO DAILY RF: 0 Acidophilus Tablet,Chewable 1 tab PO DAILY RF: 0 aspirin 81 mg Tablet,Chewable 81 mg PO DAILY RF: 0 ipratropium-albuterol 0.5 mg-3 mg(2.5 mg base)/3 mL solution for nebulization 3 ml INHALATION QID PRN (Reason: Shortness Of Breath Or Wheezing) RF: 0 Referrals Referrals: [facility] [Primary Care Provider] -
--- NOTE | 2021-06-09 12:46 | XRay Report ---
XR chest 1V portable CLINICAL HISTORY: SEPSIS TECHNIQUE: Single frontal radiograph of the chest was obtained. Comparison: Comparison is made to chest one view 04/28/2019 FINDINGS: No lines and tubes are seen. Calcified aortic knob is seen. The lungs are clear. No evidence of pleur al effusion or pneumothorax. IMPRESSION: No acute chest disease. ACT 112: Negative or not required by law. Electronically signed by: Xavi Irby M.D. 06/09/2021 12:45 PM
[2021-06-09 13:07] LABS: Basophils # (auto) 0.02 K/uL (0-0.2); Basophils % (auto) 0.3 %; Eosinophils # (auto) 0.11 K/uL (0-0.5); Eosinophils % (auto) 1.7 %; Hematocrit (blood only) 31.1 % (37-47); Hemoglobin 9.5 g/dL (12.0-16.0); Immature Granulocytes # (auto) 0.03 K/uL (0.00-0.02); Immature Granulocytes % (auto) 0.5 %; Lymphocytes # (auto) 1.51 K/uL (1.2-3.4); Lymphocytes % (auto) 22.9 %; Mean Corpuscular Hemoglobin 29.3 pg (25-34); Mean Corpuscular Hgb Conc 30.5 g/dL (32-36); Mean Platelet Volume 10.1 fL (7.4-10.4); Monocytes # (auto) 0.83 K/uL (0.11-0.59); Monocytes % (auto) 12.6 %; Neutrophils # (auto) 4.08 K/uL (1.4-6.5); Platelet Count 164 K/uL (130-400); RDW Coefficient of Variation 15.7 % (11.5-14.5); RDW Standard Deviation 54.7 fL (36.4-46.3); Red Blood Count 3.24 M/uL (4.2-5.4); White Blood Count 6.58 K/uL (4.8-10.8)
[2021-06-09 13:29] LABS: Influenza A virus by PCR Negative (Negative); Influenza B virus by PCR Negative (Negative)
[2021-06-09 13:35] LABS: Appearance Urine Clear (Clear); Bilirubin Urine Negative (Negative); Blood Urine Negative (Negative); Color Urine Yellow; Glucose Urine UA Negative (Negative); Ketones Urine Negative (Negative); Leukocyte Esterase Urine Trace (Negative); Nitrite Urine Negative (Negative); Protein Urine Negative (Negative); Specific Gravity Urine 1.015 (1.000-1.030); Urobilinogen Urine Negative (Negative)
[2021-06-09 13:37] LABS: Alanine Aminotransferase 12 U/L (12-78); Albumin Globulin Ratio 0.5 (0.9-2); Albumin Level 2.4 gm/dl (3.4-5.0); Alkaline Phosphatase 51 U/L (45-117); BUN Creatinine Ratio 27.5 (10-20); Bilirubin,Total 0.3 mg/dl (0.2-1); Blood Urea Nitrogen 43 mg/dl (7-18); Calcium 8.8 mg/dl (8.5-10.1); Carbon Dioxide 35 mmol/L (21-32); Chloride 101 mmol/L (98-107); Est GFR (Non-African American) 30.2 ml/min; Globulin 4.7 gm/dl (2.5-4.0); Glucose 94 mg/dl (70-99); Sodium 140 mmol/L (136-145); Total Protein 7.1 gm/dl (6.4-8.2); Troponin I < 0.015 ng/ml (0-0.045)
[2021-06-09 13:46] LABS: Epithelial Cell Urine 0-5 /lpf (0-5)
[2021-06-09 13:47] LABS: Bacteria Urine Negative (Negative); RBC Urine 0-4 /hpf (0-4); Renal Epithelial Cells Urine 0-5 /lpf (0-5)
[2021-06-09 14:19] LABS: Partial Thromboplastin Time 26.5 Seconds (21.0-31.0); Prothrombin Time 9.9 Seconds (9.0-12.0)
[2021-06-09 14:27] LABS: Potassium 4.2 mmol/L (3.5-5.1)
[2021-06-09 14:35] LABS: Magnesium 2.7 mg/dl (1.8-2.4)
--- NOTE | 2021-06-09 14:42 | History & Physical Report ---
Date of Service June 09, 2021 Assessment & Plan (1) Acute respiratory failure with hypoxia: Plan: Chela is a 6-year-old female with a history of severe progressive Lewy body dementia who presents with several days of worsening mental status, fever, and lethargy. Extensive discussion regarding baseline level of function which was Lewy body dementia which did not follow commands almost completely nonverbal at baseline and high risk for aspiration. Her daughter and son recognize she has a progressive illness, and her current acute illness may cause her to diminish from her prior baseline. Discussed palliative care and hospice option given her advanced disease, daughter appreciative of this but does not feel ready for this yet. Would like to continue broad antibiotic treatment, and diagnostic work-up. Acute hypoxic respiratory failure, fever of unknown origin CXR unremarkable Febrile to 38.6 Blood cultures pending Wheezing, coarse lung sounds CT chest and abdomen pended, history limited by nonverbal status Cefepime/Vanco empiric on admission Covid negative Flu negative UA does not appear infected -CT-C/CT-Ab Pending Pro-Ghulam negative (2) Dementia: Plan: Lewy body dementia Progressive, does not follow commands and struggles to express one-word at baseline, does recognize her daughter at baseline Discussed baseline function, progressive illness, current condition with daughter and son. They do not wish to consider palliative/hospice care at this time, although recognizes her mother has a declining baseline has been chronically ill for some time. 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 meds continued MR as otherwise noted, however patient unable to swallow at this time and is n.p.o. until improved mentation or passes consult (3) CAD (coronary artery disease): Plan: Coronary artery disease Increase swelling in the last week Continue aspirin 81 mg daily Continue losartan 100 mg p.o. daily Continue spironolactone 12.5 mg p.o. daily Continue Lasix 40 mg p.o. twice daily Troponin Negative - EKG: nsr with PAC, no territorial ST/T wave changes (4) CKD (chronic kidney disease) stage 3, GFR 30-59 ml/min: Plan: CKD Baseline 1.31.9 At 1.56 Trend creatinine Continue Lasix for edema as noted? Albumin 2.4 Plan: DVT prophylaxis: Heparin Diet: Unable to tolerate p.o. at this time, defer additional fluids as appears clinically volume up and is not tachycardic, creatinine at near baseline. Continue to reassess History of Present Illness Chief Complaint: Fever Primary Care Provider: [facility] Nonverbal DNR dementia from center care Declined mental status 4x5 days. Sat 80s, no home o2 req CXR naf COVID/Flu negative CT-C pending Cefepime in ER Daughter at bedside Per daughter: [facility]. Beginning alst Thursday sounded like sh pollo developin a cold. He daughte is asthmatic an dthinks her mom sounded similar to when she has a flare. her daughter notes wheezing. Had a neb at the time, did not hear any other information. Thursday sounded worse with gagging and sounding worse. 1 day ago seemed wose and lethagic and unable to clear secretions. This morning developed a fever. Lewy Body dementia 2 years last year 'hell'. Went from playing cards and driving at baseline to severe debilitation over last 2 years. Recognizes her daughter. Minimally verbal at baseline, hard time getting out one word. Does not usually follow commands. Seeing a mechanical engineering specialist for CHF, up 14 lbs today from he baseline. Is on furosemide for fluid at baseline. Spent 2 years trying to get under control, was briefly under control, and starting wosening in the last few weeks. Extensive discussion regarding baseline level of function which was Lewy body dementia which did not follow commands almost completely nonverbal at baseline and high risk for aspiration. Her daughter and son recognize she has a progressive illness, and her current acute illness may cause her to diminish from her prior baseline. Discussed palliative care and hospice option given her advanced disease, daughter appreciative of this but does not feel ready for this yet. Would like to continue broad antibiotic treatment, and diagnostic work-up. Medical History: Reviewed Medications: Reviewed Surgical History: Reviewed Allergies: Reviewed Social History: No tobacco, alcohol, recreational drug use. Code Status: DNR/DNI. Daughter recognizes that she would want these things done, but her mother had expressed clearly she would not want resuscitation or intubation when she was of clear mind. Allergies Allergy/AdvReac Type Severity Reaction Status Date / Time iodine Allergy Unknown Unknown Verified 06/09/21 14:23 memantine Allergy Unknown Unknown Verified 06/09/21 14:23 pantoprazole Allergy Unknown Unknown Verified 06/09/21 14:23 shellfish derived Allergy Unknown Unknown Verified 06/09/21 14:23 crab Allergy Gastrointestinal Verified 06/09/21 14:23 Upset Home Medications Medication Instructions Recorded Confirmed Type allopurinol 100 mg tablet 100 mg PO DAILY 06/27/18 06/09/21 History losartan 100 mg tablet 100 mg PO DAILY 01/31/19 06/09/21 History multivitamin (Daily-Valorie) 1 tab PO QPM 01/31/19 06/09/21 History Lactobacillus acidophilus 1 tab PO DAILY 04/27/19 06/09/21 History (Acidophilus) bisacodyl 10 mg rectal suppository 10 mg NE DAILY PRN 04/27/19 06/09/21 History cranberry 500 mg capsule 500 mg PO DAILY 04/27/19 06/09/21 History sodium phosphates 19 gram-7 118 ml NE DAILY PRN 04/27/19 06/09/21 History gram/118 mL enema (Fleet Enema) acetaminophen 325 mg tablet 650 mg PO Q6H PRN tab 12/20/20 06/09/21 History (Tylenol) ascorbic acid (vitamin C) 500 mg 500 mg PO BID tab 12/20/20 06/09/21 History tablet (Vitamin C) divalproex 125 mg capsule,delayed 250 mg PO TID cap 12/20/20 06/09/21 History release sprinkle docusate sodium 100 mg tablet 200 mg PO DAILY tab 12/20/20 06/09/21 History estradiol 10 mcg vaginal tablet 10 mcg VAGINAL 2XWK tab 12/20/20 06/09/21 History (Vagifem) furosemide 40 mg tablet 40 mg PO BID 12/20/20 06/09/21 History gabapentin 100 mg capsule 100 mg PO TID 12/20/20 06/09/21 History hydrocodone 5 mg-acetaminophen 325 1 tab PO BID tab 12/20/20 06/09/21 History mg tablet spironolactone 25 mg tablet 12.5 mg PO DAILY tab 12/20/20 06/09/21 History aspirin 81 mg chewable tablet 81 mg PO DAILY 06/09/21 06/09/21 History ipratropium 0.5 mg-albuterol 3 mg 3 ml INHALATION QID PRN 06/09/21 06/09/21 History (2.5 mg base)/3 mL nebulization soln Past Med/Surg History Medical History Acute UTI Anemia CAD (coronary artery disease) Chronic kidney disease, stage 3a CKD (chronic kidney disease) stage 3, GFR 30-59 ml/min Dementia Gout HLD (hyperlipidemia) HTN (hypertension) Memory deficit Seizure disorder Vitamin D deficiency Surgical History History of Achilles tendon repair History of total knee arthroplasty R Family History Sister Diabetes Social History Smoking Status: Unknown if ever smoked Hx Alcohol Use: No Hx Substance Use: No Preferred Language: Liberian Communication Ability: Impaired Physical Laboratory Assistant Required: No Beliefs That Will Affect Care: None Current Living Situation: Personal Care Facility Current Living Situation Comment: [facility] Feels Safe at Home: Yes Assistive Devices: Walker Review of Systems Review of Systems: Unobtainable due to cognitive status Physical Exam Physical Exam: General: Warm, slightly clammy. Audible respiratory secretions. Patient opens eyes to vigorous touch of shoulder, does not offer spontaneous conversation. HEENT: Atraumatic, normocephalic. Pupils equal and reactive to light. Pulm: Diminished, diffusely coarse, audible tracheal secretions, scattered wheezes. Cardiac: RRR, -mrg. Radial pulses intact and symmetrical. Abdominal: Nontender, nondistended, soft. BS present. Extremities: Warm, dry. Does not follow commands to assess strength or sensation. Withdraws to fingernail pinch of right thumb. Results & Data Results & Data ([facility]) Vital Signs (Past 12 Hours) Vital Signs Temp Pulse Pulse Resp BP BP Pulse Ox 06/09/21 14:20 73 16 94 06/09/21 14:13 88 L 06/09/21 14:10 78 15 95 06/09/21 14:00 79 20 88 L 06/09/21 13:50 75 19 97 06/09/21 13:43 38.6 C H 06/09/21 13:40 75 13 96 06/09/21 13:30 71 20 92 06/09/21 13:24 24 95 06/09/21 13:20 75 16 97 06/09/21 13:11 74 16 99 06/09/21 13:09 78 19 144/67 H 98 06/09/21 12:57 75 19 98 06/09/21 12:54 19 98 06/09/21 12:43 77 20 98 06/09/21 12:42 38.4 C H 78 19 98 06/09/21 12:24 96 06/09/21 11:47 38.3 C H 73 17 98/52 L 99 PG Care Time/CCT Total # of Minutes Spent Total Time Spent with Patient: Total time spent is greater than 50% in coordination of care (as documented) at patient's floor/unit and/or counseling patient: Coding Level of Care Code 20922 Initial Inpt Care Lvl 3 Diagnoses Acute respiratory failure with hypoxia J96.01 CAD (coronary artery disease) I25.10 CKD (chronic kidney disease) stage 3, GFR 30-59 ml/min N18.3 Dementia F03.90
--- NOTE | 2021-06-09 15:43 | CT Scan Report ---
CT chest diagnostic wo con CLINICAL HISTORY: fever, cough TECHNIQUE: Multidetector row helical CT of the chest was performed. Coronal and sagittal reformations were obtained. Automated dose lowering techniques and/or adjustment according to patient size were u tilized for this exam. Comparison: Comparison is made to chest one view 06/09/2021 FINDINGS: Exam is limited by patient motion. Lungs and pleura: Atelectasis is seen most prominently in the right middle lobe. Heart and pericardium: There is cardiomegaly without evidence of pericardial effusion. Vessels: Moderate atherosclerotic changes in the aorta and coronary arteries. The pulmonary trunk leander sures 32 mm in diameter. Mediastinum and orion: Unremarkable. Chest wall and lower neck: Unremarkable. Abdomen: For findings below the diaphragm, please refer to CT of the abdomen dated the same. Bones: Unremarkable. IMPRESSION: 1. Exam is limited by patient motion. Atelectasis most prominently in the right middle lobe and in t he dependent portions of the bilateral lung. 2. Cardiomegaly and pulmonary hypertension. ACT 112: Negative or not required by law. Electronically signed by: Xavi Irby M.D. 06/09/2021 3:42 PM
--- NOTE | 2021-06-09 15:54 | CT Scan Report ---
CT abd pelvis wo con CLINICAL HISTORY: fever, nonverbal TECHNIQUE: Helical axial images of the abdomen and pelvis were obtained. Automated dose lowering tech niques and/or adjustment according to patient size were utilized for this exam. This exam was perfor med without intravenous contrast. COMPARISON: Comparison is made to CT pelvis 04/09/2020 FINDINGS: Lower chest: For findings above the diaphragm, please see CT chest performed same day. Liver: Unremarkable. No focal lesions are seen. Gallbladder and biliary tree: Cholelithiasis is seen without evidence of cholecystitis. No intra- or extrahepatic biliary ductal dilation. Pancreas: Unremarkable, no focal lesions. Spleen: Unremarkable. Adrenals: Unremarkable. Kidneys and ureters: Multiple renal cysts are seen, some are hyperdense and favored to represent prot einaceous/hemorrhagic cysts. No evidence of hydronephrosis. Bladder: Unremarkable. Reproductive organs: Unremarkable. Bowel: A large stool ball is seen in the rectum with some rectal wall thickening. Diverticulosis is s een in the descending colon. The appendix is unremarkable. There is a small hiatal hernia. Lymph nodes Retroperitoneal: Unremarkable. Mesenteric: Unremarkable. Pelvic: Unremarkable. Peritoneum: Normal Vessels: Atherosclerotic calcifications are seen. Abdominal wall: Diffuse diastases of the rectus abdominis is seen. Bones: Unremarkable. IMPRESSION: 1. Large stool ball with mild rectal wall thickening compatible with cervical colitis. 2. Cholelithiasis without evidence of cholecystitis. 3. Multiple renal cysts, some are hyperdense and favored to represent proteinaceous/hemorrhagic cyst s. ACT 112: Negative or not required by law. Electronically signed by: Xavi Irby M.D. 06/09/2021 3:52 PM
[2021-06-09] MEDS ORDERED: VANCOMYCIN CONSULT ACTIVE PRN (17:20)
[2021-06-09] MEDS ORDERED: VANCOMYCIN HCL 2,000 MG in SODIUM CHLORIDE 0.9% 500 ML IV ONE (17:30)
[2021-06-09] MEDS ORDERED: ALBUT/IPRATROP 3MG/0.5MG NEB 3 ML VIAL ONE (17:33)
[2021-06-09] MEDS: ALBUT/IPRATROP 3MG/0.5MG NEB 3 ML VIAL NEB SCH ×2 (17:34→19:16)
[2021-06-09] MEDS ORDERED: PIPERACILL/TAZOBAC CONSULT ACTIVE PRN (18:50)
[2021-06-09] MEDS ORDERED: bisacodyL 10 MG SUPP PR PRN (18:51)
[2021-06-09] MEDS ORDERED: PIPERACILLIN/TAZOBACTAM 3.375 GM in DEXTROSE 5% 100 ML IV SCH (19:00)
[2021-06-09] MEDS ORDERED: PIPERACILLIN/TAZOBACTAM 4.5 GM in DEXTROSE 5% 100 ML IV ONE (19:00)
[2021-06-09] MEDS: HYDROCODONE/ACETAMOPHEN 5/325MG TAB PO SCH (20:24)
[2021-06-09] MEDS: GABAPENTIN 100 MG CAP PO SCH (20:24)
[2021-06-09] MEDS: FUROSEMIDE 40 MG TAB PO SCH (20:24)
[2021-06-09] MEDS: HEPARIN SOD 5,000 UNIT/0.5 ML VIAL SQ SCH (22:53)
[2021-06-10] MEDS ORDERED: CEFEPIME 2,000 MG in SYRINGE 0 ML IV SCH (01:00)
[2021-06-10] MEDS: PIPERACILLIN/TAZOBACTAM 4.5 GM in DEXTROSE 5% 100 ML IV SCH ×3 (02:43→18:15)
[2021-06-10] MEDS: ACETAMINOPHEN 1000 MG/100 ML IV IV PRN ×2 (03:19→15:43)
--- NOTE | 2021-06-10 05:49 | Electrocardiogram Report ---
Test Reason : Blood Pressure : / mmHG Vent. Rate : 074 BPM Atrial Rate : 074 BPM P-R Int : 164 ms QRS Dur : 076 ms QT Int : 364 ms P-R-T Axes : 066 027 -29 degrees QTc Int : 404 ms Sinus rhythm with Premature atrial complexes Low voltage QRS Nonspecific T wave abnormality When compared with ECG of 29-APR-2019 06:55, Premature atrial complexes are now Present Confirmed by Joaquim Ignacio ([id number]) on 06/10/2021 5:48:39 AM Referred By: [facility] Confirmed By:Joaquim Ignacio
[2021-06-10] MEDS: HEPARIN SOD 5,000 UNIT/0.5 ML VIAL SQ SCH ×3 (05:54→21:06)
[2021-06-10] MEDS ORDERED: PERFLUTREN LIPID MICROSPHERE (DEFINITY) IV ONE (07:03)
[2021-06-10 07:42] LABS: Creatinine Clr Calc Pharmacy 31.3 ml/min; Est GFR (Non-African American) 31.9 ml/min
[2021-06-10] MEDS: ALBUT/IPRATROP 3MG/0.5MG NEB 3 ML VIAL NEB SCH ×5 (08:04→20:29)
[2021-06-10] MEDS: SPIRONOLACTONE 12.5 MG TAB PO SCH (08:54)
[2021-06-10] MEDS: LOSARTAN POTASSIUM 50 MG TAB PO SCH (08:54)
[2021-06-10] MEDS: FUROSEMIDE 40 MG TAB PO SCH (08:54)
[2021-06-10] MEDS: ASPIRIN 81 MG ECTAB PO SCH (08:54)
[2021-06-10] MEDS: HYDROCODONE/ACETAMOPHEN 5/325MG TAB PO SCH (08:54)
[2021-06-10] MEDS: GABAPENTIN 100 MG CAP PO SCH ×4 (08:54→21:32)
[2021-06-10 11:03] LABS: Basophils # (auto) 0.03 K/uL (0-0.2); Basophils % (auto) 0.5 %; Eosinophils # (auto) 0.11 K/uL (0-0.5); Eosinophils % (auto) 1.7 %; Hematocrit (blood only) 30.6 % (37-47); Hemoglobin 9.4 g/dL (12.0-16.0); Immature Granulocytes # (auto) 0.02 K/uL (0.00-0.02); Immature Granulocytes % (auto) 0.3 %; Lymphocytes % (auto) 24.3 %; Mean Corpuscular Hemoglobin 29.6 pg (25-34); Mean Corpuscular Hgb Conc 30.7 g/dL (32-36); Mean Corpuscular Volume 96.2 fL (80-100); Mean Platelet Volume 10.4 fL (7.4-10.4); Monocytes # (auto) 0.65 K/uL (0.11-0.59); Monocytes % (auto) 9.9 %; Neutrophils # (auto) 4.17 K/uL (1.4-6.5); Neutrophils % (auto) 63.3 %; Platelet Count 169 K/uL (130-400); RDW Coefficient of Variation 15.5 % (11.5-14.5); RDW Standard Deviation 54.4 fL (36.4-46.3); Red Blood Count 3.18 M/uL (4.2-5.4); White Blood Count 6.58 K/uL (4.8-10.8)
[2021-06-10 11:21] LABS: Albumin Level 2.2 gm/dl (3.4-5.0); BUN Creatinine Ratio 27.6 (10-20); Calcium 8.9 mg/dl (8.5-10.1); Creatinine Clr Calc Pharmacy 32.1 ml/min; Est GFR (African American) 38.2 ml/min
[2021-06-10] MEDS: bisacodyL 10 MG SUPP PR SCH (11:21)
[2021-06-10 11:24] LABS: Albumin Globulin Ratio 0.5 (0.9-2); Bilirubin,Total 0.3 mg/dl (0.2-1); Globulin 4.6 gm/dl (2.5-4.0); Total Protein 6.8 gm/dl (6.4-8.2)
[2021-06-10 11:33] LABS: D Dimer 810 ug/L FEU (0-500)
--- NOTE | 2021-06-10 12:33 | Hospitalist Progress Note ---
Date of Service June 10, 2021 Assessment & Plan (1) Acute respiratory failure with hypoxia: Plan: Chela is a 6-year-old female with a history of severe progressive Lewy body dementia who presents with several days of worsening mental status, fever, and lethargy. Extensive discussion regarding baseline level of function which was Lewy body dementia which did not follow commands almost completely nonverbal at baseline and high risk for aspiration. Her daughter and son recognize she has a progressive illness, and her current acute illness may cause her to diminish from her prior baseline. Discussed palliative care and hospice option given her advanced disease, daughter appreciative of this but does not feel ready for this yet. Would like to continue broad antibiotic treatment, and diagnostic work-up. Acute hypoxic respiratory failure, fever of unknown origin -She is 14 pounds up from her baseline weight and has significant peripheral edema-there could be a component of CHF to her hypoxia CXR unremarkable, however chest CT with atelectasis in right middle lobe and dependent portions of the bilateral lung-do not think I can exclude pneumonia in this setting CT abdomen/pelvis with large stool ball with rectal wall thickening compatible with proctocolitis-could be a cause of fever Febrile to 38.6 on arrival and now resolved Covid negative Flu negative UA does not appear infected Pro-Ghulam negative -Continue IV Zosyn empirically in case of aspiration pneumonia as well as proctocolitis -VTE could be a cause of dyius-M-lyubo checked today and is elevated at 810 but could be false positive in the setting of febrile illness-check Dopplers bilateral lower extremities and if negative, will proceed with CT angiogram of the chest after premedication with IV Solu-Medrol and Benadryl Blood cultures pending-no growth to date-continue to follow Wheezing, coarse lung sounds continue-add on chest PT, steroids as above for premedication for CT angiogram -Patient not able to cooperate for use of flutter valve or incentive spirometry, but will add chest percussion therapy -Continue scheduled duo nebs -She is not able to take her usual p.o. Lasix-will convert to IV Lasix 40 mg twice daily to achieve diuresis -Follow CBC, CMP in the morning (2) Fever: Plan: As above (3) Dementia: Plan: Lewy body dementia Progressive, does not follow commands and struggles to express one-word at baseline, does recognize her daughter at baseline Discussed baseline function, progressive illness, current condition with daughter and son. They do not wish to consider palliative/hospice care at this time, although recognizes her mother has a declining baseline has been chronically ill for some time. VALUE STREAM MANAGER consult-patient was able to participate somewhat in a bedside evaluation today, but remained agitated at times and did show evidence of aspiration-plan for instrumental swallow assessment tomorrow Patient allowed to have ice chips and sips of water as per speech therapy, but otherwise will remain n.p.o. until improved mentation or passes speech consult (4) CHF (congestive heart failure): Plan: Acute on chronic diastolic CHF With 14 pound weight gain in last 2 weeks with peripheral edema Echocardiogram today with preserved EF Follows with [facility] cardiology Intensify diuretics to 40 mg IV twice daily Follow BMP and magnesium and replace lites as needed Follow daily weights, strict I's and O's Monitor on telemetry Check proBNP in the morning (5) Edema: Plan: As above, likely secondary to CHF exacerbation, but also could be from DVTs due to it being sedentary Check venous Dopplers bilateral lower extremities Continue to diurese (6) Anemia: Plan: Hemoglobin low at 9.4, normocytic This is her baseline hemoglobin for at least the last 2 years Check B12, folate, iron studies, and TSH in the morning (7) CAD (coronary artery disease): Plan: I cannot find evidence of this in her records including review of cardiology consultation and notes from 2018 Nonetheless, troponin is negative, EKG without evidence of acute ischemia Continue aspirin, losartan, when tolerating p.o. (8) CKD (chronic kidney disease) stage 3, GFR 30-59 ml/min: Plan: Follows with Nephrology Baseline 1.31.9 At 1.45 -Avoid nephrotoxins -renally dose meds when appropriate -follow BMP (9) Seizure disorder: Plan: Convert p.o. Depakote to IV valproic acid 250 mg IV 3 times daily until taking p.o. Not able to take p.o. gabapentin at this time Plan: DVT prophylaxis: Heparin SQ, VTE work-up as above Disposition-continued stay on telemetry Discussed care with daughter at length on the phone. Also attempted to call the son Ed who asked for an update and left a voicemail Admission and Anticipated Discharge Date Admission Date: June 09, 2021 Subjective Patient mostly nonverbal and would not answer any my questions. When I did at the end of our visit tell her I would check on her later, she said "well that is not a good sign." But then she refused to answer any further questions. When I asked her to take a deep breath, she had a very gurgly sounding weak cough. She remains on 15 L oxygen mask throughout the night and this morning. Her daughter on the phone reports that the patient has gained 14 pounds and her feet and legs have really swollen up in the last 2 weeks. Nursing reports that the patient did have a very large bowel movement this morning. I discussed the patient's care with the daughter and she is agreeable to accept the risk of CT angiogram with contrast in the setting of chronic kidney disease to determine if the patient has a PE as the cause of her significant hypoxia Review of Systems Review of Systems: Unobtainable due to cognitive status Physical Exam Constitutional: WD/WN, vitals as above + obese Eyes: PERRL, conjunctivae normal, anicteric sclerae ENMT: external ear and nose normal, oropharynx normal Neck: trachea midline, no thyromegaly Respiratory: normal respiratory effort and + cough Auscultation: + crackles (Bibasilar) and + rhonchi (Throughout); no wheezes Cardiovascular: Rate/Rhythm: regular rate and regular rhythm Heart Sounds: no murmur Extremities: + edema (2-3+ pitting edema of the feet and legs distally bilaterally) Chest (Breasts): Chest: normal inspection of chest Gastrointestinal (Abdomen): normal bowel sounds, soft, nontender, no hepatosplenomegaly Musculoskeletal: Extremities: extremities normal to inspection; no cyanosis and no clubbing Skin: no rashes, warm and dry Neurologic: moves all extremities and awake; no focal motor deficits Speech / Cognition: + abnormal cognition Motor/Sensory: + tremor (Resting tremor in both hands/arms and head) Psychiatric: Orientation: alert and cooperative Speech: + mute Results & Data Results & Data ([facility]) Vital Signs (Past 12 Hours) Vital Signs Temp Pulse Pulse Resp BP Pulse Ox 06/10/21 12:00 20 91 06/10/21 11:47 54 L 06/10/21 11:30 20 91 06/10/21 11:14 36.8 C 80 20 148/59 H 91 06/10/21 11:00 20 92 1115/21 10:52 67 20 92 06/10/21 10:30 20 92 06/10/21 10:00 20 92 06/10/21 09:30 20 92 06/10/21 09:00 20 92 06/10/21 08:30 20 92 06/10/21 08:04 56 L 20 99 06/10/21 08:00 20 92 06/10/21 07:31 36.8 C 56 L 18 142/62 H 90 06/10/21 07:30 20 92 06/10/21 07:00 21 92 06/10/21 06:30 20 93 06/10/21 03:30 20 91 06/10/21 03:05 36.5 C 78 18 148/74 H 94 06/10/21 03:00 20 90 06/10/21 02:48 38.2 C H 77 20 170/66 H 88 L 06/10/21 02:30 20 88 L 06/10/21 02:00 20 92 06/10/21 01:30 20 92 06/10/21 01:11 78 06/10/21 01:00 20 93 06/10/21 00:30 20 93 Laboratory Results 06/10/21 06/10/21 06/10/21 Range/Units Unknown 10:42 10:42 WBC (4.8-10.8) K/uL RBC (4.2-5.4) M/uL Hgb (12.0-16.0) g/dL Hct (37-47) % MCV (80-100) fL MCH (25-34) pg MCHC (32-36) g/dL RDW Std Deviation (36.4-46.3) fL RDW Coeff of Esmer (11.5-14.5) % Plt Count (130-400) K/uL MPV (7.4-10.4) fL Immature Gran % (Auto) % Neut % (Auto) % Lymph % (Auto) % [place] % (Auto) % Eos % (Auto) % Baso % (Auto) % Neut # (Auto) (1.4-6.5) K/uL Lymph # (Auto) (1.2-3.4) K/uL [place] # (Auto) (0.11-0.59) K/uL Eos # (Auto) (0-0.5) K/uL Baso # (Auto) (0-0.2) K/uL Immature Gran # (Auto) (0.00-0.02) K/uL D-Dimer 810 H* (0-500) ug/L FEU Sodium 143 (136-145) mmol/L Potassium 4.0 (3.5-5.1) mmol/L Chloride 106 (98-107) mmol/L Carbon Dioxide 30 (21-32) mmol/L Anion Gap 7.0 (3-11) BUN 40 H (7-18) mg/dl Creatinine 1.45 H (0.6-1.2) mg/dl Est Cr Clr Drug Dosing 32.1 ml/min Est GFR ( Amer) 38.2 ml/min Est GFR (Non-Af Amer) 33.0 ml/min BUN/Creatinine Ratio 27.6 H (10-20) Glucose 82 (70-99) mg/dl Calcium 8.9 (8.5-10.1) mg/dl Total Bilirubin 0.3 (0.2-1) mg/dl AST 16 (15-37) U/L ALT 9 L (12-78) U/L Alkaline Phosphatase 47 (45-117) U/L Total Protein 6.8 (6.4-8.2) gm/dl Albumin 2.2 L (3.4-5.0) gm/dl Globulin 4.6 H (2.5-4.0) gm/dl Albumin/Globulin Ratio 0.5 L (0.9-2) Nasal Screen MRSA (PCR) Negative (Negative) 06/10/21 06/10/21 Range/Units 10:42 06:48 WBC 6.58 (4.8-10.8) K/uL RBC 3.18 L (4.2-5.4) M/uL Hgb 9.4 L (12.0-16.0) g/dL Hct 30.6 L (37-47) % MCV 96.2 (80-100) fL MCH 29.6 (25-34) pg MCHC 30.7 L (32-36) g/dL RDW Std Deviation 54.4 H (36.4-46.3) fL RDW Coeff of Esmer 15.5 H (11.5-14.5) % Plt Count 169 (130-400) K/uL MPV 10.4 (7.4-10.4) fL Immature Gran % (Auto) 0.3 % Neut % (Auto) 63.3 % Lymph % (Auto) 24.3 % [place] % (Auto) 9.9 % Eos % (Auto) 1.7 % Baso % (Auto) 0.5 % Neut # (Auto) 4.17 (1.4-6.5) K/uL Lymph # (Auto) 1.60 (1.2-3.4) K/uL [place] # (Auto) 0.65 H (0.11-0.59) K/uL Eos # (Auto) 0.11 (0-0.5) K/uL Baso # (Auto) 0.03 (0-0.2) K/uL Immature Gran # (Auto) 0.02 (0.00-0.02) K/uL D-Dimer (0-500) ug/L FEU Sodium (136-145) mmol/L Potassium (3.5-5.1) mmol/L Chloride (98-107) mmol/L Carbon Dioxide (21-32) mmol/L Anion Gap (3-11) BUN (7-18) mg/dl Creatinine 1.49 H (0.6-1.2) mg/dl Est Cr Clr Drug Dosing 31.3 ml/min Est GFR ( Amer) 37.0 ml/min Est GFR (Non-Af Amer) 31.9 ml/min BUN/Creatinine Ratio (10-20) Glucose (70-99) mg/dl Calcium (8.5-10.1) mg/dl Total Bilirubin (0.2-1) mg/dl AST (15-37) U/L ALT (12-78) U/L Alkaline Phosphatase (45-117) U/L Total Protein (6.4-8.2) gm/dl Albumin (3.4-5.0) gm/dl Globulin (2.5-4.0) gm/dl Albumin/Globulin Ratio (0.9-2) Nasal Screen MRSA (PCR) (Negative) PG Care Time/CCT Total # of Minutes Spent Total Time Spent with Patient: Total time spent is greater than 50% in coordination of care (as documented) at patient's floor/unit and/or counseling patient: Coding Level of Care Code 00760 Subseq Hosp Care Lvl 3 Diagnoses Acute respiratory failure with hypoxia J96.01 Dementia F03.90 CAD (coronary artery disease) I25.10 CKD (chronic kidney disease) stage 3, GFR 30-59 ml/min N18.3 Edema R60.9 Anemia D64.9 Anemia type: unspecified type Fever R50.9 Fever type: unspecified CHF (congestive heart failure) I50.9 Seizure disorder G40.909 (1) Fever Fever type: unspecified Qualified Code(s): R50.9 - Fever, unspecified (2) Anemia Anemia type: unspecified type Qualified Code(s): D64.9 - Anemia, unspecified
[2021-06-10] MEDS: VALPROATE SOD 250 MG in DEXTROSE 5% 50 ML IV SCH ×2 (13:21→21:05)
[2021-06-10] MEDS: FUROSEMIDE 40 MG/4 ML VIAL IV SCH ×2 (13:21→18:15)
--- NOTE | 2021-06-10 13:31 | XCELERA ---
[id number]
--- NOTE | 2021-06-10 14:18 | Ultrasound Report ---
BILATERAL LOWER EXTREMITY VENOUS DOPPLER HISTORY: Acute pain and swelling of the lower legs edema,r/o DVT COMPARISON STUDY: Doppler study 03/10/2019 FINDINGS: There is normal compressibility, flow, and augmentation within the bilateral lower extremit y deep venous systems. Subcutaneous edema is noted bilaterally. IMPRESSION: No DVT within the right or left lower extremity. ACT 112: Negative or not required by law. Electronically signed by: Terrell Hancock M.D. 06/10/2021 2:16 PM
[2021-06-10] MEDS ORDERED: methylPREDNISolone 40 MG in SYRINGE 0 ML IV SCH (18:00)
[2021-06-11] MEDS: PIPERACILLIN/TAZOBACTAM 4.5 GM in DEXTROSE 5% 100 ML IV SCH ×3 (02:16→18:10)
[2021-06-11] MEDS: methylPREDNISolone 40 MG in SYRINGE 0 ML IV SCH ×2 (02:17→07:45)
[2021-06-11] MEDS: VALPROATE SOD 250 MG in DEXTROSE 5% 50 ML IV SCH ×3 (04:56→19:56)
[2021-06-11] MEDS: HEPARIN SOD 5,000 UNIT/0.5 ML VIAL SQ SCH ×3 (05:44→21:47)
[2021-06-11] MEDS ORDERED: diphenhydrAMINE 50 MG/ML VIAL IV SCH (06:00)
[2021-06-11] MEDS ORDERED: FAMOTIDINE 20 MG in SYRINGE 3 ML IV SCH (06:00)
[2021-06-11 07:01] LABS: Basophils # (auto) 0.01 K/uL (0-0.2); Basophils % (auto) 0.2 %; Eosinophils # (auto) 0.01 K/uL (0-0.5); Eosinophils % (auto) 0.2 %; Hematocrit (blood only) 31.8 % (37-47); Immature Granulocytes # (auto) 0.08 K/uL (0.00-0.02); Immature Granulocytes % (auto) 1.3 %; Lymphocytes # (auto) 0.96 K/uL (1.2-3.4); Lymphocytes % (auto) 16.1 %; Mean Corpuscular Hemoglobin 29.6 pg (25-34); Mean Corpuscular Hgb Conc 31.4 g/dL (32-36); Mean Corpuscular Volume 94.1 fL (80-100); Mean Platelet Volume 9.6 fL (7.4-10.4); Monocytes # (auto) 0.08 K/uL (0.11-0.59); Monocytes % (auto) 1.3 %; Neutrophils # (auto) 4.84 K/uL (1.4-6.5); Neutrophils % (auto) 80.9 %; Platelet Count 194 K/uL (130-400); RDW Coefficient of Variation 15.2 % (11.5-14.5); RDW Standard Deviation 51.7 fL (36.4-46.3); Red Blood Count 3.38 M/uL (4.2-5.4); White Blood Count 5.98 K/uL (4.8-10.8)
[2021-06-11] MEDS: ALBUT/IPRATROP 3MG/0.5MG NEB 3 ML VIAL NEB SCH ×4 (07:32→19:20)
[2021-06-11 07:37] LABS: Albumin Level 2.3 gm/dl (3.4-5.0); BUN Creatinine Ratio 30.2 (10-20); Calcium 9.1 mg/dl (8.5-10.1); Creatinine Clr Calc Pharmacy 28.1 ml/min; Est GFR (African American) 32.5 ml/min; Magnesium 2.6 mg/dl (1.8-2.4)
[2021-06-11 07:46] LABS: Albumin Globulin Ratio 0.4 (0.9-2); Bilirubin,Total 0.5 mg/dl (0.2-1); Globulin 5.2 gm/dl (2.5-4.0); Thyroid Stimulating Hormone 0.591 uIu/ml (0.300-4.500); Total Protein 7.5 gm/dl (6.4-8.2)
[2021-06-11] MEDS ORDERED: OPTIRAY 320 125ml IV ONE (08:37)
[2021-06-11] MEDS: bisacodyL 10 MG SUPP PR SCH (08:59)
[2021-06-11] MEDS: SPIRONOLACTONE 12.5 MG TAB PO SCH (09:16)
[2021-06-11] MEDS: ASPIRIN 81 MG ECTAB PO SCH (09:16)
[2021-06-11] MEDS: GABAPENTIN 100 MG CAP PO SCH ×3 (09:16→19:57)
[2021-06-11] MEDS: LOSARTAN POTASSIUM 50 MG TAB PO SCH (09:16)
[2021-06-11] MEDS: FUROSEMIDE 40 MG/4 ML VIAL IV SCH ×2 (09:16→18:10)
--- NOTE | 2021-06-11 09:28 | CT Scan Report ---
CT angio chest PE protocol CLINICAL HISTORY: PE TECHNIQUE: Multidetector row helical CT of the chest was performed. Coronal and sagittal reformations were obtained. Automated dose lowering techniques and/or adjustment according to patient size were u tilized for this exam. Comparison: Comparison is made to CT chest 06/09/2021 FINDINGS: Lungs and pleura: Atelectasis versus scarring is seen in the dependent portions of the lungs. Scatter ed groundglass opacities are seen. Tracheobronchomalacia is noted. Heart and pericardium: There is cardiomegaly without evidence of pericardial effusion. Vessels: Pulmonary trunk measures 35 mm in diameter. Moderate atherosclerotic disease is noted. No ev idence of pulmonary embolism. Mediastinum and orion: Unremarkable. Chest wall and lower neck: Unremarkable. Abdomen: A hiatal hernia is seen. Bones: Unremarkable. IMPRESSION: 1. No evidence of pulmonary embolism. 2. Bilateral atelectasis and groundglass opacities which may represent atelectasis, aspiration, and/ or pneumonia. 3. Cardiomegaly and pulmonary hypertension. ACT 112: Negative or not required by law. Electronically signed by: Xavi Irby M.D. 06/11/2021 9:27 AM
[2021-06-11 11:38] LABS: Folate (Folic Acid) > 20.00 ng/ml (>5.38); Vitamin B12 1969 pg/ml (193-986)
--- NOTE | 2021-06-11 12:11 | Palliative Care Consultation ---
Date of Consultation June 11, 2021 Assessment & Plan (1) Palliative care encounter: Ms. Bolanos is an 86 year old female who presented to the [facility] with fever, worsening mental status and increased lethargy. At baseline, she is non verbal and has intermittently recognized her family members. Additional PMH includes: CHF, hypotension, CKD3, pericardial effusion, gout, HTN, HLD, seizure disorder, and bradycardia. Palliative medicine was consulted to discuss overall goals of care. Please see A/P For further information. Lengthy conversation with the patients daughter Keri on the phone and then in person at the bedside. Keri was making handkerchief kiss salvador with her mo ther's lips for [place] presents when I entered the room. Chela was having a better day than previous days and even answered yes and no to a few questions. Further conference call with the patients son, Joe on the phone also. Both recognize her overall decline over the past few months. For now, continue with IV abx over the next few days to see how her mentation and condition improve. We discussed aspiration and will proceed with permissive aspiration and known risk of further respiratory decline.While I was in the room, she did drink Should patients respiratory drive worsen, family would like to have BiPAP mask placed to see any improvement. 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 Would also like BiPap mask in place if necessary to allow time for family to arrive prior to comfort transition. Confirmed DNR/DNI. Ultimate goal, improve to the point that she would be stable to return to [facility]. If possible, would entertain Hospice at that time. Confirmed that [facility] can manage 15L oxymask with a goal of no repeat hospitalizations. Will discuss with case management to confirm with [facility] as well. Dr. Horton aware of the above. Palliative will follow. (2) Hypoxia: (3) CHF (congestive heart failure): (4) Weakness: History of Present Illness Reason for Consultation: Goals of care Requesting Physician: Dr. Horton Attending Physician: Montserrat Horton MD History of Present Illness Ms. Bolanos is an 86 year old female who presented to the [facility] with fever, worsening mental status and increased lethargy. At baseline, she is non verbal and has intermittently recognized her family members. Additional PMH includes: CHF, hypotension, CKD3, pericardial effusion, gout, HTN, HLD, seizure disorder, and bradycardia. Palliative medicine was consulted to discuss overall goals of care. Please see A/P For further information. Thanks for involving palliative medicine with this patient. Allergies Allergy/AdvReac Type Severity Reaction Status Date / Time iodine Allergy Unknown Unknown Verified 06/09/21 14:23 memantine Allergy Unknown Unknown Verified 06/09/21 14:23 pantoprazole Allergy Unknown Unknown Verified 06/09/21 14:23 shellfish derived Allergy Unknown Unknown Verified 06/09/21 14:23 crab Allergy Gastrointestinal Verified 06/09/21 14:23 Upset Home Medications Medication Instructions Recorded Confirmed Type allopurinol 100 mg tablet 100 mg PO DAILY 06/27/18 06/09/21 History losartan 100 mg tablet 100 mg PO DAILY 01/31/19 06/09/21 History multivitamin (Daily-Valorie) 1 tab PO QPM 01/31/19 06/09/21 History Lactobacillus acidophilus 1 tab PO DAILY 04/27/19 06/09/21 History (Acidophilus) bisacodyl 10 mg rectal suppository 10 mg FL DAILY PRN 04/27/19 06/09/21 History cranberry 500 mg capsule 500 mg PO DAILY 04/27/19 06/09/21 History sodium phosphates 19 gram-7 118 ml FL DAILY PRN 04/27/19 06/09/21 History gram/118 mL enema (Fleet Enema) acetaminophen 325 mg tablet 650 mg PO Q6H PRN tab 12/20/20 06/09/21 History (Tylenol) ascorbic acid (vitamin C) 500 mg 500 mg PO BID tab 12/20/20 06/09/21 History tablet (Vitamin C) divalproex 125 mg capsule,delayed 250 mg PO TID cap 12/20/20 06/09/21 History release sprinkle docusate sodium 100 mg tablet 200 mg PO DAILY tab 12/20/20 06/09/21 History estradiol 10 mcg vaginal tablet 10 mcg VAGINAL 2XWK tab 12/20/20 06/09/21 Hi story (Vagifem) furosemide 40 mg tablet 40 mg PO BID 12/20/20 06/09/21 History gabapentin 100 mg capsule 100 mg PO TID 12/20/20 06/09/21 History hydrocodone 5 mg-acetaminophen 325 1 tab PO BID tab 12/20/20 06/09/21 History mg tablet spironolactone 25 mg tablet 12.5 mg PO DAILY tab 12/20/20 06/09/21 History aspirin 81 mg chewable tablet 81 mg PO DAILY 06/09/21 06/09/21 History ipratropium 0.5 mg-albuterol 3 mg 3 ml INHALATION QID PRN 06/09/21 06/09/21 History (2.5 mg base)/3 mL nebulization solchong Patient History Medical History Acute UTI Anemia CAD (coronary artery disease) CHF (congestive heart failure) Chronic kidney disease, stage 3a CKD (chronic kidney disease) stage 3, GFR 30-59 ml/min Dementia Gout HLD (hyperlipidemia) HTN (hypertension) Memory deficit Palliative care encounter Seizure disorder Vitamin D deficiency Surgical History History of Achilles tendon repair History of total knee arthroplasty R Family History Sister Diabetes Social History Smoking Status: Never smoker Second Hand Exposure: No; Do You Dip or Chew Tobacco: No; Tobacco Cessation Education Requested by Patient: No Hx Alcohol Use: No Hx Substance Use: No Preferred Language: Macedonian Communication Ability: Impaired Machine I Engraver Required: No Beliefs That Will Affect Care: Jainism Current Living Situation: [facility] Current Living Situation Comment: [facility] at present Other Information That Helps Us Care for You: No Feels Safe at Home: Yes Safety Concerns: Feels Safe At This Time Assistive Devices: Oxygen - Continuous Review of Systems Review of Systems: [place] System Assessment Scale: Pain: 1/3 Nausea: 0/3 SOB: 1/3 Anxiety: 0/3 Palliative Performance Scale: 30% Physical Exam Constitutional: + frail appearing and comfortable ENMT: Mouth: + dry oral mucous membranes Respiratory: normal respiratory effort Auscultation: + diminished lung sounds Cardiovascular: Rate/Rhythm: regular rate and regular rhythm Heart Sounds: normal S1 and normal S2 Extremities: normal capillary refill Gastrointestinal (Abdomen): Inspection/Auscultation: abdomen normal to inspection Percussion/Palpation: abdomen soft Skin: + pallor Psychiatric: Orientation: alert and oriented to person [facility] Vital Signs (Past 12 Hours) Vital Signs Temp Pulse Pulse Resp BP Pulse Ox 06/11/21 11:30 20 90 06/11/21 11:00 18 90 06/11/21 10:00 18 06/11/21 09:00 16 92 06/11/21 08:39 53 L 06/11/21 07:34 59 L 18 99 06/11/21 07:30 18 95 06/11/21 06:32 36.5 C 72 20 152/66 H 95 06/11/21 04:08 126/62 06/11/21 03:42 36.5 C 80 20 184/76 H 96 06/11/21 02:27 65 PG Care Time/CCT Total # of Minutes Spent Total Time Spent with Patient: Total time spent is greater than 50% in coordination of care (as documented) at patient's floor/unit and/or counseling patient: 100 minutes with > 50% of that time spent assessing the patient, discussing goals of care, addressing symptom management and collaborating with IDT Coding Level of Care Code 26179 Initial Inpt Care Lvl 3 Diagnoses Palliative care encounter Z51.5 Hypoxia R09.02 CHF (congestive heart failure) I50.9 Weakness R53.1 Time Spent (min) 100
--- NOTE | 2021-06-11 12:11 | Hospitalist Progress Note ---
Date of Service June 11, 2021 Assessment & Plan (1) Acute respiratory failure with hypoxia: Plan: This patient is an 86-year-old female with a history of severe progressive Lewy body dementia who presents with several days of worsening mental status, fever, and lethargy. She is almost completely nonverbal at baseline and high risk for aspiration. Acute hypoxic respiratory failure, fever-most likely secondary to aspiration pneumonia and acute on chronic diastolic CHF -She is 14 pounds up from her baseline weight and has significant peripheral edema-there could be a component of CHF to her hypoxia CXR unremarkable, however chest CT with atelectasis in right middle lobe and dependent portions of the bilateral lung-do not think I can exclude pneumonia in this setting CT abdomen/pelvis with large stool ball with rectal wall thickening compatible with proctocolitis-could be a cause of fever -Dopplers of the lower extremities negative for DVT -CT angiogram of the chest negative for PE but does show bibasilar groundglass opacities which could be atelectasis versus aspiration pneumonia Febrile to 38.6 on arrival and now resolved Covid negative Flu negative UA does not appear infected, urine culture no growth -Blood cultures-no growth to date Pro-Ghulam negative -Continue IV Zosyn empirically in case of aspiration pneumonia as well as proctocolitis -Patient not able to cooperate for use of flutter valve or incentive spirometry, but will add chest percussion therapy -Continue scheduled duo nebs -She is not able to take her usual p.o. Lasix-converted to IV Lasix 40 mg twice daily to achieve diuresis -Follow CBC, CMP in the morning (2) Metabolic encephalopathy: Plan: Secondary to febrile illness in the setting of severe dementia Seems to be somewhat improved but difficult to tell given baseline severe cognitive impairment (3) Fever: Plan: As above (4) Dementia: Plan: Lewy body dementia Progressive, does not follow commands and struggles to express one-word at baseline, does recognize her daughter at baseline Discussed baseline function, progressive illness, current condition with daughter and son upon admission and again with palliative medicine -At this time, she remains a high aspiration risk and is unable to complete a full speech pathology evaluation -Family agreeable to permissive aspiration-ordered a diet -Family also desires continued current care with IV antibiotics and oxygen therapy, okay to escalate to BiPAP/CPAP if respiratory status decompensates, but if cannot tolerate BiPAP/CPAP, then would convert to comfort measures only -Appreciate palliative medicine consultation (5) CHF (congestive heart failure): Plan: Acute on chronic diastolic CHF With 14 pound weight gain in last 2 weeks with peripheral edema Echocardiogram here with preserved EF proBNP elevated at 2282 Follows with [facility] cardiology Continue Lasix 40 mg IV twice daily-peripheral edema is improving but remains significantly hypoxic Follow BMP and magnesium and replace electrolytes as needed Creatinine is starting to rise to 1.66, will give 1 more dose of Lasix this evening and then hold for tomorrow Follow daily weights, strict I's and O's Monitor on telemetry (6) Edema: Plan: As above, likely secondary to CHF exacerbation Bilateral lower extremity venous Dopplers negative for deep Continue to diurese Lower extremity edema is improving (7) Anemia: Plan: Hemoglobin low at 9.4-10.0 normocytic This is her baseline hemoglobin for at least the last 2 years B12, folate both normal, TSH normal Iron studies show iron deficiency with transferrin saturation low at 12%-we will give IV iron if blood cultures are negative at 48-hour santa (8) CAD (coronary artery disease): Plan: I cannot find evidence of this in her records including review of cardiology consultation and notes from 2018 Nonetheless, troponin is negative, EKG without evidence of acute ischemia Continue aspirin, losartan, when tolerating p.o.-she has been unable to take these medications thus far (9) CKD (chronic kidney disease) stage 3, GFR 30-59 ml/min: Plan: Follows with Nephrology Baseline 1.31.9 Creatinine rising today to 1.66 after IV diuresis -Avoid nephrotoxins -renally dose meds when appropriate -follow BMP (10) Seizure disorder: Plan: Converted p.o. Depakote to IV valproic acid 250 mg IV 3 times daily until taking p.o. Not able to take p.o. gabapentin at this time Plan: DVT prophylaxis: Heparin SQ, VTE work-up as above Disposition-continued stay on telemetry Admission and Anticipated Discharge Date Admission Date: June 09, 2021 Subjective Patient remains on 15 L oxygen mask but was sleeping and in no distress when I saw her. She did wake up and mumbled some words but I could not understand what she was saying. She was not able to answer any questions with meaningful answers. I did discuss her care with palliative medicine nurse practitioner. I attempted to call the daughter later in the day but was not able to get through. Telemetry with normal sinus rhythm with rates in the 60s to 70s. Review of Systems Review of Systems: Unobtainable due to cognitive status Physical Exam Constitutional: WD/WN, vitals as above + obese Neck: trachea midline, no thyromegaly Respiratory: normal respiratory effort and + cough Auscultation: + crackles (Bibasilar) and + rhonchi (Throughout); no wheezes Cardiovascular: Rate/Rhythm: regular rate and regular rhythm Heart Sounds: no murmur Extremities: + edema (2+ pitting edema of the feet and legs distally bilaterally) Chest (Breasts): Chest: normal inspection of chest Gastrointestinal (Abdomen): normal bowel sounds, soft, nontender, no hepatosplenomegaly Musculoskeletal: Extremities: extremities normal to inspection; no cyanosis and no clubbing Skin: no rashes, warm and dry Neurologic: moves all extremities and awake; no focal motor deficits Speech / Cognition: + abnormal cognition Motor/Sensory: + tremor (Resting tremor in both hands/arms and head) Psychiatric: Orientation: alert Results & Data Results & Data ([facility]) Vital Signs (Past 12 Hours) Vital Signs Temp Pulse Pulse Resp BP Pulse Ox 06/11/21 11:30 20 90 06/11/21 11:00 18 90 06/11/21 10:00 18 06/11/21 09:00 16 92 06/11/21 08:39 53 L 06/11/21 07:34 59 L 18 99 06/11/21 07:30 18 95 06/11/21 06:32 36.5 C 72 20 152/66 H 95 06/11/21 04:08 126/62 06/11/21 03:42 36.5 C 80 20 184/76 H 96 06/11/21 02:27 65 Laboratory Results 06/11/21 06:30 06/11/21 06:[address] Care Time/CCT Total # of Minutes Spent Total Time Spent with Patient: Total time spent is greater than 50% in coordination of care (as documented) at patient's floor/unit and/or counseling patient: Coding Level of Care Code 40210 Subseq Hosp Care Lvl 3 Diagnoses Acute respiratory failure with hypoxia J96.01 Fever R50.9 Fever type: unspecified Dementia F03.90 CHF (congestive heart failure) I50.9 Edema R60.9 Anemia D64.9 Anemia type: unspecified type CAD (coronary artery disease) I25.10 CKD (chronic kidney disease) stage 3, GFR 30-59 ml/min N18.3 Seizure disorder G40.909 Metabolic encephalopathy G93.41 (1) Fever Fever type: unspecified Qualified Code(s): R50.9 - Fever, unspecified (2) Anemia Anemia type: unspecified type Qualified Code(s): D64.9 - Anemia, unspecified
[2021-06-12] MEDS: PIPERACILLIN/TAZOBACTAM 4.5 GM in DEXTROSE 5% 100 ML IV SCH ×2 (02:10→13:06)
[2021-06-12] MEDS: VALPROATE SOD 250 MG in DEXTROSE 5% 50 ML IV SCH ×3 (04:01→21:19)
[2021-06-12] MEDS: HEPARIN SOD 5,000 UNIT/0.5 ML VIAL SQ SCH ×3 (06:09→21:19)
[2021-06-12] MEDS: ALBUT/IPRATROP 3MG/0.5MG NEB 3 ML VIAL NEB SCH ×4 (07:12→20:27)
[2021-06-12] MEDS: SPIRONOLACTONE 12.5 MG TAB PO SCH (08:31)
[2021-06-12] MEDS: ASPIRIN 81 MG ECTAB PO SCH (08:31)
[2021-06-12] MEDS: bisacodyL 10 MG SUPP PR SCH (08:31)
[2021-06-12 08:58] LABS: Basophils # (auto) 0.01 K/uL (0-0.2); Basophils % (auto) 0.2 %; Eosinophils # (auto) 0.01 K/uL (0-0.5); Eosinophils % (auto) 0.2 %; Hematocrit (blood only) 29.9 % (37-47); Hemoglobin 9.3 g/dL (12.0-16.0); Immature Granulocytes # (auto) 0.03 K/uL (0.00-0.02); Immature Granulocytes % (auto) 0.5 %; Lymphocytes # (auto) 1.26 K/uL (1.2-3.4); Mean Corpuscular Hemoglobin 29.3 pg (25-34); Mean Corpuscular Hgb Conc 31.1 g/dL (32-36); Mean Corpuscular Volume 94.3 fL (80-100); Mean Platelet Volume 9.5 fL (7.4-10.4); Monocytes # (auto) 0.44 K/uL (0.11-0.59); Monocytes % (auto) 7.7 %; Neutrophils # (auto) 3.99 K/uL (1.4-6.5); Neutrophils % (auto) 69.4 %; Platelet Count 210 K/uL (130-400); RDW Coefficient of Variation 15.2 % (11.5-14.5); Red Blood Count 3.17 M/uL (4.2-5.4); White Blood Count 5.74 K/uL (4.8-10.8)
[2021-06-12 09:35] LABS: Albumin Level 2.3 gm/dl (3.4-5.0); BUN Creatinine Ratio 25.5 (10-20); Calcium 8.7 mg/dl (8.5-10.1); Creatinine Clr Calc Pharmacy 18.4 ml/min; Est GFR (African American) 20.4 ml/min; Est GFR (Non-African American) 17.6 ml/min; Magnesium 2.7 mg/dl (1.8-2.4); Potassium 3.6 mmol/L (3.5-5.1)
[2021-06-12 09:39] LABS: Albumin Globulin Ratio 0.5 (0.9-2); Bilirubin,Total 0.3 mg/dl (0.2-1); Globulin 4.6 gm/dl (2.5-4.0); Total Protein 6.9 gm/dl (6.4-8.2)
--- NOTE | 2021-06-12 11:24 | Hospitalist Progress Note ---
Date of Service June 12, 2021 Assessment & Plan (1) Acute respiratory failure with hypoxia: Plan: This patient is an 86-year-old female with a history of severe progressive Lewy body dementia who presents with several days of worsening mental status, fever, and lethargy. She is almost completely nonverbal at baseline and high risk for aspiration. Acute hypoxic respiratory failure, fever-most likely secondary to aspiration pneumonia and acute on chronic diastolic CHF -She is 14 pounds up from her baseline weight on admission and has significant peripheral edema-there could be a component of CHF to her hypoxia CXR unremarkable, however chest CT with atelectasis in right middle lobe and dependent portions of the bilateral lung-do not think I can exclude pneumonia in this setting CT abdomen/pelvis with large stool ball with rectal wall thickening compatible with proctocolitis-could be a cause of fever -Dopplers of the lower extremities negative for DVT -CT angiogram of the chest negative for PE but does show bibasilar groundglass opacities which could be atelectasis versus aspiration pneumonia Febrile to 38.6 on arrival and now resolved Covid negative Flu negative UA does not appear infected, urine culture no growth -Blood cultures-no growth to date Pro-Ghulam negative Was diuresed and only minimal improvement in hypoxia, but now with 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 so holding lasix and aldactone -Continue IV Zosyn empirically in case of aspiration pneumonia as well as proctocolitis -Patient not able to cooperate for use of flutter valve or incentive spirometry, trialed chest percussion therapy but pt continues to not be cooperative for this as per RT -Continue scheduled duo nebs -continue to encourage deep breaths by RN for atelectasis -Follow CBC, CMP in the morning (2) Metabolic encephalopathy: Plan: Secondary to febrile illness in the setting of severe dementia Seems to be improving in that she is speaking more and more alert and awake on 06/12, but difficult to tell given baseline severe cognitive impairment (3) Fever: Plan: As above (4) Dementia: Plan: Lewy body dementia Progressive, does not follow commands and struggles to express one-word at baseline, does recognize her daughter at baseline Discussed baseline function, progressive illness, current condition with daughter and son upon admission and again with palliative medicine -At this time, she remains a high aspiration risk and is unable to complete a full speech pathology evaluation -Family agreeable to permissive aspiration-ordered a diet -Family also desires continued current care with IV antibiotics and oxygen therapy, okay to escalate to BiPAP/CPAP if respiratory status decompensates, but if cannot tolerate BiPAP/CPAP, then would convert to comfort measures only -Appreciate palliative medicine consultation (5) CHF (congestive heart failure): Plan: Acute on chronic diastolic CHF With 14 pound weight gain in last 2 weeks with peripheral edema Echocardiogram here with preserved EF proBNP elevated at 2282 Follows with [facility] cardiology Received Lasix 40 mg IV twice daily-peripheral edema is improving but remains significantly hypoxic Weight is now down 7kg since admission [facility] [employer] rising and lasix now on hold Follow BMP and magnesium and replace electrolytes as needed Follow daily weights, strict I's and O's Monitor on telemetry (6) Edema: Plan: As above, likely secondary to CHF exacerbation Bilateral lower extremity venous Dopplers negative for deep improved with diuresis Lower extremity edema is improving (7) Anemia: Plan: Hemoglobin low at 9.4-10.0 normocytic This is her baseline hemoglobin for at least the last 2 years B12, folate both normal, TSH normal Iron studies show iron deficiency with transferrin saturation low at 12%-we will give IV iron if blood cultures are negative at 48-hour santa-give today (8) CAD (coronary artery disease): Plan: I cannot find evidence of this in her records including review of cardiology consultation and notes from 2018 Nonetheless, troponin is negative, EKG without evidence of acute ischemia Continue aspirin, losartan, when tolerating p.o.-she has been unable to take these medications thus far (9) CKD (chronic kidney disease) stage 3, GFR 30-59 ml/min: Plan: Follows with Nephrology With BELLE on CKD stage 3 today from IV diuresis-freight team associate up to 2.44 -making urine, Chatterjee in place -hold lasix and aldactone Baseline 1.31.9 -Avoid nephrotoxins -renally dose meds when appropriate -follow BMP -would not give fluid as she remains somewhat hypervolemic -she is now taking some po liquids by mouth (10) Seizure disorder: Plan: Converted p.o. Depakote to IV valproic acid 250 mg IV 3 times daily until taking p.o. more reliably Not able to take p.o. gabapentin at this time Plan: DVT prophylaxis: Heparin SQ, VTE work-up as above Disposition-continued stay on telemetry Admission and Anticipated Discharge Date Admission Date: June 09, 2021 Subjective Pt much more awake and alert today, more interactive. Not answering questions appropriately, but does follow commands to take deep breaths. Had a BM overnight and RN reports she ate half her breakfast today. Tele with artifact and SB 50s rates Review of Systems Review of Systems: Unobtainable due to cognitive status Physical Exam Constitutional: WD/WN, vitals as above + obese Neck: trachea midline, no thyromegaly Respiratory: normal respiratory effort Auscultation: + rhonchi (occasional bilat); no crackles and no wheezes Cardiovascular: Rate/Rhythm: regular rate and regular rhythm Heart Sounds: no murmur Extremities: + edema (2+ pitting edema of the feet and legs distally bilaterally) edema improving from previous Chest (Breasts): Chest: normal inspection of chest Gastrointestinal (Abdomen): normal bowel sounds, soft, nontender, no hepatosplenomegaly Musculoskeletal: Extremities: extremities normal to inspection; no cyanosis and no clubbing Skin: no rashes, warm and dry Neurologic: moves all extremities and awake; no focal motor deficits Speech / Cognition: + abnormal cognition Motor/Sensory: + tremor (Resting tremor in both hands/arms and head) Psychiatric: Orientation: alert speaking more today Results & Data Results & Data ([facility]) Vital Signs (Past 12 Hours) Vital Signs Temp Pulse Pulse Resp BP Pulse Ox 06/12/21 09:30 20 92 06/12/21 09:00 20 91 06/12/21 07:32 54 L 06/12/21 07:30 67 20 146/99 H 90 06/12/21 07:15 54 L 24 77 L 06/12/21 04:54 36.9 C 54 L 20 149/63 H 97 06/12/21 01:53 62 Laboratory Results 06/12/21 06/12/21 06/11/21 Range/Units 08:43 08:43 06:30 WBC 5.74 (4.8-10.8) K/uL RBC 3.17 L (4.2-5.4) M/uL Hgb 9.3 L (12.0-16.0) g/dL Hct 29.9 L (37-47) % MCV 94.3 (80-100) fL MCH 29.3 (25-34) pg MCHC 31.1 L (32-36) g/dL RDW Std Deviation 52.0 H (36.4-46.3) fL RDW Coeff of Esmer 15.2 H (11.5-14.5) % Plt Count 210 (130-400) K/uL MPV 9.5 (7.4-10.4) fL Immature Gran % (Auto) 0.5 % Neut % (Auto) 69.4 % Lymph % (Auto) 22.0 % Weber % (Auto) 7.7 % Eos % (Auto) 0.2 % Baso % (Auto) 0.2 % Neut # (Auto) 3.99 (1.4-6.5) K/uL Lymph # (Auto) 1.26 (1.2-3.4) K/uL Weber # (Auto) 0.44 (0.11-0.59) K/uL Eos # (Auto) 0.01 (0-0.5) K/uL Baso # (Auto) 0.01 (0-0.2) K/uL Immature Gran # (Auto) 0.03 H (0.00-0.02) K/uL Sodium 142 (136-145) mmol/L Potassium 3.6 (3.5-5.1) mmol/L Chloride 102 (98-107) mmol/L Carbon Dioxide 33 H (21-32) mmol/L Anion Gap 7.0 (3-11) BUN 62 H (7-18) mg/dl Creatinine 2.44 H D (0.6-1.2) mg/dl Est Cr Clr Drug Dosing 18.4 ml/min Est GFR ( Amer) 20.4 ml/min Est GFR (Non-Af Amer) 17.6 ml/min BUN/Creatinine Ratio 25.5 H (10-20) Glucose 153 H (70-99) mg/dl Calcium 8.7 (8.5-10.1) mg/dl Magnesium 2.7 H (1.8-2.4) mg/dl Total Bilirubin 0.3 (0.2-1) mg/dl AST 17 (15-37) U/L ALT 11 L (12-78) U/L Alkaline Phosphatase 42 L (45-117) U/L Total Protein 6.9 (6.4-8.2) gm/dl Albumin 2.3 L (3.4-5.0) gm/dl Globulin 4.6 H (2.5-4.0) gm/dl Albumin/Globulin Ratio 0.5 L (0.9-2) Vitamin B12 1969 H (193-986) pg/ml Folate > 20.00 (>5.38) ng/ml PG Care Time/CCT Total # of Minutes Spent Total Time Spent with Patient: Total time spent is greater than 50% in coordination of care (as documented) at patient's floor/unit and/or counseling patient: Coding Level of Care Code 45907 Subseq Hosp Care Lvl 3 Diagnoses Acute respiratory failure with hypoxia J96.01 Metabolic encephalopathy G93.41 Fever R50.9 Fever type: unspecified Dementia F03.90 CHF (congestive heart failure) I50.9 Edema R60.9 Anemia D64.9 Anemia type: unspecified type CAD (coronary artery disease) I25.10 CKD (chronic kidney disease) stage 3, GFR 30-59 ml/min N18.3 Seizure disorder G40.909 (1) Fever Fever type: unspecified Qualified Code(s): R50.9 - Fever, unspecified (2) Anemia Anemia type: unspecified type Qualified Code(s): D64.9 - Anemia, unspecified
[2021-06-12] MEDS ORDERED: IRON SUCROSE 300 MG in SODIUM CHLORIDE 0.9% 250 ML IV ONE (13:30)
[2021-06-13] MEDS: PIPERACILLIN/TAZOBACTAM 4.5 GM in DEXTROSE 5% 100 ML IV SCH ×2 (02:01→15:27)
[2021-06-13] MEDS: VALPROATE SOD 250 MG in DEXTROSE 5% 50 ML IV SCH ×3 (03:55→21:06)
[2021-06-13] MEDS: ALBUT/IPRATROP 3MG/0.5MG NEB 3 ML VIAL NEB SCH ×4 (05:57→19:04)
[2021-06-13] MEDS: HEPARIN SOD 5,000 UNIT/0.5 ML VIAL SQ SCH ×2 (06:20→21:05)
[2021-06-13] MEDS: ASPIRIN 81 MG ECTAB PO SCH (08:55)
[2021-06-13] MEDS: bisacodyL 10 MG SUPP PR SCH (08:56)
[2021-06-13 09:24] LABS: BUN Creatinine Ratio 22.6 (10-20); Creatinine Clr Calc Pharmacy 14.5 ml/min; Est GFR (African American) 14.9 ml/min; Est GFR (Non-African American) 12.9 ml/min
[2021-06-13] MEDS ORDERED: POTASSIUM CHLORIDE CRTAB 20 MEQ TABCR PO STA (10:27)
[2021-06-13] MEDS ORDERED: SODIUM CHLORIDE 0.9% 1000ML 1,000 ML IV SCH (10:30)
[2021-06-13] MEDS: POTASSIUM CHLORIDE / WTR 10 MEQ/100 ML PLCT IV SCH ×4 (11:20→15:27)
--- NOTE | 2021-06-13 14:24 | Hospitalist Progress Note ---
Date of Service June 13, 2021 Assessment & Plan (1) Acute respiratory failure with hypoxia: Plan: This patient is an 86-year-old female with a history of severe progressive Lewy body dementia who presents with several days of worsening mental status, fever, and lethargy. She is almost completely nonverbal at baseline and high risk for aspiration. Acute hypoxic respiratory failure, fever-most likely secondary to aspiration pneumonia and acute on chronic diastolic CHF -She was 14 pounds up from her baseline weight on admission and had significant peripheral edema-there could be a component of CHF to her hypoxia CXR unremarkable, however chest CT with atelectasis in right middle lobe and dependent portions of the bilateral lung-do not think I can exclude pneumonia in this setting -CT abdomen/pelvis with large stool ball with rectal wall thickening compatible with proctocolitis-could be a cause of fever. She has been moving her bowels since then -Dopplers of the lower extremities negative for DVT -CT angiogram of the chest negative for PE but does show bibasilar groundglass opacities which could be atelectasis versus aspiration pneumonia Febrile to 38.6 on arrival and now resolved with antibiotic therapy Covid negative Flu negative UA does not appear infected, urine culture no growth -Blood cultures-no growth to date Pro-Ghulam negative Was diuresed and only minimal improvement in hypoxia, and continues with worsening BELLE/rising fruit thinner-continue to hold lasix and aldactone and will actually give 1 L of normal saline today Initially requiring 15 L oxygen mask for several days in a row, but hypoxia continues to improve each daydown to 6 L nasal cannula today -Continue IV Zosyn empirically in case of aspiration pneumonia as well as proctocolitis although the latter seems unlikely at this point -Patient not able to cooperate for use of flutter valve or incentive spirometry, trialed chest percussion therapy but pt continues to not be cooperative for this as per RT -Continue scheduled duo nebs -continue to encourage deep breaths by RN for atelectasis -Follow CBC, CMP in the morning (2) Metabolic encephalopathy: Plan: Secondary to febrile illness, aspiration pneumonia, in the setting of severe dementia Seems to be significantly improved-initially was quite lethargic and somnolent, agitated and violent outbursts On 06/12-06/13, she is much more alert, awake, and interactive, speaking more clearly and at times able to give appropriate answers Her son at the bedside on 06/13 says this is the most coherent she has been in over a year-he is cautiously optimistic, but we did discuss that this may only be a temporary effect of treatment for aspiration pneumonia I suppose it is possible that if she was either noncompliant with seizure medications or having difficulty with absorption, perhaps the IV Depakote is improving subclinical seizures? (3) CKD (chronic kidney disease) stage 3, GFR 30-59 ml/min: Plan: Follows with Nephrology With BELLE on CKD stage 3 today from IV diuresis-fruit thinner worsened again despite holding diuretics up to 3.16, BUN up to 71 -making urine, Chatterjee in place -Continue to hold lasix and aldactone -Continue to hold losartan -Give 1 L normal saline Baseline 1.31.9 -Avoid nephrotoxins -renally dose meds when appropriate -follow BMP in the morning -Continue to encourage p.o. fluid intake (4) Fever: Plan: As above (5) Dementia: Plan: Lewy body dementia Progressive, does not follow commands and struggles to express one-word at baseline, does recognize her daughter at baseline Discussed baseline function, progressive illness, current condition with daughter and son upon admission and again with palliative medicine -At this time, she remains a high aspiration risk and is unable to complete a full speech pathology evaluation, however with improvement in mental status on 06/13-we will ask speech therapy to reevaluate -Family agreeable to permissive aspiration-ordered a diet -Family also desires continued current care with IV antibiotics and oxygen therapy, okay to escalate to BiPAP/CPAP if respiratory status decompensates, but if cannot tolerate BiPAP/CPAP, then would convert to comfort measures only -Appreciate palliative medicine consultation (6) CHF (congestive heart failure): Plan: Acute on chronic diastolic CHF With 14 pound weight gain in last 2 weeks with peripheral edema Echocardiogram here with preserved EF proBNP elevated at 2282 Follows with [facility] cardiology Received Lasix 40 mg IV twice daily-peripheral edema is improving but remains significantly hypoxic Weight is down significantly since admission as above Human Resources Services Specialist rising and lasix now on hold Follow BMP and magnesium and replace electrolytes as needed Follow daily weights, strict I's and O's Monitor on telemetry (7) Edema: Plan: As above, likely secondary to CHF exacerbation Bilateral lower extremity venous Dopplers negative for deep improved with diuresis Lower extremity edema is improving (8) Anemia: Plan: Hemoglobin low at 9.4-10.0 normocytic This is her baseline hemoglobin for at least the last 2 years B12, folate both normal, TSH normal Iron studies show iron deficiency with transferrin saturation low at 12% -Continue IV Venofer x3 doses-second dose to be given today (9) CAD (coronary artery disease): Plan: I cannot find evidence of this in her records including review of cardiology consultation and notes from 2018 Nonetheless, troponin is negative, EKG without evidence of acute ischemia Continue aspirin, losartan, when tolerating p.o.-she has been unable to take these medications thus far (10) Seizure disorder: Plan: Converted p.o. Depakote to IV valproic acid 250 mg IV 3 times daily until taking p.o. more reliably Not able to take p.o. gabapentin at this time-given improvement in mentation, would permanently discontinue gabapentin Will convert to p.o. Depakote hopefully tomorrow (11) Hypokalemia: Plan: Potassium very low at 3.0 Replace with IV and p.o. potassium chloride today Follow BMP in the morning (12) Constipation: Plan: Had fecal ball seen on CT abdomen/pelvis on admission Has now had multiple bowel movements since arrival Continue daily bisacodyl suppository Plan: DVT prophylaxis: Heparin SQ-decrease dose to 5000 every 12 given renal impairment Disposition-continued stay on telemetry, eventually back to Center care if renal failure improving Admission and Anticipated Discharge Date Admission Date: June 09, 2021 Subjective Patient is the most alert, awake, and interactive I have seen her all week. She had a photo album with family pictures and it at her bedside table and I pointed to pictures and she said "that is my son Joe, and that is my daughter Keri." She is actually answering some questions appropriately. Her son was at the bedside and said this is the best he is seeing his mom in over a year and he is in shock. Her oxygen has been weaned down through the day to 6 L on the oxygen mask. Telemetry with a lot of artifact but normal sinus rhythm with rates in the 60s. Review of Systems Review of Systems: Unobtainable due to cognitive status Physical Exam Constitutional: WD/WN, vitals as above + obese Neck: trachea midline, no thyromegaly Respiratory: normal respiratory effort Auscultation: + rhonchi (occasional bilat); no crackles and no wheezes Cardiovascular: Rate/Rhythm: regular rate and regular rhythm Heart Sounds: no murmur Extremities: + edema (1+ pitting edema of the feet and legs, improved) Chest (Breasts): Chest: normal inspection of chest Gastrointestinal (Abdomen): normal bowel sounds, soft, nontender, no hepatosplenomegaly Musculoskeletal: Extremities: extremities normal to inspection; no cyanosis and no clubbing Skin: no rashes, warm and dry Neurologic: moves all extremities and awake; no focal motor deficits Speech / Cognition: + abnormal cognition Motor/Sensory: + tremor (Resting tremor in both hands/arms and head) Psychiatric: Orientation: alert Results & Data Results & Data ([facility]) Vital Signs (Past 12 Hours) Vital Signs Temp Pulse Resp BP Pulse Ox 06/13/21 11:35 36.7 C 106 H 20 126/69 98 06/13/21 10:12 59 L 20 97 06/13/21 08:15 36.7 C 103 H 18 116/55 L 95 06/13/21 05:57 89 24 95 06/13/21 04:00 36.7 C 62 18 133/71 96 Laboratory Results 06/13/21 Range/Units 08:02 Sodium 142 (136-145) mmol/L Potassium 3.0 L D (3.5-5.1) mmol/L Chloride 101 (98-107) mmol/L Carbon Dioxide 27 (21-32) mmol/L Anion Gap 14.0 H (3-11) BUN 71 H (7-18) mg/dl Creatinine 3.16 H D (0.6-1.2) mg/dl Est Cr Clr Drug Dosing 14.5 ml/min Est GFR ( Amer) 14.9 ml/min Est GFR (Non-Af Amer) 12.9 ml/min BUN/Creatinine Ratio 22.6 H (10-20) Glucose 95 (70-99) mg/dl Calcium 8.0 L (8.5-10.1) mg/dl PG Care Time/CCT Total # of Minutes Spent Total Time Spent with Patient: Total time spent is greater than 50% in coordination of care (as documented) at patient's floor/unit and/or counseling patient: Coding Level of Care Code 29990 Subseq Hosp Care Lvl 3 Diagnoses Acute respiratory failure with hypoxia J96.01 Metabolic encephalopathy G93.41 Fever R50.9 Fever type: unspecified Dementia F03.90 CHF (congestive heart failure) I50.9 Edema R60.9 Anemia D64.9 Anemia type: unspecified type CAD (coronary artery disease) I25.10 CKD (chronic kidney disease) stage 3, GFR 30-59 ml/min N18.3 Seizure disorder G40.909 Hypokalemia E87.6 Constipation K59.00 (1) Fever Fever type: unspecified Qualified Code(s): R50.9 - Fever, unspecified (2) Anemia Anemia type: unspecified type Qualified Code(s): D64.9 - Anemia, unspecified
[2021-06-13] MEDS ORDERED: IRON SUCROSE 300 MG in SODIUM CHLORIDE 0.9% 250 ML IV ONE (22:15)
[2021-06-14] MEDS: PIPERACILLIN/TAZOBACTAM 4.5 GM in DEXTROSE 5% 100 ML IV SCH (01:31)
[2021-06-14] MEDS: VALPROATE SOD 250 MG in DEXTROSE 5% 50 ML IV SCH ×2 (04:30→05:39)
[2021-06-14] MEDS: ALBUT/IPRATROP 3MG/0.5MG NEB 3 ML VIAL NEB SCH ×4 (07:17→20:06)
[2021-06-14 08:16] LABS: Hematocrit (blood only) 26.5 % (37-47); Hemoglobin 8.4 g/dL (12.0-16.0); Mean Corpuscular Hemoglobin 29.4 pg (25-34); Mean Corpuscular Hgb Conc 31.7 g/dL (32-36); Mean Corpuscular Volume 92.7 fL (80-100); Mean Platelet Volume 9.7 fL (7.4-10.4); Platelet Count 184 K/uL (130-400); RDW Coefficient of Variation 15.3 % (11.5-14.5); RDW Standard Deviation 52.2 fL (36.4-46.3); Red Blood Count 2.86 M/uL (4.2-5.4); White Blood Count 6.34 K/uL (4.8-10.8)
[2021-06-14 08:54] LABS: BUN Creatinine Ratio 20.6 (10-20); Calcium 7.8 mg/dl (8.5-10.1); Creatinine Clr Calc Pharmacy 13.2 ml/min; Est GFR (African American) 13.3 ml/min; Est GFR (Non-African American) 11.5 ml/min; Magnesium 2.6 mg/dl (1.8-2.4); Potassium 3.3 mmol/L (3.5-5.1)
[2021-06-14 09:05] LABS: Basophils # (auto) 0.12 K/uL (0-0.2); Basophils % (auto) 1.9 %; Eosinophils # (auto) 0.19 K/uL (0-0.5); Immature Granulocytes # (auto) 0.62 K/uL (0.00-0.02); Immature Granulocytes % (auto) 9.8 %; Lymphocytes # (auto) 1.57 K/uL (1.2-3.4); Lymphocytes % (auto) 24.8 %; Monocytes # (auto) 0.61 K/uL (0.11-0.59); Monocytes % (auto) 9.6 %; Neutrophils # (auto) 3.23 K/uL (1.4-6.5); Neutrophils % (auto) 50.9 %
[2021-06-14] MEDS: bisacodyL 10 MG SUPP PR SCH (09:55)
[2021-06-14] MEDS: HEPARIN SOD 5,000 UNIT/0.5 ML VIAL SQ SCH ×2 (09:55→20:00)
[2021-06-14] MEDS ORDERED: POTASSIUM CHLORIDE CRTAB 20 MEQ TABCR PO STA (09:55)
[2021-06-14] MEDS: ASPIRIN 81 MG ECTAB PO SCH (09:55)
[2021-06-14] MEDS: THIAMINE HCL 500 MG in SODIUM CHLORIDE 0.9% 50 ML IV SCH ×2 (09:55→17:35)
[2021-06-14] MEDS ORDERED: SODIUM CHLORIDE 0.9% 1000ML 1,000 ML IV SCH (10:00)
--- NOTE | 2021-06-14 12:31 | Hospitalist Progress Note ---
Date of Service June 14, 2021 Assessment & Plan (1) Acute respiratory failure with hypoxia: Plan: This patient is an 86-year-old female with a history of severe progressive Lewy body dementia who presents with several days of worsening mental status, fever, and lethargy. She is almost completely nonverbal at baseline and high risk for aspiration. Acute hypoxic respiratory failure, fever-most likely secondary to aspiration pneumonia and acute on chronic diastolic CHF -She was 14 pounds up from her baseline weight on admission and had significant peripheral edema-there could be a component of CHF to her hypoxia CXR unremarkable, however chest CT with atelectasis in right middle lobe and dependent portions of the bilateral lung-do not think I can exclude pneumonia in this setting -CT abdomen/pelvis with large stool ball with rectal wall thickening compatible with proctocolitis-could be a cause of fever. She has been moving her bowels since then -Dopplers of the lower extremities negative for DVT -CT angiogram of the chest negative for PE but does show bibasilar groundglass opacities which could be atelectasis versus aspiration pneumonia Febrile to 38.6 on arrival and now resolved with antibiotic therapy Covid negative Flu negative UA does not appear infected, urine culture no growth -Blood cultures-no growth to date Pro-Ghulam negative Was diuresed and initially only minimal improvement in hypoxia, but now continues with worsening BELLE/rising carport erector-continue to hold lasix and aldactone and continuing IVFs today Initially requiring 15 L oxygen mask for several days in a row, but hypoxia continues to improve each day-down to 6 L nasal cannula today, stable from yesterday -dc IV Zosyn for aspiration pneumonia and convert to Augmentin x 1 more day -Patient not able to cooperate for use of flutter valve or incentive spirometry, trialed chest percussion therapy but pt continues to not be cooperative for this as per RT -Continue scheduled duo nebs -continue to encourage deep breaths by RN for atelectasis -Follow CBC, BMP in the morning (2) Metabolic encephalopathy: Plan: Secondary to febrile illness, aspiration pneumonia, in the setting of severe dementia Seems to be significantly improved-initially was quite lethargic and somnolent, agitated and violent outbursts Since 06/12, she is much more alert, awake, and interactive, speaking more clearly and at times able to give appropriate answers Her son at the bedside on 06/13 says this is the most coherent she has been in over a year-he is cautiously optimistic, but we did discuss that this may only be a temporary effect of treatment for aspiration pneumonia I suppose it is possible that if she was either noncompliant with seizure medications or having difficulty with absorption, perhaps the IV Depakote is improving subclinical seizures? Also, she has been off her usual gabapentin and hydrocodone and this is also likely contributing to improvement of her mentation (3) CKD (chronic kidney disease) stage 3, GFR 30-59 ml/min: Plan: Follows with Nephrology With BELLE on CKD stage 3 secondary to IV diuresis, losartan use, and also received IV contrast for CTA Chest -carport erector worsened again today to 3.47, BUN 71 UOP low overnight but picking up today with IVFs - Chatterjee in place -Continue to hold lasix and aldactone -Continue to hold losartan -restart normal saline again today at 80mL/hr -[facility] -consult Nephro appreciated Baseline carport erector 1.31.9 -Avoid nephrotoxins -renally dose meds when appropriate -follow BMP in the morning -Continue to encourage p.o. fluid intake which she is now doing very well with -discussed possibility of HD with daughter-no need for decision at this point but seems it would be inconsistent with goals of care (4) Fever: Plan: As above, now resolved (5) Dementia: Plan: Lewy body dementia Progressive, does not follow commands and struggles to express one-word at baseline, does recognize her daughter at baseline Discussed baseline function, progressive illness, current condition with daughter and son upon admission and again with palliative medicine -At this time, she remains a high aspiration risk and is unable to complete a full speech pathology evaluation, however with improvement in mental status on 06/13-we will ask speech therapy to reevaluate -Family agreeable to permissive aspiration-ordered a diet -Family also desires continued current care with IV antibiotics and oxygen therapy, okay to escalate to BiPAP/CPAP if respiratory status decompensates, but if cannot tolerate BiPAP/CPAP, then would convert to comfort measures only -Appreciate palliative medicine consultation (6) CHF (congestive heart failure): Plan: Acute on chronic diastolic CHF With 14 pound weight gain in last 2 weeks with peripheral edema Echocardiogram here with preserved EF proBNP elevated at 2282 Follows with [facility] cardiology Received Lasix 40 mg IV twice daily-peripheral edema is improving but remains significantly hypoxic Weight is down significantly since admission as above Business Process Expert rising and lasix now on hold Follow BMP and magnesium and replace electrolytes as needed Follow daily weights, strict I's and O's Monitor on telemetry (7) Edema: Plan: As above, likely secondary to CHF exacerbation Bilateral lower extremity venous Dopplers negative for deep improved with diuresis Lower extremity edema is improving (8) Anemia: Plan: Hemoglobin low at 9.4-10.0 normocytic This is her baseline hemoglobin for at least the last 2 years B12, folate both normal, TSH normal Iron studies show iron deficiency with transferrin saturation low at 12% -Continue IV Venofer x3 doses-third dose to be given today (9) CAD (coronary artery disease): Plan: I cannot find evidence of this in her records including review of cardiology consultation and notes from 2018 Nonetheless, troponin is negative, EKG without evidence of acute ischemia Continue aspirin, holding losartan (10) Seizure disorder: Plan: Converted p.o. Depakote to IV valproic acid 250 mg IV 3 times daily until taking p.o. more reliably Not able to take p.o. gabapentin at this time-given improvement in mentation, would permanently discontinue gabapentin Will convert to p.o. Depakote today (11) Hypokalemia: Plan: still low but improved from yesterday Replace with p.o. potassium chloride today cautiously given BELLE Follow BMP in the morning (12) Constipation: Plan: Had fecal ball seen on CT abdomen/pelvis on admission Has now had multiple bowel movements since arrival dc daily bisacodyl suppository Plan: DVT prophylaxis: Heparin SQ-decrease dose to 5000 every 12 given renal impairment Disposition-continued stay on telemetry, eventually back to [facility] if renal failure improving Admission and Anticipated Discharge Date Admission Date: June 09, 2021 Subjective Pt being fed lunch by the registered nursing professor and ate almost everything when I saw her. She was happy and alert, interactive. She denied SOB or pain. She reached out and held my hand and said "oh my, your hands are ice cold!" When asked if she knew where she was, she stated "Well I should hope so." She wasn't able to tell me but when I told her she was in the hospital, she seemed pleasantly surprised. UOP was low o/n but has picked up this AM Review of Systems Review of Systems: All systems reviewed & are unremarkable except as noted in HPI & below Physical Exam Constitutional: WD/WN, vitals as above + obese Neck: trachea midline, no thyromegaly Respiratory: normal respiratory effort Auscultation: lungs clear to auscultation bilaterally Cardiovascular: Rate/Rhythm: regular rate and regular rhythm Heart Sounds: no murmur Extremities: + edema (1+ pitting edema of the feet and legs, improved) Chest (Breasts): Chest: normal inspection of chest Gastrointestinal (Abdomen): normal bowel sounds, soft, nontender, no hepatosplenomegaly Musculoskeletal: Extremities: extremities normal to inspection; no cyanosis and no clubbing Skin: no rashes, warm and dry Neurologic: moves all extremities and awake; no focal motor deficits Speech / Cognition: + abnormal cognition Motor/Sensory: + tremor (Resting tremor in both hands/arms and head) Psychiatric: Orientation: alert and cooperative Results & Data Results & Data ([facility]) Vital Signs (Past 12 Hours) Vital Signs Temp Pulse Resp BP Pulse Ox 06/14/21 11:30 36.9 C 79 20 149/63 H 94 06/14/21 10:50 84 20 94 06/14/21 07:17 88 18 95 06/14/21 04:10 37.0 C 61 18 124/68 99 Laboratory Results 06/14/21 07:53 06/14/21 07:53 PG Care Time/CCT Total # of Minutes Spent Total Time Spent with Patient: Total time spent is greater than 50% in coordination of care (as documented) at patient's floor/unit and/or counseling patient: Coding Level of Care Code 75194 Subseq Hosp Care Lvl 3 Diagnoses Acute respiratory failure with hypoxia J96.01 Metabolic encephalopathy G93.41 CKD (chronic kidney disease) stage 3, GFR 30-59 ml/min N18.3 Fever R50.9 Fever type: unspecified Dementia F03.90 CHF (congestive heart failure) I50.9 Edema R60.9 Anemia D64.9 Anemia type: unspecified type CAD (coronary artery disease) I25.10 Seizure disorder G40.909 Hypokalemia E87.6 Constipation K59.00 (1) Fever Fever type: unspecified Qualified Code(s): R50.9 - Fever, unspecified (2) Anemia Anemia type: unspecified type Qualified Code(s): D64.9 - Anemia, unspecified
[2021-06-14] MEDS ORDERED: bisacodyL 10 MG SUPP PR PRN (13:06)
[2021-06-14] MEDS: DIVALPROEX SODIUM SPRINKLE 125 MG CAP PO SCH ×2 (13:59→20:00)
[2021-06-14] MEDS ORDERED: IRON SUCROSE 300 MG in SODIUM CHLORIDE 0.9% 250 ML IV ONE (14:00)
[2021-06-14 16:27] LABS: Appearance Urine Cloudy (Clear); Bacteria Urine Automated Negative (Negative); Bilirubin Urine Negative (Negative); Blood Urine 3+ (Negative); Color Urine Yellow; Epithelial Cell Urine Auto >30 /lpf (0-5); Glucose Urine UA Negative (Negative); Ketones Urine Trace (Negative); Leukocyte Esterase Urine Trace (Negative); Nitrite Urine Negative (Negative); Protein Urine 3+ (Negative); RBC Urine Automated >30 /hpf (0-4); Specific Gravity Urine 1.036 (1.000-1.030); Urobilinogen Urine Negative (Negative); WBC Urine Automated >30 /hpf (0-5)
[2021-06-14 16:59] LABS: Cast Urine Automated 0 /lpf (0-5)
[2021-06-14 17:01] LABS: Renal Epithelial Cells Urine 0-5 /lpf (0-5)
[2021-06-14] MEDS: AMOXICILLIN/CLAVULANATE 875 MG TAB PO SCH (17:35)
[2021-06-14] MEDS ORDERED: NORMOSOL-R 1,000 ML IV SCH (18:15)
--- NOTE | 2021-06-14 18:23 | Nephrology Consultation ---
Date of Consultation June 14, 2021 Assessment & Plan (1) BELLE (acute kidney injury): (2) Chronic kidney disease, stage 3a: (3) Dementia: BELLE consistent with suspected ATN. Possible contrast nephropathy following CTA. Oliguric. CKD at least CKD III at baseline. Unobstructed on CT at admi ssion. Chatterjee draining minimal urine. Intravascularly depleted despite increased TBW. Poor nutrition complicating volume status. Thankfully no evidence of decompensated CHF on exam. Unfortunately prognosis is guarded. IVF's have been ordered overnight to encourage intravascular expansion and hopefully some urine output. Medications are appropriate for kidney function. Losartan and diuretics have been held. I reviewed goals of care with Chela's daughter. We discussed dialysis. Unfortunately, if kidney dysfunction progresses, hemodialysis is not likely to provide any therapeutic benefit given other medical comorbidities including advanced dementia. Medications otherwise appropriate for kidney function. Document strict I/O's and repeat metabolic profile tomorrow AM. History of Present Illness Reason for Consultation: BELLE Requesting Physician: Montserrat Horton MD Attending Physician: Montserrat Horton MD History of Present Illness Chela Bolanos is an 86-year-old with Lewy body dementia, hypertension, seizure disorder, and chronic kidney disease. Nephrology consultation requested for BELLE. Chela was seen and evaluated this evening with her daughter (Radha) at the bedside. Chela is not able to provide history. History was obtained from Radha and review of the medical record. Chela has advanced dementia. She has been residing at [facility]. She presented to [facility] on June 09 for admission. Evaluation notable for aspiration pneumonia and metabolic encephalopathy. Creatinine 1.45 mg/dL on admission. Creatinine has increased progressively since admission to 3.45 mg/dL today. CT abdomen and pelvis on admission revealed the kidneys to be unobstructed. Cortical atrophy is symmetric. There are multiple small proteinaceous/hemorrhagic cysts in the kidneys. CTA of the chest obtained on June 10 demonstrated pulmonary hypertension and cardiomegaly. UA/microscopy demonstrating a few WBC but otherwise bland with culture demonstrating mixed leidy. Losartan, spironolactone, and furosemide have been held. Chela is oliguric. Allergies Allergy/AdvReac Type Severity Reaction Status Date / Time iodine Allergy Unknown Unknown Verified 06/09/21 14:23 memantine Allergy Unknown Unknown Verified 06/09/21 14:23 pantoprazole Allergy Unknown Unknown Verified 06/09/21 14:23 shellfish derived Allergy Unknown Unknown Verified 06/09/21 14:23 crab Allergy Gastrointestinal Verified 06/09/21 14:23 Upset Home Medications Medication Instructions Recorded Confirmed Type allopurinol 100 mg tablet 100 mg PO DAILY 06/27/18 06/09/21 History losartan 100 mg tablet 100 mg PO DAILY 01/31/19 06/09/21 History multivitamin (Daily-Valorie) 1 tab PO QPM 01/31/19 06/09/21 History Lactobacillus acidophilus 1 tab PO DAILY 04/27/19 06/09/21 History (Acidophilus) bisacodyl 10 mg rectal suppository 10 mg VA DAILY PRN 04/27/19 06/09/21 History cranberry 500 mg capsule 500 mg PO DAILY 04/27/19 06/09/21 History sodium phosphates 19 gram-7 118 ml VA DAILY PRN 04/27/19 06/09/21 History gram/118 mL enema (Fleet Enema) acetaminophen 325 mg tablet 650 mg PO Q6H PRN tab 12/20/20 06/09/21 History (Tylenol) ascorbic acid (vitamin C) 500 mg 500 mg PO BID tab 12/20/20 06/09/21 History tablet (Vitamin C) divalproex 125 mg capsule,delayed 250 mg PO TID cap 12/20/20 06/09/21 History release sprinkle docusate sodium 100 mg tablet 200 mg PO DAILY tab 12/20/20 06/09/21 History estradiol 10 mcg vaginal tablet 10 mcg VAGINAL 2XWK tab 12/20/20 06/09/21 History (Vagifem) furosemide 40 mg tablet 40 mg PO BID 12/20/20 06/09/21 History gabapentin 100 mg capsule 100 mg PO TID 12/20/20 06/09/21 History hydrocodone 5 mg-acetaminophen 325 1 tab PO BID tab 12/20/20 06/09/21 History mg tablet spironolactone 25 mg tablet 12.5 mg PO DAILY tab 12/20/20 06/09/21 History aspirin 81 mg chewable tablet 81 mg PO DAILY 06/09/21 06/09/21 History ipratropium 0.5 mg-albuterol 3 mg 3 ml INHALATION QID PRN 06/09/21 06/09/21 History (2.5 mg base)/3 mL nebulization gibson Patient History Medical History Acute UTI Anemia CAD (coronary artery disease) CHF (congestive heart failure) Chronic kidney disease, stage 3a CKD (chronic kidney disease) stage 3, GFR 30-59 ml/min Dementia Gout HLD (hyperlipidemia) HTN (hypertension) Memory deficit Palliative care encounter Seizure disorder Vitamin D deficiency Surgical History History of Achilles tendon repair History of total knee arthroplasty R Family History Sister Diabetes Social History Smoking Status: Never smoker Second Hand Exposure: No; Do You Dip or Chew Tobacco: No; Tobacco Cessation Education Requested by Patient: No Hx Alcohol Use: No Hx Substance Use: No Preferred Language: Romanian Communication Ability: Impaired 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 Chela denies pain. No fevers or chills. Physical Exam Constitutional: well developed; no acute distress Eyes: + anicteric sclerae; no corneal abnormality ENMT: Mouth: no oral mucosal abnormality and oral mucous membranes not dry Neck: normal visual inspection and trachea midline Respiratory: normal respiratory effort Auscultation: lungs clear to auscultation bilaterally Cardiovascular: Rate/Rhythm: regular rate Heart Sounds: normal S1 and normal S2 Extremities: + edema Musculoskeletal: Extremities: no cyanosis and no clubbing Skin: normal turgor; no lesions Neurologic: Motor/Sensory: + tremor; no asterixis Psychiatric: Orientation: alert; + not oriented x 3 Results & Data ([facility]) Vital Signs (Past 12 Hours) Vital Signs Temp Pulse Pulse Resp BP BP Pulse Ox 06/14/21 15:24 80 20 94 06/14/21 15:14 37.1 C 60 18 143/85 H 91 06/14/21 14:00 65 06/14/21 12:00 06/14/21 11:30 36.9 C 79 20 149/63 H 94 06/14/21 10:50 84 20 94 06/14/21 08:00 55 L 06/14/21 07:17 88 18 95 Pulse Ox 06/14/21 15:24 06/14/21 15:14 06/14/21 14:00 06/14/21 12:00 90 06/14/21 11:30 06/14/21 10:50 06/14/21 08:00 06/14/21 07:17 Laboratory Results Laboratory Results - last 24 hr 06/14/21 06/14/21 06/14/21 07:53 07:53 07:53 WBC 6.34 RBC 2.86 L Hgb 8.4 L Hct 26.5 L MCV 92.7 MCH 29.4 MCHC 31.7 L RDW Std Deviation 52.2 H RDW Coeff of Esmer 15.3 H Plt Count 184 MPV 9.7 Immature Gran % (Auto) 9.8 Neut % (Auto) 50.9 Lymph % (Auto) 24.8 [place] % (Auto) 9.6 Eos % (Auto) 3.0 Baso % (Auto) 1.9 Neut # (Auto) 3.23 Lymph # (Auto) 1.57 [place] # (Auto) 0.61 H Eos # (Auto) 0.19 Baso # (Auto) 0.12 Immature Gran # (Auto) 0.62 H Sodium 141 Potassium 3.3 L Chloride 102 Carbon Dioxide 25 Anion Gap 14.0 H BUN 71 H Creatinine 3.47 H D Est Cr Clr Drug Dosing 13.2 Est GFR ( Amer) 13.3 Est GFR (Non-Af Amer) 11.5 BUN/Creatinine Ratio 20.6 H Glucose 96 Calcium 7.8 L Magnesium 2.6 H Whole Bld Vitamin B1 Pending Urine Color Urine Appearance Urine pH Ur Specific [place] Urine Protein Urine Glucose (UA) Urine Ketones Urine Blood Urine Nitrite Urine Bilirubin Urine Urobilinogen Ur Leukocyte Esterase Urine WBC (Auto) Urine RBC (Auto) U Hyaline Cast (Auto) U Epithel Cells (Auto) Urine Bacteria (Auto) Ur Renal Epithelial Cell Urine Yeast Ur Random Creatinine Ur Random Sodium 06/14/21 06/14/21 15:15 15:15 WBC RBC Hgb Hct MCV MCH MCHC RDW Std Deviation RDW Coeff of Esmer Plt Count MPV Immature Gran % (Auto) Neut % (Auto) Lymph % (Auto) [place] % (Auto) Eos % (Auto) Baso % (Auto) Neut # (Auto) Lymph # (Auto) [place] # (Auto) Eos # (Auto) Baso # (Auto) Immature Gran # (Auto) Sodium Potassium Chloride Carbon Dioxide Anion Gap BUN Creatinine Est Cr Clr Drug Dosing Est GFR ( Amer) Est GFR (Non-Af Amer) BUN/Creatinine Ratio Glucose Calcium Magnesium Whole Bld Vitamin B1 Urine Color Yellow Urine Appearance Cloudy A Urine pH 5.0 Ur Specific [place] 1.036 H Urine Protein 3+ H Urine Glucose (UA) Negative Urine Ketones Trace H Urine Blood 3+ H Urine Nitrite Negative Urine Bilirubin Negative Urine Urobilinogen Negative Ur Leukocyte Esterase Trace H Urine WBC (Auto) >30 H Urine RBC (Auto) >30 H U Hyaline Cast (Auto) 0 U Epithel Cells (Auto) >30 H Urine Bacteria (Auto) Negative Ur Renal Epithelial Cell 0-5 Urine Yeast Not Reportable Ur Random Creatinine 109.0 Ur Random Sodium 16 PG Care Time/CCT Total # of Minutes Spent Total Time Spent with Patient: Total time spent is greater than 50% in coordination of care (as documented) at patient's floor/unit and/or counseling patient: Coding Level of Care Code 78441 Inpt Consult Level 4 Diagnoses Chronic kidney disease, stage 3a N18.31 BELLE (acute kidney injury) N17.9 Dementia F03.90
[2021-06-15] MEDS: THIAMINE HCL 500 MG in SODIUM CHLORIDE 0.9% 50 ML IV SCH (00:45)
[2021-06-15] MEDS: ALBUT/IPRATROP 3MG/0.5MG NEB 3 ML VIAL NEB SCH ×2 (05:33→10:09)
[2021-06-15 08:20] LABS: BUN Creatinine Ratio 19.9 (10-20); Creatinine Clr Calc Pharmacy 12.9 ml/min; Est GFR (African American) 12.6 ml/min; Est GFR (Non-African American) 10.8 ml/min; Magnesium 2.6 mg/dl (1.8-2.4); Potassium 3.8 mmol/L (3.5-5.1)
[2021-06-15] MEDS: HEPARIN SOD 5,000 UNIT/0.5 ML VIAL SQ SCH ×2 (09:38→20:35)
[2021-06-15] MEDS: DIVALPROEX SODIUM SPRINKLE 125 MG CAP PO SCH ×3 (09:38→20:34)
[2021-06-15] MEDS: ASPIRIN 81 MG ECTAB PO SCH (09:38)
[2021-06-15] MEDS: AMOXICILLIN/CLAVULANATE 875 MG TAB PO SCH (09:38)
--- NOTE | 2021-06-15 10:23 | Nephrology Progress Note ---
Date of Service June 15, 2021 Assessment & Plan (1) BELLE (acute kidney injury): Plan: * Oliguric BELLE, probable RAYMOND in the setting of ARB therapy. Patient remains in injury phase. She is now oliguric * Volume status and electrolyte balance are acceptable at this time * Poor dialysis candidate due to advanced dementia, poor functional status * Continue supportive care (2) Chronic kidney disease, stage 3a: Plan: * Baseline Cr 1.45 (3) Dementia: Plan: * Advanced dementia with recurrent aspiration * Palliative care has met w/ family. Patient is DNR/DNI. BiPAP if needed. Plan is to return to [facility]. If condition worsens, consider transition to [facility]/hospice Admission and Anticipated Discharge Date Admission Date: June 09, 2021 Subjective Ms. Bolanos was evaluated in her hospital room this morning. She was alert but nonconversant. She had a recurrent "wet" cough Review of Systems Review of Systems: Unobtainable due to cognitive status Physical Exam Constitutional: + ill appearing, + lethargic and + overweight Eyes: PERRL, conjunctivae normal, anicteric sclerae ENMT: external ear and nose normal, oropharynx normal Neck: trachea midline, no thyromegaly Respiratory: Auscultation: + rhonchi Cardiovascular: Rate/Rhythm: regular rate and regular rhythm Extremities: no edema Gastrointestinal (Abdomen): normal bowel sounds, soft, nontender, no hepatosplenomegaly Neurologic: awake Results & Data ([facility]) Vital Signs (Past 12 Hours) Vital Signs Temp Pulse Pulse Pulse Resp BP Pulse Ox 06/15/21 10:09 74 18 96 06/15/21 05:33 74 18 96 06/15/21 02:56 36.9 C 74 20 135/75 96 06/14/21 22:39 76 Laboratory Results Laboratory Tests 06/14/21 06/14/21 06/14/21 07:53 15:15 15:15 WBC 6.34 Hgb 8.4 L Hct 26.5 L Plt Count 184 Sodium Potassium Chloride Carbon Dioxide BUN Creatinine Calcium Magnesium Urine Color Yellow Urine Appearance Cloudy A Urine pH 5.0 Ur Specific [place] 1.036 H Urine Protein 3+ H Urine Blood 3+ H Ur Leukocyte Esterase Trace H Urine WBC (Auto) >30 H Urine RBC (Auto) >30 H Urine Bacteria (Auto) Negative Ur Random Sodium 16 06/15/21 07:43 WBC Hgb Hct Plt Count Sodium 140 Potassium 3.8 D Chloride 102 Carbon Dioxide 26 BUN 73 H Creatinine 3.64 H Calcium 8.0 L Magnesium 2.6 H Urine Color Urine Appearance Urine pH Ur Specific [place] Urine Protein Urine Blood Ur Leukocyte Esterase Urine WBC (Auto) Urine RBC (Auto) Urine Bacteria (Auto) Ur Random Sodium PG Care Time/CCT Total # of Minutes Spent Total Time Spent with Patient: Total time spent is greater than 50% in coordination of care (as documented) at patient's floor/unit and/or counseling patient: Coding Level of Care Code 59607 Subseq Hosp Care Lvl 3 Diagnoses BELLE (acute kidney injury) N17.9 Chronic kidney disease, stage 3a N18.31 Dementia F03.90
[2021-06-15] MEDS ORDERED: ALBUT/IPRATROP 3MG/0.5MG NEB 3 ML VIAL NEB PRN (12:51)
--- NOTE | 2021-06-15 17:51 | Hospitalist Progress Note ---
Date of Service June 15, 2021 Assessment & Plan (1) Acute respiratory failure with hypoxia: Plan: This patient is an 86-year-old female with a history of severe progressive Lewy body dementia who presents with several days of worsening mental status, fever, and lethargy. She is almost completely nonverbal at baseline and high risk for aspiration. Acute hypoxic respiratory failure, fever-most likely secondary to aspiration pneumonia and acute on chronic diastolic CHF -She was 14 pounds up from her baseline weight on admission and had significant peripheral edema-there could be a component of CHF to her hypoxia CXR unremarkable, however chest CT with atelectasis in right middle lobe and dependent portions of the bilateral lung-do not think I can exclude pneumonia in this setting -CT abdomen/pelvis with large stool ball with rectal wall thickening compatible with proctocolitis-could be a cause of fever. She has been moving her bowels since then -Dopplers of the lower extremities negative for DVT -CT angiogram of the chest negative for PE but does show bibasilar groundglass opacities which could be atelectasis versus aspiration pneumonia Febrile to 38.6 on arrival and now resolved with antibiotic therapy Covid negative Flu negative UA does not appear infected, urine culture no growth -Blood cultures-no growth to date Pro-Ghulam negative Was diuresed and initially only minimal improvement in hypoxia, but now continues with worsening BELLE/rising clinical project manager-continue to hold lasix and aldactone and was given 2 L of crystalloid over 2 days Initially requiring 15 L oxygen mask for several days in a row, but hypoxia continues to improve each day-down to 4 L nasal cannula today, is coughing more now -Completed 6 days of IV Zosyn and 1 day of Augmentin for aspiration pneumonia- antibiotics now discontinued today -Patient not able to cooperate for use of flutter valve or incentive spirometry, trialed chest percussion therapy but pt continues to not be cooperative for this as per RT -Continue scheduled duo nebs -continue to encourage deep breaths by RN for atelectasis -Follow CBC, BMP in the morning (2) Metabolic encephalopathy: Plan: Secondary to febrile illness, aspiration pneumonia, in the setting of severe dementia Seems to be significantly improved-initially was quite lethargic and somnolent, agitated and violent outbursts Since 06/12, she is much more alert, awake, and interactive, speaking more clearly and at times able to give appropriate answers Her son at the bedside on 06/13 says this is the most coherent she has been in over a year-he is cautiously optimistic, but we did discuss that this may only be a temporary effect of treatment for aspiration pneumonia Again on 06/15, her daughter is overwhelmed with the improvement in her mentation compared to how she has been for over the last year. I suppose it is possible that if she was either noncompliant with seizure medications or having difficulty with absorption, perhaps the IV Depakote is i mproving subclinical seizures? Also, she has been off her usual gabapentin and hydrocodone and this is also likely contributing to improvement of her mentation Recommend permanently discontinuing gabapentin and all opioids moving forward unless has severe pain not able to be treated with topical analgesics or Tylenol (3) CKD (chronic kidney disease) stage 3, GFR 30-59 ml/min: Plan: Follows with Nephrology With BELLE on CKD stage 3 secondary to IV diuresis, losartan use, and also received IV contrast for CTA Chest -clinical project manager worsened again today to 3.64, BUN up to 73 UOP oliguric, but seems to be increasing somewhat on 06/15 Fractional excretion of sodium consistent with prerenal at 0.4%-this could be consistent with contrast-induced nephropathy or from overdiuresis - Chatterjee in place -Continue to hold lasix and aldactone -Continue to hold losartan -consult Nephro appreciated Baseline clinical project manager 1.31.9 -Avoid nephrotoxins -renally dose meds when appropriate -follow BMP in the morning -Continue to encourage p.o. fluid intake which she is now doing very well with -discussed possibility of HD with daughter-no need for decision at this point but seems it would be inconsistent with goals of care and nephrology does not think she would be a good dialysis candidate due to severe dementia (4) Fever: Plan: As above, now resolved (5) Dementia: Plan: Lewy body dementia Progressive, does not follow commands and struggles to express one-word at baseline, does recognize her daughter at baseline Discussed baseline function, progressive illness, current condition with daughter and son upon admission and again with palliative medicine -At this time, she remains a high aspiration risk and is unable to complete a full speech pathology evaluation, however with improvement in mental status on 06/13-we will ask speech therapy to reevaluate -Family agreeable to permissive aspiration-ordered a diet -Family also desires continued current care with IV antibiotics and oxygen therapy, okay to escalate to BiPAP/CPAP if respiratory status decompensates, but if cannot tolerate BiPAP/CPAP, then would convert to comfort measures only -Appreciate palliative medicine consultation (6) CHF (congestive heart failure): Plan: Acute on chronic diastolic CHF With 14 pound weight gain in last 2 weeks with peripheral edema Echocardiogram here with preserved EF proBNP elevated at 2282 Follows with [facility] cardiology Received Lasix 40 mg IV twice daily initially, edema is improving but remains significantly hypoxic Weight is down significantly since admission as above Administrative Officer rising and lasix now on hold Follow BMP and magnesium and replace electrolytes as needed Follow daily weights, strict I's and O's Monitor on telemetry (7) Edema: Plan: As above, likely secondary to CHF exacerbation Bilateral lower extremity venous Dopplers negative for DVT improved with diuresis Lower extremity edema is improving (8) Anemia: Plan: Hemoglobin low at 9.4-10.0 normocytic This is her baseline hemoglobin for at least the last 2 years B12, folate both normal, TSH normal Iron studies show iron deficiency with transferrin saturation low at 12% -Received IV Venofer x3 doses (9) CAD (coronary artery disease): Plan: I cannot find evidence of this in her records including review of cardiology consultation and notes from 2018 Nonetheless, troponin is negative, EKG without evidence of acute ischemia Continue aspirin, holding losartan (10) Seizure disorder: Plan: Converted back to p.o. Depakote now that she is tolerating p.o. Not able to take p.o. gabapentin at this time-given improvement in mentation, would permanently discontinue gabapentin (11) Hypokalemia: Plan: Replaced and resolved (12) Constipation: Plan: Had fecal ball seen on CT abdomen/pelvis on admission Has now had multiple bowel movements since arrival Plan: DVT prophylaxis: Heparin SQ Disposition-continued stay on telemetry, eventually back to [facility] if renal failure improving Admission and Anticipated Discharge Date Admission Date: June 09, 2021 Subjective Patient is awake and alert, not quite as talkative as previous days, but her daughter is at the bedside. Her daughter is still in shock of how talkative the patient has been in the last few days and states that it is "a gift." She worries about her going back to the residential and worsening again in mentation. We did discuss that we could hold the hydrocodone and gabapentin moving forward. Daughter does note that patient is having a lot of cough today and seems to be getting worn out from coughing. She is weaned down to 4 L nasal cannula. She ate all of her food with the assistance of her daughter for dinner. Her urine output is starting to apple picking supervisor through the day but remains oliguric. Telemetry with normal sinus rhythm with rates in the 60s to 70s. Review of Systems Review of Systems: All systems reviewed & are unremarkable except as noted in HPI & below Physical Exam Constitutional: WD/WN, vitals as above + obese Neck: trachea midline, no thyromegaly Respiratory: normal respiratory effort Auscultation: + rhonchi (Some coarse upper airway sounds) Cardiovascular: Rate/Rhythm: regular rate and regular rhythm Heart Sounds: no murmur Extremities: + edema (1+ pitting edema of the feet and legs, improved) Chest (Breasts): Chest: normal inspection of chest Gastrointestinal (Abdomen): normal bowel sounds, soft, nontender, no hepatosplenomegaly Musculoskeletal: Extremities: extremities normal to inspection; no cyanosis and no clubbing Skin: no rashes, warm and dry Neurologic: moves all extremities and awake; no focal motor deficits Speech / Cognition: + abnormal cognition Motor/Sensory: + tremor (Resting tremor in both hands/arms and head) Psychiatric: Orientation: alert and cooperative Results & Data Results & Data ([facility]) Vital Signs (Past 12 Hours) Vital Signs Temp Pulse Pulse Pulse Resp BP BP 06/15/21 16:00 72 06/15/21 15:46 37.1 C 77 16 126/63 06/15/21 12:00 06/15/21 11:15 37.2 C 66 16 94/57 L 06/15/21 10:09 74 18 06/15/21 08:00 62 Pulse Ox Pulse Ox 06/15/21 16:00 06/15/21 15:46 97 06/15/21 12:00 90 06/15/21 11:15 94 06/15/21 10:09 96 06/15/21 08:00 Laboratory Results 06/14/21 07:53 06/15/21 07:43 PG Care Time/CCT Total # of Minutes Spent Total Time Spent with Patient: Total time spent is greater than 50% in coordination of care (as documented) at patient's floor/unit and/or counseling patient: Coding Level of Care Code 57085 Subseq Hosp Care Lvl 3 Diagnoses Acute respiratory failure with hypoxia J96.01 Metabolic encephalopathy G93.41 CKD (chronic kidney disease) stage 3, GFR 30-59 ml/min N18.3 Fever R50.9 Fever type: unspecified Dementia F03.90 CHF (congestive heart failure) I50.9 Edema R60.9 Anemia D64.9 Anemia type: unspecified type CAD (coronary artery disease) I25.10 Seizure disorder G40.909 Hypokalemia E87.6 Constipation K59.00 (1) Fever Fever type: unspecified Qualified Code(s): R50.9 - Fever, unspecified (2) Anemia Anemia type: unspecified type Qualified Code(s): D64.9 - Anemia, unspecified
[2021-06-15] MEDS: ACETAMINOPHEN 325 MG TAB PO PRN (18:40)
[2021-06-16] MEDS: ACETAMINOPHEN 325 MG TAB PO PRN ×2 (02:27→18:02)
[2021-06-16 08:24] LABS: Hematocrit (blood only) 28.5 % (37-47); Hemoglobin 9.1 g/dL (12.0-16.0); Mean Corpuscular Hemoglobin 29.5 pg (25-34); Mean Corpuscular Hgb Conc 31.9 g/dL (32-36); Mean Corpuscular Volume 92.5 fL (80-100); Mean Platelet Volume 9.7 fL (7.4-10.4); Platelet Count 258 K/uL (130-400); RDW Coefficient of Variation 15.5 % (11.5-14.5); Red Blood Count 3.08 M/uL (4.2-5.4); White Blood Count 9.13 K/uL (4.8-10.8)
[2021-06-16 08:48] LABS: BUN Creatinine Ratio 21.9 (10-20); Calcium 8.7 mg/dl (8.5-10.1); Creatinine Clr Calc Pharmacy 15.3 ml/min; Est GFR (African American) 15.4 ml/min; Est GFR (Non-African American) 13.3 ml/min; Magnesium 2.8 mg/dl (1.8-2.4); Phosphorus 4.8 mg/dl (2.5-4.9); Potassium 3.5 mmol/L (3.5-5.1)
[2021-06-16 08:51] LABS: ALC (manual) 1.74 K/uL (1.2-3.4); ANC (manual) 5.72 K/uL (1.4-6.5); Basophils # (manual) 0.08 K/uL (0-0.2); Basophils % (manual) 0.9 %; Eosinophils # (manual) 0.24 K/uL (0-0.5); Eosinophils % (manual) 2.6 %; Lymphocytes # (manual) 1.74 K/uL (1.2-3.4); Lymphocytes % (manual) 19.1 %; Metamyelocytes # (manual) 0.08 K/uL (0-0); Metamyelocytes % (manual) 0.9 %; Monocytes # (manual) 0.56 K/uL (0.11-0.59); Monocytes % (manual) 6.1 %; Myelocytes # (manual) 0.71 K/uL (0-0); Myelocytes % (manual) 7.8 %; Neutrophils # (manual) 5.72 K/uL (1.4-6.5); Neutrophils % (manual) 62.6 %
--- NOTE | 2021-06-16 09:30 | Nephrology Progress Note ---
Date of Service June 16, 2021 Assessment & Plan (1) BELLE (acute kidney injury): Plan: * Oliguric BELLE, probable RAYMOND in the setting of ARB therapy. Patient is now nonoliguric and Cr is trending down (Cr 3.64-->3.0). She appears to be entering the recovery phase * Volume status and electrolyte balance are acceptable at this time * Poor dialysis candidate due to advanced dementia, poor functional status * Continue supportive care (2) Chronic kidney disease, stage 3a: Plan: * Baseline Cr 1.45 (3) HTN (hypertension): Plan: * Blood pressure is labile. Patient has BELLE. Continue to hold Losartan (4) Dementia: Plan: * Advanced dementia with recurrent aspiration * Palliative care has met w/ family. Patient is DNR/DNI. BiPAP if needed. Plan is to return to [facility]. If condition worsens, consider transition to [facility]/hospice Admission and Anticipated Discharge Date Admission Date: June 09, 2021 Subjective Ms. Bolanos was evaluated in her hospital room this morning. She was alert and has a "wet" cough whenever she tries to talk. Review of Systems Review of Systems: Unobtainable due to cognitive status Physical Exam Constitutional: + ill appearing, + lethargic and + overweight Eyes: PERRL, conjunctivae normal, anicteric sclerae ENMT: external ear and nose normal, oropharynx normal Neck: trachea midline, no thyromegaly Respiratory: Auscultation: + rhonchi Cardiovascular: Rate/Rhythm: regular rate and regular rhythm Extremities: no edema Gastrointestinal (Abdomen): normal bowel sounds, soft, nontender, no hepat osplenomegaly Neurologic: awake Results & Data ([facility]) Vital Signs (Past 12 Hours) Vital Signs Temp Pulse Pulse Pulse Resp BP BP 06/16/21 07:42 83 06/16/21 07:05 37.4 C 88 20 153/68 H 06/16/21 02:51 64 20 139/57 L 06/16/21 02:34 37.2 C 06/15/21 22:48 36.6 C 06/15/21 22:31 38.0 C H 81 20 152/61 H 06/15/21 22:25 76 Pulse Ox 06/16/21 07:42 06/16/21 07:05 97 06/16/21 02:51 93 06/16/21 02:34 06/15/21 22:48 06/15/21 22:31 96 06/15/21 22:25 Laboratory Results Laboratory Tests 06/16/21 08:06 WBC 9.13 Hgb 9.1 L Hct 28.5 L Plt Count 258 Laboratory Tests 06/16/21 08:06 Sodium 139 Potassium 3.5 Chloride 104 Carbon Dioxide 25 BUN 67 H Creatinine 3.08 H D Glucose 90 Calcium 8.7 Phosphorus 4.8 Magnesium 2.8 H PG Care Time/CCT Total # of Minutes Spent Total Time Spent with Patient: Total time spent is greater than 50% in coordination of care (as documented) at patient's floor/unit and/or counseling patient: Coding Level of Care Code 56636 Subseq Hosp Care Lvl 3 Diagnoses BELLE (acute kidney injury) N17.9 Chronic kidney disease, stage 3a N18.31 Dementia F03.90 HTN (hypertension) I10 Hypertension type: essential hypertension (1) HTN (hypertension) Hypertension type: essential hypertension Qualified Code(s): I10 - Essential (primary) hypertension
[2021-06-16] MEDS: DIVALPROEX SODIUM SPRINKLE 125 MG CAP PO SCH ×3 (09:39→21:27)
[2021-06-16] MEDS: THIAMINE HCL 100 MG TAB PO SCH (09:40)
[2021-06-16] MEDS: ASPIRIN 81 MG ECTAB PO SCH (09:40)
[2021-06-16] MEDS: HEPARIN SOD 5,000 UNIT/0.5 ML VIAL SQ SCH ×2 (09:40→21:27)
--- NOTE | 2021-06-16 11:55 | XRay Report ---
XR chest 1V portable HISTORY: 86 years-old Female f/u PNA,hypoxia,fever acute shortness of breath with hypoxia COMPARISON: CTA chest 06/11/2021, chest radiograph 06/09/2021 TECHNIQUE: Portable AP view of the chest FINDINGS: Cardiac silhouette is enlarged. Pulmonary vascular congestion. Trace pleural effusions with mild biba silar opacities. Calcific plaque of the thoracic aorta. Degenerative changes of the shoulders and spi ne. IMPRESSION: 1. Cardiac megaly with pulmonary vascular congestion. 2. Trace pleural effusions with mild bibasilar opacities suggestive of atelectasis versus pneumonitis . ACT 112: Negative or not required by law. The above report was generated using voice recognition software. It may contain grammatical, syntax o r spelling errors. Electronically signed by: Terrell Hancock M.D. 06/16/2021 11:54 AM
--- NOTE | 2021-06-16 16:55 | Hospitalist Progress Note ---
Date of Service June 16, 2021 Assessment & Plan (1) Acute respiratory failure with hypoxia: Plan: This patient is an 86-year-old female with a history of severe progressive Lewy body dementia who presents with several days of worsening mental status, fever, and lethargy. She is almost completely nonverbal at baseline and high risk for aspiration. Acute hypoxic respiratory failure, fever-most likely secondary to aspiration pneumonia and acute on chronic diastolic CHF -She was 14 pounds up from her baseline weight on admission and had significant peripheral edema-there likely was a component of CHF to her hypoxia CXR unremarkable upon admission however chest CT with atelectasis in right middle lobe and dependent portions of the bilateral lung-likely aspiration pneumonia -CT abdomen/pelvis with large stool ball with rectal wall thickening compatible with proctocolitis-could be a cause of fever. She has been moving her bowels since then -Dopplers of the lower extremities negative for DVT -Given significant hypoxia requiring 15 L oxygen mask, obtained CT angiogram of the chest negative for PE but does show bibasilar groundglass opacities which could be atelectasis versus aspiration pneumonia Febrile to 38.6 on arrival and now resolved with antibiotic therapy, however developed a fever again on 06/15 in the evening Covid negative Flu negative UA does not appear infected, urine culture no growth. Repeat urinalysis on 06/16 contaminated with epithelial cells but does not seem consistent with infection -Blood cultures-no growth to date. Repeated blood cultures again on 06/16 due to fevers Pro-Ghulam negative x2 -Fever on 06/15 and 06/16 may be due to atelectasis perhaps or recurrent aspiration pneumonia? -Hold off on further antibiotics at this time is already completed 7 days of Zosyn and Augmentin Was diuresed and then had worsening BELLE/rising cost recorder-held lasix and aldactone and was given 2 L of crystalloid over 2 days. Acute kidney injury now improving and urine output picking up Initially requiring 15 L oxygen mask for several days in a row, but hypoxia continues to improve each day-down to 2-4 L nasal cannula today, is coughing more now and has trouble handling her secretions -Completed 6 days of IV Zosyn and 1 day of Augmentin for aspiration pneumonia- antibiotics now discontinued -Would not restart any antibiotics at this time given recurrent fevers until source can be identified -Continue supplemental O2 to keep pulse ox greater than 90-92% -Patient unable to cooperate for pulmonary toilet (2) Metabolic encephalopathy: Plan: Secondary to febrile illness, aspiration pneumonia, in the setting of severe dementia Was markedly improved for several days after initially being quite lethargic and somnolent, with agitated and violent outbursts Since 06/12, she is much more alert, awake, and interactive, speaking more clearly and at times able to give appropriate answers. Her son at the bedside on 06/13 says this is the most coherent she has been in over a year-he is cautiously optimistic, but we did discuss that this may only be a temporary effect of treatment for aspiration pneumonia Again on 06/15, her daughter is overwhelmed with the improvement in her mentation compared to how she has been for over the last year. However, on 06/16, with recurrent fevers-she has become more lethargic and agitated, less interactive again Greatest improvement in mentation possibly due to discontinuing her usual gabapentin and hydrocodone Recommend permanently discontinuing gabapentin and all opioids moving forward unless has severe pain not able to be treated with topical analgesics or Tylenol (3) CKD (chronic kidney disease) stage 3, GFR 30-59 ml/min: Plan: Follows with Nephrology With BELLE on CKD stage 3 secondary to IV diuresis, losartan use, and also received IV contrast for CTA Chest -cost recorder peaked at 3.64, BUN up to 73, now improving to 3.08 Previously was oliguric, but urine output picking up now, hopefully in recovery phase of acute kidney injury Fractional excretion of sodium consistent with prerenal at 0.4%-this could be consistent with contrast-induced nephropathy or from overdiuresis - Chatterjee in place -Continue to hold lasix and aldactone -Continue to hold losartan -consult Nephro appreciated Baseline cost recorder 1.31.9 -Avoid nephrotoxins -renally dose meds when appropriate -follow BMP in the morning -Continue to encourage p.o. fluid intake which she is now doing very well with -discussed possibility of HD with daughter-no need for decision at this point but seems it would be inconsistent with goals of care and nephrology does not think she would be a good dialysis candidate due to severe dementia (4) Fever: Plan: As above, was resolved for 7 days, now returned on 06/15 Work-up as above Hold off on further antibiotics at this time (5) Dementia: Plan: Lewy body dementia Progressive, does not follow commands and struggles to express one-word at baseline, does recognize her daughter at baseline Discussed baseline function, progressive illness, current condition with daughter and son upon admission and again with palliative medicine -At this time, she remains a high aspiration risk and is unable to complete a full speech pathology evaluation, however with improvement in mental status on 06/13-we will ask speech therapy to reevaluate -Family agreeable to permissive aspiration-ordered a diet -Family also desires continued current care with IV antibiotics and oxygen therapy, okay to escalate to BiPAP/CPAP if respiratory status decompensates, but if cannot tolerate BiPAP/CPAP, then would convert to comfort measures only -Appreciate palliative medicine consultation (6) CHF (congestive heart failure): Plan: Acute on chronic diastolic CHF With 14 pound weight gain in last 2 weeks with peripheral edema Echocardiogram here with preserved EF proBNP elevated at 2282 Follows with [facility] cardiology Received Lasix 40 mg IV twice daily initially, edema is improving but remains significantly hypoxic Weight is down significantly since admission as above With acute kidney injury as above requiring a hold on diuretics Follow daily weights, strict I's and O's Monitor on telemetry (7) Edema: Plan: As above, likely secondary to CHF exacerbation Bilateral lower extremity venous Dopplers negative for DVT improved with diuresis Lower extremity edema is improving (8) Anemia: Plan: Hemoglobin low at 9.4-10.0 normocytic This is her baseline hemoglobin for at least the last 2 years B12, folate both normal, TSH normal Iron studies show iron deficiency with transferrin saturation low at 12% -Received IV Venofer x3 doses (9) CAD (coronary artery disease): Plan: I cannot find evidence of this in her records including review of cardiology consultation and notes from 2018 Nonetheless, troponin is negative, EKG without evidence of acute ischemia Continue aspirin, holding losartan (10) Seizure disorder: Plan: Initially on IV Depakote, have since converted back to p.o. Depakote now that she is tolerating p.o. (11) Hypokalemia: Plan: Replaced and resolved (12) Constipation: Plan: Had fecal ball seen on CT abdomen/pelvis on admission Has now had multiple bowel movements since arrival and almost daily Plan: DVT prophylaxis: Heparin SQ Disposition-continued stay on telemetry, eventually [facility] to [facility] if renal failure improving. Appreciate palliative medicine consultation-as of 06/16, both palliative m vidya and myself discussed the possibility of returning to [facility] with [facility] and daughter is contemplating this Admission and Anticipated Discharge Date Admission Date: June 09, 2021 Subjective Patient had a fever last night and a low-grade temperature during the day today. She is definitely not nearly as cooperative as she had been the last several days. Her cough and secretions are significantly worse today with gurgling in the throat. She would not let me examine her and started shouting "no no no no no." This is similar to how she presented in the beginning of her admission when she had a fever earlier on. She is weaned on 4 L nasal cannula however and chest x-ray appears clear than previous. Repeat urinalysis is contaminated with epithelial cells and does not seem consistent with infection. Discussed her care with her daughter at the bedside as well as palliative medicine nurse practitioner at the bedside. Telemetry with normal sinus rhythm with rates in 70s to 90s Review of Systems Review of Systems: Unobtainable due to cognitive status Physical Exam Constitutional: WD/WN, vitals as above + obese Neck: trachea midline, no thyromegaly Respiratory: normal respiratory effort Auscultation: + rhonchi (Significantly increased coarse upper airway sounds) Cardiovascular: Rate/Rhythm: regular rate and regular rhythm Heart Sounds: no murmur Extremities: + edema (1+ pitting edema of the feet and legs, improved) Chest (Breasts): Chest: normal inspection of chest Gastrointestinal (Abdomen): normal bowel sounds, soft, nontender, no hepatosplenomegaly Musculoskeletal: Extremities: extremities normal to inspection; no cyanosis and no clubbing Skin: no rashes, warm and dry Neurologic: moves all extremities and awake; no focal motor deficits Speech / Cognition: + abnormal cognition Motor/Sensory: + tremor (Resting tremor in both hands/arms and head) Psychiatric: Orientation: alert; + uncooperative (Agitated) Results & Data Results & Data ([facility]) Vital Signs (Past 12 Hours) Vital Signs Temp Pulse Pulse Resp BP BP Pulse Ox 06/16/21 16:14 68 06/16/21 15:48 37.4 C 70 16 161/67 H 95 06/16/21 07:42 83 06/16/21 07:05 37.4 C 88 20 153/68 H 97 Laboratory Results 06/16/21 06/16/21 06/16/21 Range/Units 18:20 09:48 08:06 WBC (4.8-10.8) K/uL RBC (4.2-5.4) M/uL Hgb (12.0-16.0) g/dL Hct (37-47) % MCV (80-100) fL MCH (25-34) pg MCHC (32-36) g/dL RDW Std Deviation (36.4-46.3) fL RDW Coeff of Esmer (11.5-14.5) % Plt Count (130-400) K/uL MPV (7.4-10.4) fL Neutrophils % (Manual) % Lymphocytes % (Manual) % Monocytes % (Manual) % Eosinophils % (Manual) % Basophils % (Manual) % Metamyelocytes % (Man) % Myelocytes % (Man) % Neutrophils # (Manual) (1.4-6.5) K/uL Total Absolute Neuts (1.4-6.5) K/uL Lymphocytes # (Manual) (1.2-3.4) K/uL Total Abs Lymphocytes (1.2-3.4) K/uL Monocytes # (Manual) (0.11-0.59) K/uL Eosinophils # (Manual) (0-0.5) K/uL Basophils # (Manual) (0-0.2) K/uL Metamyelocytes # (Man) (0-0) K/uL Myelocytes # (Manual) (0-0) K/uL Sodium 139 (136-145) mmol/L Potassium 3.5 (3.5-5.1) mmol/L Chloride 104 (98-107) mmol/L Carbon Dioxide 25 (21-32) mmol/L Anion Gap 10.0 (3-11) BUN 67 H (7-18) mg/dl Creatinine 3.08 H D (0.6-1.2) mg/dl Est Cr Clr Drug Dosing 15.3 ml/min Est GFR ( Amer) 15.4 ml/min Est GFR (Non-Af Amer) 13.3 ml/min BUN/Creatinine Ratio 21.9 H (10-20) Glucose 90 (70-99) mg/dl Calcium 8.7 (8.5-10.1) mg/dl Phosphorus 4.8 (2.5-4.9) mg/dl Magnesium 2.8 H (1.8-2.4) mg/dl Procalcitonin 0.32 (0-0.5) ng/ml Urine Color Yellow Urine Appearance Cloudy A (Clear) Urine pH 5.0 (4.5-7.5) Ur Specific [place] 1.021 (1.000-1.030) Urine Protein 2+ H (Negative) Urine Glucose (UA) Negative (Negative) Urine Ketones Negative (Negative) Urine Blood 3+ H (Negative) Urine Nitrite Negative (Negative) Urine Bilirubin Negative (Negative) Urine Urobilinogen Negative (Negative) Ur Leukocyte Esterase 1+ H (Negative) Urine WBC (Auto) 10-30 H (0-5) /hpf Urine RBC (Auto) >30 H (0-4) /hpf U Hyaline Cast (Auto) 0 (0-5) /lpf U Epithel Cells (Auto) >30 H (0-5) /lpf Urine Bacteria (Auto) Negative (Negative) Ur Renal Epithelial Cell Not Reportable 06/16/21 Range/Units 08:06 WBC 9.13 (4.8-10.8) K/uL RBC 3.08 L (4.2-5.4) M/uL Hgb 9.1 L (12.0-16.0) g/dL Hct 28.5 L (37-47) % MCV 92.5 (80-100) fL MCH 29.5 (25-34) pg MCHC 31.9 L (32-36) g/dL RDW Std Deviation 52.0 H (36.4-46.3) fL RDW Coeff of Esmer 15.5 H (11.5-14.5) % Plt Count 258 (130-400) K/uL MPV 9.7 (7.4-10.4) fL Neutrophils % (Manual) 62.6 % Lymphocytes % (Manual) 19.1 % Monocytes % (Manual) 6.1 % Eosinophils % (Manual) 2.6 % Basophils % (Manual) 0.9 % Metamyelocytes % (Man) 0.9 % Myelocytes % (Man) 7.8 % Neutrophils # (Manual) 5.72 (1.4-6.5) K/uL Total Absolute Neuts 5.72 (1.4-6.5) K/uL Lymphocytes # (Manual) 1.74 (1.2-3.4) K/uL Total Abs Lymphocytes 1.74 (1.2-3.4) K/uL Monocytes # (Manual) 0.56 (0.11-0.59) K/uL Eosinophils # (Manual) 0.24 (0-0.5) K/uL Basophils # (Manual) 0.08 (0-0.2) K/uL Metamyelocytes # (Man) 0.08 H (0-0) K/uL Myelocytes # (Manual) 0.71 H (0-0) K/uL Sodium (136-145) mmol/L Potassium (3.5-5.1) mmol/L Chloride (98-107) mmol/L Carbon Dioxide (21-32) mmol/L Anion Gap (3-11) BUN (7-18) mg/dl Creatinine (0.6-1.2) mg/dl Est Cr Clr Drug Dosing ml/min Est GFR ( Amer) ml/min Est GFR (Non-Af Amer) ml/min BUN/Creatinine Ratio (10-20) Glucose (70-99) mg/dl Calcium (8.5-10.1) mg/dl Phosphorus (2.5-4.9) mg/dl Magnesium (1.8-2.4) mg/dl Procalcitonin (0-0.5) ng/ml Urine Color Urine Appearance (Clear) Urine pH (4.5-7.5) Ur Specific [place] (1.000-1.030) Urine Protein (Negative) Urine Glucose (UA) (Negative) Urine Ketones (Negative) Urine Blood (Negative) Urine Nitrite (Negative) Urine Bilirubin (Negative) Urine Urobilinogen (Negative) Ur Leukocyte Esterase (Negative) Urine WBC (Auto) (0-5) /hpf Urine RBC (Auto) (0-4) /hpf U Hyaline Cast (Auto) (0-5) /lpf U Epithel Cells (Auto) (0-5) /lpf Urine Bacteria (Auto) (Negative) Ur Renal Epithelial Cell PG Care Time/CCT Total # of Minutes Spent Total Time Spent with Patient: Total time spent is greater than 50% in coordination of care (as documented) at patient's floor/unit and/or counseling patient: Coding Level of Care Code 91882 Subseq Hosp Care Lvl 3 Diagnoses Acute respiratory failure with hypoxia J96.01 Metabolic encephalopathy G93.41 CKD (chronic kidney disease) stage 3, GFR 30-59 ml/min N18.3 Fever R50.9 Fever type: unspecified Dementia F03.90 CHF (congestive heart failure) I50.9 Edema R60.9 Anemia D64.9 Anemia type: unspecified type CAD (coronary artery disease) I25.10 Seizure disorder G40.909 Hypokalemia E87.6 Constipation K59.00 (1) Fever Fever type: unspecified Qualified Code(s): R50.9 - Fever, unspecified (2) Anemia Anemia type: unspecified type Qualified Code(s): D64.9 - Anemia, unspecified
[2021-06-16 18:39] LABS: Appearance Urine Cloudy (Clear); Bacteria Urine Automated Negative (Negative); Bilirubin Urine Negative (Negative); Blood Urine 3+ (Negative); Color Urine Yellow; Epithelial Cell Urine Auto >30 /lpf (0-5); Glucose Urine UA Negative (Negative); Ketones Urine Negative (Negative); Leukocyte Esterase Urine 1+ (Negative); Nitrite Urine Negative (Negative); Protein Urine 2+ (Negative); RBC Urine Automated >30 /hpf (0-4); Specific Gravity Urine 1.021 (1.000-1.030); Urobilinogen Urine Negative (Negative)
[2021-06-16 19:13] LABS: Cast Urine Automated 0 /lpf (0-5)
[2021-06-16] MEDS ORDERED: ACETAMINOPHEN 1000 MG/100 ML IV IV PRN (19:57)
--- NOTE | 2021-06-16 20:06 | Palliative Care Progress Note ---
Date of Service June 16, 2021 Assessment & Plan (1) Palliative care encounter: Plan: Ms. Ram had some good days these past few days. Her son, Joe, arrived from [place] and both him and his sister have been shocked at how interactive she has been. We discussed that this could be indicative of consistent antiseizure medications she has been taking, or it could be an extent of moments of clarity as her body continues to decline. We did discuss that her fever could be from atelectasis and would monitor how she responded to IV Tylenol. We revisisted our previous conversation regarding her overall decline over the past few months. We discussed aspiration and will proceed with permissive aspiration and known risk of further respiratory decline. Should patients respiratory drive worsen, family would still like to have BiPAP mask placed to see any improvement. If no improvement, would transition to [facility] CL[facility] at that time. Confirmed DNR/DNI. Ultimate goal, improve to the point that she would be stable to return to [facility], which was confirmed again today. If possible, would entertain Hospice at that time. Discussed the above with Dr. Horton. Palliative will follow and meet with family again tomorrow. (2) Hypoxia: (3) CHF (congestive heart failure): (4) Weakness: Admission and Anticipated Discharge Date Admission Date: June 09, 2021 Subjective Pt remains alert; however, has increased secretions and fevers today. Pt daughter at her bedside. See A/P for further details Review of Systems Review of Systems: [place] System Assessment Scale: Pain: 1/3 Nausea: 0/3 SOB: 1/3 Anxiety: 0/3 Palliative Performance Scale: 30% Physical Exam Constitutional: + frail appearing and comfortable ENMT: Mouth: + dry oral mucous membranes Respiratory: normal respiratory effort Auscultation: + diminished lung sounds Cardiovascular: Rate/Rhythm: regular rate and regular rhythm Heart Sounds: normal S1 and normal S2 Extremities: normal capillary refill Gastrointestinal (Abdomen): Inspection/Auscultation: abdomen normal to inspection Percussion/Palpation: abdomen soft Skin: + pallor Psychiatric: Orientation: alert and oriented to person Results & Data ([facility]) Vital Signs (Past 12 Hours) Vital Signs Temp Pulse Pulse Resp BP Pulse Ox 06/16/21 19:10 37.5 C 61 20 176/72 H 92 06/16/21 16:14 68 06/16/21 15:48 37.4 C 70 16 161/67 H 95 PG Care Time/CCT Total # of Minutes Spent Total Time Spent with Patient: Total time spent is greater than 50% in coordination of care (as documented) at patient's floor/unit and/or counseling patient: 35 minutes with > 50% Of that time spent assessing the patient, discussing goals of care with family, and collaborating with IDT Coding Level of Care Code 76734 Subseq Hosp Care Lvl 3 Diagnoses Palliative care encounter Z51.5 Hypoxia R09.02 CHF (congestive heart failure) I50.9 Weakness R53.1 Time Spent (min) 35
[2021-06-17] MEDS: ASPIRIN 81 MG ECTAB PO SCH (08:15)
[2021-06-17] MEDS: THIAMINE HCL 100 MG TAB PO SCH (08:16)
[2021-06-17] MEDS: DIVALPROEX SODIUM SPRINKLE 125 MG CAP PO SCH ×3 (08:16→21:05)
[2021-06-17] MEDS: HEPARIN SOD 5,000 UNIT/0.5 ML VIAL SQ SCH ×2 (08:17→21:06)
[2021-06-17 09:37] LABS: Mean Corpuscular Hgb Conc 32.1 g/dL (32-36); Mean Platelet Volume 9.8 fL (7.4-10.4); Platelet Count 287 K/uL (130-400)
[2021-06-17 10:11] LABS: Basophilic Stippling 1+; Basophils # (auto) 0.04 K/uL (0-0.2); Basophils % (auto) 0.5 %; Eosinophils # (auto) 0.45 K/uL (0-0.5); Eosinophils % (auto) 5.4 %; Hemoglobin 9.3 g/dL (12.0-16.0); Immature Granulocytes # (auto) 0.73 K/uL (0.00-0.02); Immature Granulocytes % (auto) 8.7 %; Lymphocytes # (auto) 1.27 K/uL (1.2-3.4); Lymphocytes % (auto) 15.2 %; Mean Corpuscular Hemoglobin 30.2 pg (25-34); Mean Corpuscular Volume 94.2 fL (80-100); Monocytes % (auto) 9.6 %; Neutrophils # (auto) 5.08 K/uL (1.4-6.5); Neutrophils % (auto) 60.6 %; RDW Coefficient of Variation 15.7 % (11.5-14.5); RDW Standard Deviation 53.2 fL (36.4-46.3); Red Blood Count 3.08 M/uL (4.2-5.4); White Blood Count 8.37 K/uL (4.8-10.8)
[2021-06-17 10:17] LABS: Alanine Aminotransferase 14 U/L (12-78); Albumin Level 2.2 gm/dl (3.4-5.0); Alkaline Phosphatase 48 U/L (45-117); Aspartate Aminotransferase 23 U/L (15-37); BUN Creatinine Ratio 24.1 (10-20); Bilirubin,Total 0.2 mg/dl (0.2-1); Blood Urea Nitrogen 58 mg/dl (7-18); Calcium 8.8 mg/dl (8.5-10.1); Carbon Dioxide 27 mmol/L (21-32); Chloride 106 mmol/L (98-107); Creatinine Clr Calc Pharmacy 19.7 ml/min; Est GFR (African American) 20.9 ml/min; Glucose 145 mg/dl (70-99); Magnesium 2.8 mg/dl (1.8-2.4); Sodium 142 mmol/L (136-145); Total Protein 6.9 gm/dl (6.4-8.2)
[2021-06-17 10:27] LABS: Bilirubin Direct < 0.1 mg/dl (0-0.2)
--- NOTE | 2021-06-17 10:28 | Nephrology Progress Note ---
Date of Service June 17, 2021 Assessment & Plan (1) BELLE (acute kidney injury): Plan: * Oliguric BELLE, probable RAYMOND in the setting of ARB therapy. Cr is trending down (Cr 3.64-->2.3). UO 925 cc yesterday. She is now in the recovery phase * Volume status and electrolyte balance are acceptable at this time * Poor dialysis candidate due to advanced dementia, poor functional status * Continue supportive care (2) Chronic kidney disease, stage 3a: Plan: * Baseline Cr 1.45 (3) HTN (hypertension): Plan: * Blood pressure is labile. Patient has BELLE. Continue to hold Losartan (4) Dementia: Plan: * Advanced dementia with recurrent aspiration * Palliative care has met w/ family. Patient is DNR/DNI. BiPAP if needed. Plan is to return to [facility]. If condition worsens, consider transition to [facility]EL[facility]/hospice Admission and Anticipated Discharge Date Admission Date: June 09, 2021 Subjective Ms. Bolanos was evaluated in her hospital room this morning. She was alert and has a "wet" cough whenever she tries to talk. Review of Systems Review of Systems: Unobtainable due to cognitive status Physical Exam Constitutional: + ill appearing, + lethargic and + overweight Eyes: PERRL, conjunctivae normal, anicteric sclerae ENMT: external ear and nose normal, oropharynx normal Neck: trachea midline, no thyromegaly Respiratory: Auscultation: + rhonchi Cardiovascular: Rate/Rhythm: regular rate and regular rhythm Extremities: no edema Gastrointestinal (Abdomen): normal bowel sounds, soft, nontender, no hepatosplenomegaly Neurologic: awake Results & Data ([facility]) Vital Signs (Past 12 Hours) Vital Signs Temp Pulse Pulse Resp BP Pulse Ox 06/17/21 07:22 37.0 C 83 24 166/84 H 95 06/17/21 07:14 70 06/17/21 05:12 36.3 C L 79 20 155/85 H 96 06/16/21 22:40 76 Laboratory Results Laboratory Tests 06/16/21 08:06 WBC 9.13 Hgb 9.1 L Hct 28.5 L Plt Count 258 Laboratory Tests 06/17/21 09:07 Sodium 142 Potassium 4.0 Chloride 106 Carbon Dioxide 27 BUN 58 H Creatinine 2.39 H D Glucose 145 H Magnesium 2.8 H Albumin 2.2 L PG Care Time/CCT Total # of Minutes Spent Total Time Spent with Patient: Total time spent is greater than 50% in coordination of care (as documented) at patient's floor/unit and/or counseling patient: Coding Level of Care Code 30810 Subseq Hosp Care Lvl 3 Diagnoses BELLE (acute kidney injury) N17.9 Chronic kidney disease, stage 3a N18.31 HTN (hypertension) I10 Hypertension type: essential hypertension Dementia F03.90 (1) HTN (hypertension) Hypertension type: essential hypertension Qualified Code(s): I10 - Essential (primary) hypertension
--- NOTE | 2021-06-17 18:04 | Hospitalist Progress Note ---
Date of Service June 17, 2021 Assessment & Plan (1) Acute respiratory failure with hypoxia: Plan: This patient is an 86-year-old female with a history of severe progressive Lewy body dementia who presents with several days of worsening mental status, fever, and lethargy. She is almost completely nonverbal at baseline and high risk for aspiration. Acute hypoxic respiratory failure, fever-most likely secondary to aspiration pneumonia and acute on chronic diastolic CHF -She was 14 pounds up from her baseline weight on admission and had significant peripheral edema-there likely was a component of CHF to her hypoxia CXR unremarkable upon admission however chest CT with atelectasis in right middle lobe and dependent portions of the bilateral lung-likely aspiration pneumonia -CT abdomen/pelvis with large stool ball with rectal wall thickening compatible with proctocolitis-could be a cause of fever. She has been moving her bowels since then -Dopplers of the lower extremities negative for DVT -Given significant hypoxia requiring 15 L oxygen mask, obtained CT angiogram of the chest negative for PE but does show bibasilar groundglass opacities which could be atelectasis versus aspiration pneumonia Febrile to 38.6 on arrival and now resolved with antibiotic therapy, however developed a fever again on 06/15 in the evening Covid negative Flu negative UA does not appear infected, urine culture no growth. Repeat urinalysis on 06/16 contaminated with epithelial cells but does not seem consistent with infection -Blood cultures-no growth to date. Repeated blood cultures again on 06/16 due to fevers Pro-Ghulam negative x2 -Fever on 06/15 and 06/16 may be due to atelectasis perhaps or recurrent aspiration pneumonia? 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 Acute kidney injury now improving and urine output picking up Initially requiring 15 L oxygen mask for several days in a row, but hypoxia continues to improve each day-down to 2-4 L nasal cannula today, is coughing more now and has trouble handling her secretions -Completed 6 days of IV Zosyn and 1 day of Augmentin for aspiration pneumonia- antibiotics now discontinued -Would not restart any antibiotics at this time given recurrent fevers until source can be identified -Continue supplemental O2 to keep pulse ox greater than 90-92% -Patient unable to cooperate for pulmonary toilet (2) Metabolic encephalopathy: Plan: Secondary to febrile illness, aspiration pneumonia, in the setting of severe dementia Was markedly improved for several days after initially being quite lethargic and somnolent, with agitated and violent outbursts Since 06/12, she is much more alert, awake, and interactive, speaking more clearly and at times able to give appropriate answers. Her son at the bedside on 06/13 says this is the most coherent she has been in over a year-he is cautiously optimistic, but we did discuss that this may only be a temporary effect of treatment for aspiration pneumonia Again on 06/15, her daughter is overwhelmed with the improvement in her mentation compared to how she has been for over the last year. However, on 06/16 and 06/17 with recurrent fevers-she has become more lethargic and agitated, less interactive again Greatest improvement in mentation possibly due to discontinuing her usual gabapentin and hydrocodone Recommend permanently discontinuing gabapentin and all opioids moving forward unless has severe pain not able to be treated with topical analgesics or Tylenol (3) CKD (chronic kidney disease) stage 3, GFR 30-59 ml/min: Plan: Follows with Nephrology With BELLE on CKD stage 3 secondary to IV diuresis, losartan use, and also received IV contrast for CTA Chest -bullet casting operator peaked at 3.64, BUN up to 73, now downtrending to 2.39 Previously was oliguric, but urine output improving Fractional excretion of sodium consistent with prerenal at 0.4%-this could be consistent with contrast-induced nephropathy or from overdiuresis - Chatterjee in place -Continue to hold lasix and aldactone -Continue to hold losartan -consult Nephro appreciated Baseline bullet casting operator 1.31.9 -Avoid nephrotoxins -renally dose meds when appropriate -follow BMP in the morning -Continue to encourage p.o. fluid intake which she is now doing very well with -discussed possibility of HD with daughter-no need for decision at this point but seems it would be inconsistent with goals of care and nephrology does not think she would be a good dialysis candidate due to severe dementia (4) Fever: Plan: As above, was resolved for 7 days, now returned on 06/15, and 06/17 Work-up as above Hold off on further antibiotics at this time (5) Dementia: Plan: Lewy body dementia Progressive, does not follow commands and struggles to express one-word at baseline, does recognize her daughter at baseline Discussed baseline function, progressive illness, current condition with daughter and son upon admission and again with palliative medicine -At this time, she remains a high aspiration risk and is unable to complete a full speech pathology evaluation, however with improvement in mental status on 06/13-we will ask speech therapy to reevaluate -Family agreeable to permissive aspiration-ordered a diet -Family also desires continued current care with IV antibiotics and oxygen therapy, okay to escalate to BiPAP/CPAP if respiratory status decompensates, but if cannot tolerate BiPAP/CPAP, then would convert to comfort measures only -Appreciate palliative medicine consultation (6) CHF (congestive heart failure): Plan: Acute on chronic diastolic CHF With 14 pound weight gain in last 2 weeks with peripheral edema Echocardiogram here with preserved EF proBNP elevated at 2282 Follows with [facility] cardiology Received Lasix 40 mg IV twice daily initially, edema is improving but remains significantly hypoxic Weight is down significantly since admission as above With acute kidney injury as above requiring a hold on diuretics Follow daily weights, strict I's and O's Monitor on telemetry (7) Edema: Plan: As above, likely secondary to CHF exacerbation Bilateral lower extremity venous Dopplers negative for DVT improved with diuresis Lower extremity edema is improving (8) Anemia: Plan: Hemoglobin low at 9.4-10.0 normocytic This is her baseline hemoglobin for at least the last 2 years B12, folate both normal, TSH normal Iron studies show iron deficiency with transferrin saturation low at 12% -Received IV Venofer x3 doses (9) CAD (coronary artery disease): Plan: On record review could not find evidence of this in her records including review of cardiology consultation and notes from 2018 Nonetheless, troponin is negative, EKG without evidence of acute ischemia Continue aspirin, holding losartan (10) Seizure disorder: Plan: Initially on IV Depakote, have since converted back to p.o. Depakote now that she is tolerating p.o. (11) Hypokalemia: Plan: Replaced and resolved (12) Constipation: Plan: Had fecal ball seen on CT abdomen/pelvis on admission Has now had multiple bowel movements since arrival and almost daily Plan: DVT prophylaxis: Heparin SQ Disposition-continued stay on telemetry, [facility] if renal failure improving. Appreciate palliative medicine consultation-as of 06/16, both palliative medicine and myself discussed the possibility of returning to [facility] and daughter is contemplating this 06/17: Initial goals of care had with son at bedside, pending additional family in this evening with ongoing discussion. Continue to observe as patient intermittently febrile with slightly worsened cognitive status, goals of care and dispo ongoing Admission and Anticipated Discharge Date Admission Date: June 09, 2021 Subjective Patient seen at bedside, sometimes nods to questions, and says no when asked if she is in pain otherwise does not offer spontaneous conversation or give consistent answers to questions. Seen at bedside with her son, discussed course of care. Family still deciding on hospice, remaining family will be coming in this evening to discuss goals of care. Other subjective not available by patient due to cognitive status Review of Systems Review of Systems: Unobtainable due to cognitive status Physical Exam Physical Exam: General: Alert, does not offer spontaneous conversation. Resting lip tremor present. Audible respiratory secretions. HEENT: Atraumatic, normocephalic. Pupils equal and reactive to light. Pulm: Diminished, diffusely coarse, audible tracheal secretions, scattered wheezes. Cardiac: RRR, -mrg. Radial pulses intact and symmetrical. Abdominal: Nontender, nondistended, soft. BS present. Extremities: Warm, dry. Does not follow commands to assess strength or sensation. Results & Data Results & Data ([facility]) Vital Signs (Past 12 Hours) Vital Signs Temp Pulse Pulse Resp BP BP Pulse Ox 06/17/21 15:45 37.6 C H 80 20 182/62 H 92 06/17/21 14:58 75 06/17/21 11:26 37.1 C 74 22 166/69 H 97 06/17/21 07:22 37.0 C 83 24 166/84 H 95 06/17/21 07:14 70 PG Care Time/CCT Total # of Minutes Spent Total Time Spent with Patient: Total time spent is greater than 50% in coordination of care (as documented) at patient's floor/unit and/or counseling patient: Coding Level of Care Code 84251 Subseq Hosp Care Lvl 2 Diagnoses Acute respiratory failure with hypoxia J96.01 Metabolic encephalopathy G93.41 CKD (chronic kidney disease) stage 3, GFR 30-59 ml/min N18.3 Fever R50.9 Fever type: unspecified Dementia F03.90 CHF (congestive heart failure) I50.9 Edema R60.9 Anemia D64.9 Anemia type: unspecified type CAD (coronary artery disease) I25.10 Seizure disorder G40.909 Hypokalemia E87.6 Constipation K59.00 (1) Fever Fever type: unspecified Qualified Code(s): R50.9 - Fever, unspecified (2) Anemia Anemia type: unspecified type Qualified Code(s): D64.9 - Anemia, unspecified
[2021-06-18 08:31] LABS: BUN Creatinine Ratio 29.6 (10-20); Calcium 8.8 mg/dl (8.5-10.1); Creatinine Clr Calc Pharmacy 28.8 ml/min; Est GFR (African American) 33.4 ml/min; Est GFR (Non-African American) 28.8 ml/min; Potassium 3.7 mmol/L (3.5-5.1)
[2021-06-18] MEDS: DIVALPROEX SODIUM SPRINKLE 125 MG CAP PO SCH ×3 (09:20→20:06)
[2021-06-18] MEDS: HEPARIN SOD 5,000 UNIT/0.5 ML VIAL SQ SCH ×2 (09:21→20:06)
[2021-06-18] MEDS: THIAMINE HCL 100 MG TAB PO SCH (09:21)
[2021-06-18] MEDS: ASPIRIN 81 MG ECTAB PO SCH (09:21)
--- NOTE | 2021-06-18 11:37 | Nephrology Progress Note ---
Date of Service June 18, 2021 Assessment & Plan (1) BELLE (acute kidney injury): Plan: * Oliguric BELLE, probable RAYMOND in the setting of ARB therapy. Cr is trending down (Cr 3.64-->1.6). UO 1100 cc yesterday. She is nearing her baseline function * Volume status and electrolyte balance are acceptable at this time * Poor dialysis candidate due to advanced dementia, poor functional status * Continue supportive care (2) Chronic kidney disease, stage 3a: Plan: * Baseline Cr 1.45 (3) HTN (hypertension): Plan: * Blood pressure is labile * Recommend avoiding RADHA/ARB due to recent episode of BELLE * Consider low dose Amlodipine (2.5 - 5 mg) to improve BP control (4) Dementia: Plan: * Advanced dementia with recurrent aspiration * Palliative care has met w/ family. Patient is DNR/DNI. BiPAP if needed. Plan is to return to [facility]. 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 Bolanos was evaluated in her hospital room this morning. She was alert and has a "wet" cough whenever she tries to talk. Review of Systems Review of Systems: Unobtainable due to cognitive status Physical Exam Constitutional: + ill appearing, + lethargic and + overweight Eyes: PERRL, conjunctivae normal, anicteric sclerae ENMT: external ear and nose normal, oropharynx normal Neck: trachea midline, no thyromegaly Respiratory: Auscultation: + rhonchi Cardiovascular: Rate/Rhythm: regular rate and regular rhythm Extremities: no edema Gastrointestinal (Abdomen): normal bowel sounds, soft, nontender, no hepatosplenomegaly Neurologic: awake Results & Data ([facility]) Vital Signs (Past 12 Hours) Vital Signs Temp Pulse Pulse Resp BP BP Pulse Ox 06/18/21 11:13 37.0 C 74 18 189/66 H 96 06/18/21 08:00 69 06/18/21 07:33 36.9 C 79 20 144/67 H 97 06/18/21 03:47 36.5 C 91 H 24 177/69 H 97 06/18/21 00:34 36.8 C 82 20 142/72 H 96 Laboratory Results Laboratory Tests 06/18/21 07:26 Sodium 146 H Potassium 3.7 Chloride 111 H Carbon Dioxide 30 BUN 48 H Creatinine 1.62 H D Glucose 94 PG Care Time/CCT Total # of Minutes Spent Total Time Spent with Patient: Total time spent is greater than 50% in coordination of care (as documented) at patient's floor/unit and/or counseling patient: Coding Level of Care Code 98793 Subseq Hosp Care Lvl 3 Diagnoses BELLE (acute kidney injury) N17.9 Chronic kidney disease, stage 3a N18.31 HTN (hypertension) I10 Hypertension type: essential hypertension Dementia F03.90 (1) HTN (hypertension) Hypertension type: essential hypertension Qualified Code(s): I10 - Essential (primary) hypertension
[2021-06-18] MEDS ORDERED: amLODIPine BESYLATE 5 MG TAB PO ONE ×2 (11:54→15:12)
--- NOTE | 2021-06-18 15:27 | Hospitalist Progress Note ---
Date of Service June 18, 2021 Assessment & Plan (1) Acute respiratory failure with hypoxia: Plan: This patient is an 86-year-old female with a history of severe progressive Lewy body dementia who presents with several days of worsening mental status, fever, and lethargy. She is almost completely nonverbal at baseline and high risk for aspiration. 06/18: Patient seen at bedside, appears at/near her likely baseline. Reviewed progression, care, and options extensively with son at bedside. Son appreciative of care, and would like to pursue [facility] services at this time. Discussed with watch caser, transport and logistics unable be set up for 06/18, anticipate will be ready 06/19. Patient has been hypertensive, she has discomfort with BP checks and becomes very tense when the cuff makes noises which may be artificially increasing somewhat. Her ARB was discontinued for BELLE, replaced with amlodipine. Discussed hypertension with son, will defer aggressive blood pressure treatment consistent with hospice goals of care. Would still like to continue some treatment with concern that high blood pressure may contribute to confusion. We will continue amlodipine, for additional antihypertensive treatment at this time. Acute hypoxic respiratory failure, fever-most likely secondary to aspiration pneumonia and acute on chronic diastolic CHF -She was 14 pounds up from her baseline weight on admission and had significant peripheral edema-there likely was a component of CHF to her hypoxia CXR unremarkable upon admission however chest CT with atelectasis in right middle lobe and dependent portions of the bilateral lung-likely aspiration pneumonia -CT abdomen/pelvis with large stool ball with rectal wall thickening compatible with proctocolitis-could be a cause of fever. She has been moving her bowels since then -Dopplers of the lower extremities negative for DVT -Given significant hypoxia requiring 15 L oxygen mask, obtained CT angiogram of the chest negative for PE but does show bibasilar groundglass opacities which could be atelectasis versus aspiration pneumonia Febrile to 38.6 on arrival and now resolved with antibiotic therapy Covid negative Flu negative UA does not appear infected, urine culture no growth. Repeat urinalysis on 06/16 contaminated with epithelial cells but does not seem consistent with infection -Blood cultures-no growth to date. Repeated blood cultures again on 06/16 due to fevers Pro-Ghulam negative x2 -Fever on 06/15 and 06/16 may be due to atelectasis perhaps or recurrent aspiration pneumonia? -Hold off on further antibiotics at this time is already completed 7 days of Zosyn and Augmentin Initially requiring 15 L oxygen mask for several days in a row, but hypoxia continues to improve each day-down to 2-4 L nasal cannula today, is coughing more now and has trouble handling her secretions -Completed 6 days of IV Zosyn and 1 day of Augmentin for aspiration pneumonia- antibiotics now discontinued -Would not restart any antibiotics at this time -Continue supplemental O2 to keep pulse ox greater than 90-92% -Patient unable to cooperate for pulmonary toilet (2) Metabolic encephalopathy: Plan: Secondary to febrile illness, aspiration pneumonia, in the setting of severe dementia Was markedly improved for several days after initially being quite lethargic and somnolent, with agitated and violent outbursts Since 06/12, she is much more alert, awake, and interactive, speaking more clearly and at times able to give appropriate answers. Her son at the bedside on 06/13 says this is the most coherent she has been in over a year-he is cautiously optimistic, but we did discuss that this may only be a temporary effect of treatment for aspiration pneumonia Again on 06/15, her daughter is overwhelmed with the improvement in her mentation compared to how she has been for over the last year. However, on 06/16 and 06/17 decline in mental status 06/18 appears back at similar baseline to what was described at [facility]. Patient does not appear toxic or in distress, is not as coherent as she was on 06/13. See above for goals. 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 fluid intake which she is now doing very well with (4) Fever: Plan: As above, was resolved for 7 days, now returned on 06/15, and 06/17 Work-up as above Hold off on further antibiotics at this time (5) Dementia: Plan: Lewy body dementia Progressive, does not follow commands and struggles to express one-word at baseline, does recognize her daughter at baseline Discussed baseline function, progressive illness, current condition with daughter and son upon admission and again with palliative medicine -At this time, she remains a high aspiration risk and is unable to complete a full speech pathology evaluation, however with improvement in mental status on 06/13-we will ask speech therapy to reevaluate -Family agreeable to permissive aspiration-ordered a diet -Family also desires continued current care with IV antibiotics and oxygen therapy. BiPAP/CPAP has not been required. Pursuing [facility] to [facility]. (6) CHF (congestive heart failure): Plan: Acute on chronic diastolic CHF With 14 pound weight gain in last 2 weeks with peripheral edema Echocardiogram here with preserved EF proBNP elevated at 2282 Follows with [facility] cardiology Received Lasix 40 mg IV twice daily initially, edema is improving but remains significantly hypoxic Weight is down significantly since admission as above With acute kidney injury as above requiring a hold on diuretics Follow daily weights, strict I's and O's Monitor on telemetry (7) Edema: Plan: As above, likely secondary to CHF exacerbation Bilateral lower extremity venous Dopplers negative for DVT improved with diuresis Lower extremity edema is improving (8) Anemia: Plan: Hemoglobin low at 9.4-10.0 normocytic This is her baseline hemoglobin for at least the last 2 years B12, folate both normal, TSH normal Iron studies show iron deficiency with transferrin saturation low at 12% -Received IV Venofer x3 doses (9) CAD (coronary artery disease): Plan: On record review could not find evidence of this in her records including review of cardiology consultation and notes from 2018 Nonetheless, troponin is negative, EKG without evidence of acute ischemia Continue aspirin, holding losartan (10) Seizure disorder: Plan: Initially on IV Depakote, have since converted back to p.o. Depakote now that she is tolerating p.o. (11) Hypokalemia: Plan: Replaced and resolved (12) Constipation: Plan: Had fecal ball seen on CT abdomen/pelvis on admission Has now had multiple bowel movements since arrival and almost daily Plan: DVT prophylaxis: Heparin SQ Disposition-continued stay on telemetry, eventually back to [facility] if renal failure improving. Appreciate palliative medicine consultation-as of 06/16, both palliative medicine and myself discussed the possibility of returning to [facility] with hospice and daughter is contemplating this 06/17: Initial goals of care had with son at bedside, pending additional family in this evening with ongoing discussion. Continue to observe as patient intermittently febrile with slightly worsened cognitive status, goals of care and dispo ongoing 06/18: Goal discharge does not occur with hospice services Admission and Anticipated Discharge Date Admission Date: June 09, 2021 Subjective Seen at bedside with son. Clinically unchanged from prior, continues to have secretions. No obvious distress at rest. Discussed goals of care with son at bedside. Discussed risk/benefits of permissive aspiration and Hospice care. Son would like to pursue hospice with discharge to [facility] at this time. Review of Systems Review of Systems: Unobtainable due to cognitive status Physical Exam Physical Exam: General: Alert, does not offer spontaneous conversation. Resting lip tremor present. Audible respiratory secretions. HEENT: Atraumatic, normocephalic. Pupils equal and reactive to light. Pulm: Diminished, diffusely coarse, audible tracheal secretions, scattered wheezes. Cardiac: RRR, -mrg. Radial pulses intact and symmetrical. Abdominal: Nontender, nondistended, soft. BS present. Extremities: Warm, dry. Does not follow commands to assess strength or sensation. Results & Data Results & Data ([facility]) Vital Signs (Past 12 Hours) Vital Signs Temp Pulse Pulse Resp BP BP Pulse Ox 06/18/21 11:13 37.0 C 74 18 189/66 H 96 06/18/21 08:00 69 06/18/21 07:33 36.9 C 79 20 144/67 H 97 06/18/21 03:47 36.5 C 91 H 24 177/69 H 97 PG Care Time/CCT Total # of Minutes Spent Total Time Spent with Patient: Total time spent is greater than 50% in coordination of care (as documented) at patient's floor/unit and/or counseling patient: Coding Level of Care Code 14736 Subseq Hosp Care Lvl 2 Diagnoses Acute respiratory failure with hypoxia J96.01 Metabolic encephalopathy G93.41 CKD (chronic kidney disease) stage 3, GFR 30-59 ml/min N18.3 Fever R50.9 Fever type: unspecified Dementia F03.90 CHF (congestive heart failure) I50.9 Edema R60.9 Anemia D64.9 Anemia type: unspecified type CAD (coronary artery disease) I25.10 Seizure disorder G40.909 Hypokalemia E87.6 Constipation K59.00 (1) Fever Fever type: unspecified Qualified Code(s): R50.9 - Fever, unspecified (2) Anemia Anemia type: unspecified type Qualified Code(s): D64.9 - Anemia, unspecified
--- NOTE | 2021-06-19 07:02 | Discharge Summary ---
Date of Service June 19, 2021 Admission HPI Per Admitting Provider Nonverbal DNR dementia from [facility] Declined mental status 4x5 days. Sat 80s, no home o2 req CXR naf COVID/Flu negative CT-C pending Cefepime in ER Daughter at bedside Per daughter: Patient was at [facility]. Beginning alst Thursday sounded like ashley shawin a cold. He daughte is asthmatic an dthinks her mom sounded similar to when she has a flare. her daughter notes wheezing. Had a neb at the time, did not hear any other information. Thursday sounded worse with gagging and sounding worse. 1 day ago seemed wose and lethagic and unable to clear secretions. This morning developed a fever. Lewy Body dementia 2 years last year 'hell'. Went from playing cards and driving at baseline to severe debilitation over last 2 years. Recognizes her daughter. Minimally verbal at baseline, hard time getting out one word. Does not usually follow commands. Seeing a flight control manager for CHF, up 14 lbs today from he baseline. Is on furosemide for fluid at baseline. Spent 2 years trying to get under control, was briefly under control, and starting wosening in the last few weeks. Extensive discussion regarding baseline level of function which was Lewy body dementia which did not follow commands almost completely nonverbal at baseline and high risk for aspiration. Her daughter and son recognize she has a progressive illness, and her current acute illness may cause her to diminish from her prior baseline. Discussed palliative care and hospice option given her advanced disease, daughter appreciative of this but does not feel ready for this yet. Would like to continue broad antibiotic treatment, and diagnostic work-up. Medical History: Reviewed Medications: Reviewed Surgical History: Reviewed Allergies: Reviewed Social History: No tobacco, alcohol, recreational drug use. Code Status: DNR/DNI. Daughter recognizes that she would want these things done, but her mother had expressed clearly she would not want resuscitation or intubation when she was of clear mind. Admission Exam Per Admitting Provider General: Warm, slightly clammy. Audible respiratory secretions. Patient opens eyes to vigorous touch of shoulder, does not offer spontaneous conversation. HEENT: Atraumatic, normocephalic. Pupils equal and reactive to light. Pulm: Diminished, diffusely coarse, audible tracheal secretions, scattered wheezes. Cardiac: RRR, -mrg. Radial pulses intact and symmetrical. Abdominal: Nontender, nondistended, soft. BS present. Extremities: Warm, dry. Does not follow commands to assess strength or s ensation. Withdraws to fingernail pinch of right thumb. Principal Diagnosis Lewy body dementia Aspiration pneumonia Discharge Exam General: Alert, does not offer spontaneous conversation. Resting lip tremor present. Audible respiratory secretions. HEENT: Atraumatic, normocephalic. Pupils equal and reactive to light. Pulm: Diminished, diffusely coarse, audible tracheal secretions, scattered wheezes. Cardiac: RRR, -mrg. Radial pulses intact and symmetrical. Abdominal: Nontender, nondistended, soft. BS present. Extremities: Warm, dry. Does not follow commands to assess strength or sensation. Discharge Data Allergies Allergy/AdvReac Type Severity Reaction Status Date / Time iodine Allergy Unknown Unknown Verified 06/09/21 14:23 memantine Allergy Unknown Unknown Verified 06/09/21 14:23 pantoprazole Allergy Unknown Unknown Verified 06/09/21 14:23 shellfish derived Allergy Unknown Unknown Verified 06/09/21 14:23 crab Allergy Gastrointestinal Verified 06/09/21 14:23 Upset Consultations 06/09/21 14:32 ED Decision to Admit Stat 06/10/21 10:31 Consult Palliative Care Routine 06/14/21 09:54 Consult Nephrology Routine Ordered Studies 06/09/21 14:26 CT abd pelvis wo con Stat CT chest diagnostic wo con Stat 06/10/21 12:22 US venous doppler LE BI Stat 06/10/21 17:08 CT angio chest PE protocol Urgent Hospital Course (1) Acute respiratory failure with hypoxia: This patient is an 86-year-old female with a history of severe progressive Lewy body dementia who presents with several days of worsening mental status, fever, and lethargy. She was treated for aspiration pneumonia as noted below, and had a brief period of cognitive clearing before returning to a baseline of alert but generally nonverbal. Goals of care were discussed extensively as noted below with family/POA and following treatment for aspiration pneumonia patient [facility] and permissive aspiration. Summary: Chela was admitted and found to have aspiration pneumonia and acute on chronic CHF. She is treated with diuresis and antibiotics and improved. Following discontinuation of narcotics and gabapentin she had a brief period of cognitive clearing, before returning to a alert but nearly nonverbal baseline. Remained stable during hospitalization, continue to have persistent difficulty clearing secretions with abnormal swallow mechanics. The progressive nature of Lewy body disease in her current medical condition was discussed in detail with family/POA. On shared decision making patient enrolled in hospice to pursue hospice care goals at [facility] & permissive aspiration. She is clinically near her prior baseline at discharge. Acute hypoxic respiratory failure, fever-most likely secondary to aspiration pneumonia and acute on chronic diastolic CHF -She was 14 pounds up from her baseline weight on admission and had significant peripheral edema-there likely was a component of CHF to her hypoxia CXR unremarkable upon admission however chest CT with atelectasis in right middle lobe and dependent portions of the bilateral lung-likely aspiration pneumonia -CT abdomen/pelvis with large stool ball with rectal wall thickening compatible with proctocolitis-could be a cause of fever. She has been moving her bowels since then -Dopplers of the lower extremities negative for DVT -Given significant hypoxia requiring 15 L oxygen mask, obtained CT angiogram of the chest negative for PE but does show bibasilar groundglass opacities which could be atelectasis versus aspiration pneumonia Febrile to 38.6 on arrival and now resolved with antibiotic therapy Covid negative Flu negative UA dids not appear infected, urine culture no growth. Repeat urinalysis on 06/16 contaminated with epithelial cells but does not seem consistent with infection -Blood cultures-no growth to date. Repeated blood cultures again on 06/16 due to fevers Pro-Ghulam negative x2 -Fever on 06/15 and 06/16, resolved -Hold off on further antibiotics at this time is already completed 7 days of Zosyn and Augmentin Initially requiring 15 L oxygen mask for several days in a row, but hypoxia continues to improve each day-down to 2-4 L nasal cannula today, is coughing more now and has trouble handling her secretions -Completed 6 days of IV Zosyn and 1 day of Augmentin for aspiration pneumonia- antibiotics now discontinued -Would not restart any antibiotics at this time -Continue supplemental O2 to keep pulse ox greater than 90-92% -Patient unable to cooperate for pulmonary toilet (2) Metabolic encephalopathy: Secondary to febrile illness, aspiration pneumonia, in the setting of severe dementia Was markedly improved for several days after initially being quite lethargic and somnolent, with agitated and violent outbursts Since 06/12, she is much more alert, awake, and interactive, speaking more clearly and at times able to give appropriate answers. Her son at the bedside on 06/13 says this is the most coherent she has been in over a year-he is cautiously optimistic, but we did discuss that this may only be a temporary effect of treatment for aspiration pneumonia Again on 06/15, her daughter is overwhelmed with the improvement in her mentation compared to how she has been for over the last year. However, on 06/16 and 06/17 decline in mental status 06/18 appears back at similar baseline to what [facility]. Patient does not appear toxic or in distress, is not as coherent as she was on 06/13. See above for goals. Greatest improvement in mentation possibly due to discontinuing her usual gabapentin and hydrocodone Recommend permanently discontinuing gabapentin and all opioids moving forward unless has severe pain not able to be treated with topical analgesics or Tylenol Discharged to hospice services at [facility] 06/19 (3) CKD (chronic kidney disease) stage 3, GFR 30-59 ml/min: Follows with Nephrology With [facility] on CKD stage 3 secondary to IV diuresis, losartan use, and also received IV contrast for CTA Chest -is architect peaked at 3.64, BUN up to 73, now downtrending to 2.39 Defer additional checks consistent with hospice goals of care Previously was oliguric, but urine output improving Fractional excretion of sodium consistent with prerenal at 0.4%-this could be consistent with contrast-induced nephropathy or from overdiuresis - Chatterjee in place -Continue to hold lasix and aldactone -Continue to hold losartan -consult Nephro appreciated Baseline is architect 1.31.9 -Avoid nephrotoxins -renally dose meds when appropriate -follow BMP in the morning -Continue to encourage p.o. fluid intake which she is now doing very well with (4) Fever: As above, was resolved for 7 days, now returned on 06/15, and 06/17 Work-up as above Hold off on further antibiotics at this time (5) Dementia: Lewy body dementia Progressive, does not follow commands and struggles to express one-word at baseline, does recognize her daughter at baseline Discussed baseline function, progressive illness, current condition with rodney story and son upon admission and again with palliative medicine -At this time, she remains a high aspiration risk and is unable to complete a full speech pathology evaluation -Family agreeable to permissive aspiration-ordered a diet -Family also desires continued current care with IV antibiotics and oxygen therapy. BiPAP/CPAP has not been required. [facility] as noted above (6) CHF (congestive heart failure): Acute on chronic diastolic CHF With 14 pound weight gain in last 2 weeks with peripheral edema Echocardiogram here with preserved EF proBNP elevated [place] [address] [facility] cardiology Received Lasix 40 mg IV twice daily initially, edema is improved but remains significantly hypoxic Weight is down significantly since admission as above With acute kidney injury as above requiring a hold on diuretics Follow daily weights, strict I's and O's Monitor on telemetry (7) Edema: As above, likely secondary to CHF exacerbation Bilateral lower extremity venous Dopplers negative for DVT improved with diuresis Lower extremity edema is improving (8) Anemia: Hemoglobin low at 9.4-10.0 normocytic This is her baseline hemoglobin for at least the last 2 years B12, folate both normal, TSH normal Iron studies show iron deficiency with transferrin saturation low at 12% -Received IV Venofer x3 doses (9) CAD (coronary artery disease): On record review could not find evidence of this in her records including review of cardiology consultation and notes from 2018 Nonetheless, troponin is negative, EKG without evidence of acute ischemia Continue aspirin, holding losartan (10) Seizure disorder: Initially on IV Depakote, have since converted back to p.o. Depakote now that she is tolerating p.o. (11) Hypokalemia: Replaced and resolved (12) Constipation: Had fecal ball seen on CT abdomen/pelvis on admission Has now had multiple bowel movements since arrival and almost daily Total Time Total Time Spent Total Time Spent (In Minutes): 35 minutes including direct patient care, documentation, review of labs and images, and coordination of care. Discharge Plan Discharge Items Patient Disposition: Hospice - Medical Facility Reason For Visit: AHRF, FEVER Discharge Diagnosis: Aspiration Pneumonia Lewy Body Dementia Condition on Discharge: Fair Activity: Per Instructions section Non-emergency contact: Primary Care Provider Call non-emergency contact if: you have any medication questions, your symptoms worsen, your pain is not controlled and your pain is worsening Follow-up/Referrals: [facility] [Primary Care Provider] - Diet: Regular Addtl Attending Provider Instructions: Chela is seen in the hospital and found to have Lewy body dementia and aspiration pneumonia. During admission she was treated for pneumonia, had some initial cognitive clearing and then returned to her baseline similar to what she had shown prior to admission. Her symptoms were consistent with advanced Lewy body dementia with recurrent aspiration and aspiration pneumonia. She showed difficulty clearing secretions throughout admission. Risk benefits of treatment options were reviewed at bedside, and the decision was made to return to [facility] with hospice services. Due to kidney injury loses losartan and spironolactone have been stopped. A blood pressure medicine amlodipine was started, however liberalized blood pressure control was discussed in conjunction with hospice. Amlodipine 5 mg daily has been continued on discharge concerned that severe hypertension can affect cognitive status, however additional and aggressive blood pressure management was not recommended. If side effects are experienced in his medication including leg swelling or orthostasis, it may be reasonable to discontinue blood pressure checks altogether consistent with hospice care goals and discontinue medication with long-term benefits to reduce pill burden. Please discuss this further with your hospice provider Due to concern for its effect on mental status, and the patient having consistent chronic pain during admission, hydrocodoneacetaminophen and gabapentin have both been stopped. Please do not take these medications upon returning to [facility]. The treatment of pain with narcotic medications consistent with hospice goals of care was discussed extensively with family, per that discussion they would like pain medicine including potential narcotic use to be used for persistent and chronic pain, however for brief transient pain (patient has some discomfort sometimes with squeezing extremities, blood p ressure checks, etc. that rapidly passes) they would not like such medication used. Chela showed evidence of aspiration pneumonia during admission. She was treated with a course of antibiotics, and no additional antibiotics were indicated at discharge. It is likely she will continue to aspirate due to difficulty with secretions and poor swallow mechanics. Permissive aspiration was discussed, and was decided to be pursued along with hospice goals of care at discharge. If you develop any new or worsening symptoms including fever, chills, sweats, chest pain, chest pressure, difficulty breathing, uncontrolled nausea/vomiting, rash, wheezing, passing out or nearly passing out, bleeding, black/bloody bowel movements, or other new or concerning symptoms please call your primary care physician or hospice provider, or call 911 for re-evaluation in the emergency department if you are very concerned. Pending Studies at Discharge: No Stand-Alone Forms: My [facility] Skilled Items Patient informed of condition?: Yes DNR: Yes Discharge Level of Care: Skilled Communicable Disease: No Discharge Prognosis: Stable Lines: None Urinary Catheter: No Medications and DC Order Prescriptions: New amlodipine [Norvasc] 5 mg Tablet 5 mg PO QAM Qty: 30 RF: 0 Continued divalproex 125 mg capsule, delayed rel sprinkle 250 mg PO TID RF: 0 docusate sodium 100 mg tablet 200 mg PO DAILY RF: 0 furosemide 40 mg tablet 40 mg PO BID RF: 0 acetaminophen [Tylenol] 325 mg tablet 650 mg PO Q6H PRN (Reason: pain) RF: 0 estradiol [Vagifem] 10 mcg tablet 10 mcg vaginal 2XWK RF: 0 allopurinol 100 mg tablet 100 mg PO DAILY RF: 0 multivitamin [Daily-Valorie] Tablet 1 tab PO QPM RF: 0 ascorbic acid (vitamin C) [Vitamin C] 500 mg tablet 500 mg PO BID RF: 0 bisacodyl 10 mg Suppository 10 mg NV DAILY PRN (Reason: Constipation) RF: 0 Fleet Enema 19-7 gram/118 mL Enema 118 ml NV DAILY PRN (Reason: Constipation) RF: 0 cranberry 500 mg Capsule 500 mg PO DAILY RF: 0 Acidophilus Tablet,Chewable 1 tab PO DAILY RF: 0 aspirin 81 mg Tablet,Chewable 81 mg PO DAILY RF: 0 ipratropium-albuterol 0.5 mg-3 mg(2.5 mg base)/3 mL solution for nebulization 3 ml INHALATION QID PRN (Reason: Shortness Of Breath Or Wheezing) RF: 0 Discontinued gabapentin 100 mg capsule 100 mg PO TID RF: 0 hydrocodone-acetaminophen 5-325 mg tablet 1 tab PO BID RF: 0 spironolactone 25 mg tablet 12.5 mg PO DAILY RF: 0 losartan 100 mg Tablet 100 mg PO DAILY RF: 0 Discharge Orders: Discharge Order (Routine); Ordered 06/19/21 Ordered By: Danyel Early Admission Data Admit Date/Time: 06/09/21 15:17 Attending Provider: Danyel Early Admit Provider: Danyel Early Primary Care Provider: [facility] Other Providers: Danyel Early ; Mary Olsen ; Landry Nuno Coding Level of Care Code D/C DAY MANAGEMENT >30 MINS Diagnoses Acute respiratory failure with hypoxia J96.01 Metabolic encephalopathy G93.41 CKD (chronic kidney disease) stage 3, GFR 30-59 ml/min N18.3 Fever R50.9 Fever type: unspecified Dementia F03.90 CHF (congestive heart failure) I50.9 Edema R60.9 Anemia D64.9 Anemia type: unspecified type CAD (coronary artery disease) I25.10 Seizure disorder G40.909 Hypokalemia E87.6 Constipation K59.00
[2021-06-19] MEDS ORDERED: amLODIPine BESYLATE 5 MG TAB PO SCH ×2 (09:00)
[2021-06-19] MEDS: DIVALPROEX SODIUM SPRINKLE 125 MG CAP PO SCH (10:14)
[2021-06-19] MEDS: HEPARIN SOD 5,000 UNIT/0.5 ML VIAL SQ SCH (10:15)
[2021-06-19] MEDS: THIAMINE HCL 100 MG TAB PO SCH (10:16)
[2021-06-19] MEDS: ASPIRIN 81 MG ECTAB PO SCH (10:17)
== END 2021-06-19 12:15 | disposition hospice, inpatient (51) | DRG 177 ==
LOC: ED 11:47 → 2W 15:17 → SUATTDRO 15:17 → 2W 16:40